=== PATIENT | male | born 1945 | race Caucasian/White ===

== ENCOUNTER 2016-09-07 17:37 | Inpatient (IN) | payer OTHER, MEDICARE ==
--- NOTE | 2016-09-07 19:12 | XR ---
EXAMINATION TYPE: XR chest 2V DATE OF EXAM: 09/07/2016 6:49 PM COMPARISON: NONE HISTORY: Difficulty breathing TECHNIQUE: Frontal and lateral views of the chest are obtained. FINDINGS: There is pulmonary vascular congestion. Heart appears slightly enlarged. There is very sli ght blunting of costophrenic angles. Exam is limited by the obesity. IMPRESSION: There is evidence for mild heart failure. No pulmonary consolidation.
[2016-09-07 19:18] LABS: Basophils % (A) 0 %; CH 29.8; CHCM 31.8; Eosinophils # (A) 0.1 k/uL (0-0.7); Eosinophils % (A) 3 %; HCT 49.3 % (39.0-53.0); HDW 2.46; HGB 15.3 gm/dL (13.0-17.5); Luc # (Auto) 0.06; Luc % (Auto) 1; Lymphocytes # (A) 0.9 k/uL (1.0-4.8); Lymphocytes % (A) 21 %; MCH 29.2 pg (25.0-35.0); MCHC 31.1 g/dL (31.0-37.0); MCV 93.9 fL (80.0-100.0); Mean Platelet Volume 9.8; Monocytes # (A) 0.4 k/uL (0-1.0); Monocytes % (A) 8 %; Neutrophils # (A) 3.1 k/uL (1.3-7.7); Neutrophils % (A) 67 %; RBC 5.25 m/uL (4.30-5.90); RDW 13.5 % (11.5-15.5); WBC 4.6 k/uL (3.8-10.6)
[2016-09-07 19:32] LABS: ALT 40 U/L (21-72); AST 44 U/L (17-59); Alkaline Phosphatase 77 U/L (38-126); Anion Gap 10 mmol/L; Blood Urea Nitrogen 14 mg/dL (9-20); Calcium 8.4 mg/dL (8.4-10.2); Carbon Dioxide 29 mmol/L (22-30); Chloride 104 mmol/L (98-107); Glucose 118 mg/dL (74-99); Magnesium 1.8 mg/dL (1.6-2.3); Non-African American GFR(MDRD) >60 (>60 ml/min/1.73 sqM); Partial Thromboplastin Time 32.1 sec (22.0-30.0); Sodium 143 mmol/L (137-145); Total Bilirubin 2.1 mg/dL (0.2-1.3); Total Protein 7.3 g/dL (6.3-8.2)
[2016-09-07 19:39] LABS: Potassium 6.2 mmol/L (3.5-5.1)
[2016-09-07 19:42] LABS: Prothrombin Time 54.8 sec (9.0-12.0)
[2016-09-07 19:50] LABS: INR 5.5 (<1.1)
[2016-09-07] MEDS ORDERED: SODIUM POLYSTYRENE SULFONATE 15 GM/60 ML BOTTLE PO STA (20:03)
[2016-09-07] MEDS ORDERED: ONDANSETRON 4 MG/2 ML VIAL IVP PRN (20:22)
[2016-09-07] MEDS ORDERED: NALOXONE 0.4 MG/ML 1 ML VIAL IV PRN (20:22)
[2016-09-07] MEDS ORDERED: MORPHINE SULFATE 4 MG/ML SYRINGE IV PRN (20:22)
--- NOTE | 2016-09-07 20:22 | ED ---
SOB HPI - General Chief Complaint: Shortness of Breath Stated Complaint: SOB Time Seen by Provider: 09/07/16 18:17 Source: patient Mode of arrival: wheelchair Limitations: no limitations - History of Present Illness Initial Comments: Patient complains of shortness of breath. His symptoms have been off and on for some time. He does have chronic swelling the legs. He also has a history of atrial fibrillation for which she takes Coumadin. Patient states that yesterday the shortness of breath became acutely worse. He has no fevers or chills. He has no chest pain. He has no belly pain. He has no back pain. He has taken no specific medication for the shortness of breath. He was not doing anything when he began to feel this way. He has no lightheadedness or dizziness. Patient states that the shortness of breath is fairly bad just while sitting, however if he gets up to walk around he is immediately dyspneic. He is only able to take a few steps before he becomes severely short of breath. - Related Data Home Medications Medication Instructions Recorded Confirmed Celecoxib [CeleBREX] 200 mg PO HS 07/07/16 09/07/16 Warfarin [Coumadin] 5 mg PO SUMOWEFR 07/07/16 09/07/16 Warfarin [Coumadin] 7.5 mg PO TUTHSA 07/07/16 09/07/16 Furosemide [Lasix] 40 mg PO DAILY 09/07/16 09/07/16 Potassium Chloride [Klor-Con 10] 20 meq PO DAILY 09/07/16 09/07/16 Previous Rx's Medication Instructions Recorded Cephalexin [Keflex] 500 mg PO Q6HR #40 cap 09/02/16 Allergies Allergy/AdvReac Type Severity Reaction Status Date / Time No Known Allergies Allergy Verified 09/07/16 18:22 Review of Systems ROS Statement: Those systems with pertinent positive or pertinent negative responses have been documented in the HPI. ROS Other: All systems not noted in ROS Statement are negative. Past Medical History Past Medical History: Atrial Fibrillation, Cancer, Deep Vein Thrombosis (DVT), Osteoarthritis (OA), Vascular Disorder Additional Past Medical History / Comment(s): HX of DVT ', basal cell carcinoma to arm 2014, venous stasis ulcers both legs History of Any Multi-Drug Resistant Organisms: None Reported Past Surgical History: Tonsillectomy Additional Past Surgical History / Comment(s): skin CA wrist Past Anesthesia/Blood Transfusion Reactions: No Reported Reaction Past Psychological History: No Psychological Hx Reported Smoking Status: Never smoker Past Alcohol Use History: Occasional Past Drug Use History: None Reported - Past Family History Father Family Medical History: Cancer Mother Family Medical History: No Reported History General Exam Limitations: no limitations General appearance: alert, in no apparent distress Head exam: Present: atraumatic, normocephalic, normal inspection Eye exam: Present: normal appearance, PERRL, EOMI. Absent: scleral icterus, conjunctival injection, periorbital swelling ENT exam: Present: normal exam, mucous membranes moist Neck exam: Present: normal inspection. Absent: tenderness, meningismus, lymphadenopathy Respiratory exam: Present: normal lung sounds bilaterally. Absent: respiratory distress, wheezes, rales, rhonchi, stridor Cardiovascular Exam: Present: regular rate, normal rhythm, normal heart sounds. Absent: systolic murmur, diastolic murmur, rubs, gallop, clicks GI/Abdominal exam: Present: soft, normal bowel sounds. Absent: distended, tenderness, guarding, rebound, rigid Extremities exam: Present: normal inspection, full ROM, normal capillary refill. Absent: tenderness, pedal edema, joint swelling, calf tenderness Back exam: Present: normal inspection Neurological exam: Present: alert, oriented X3, CN II-XII intact Psychiatric exam: Present: normal affect, normal mood Skin exam: Present: warm, dry, intact, normal color. Absent: rash Course Vital Signs 09/07/16 09/07/16 09/07/16 18:00 18:20 19:07 Temperature 97.4 F L Pulse Rate 50 L 58 L Respiratory 22 24 20 Rate Blood Pressure 183/145 141/85 O2 Sat by Pulse 91 L 92 L Oximetry 09/07/16 19:57 Temperature Pulse Rate 137 H Respiratory 20 Rate Blood Pressure 146/100 O2 Sat by Pulse 98 Oximetry Medical Decision Making - Medical Decision Making Patient presents with shortness of breath. I obtained a 2 view chest x-ray which is consistent with heart failure, demonstrating significant pulmonary vascular congestion. There is no infiltrate. Laboratory studies are interpreted by me showing elevated potassium slightly give the patient 30 g Kayexalate by mouth. Patient's INR is significantly elevated, however he has no active bleeding at this time. Overall the patient is not stable for discharge and will be admitted to the hospital. - Lab Data Result diagrams: 09/07/16 18:54 09/07/16 18:54 Lab Results 09/07/16 09/07/16 09/07/16 Range/Units 18:54 18:54 18:54 WBC 4.6 (3.8-10.6) k/uL RBC 5.25 (4.30-5.90) m/uL Hgb 15.3 (13.0-17.5) gm/dL Hct 49.3 (39.0-53.0) % MCV 93.9 (80.0-100.0) fL MCH 29.2 (25.0-35.0) pg MCHC 31.1 (31.0-37.0) g/dL RDW 13.5 (11.5-15.5) % Plt Count 126 L (150-450) k/uL Neutrophils % 67 % Lymphocytes % 21 % Monocytes % 8 % Eosinophils % 3 % Basophils % 0 % Neutrophils # 3.1 (1.3-7.7) k/uL Lymphocytes # 0.9 L (1.0-4.8) k/uL Monocytes # 0.4 (0-1.0) k/uL Eosinophils # 0.1 (0-0.7) k/uL Basophils # 0.0 (0-0.2) k/uL PT (9.0-12.0) sec INR (<1.1) APTT (22.0-30.0) sec Sodium 143 (137-145) mmol/L Potassium 6.2 H* (3.5-5.1) mmol/L Chloride 104 (98-107) mmol/L Carbon Dioxide 29 (22-30) mmol/L Anion Gap 10 mmol/L BUN 14 (9-20) mg/dL Creatinine 0.65 L (0.66-1.25) mg/dL Est GFR (MDRD) Af Amer >60 (>60 ml/min/1.73 sqM) Est GFR (MDRD) Non-Af >60 (>60 ml/min/1.73 sqM) Glucose 118 H (74-99) mg/dL Calcium 8.4 (8.4-10.2) mg/dL Magnesium 1.8 (1.6-2.3) mg/dL Total Bilirubin 2.1 H (0.2-1.3) mg/dL AST 44 (17-59) U/L ALT 40 (21-72) U/L Alkaline Phosphatase 77 (38-126) U/L Troponin I (0.000-0.034) ng/mL NT-Pro-B Natriuret Pep 834 pg/mL Total Protein 7.3 (6.3-8.2) g/dL Albumin 3.5 (3.5-5.0) g/dL 09/07/16 09/07/16 Range/Units 18:54 18:54 WBC (3.8-10.6) k/uL RBC (4.30-5.90) m/uL Hgb (13.0-17.5) gm/dL Hct (39.0-53.0) % MCV (80.0-100.0) fL MCH (25.0-35.0) pg MCHC (31.0-37.0) g/dL RDW (11.5-15.5) % Plt Count (150-450) k/uL Neutrophils % % Lymphocytes % % Monocytes % % Eosinophils % % Basophils % % Neutrophils # (1.3-7.7) k/uL Lymphocytes # (1.0-4.8) k/uL Monocytes # (0-1.0) k/uL Eosinophils # (0-0.7) k/uL Basophils # (0-0.2) k/uL PT 54.8 H (9.0-12.0) sec INR 5.5 H* (<1.1) APTT 32.1 H (22.0-30.0) sec Sodium (137-145) mmol/L Potassium (3.5-5.1) mmol/L Chloride (98-107) mmol/L Carbon Dioxide (22-30) mmol/L Anion Gap mmol/L BUN (9-20) mg/dL Creatinine (0.66-1.25) mg/dL Est GFR (MDRD) Af Amer (>60 ml/min/1.73 sqM) Est GFR (MDRD) Non-Af (>60 ml/min/1.73 sqM) Glucose (74-99) mg/dL Calcium (8.4-10.2) mg/dL Magnesium (1.6-2.3) mg/dL Total Bilirubin (0.2-1.3) mg/dL AST (17-59) U/L ALT (21-72) U/L Alkaline Phosphatase (38-126) U/L Troponin I <0.012 (0.000-0.034) ng/mL NT-Pro-B Natriuret Pep pg/mL Total Protein (6.3-8.2) g/dL Albumin (3.5-5.0) g/dL 09/07/16 20:19 Twelve-lead EKG is obtained, interpreted by me as showing ventricular rate 82 bpm, slightly prolonged CA interval, normal QRS complexes with no ST elevation or depression, interpreted by me as normal sinus rhythm with first-degree AV block. Subsequent twelve-lead EKG was obtained, interpreted by me as showing ventricular rate of 114 bpm, varying CA interval, with multiple PVCs. The QRS Compazine normal. There is no ST elevation or depression. Interpreted by me as sinus rhythm with first-degree AV block and multiple PVCs. Disposition Clinical Impression: Acute pulmonary edema Disposition: ADMITTED IP TO THIS HOSP Condition: Serious Time of Disposition: 20:21
[2016-09-07 21:47] VITALS: BMI 62.4
[2016-09-07] MEDS ORDERED: INSULIN REGULAR 100 UNIT/ML VIAL IV ONE (22:00)
[2016-09-07] MEDS ORDERED: SODIUM BICARB 8.4% 50 ML SYR (1 MEQ/ML) IV STA (22:01)
[2016-09-07] MEDS ORDERED: DEXTROSE 50%-WATER 50 ML SYRINGE IVP STA (22:01)
[2016-09-07] MEDS ORDERED: ALBUTEROL NEBULIZED 2.5 MG/3 ML INHALATION PRN (22:02)
[2016-09-07] MEDS ORDERED: SODIUM POLYSTYRENE SULFONATE 15 GM/60 ML BOTTLE PO ONE (22:04)
[2016-09-07] MEDS ORDERED: PHYTONADIONE ORAL 5 MG/5 ML ORAL.SYRG PO STA (22:05)
[2016-09-07] MEDS ORDERED: FUROSEMIDE 10 MG/ML 4 ML VIAL IV STA (22:08)
[2016-09-07] MEDS ORDERED: CALCIUM GLUCONATE 1,000 MG in SODIUM CHLORIDE 0.9% 100 ML IVPB ONE (22:15)
[2016-09-07] MEDS: FAMOTIDINE 20 MG TAB PO SCH (22:38)
[2016-09-08 07:32] LABS: INR 3.6 (<1.1); Prothrombin Time 35.4 sec (9.0-12.0)
[2016-09-08 07:44] LABS: ALT 42 U/L (21-72); AST 32 U/L (17-59); Alkaline Phosphatase 81 U/L (38-126); Anion Gap 9 mmol/L; Blood Urea Nitrogen 12 mg/dL (9-20); Calcium 8.3 mg/dL (8.4-10.2); Carbon Dioxide 38 mmol/L (22-30); Chloride 100 mmol/L (98-107); Glucose 113 mg/dL (74-99); Non-African American GFR(MDRD) >60 (>60 ml/min/1.73 sqM); Potassium 4.1 mmol/L (3.5-5.1); Sodium 147 mmol/L (137-145); Total Bilirubin 1.8 mg/dL (0.2-1.3); Total Protein 6.5 g/dL (6.3-8.2)
[2016-09-08] MEDS: ALBUTEROL NEBULIZED 2.5 MG/3 ML INHALATION SCH ×4 (07:56→20:14)
[2016-09-08] MEDS ORDERED: FUROSEMIDE 40 MG TAB PO SCH (09:00)
[2016-09-08] MEDS: FAMOTIDINE 20 MG TAB PO SCH ×2 (09:08→19:44)
--- NOTE | 2016-09-08 09:26 | P.CRDCN ---
History of Present Illness Consult date: 09/08/16 Requesting physician: Maria Victoria Hernandes Consult reason: shortness of breath Chief complaint: Shortness of breath History of present illness: This is a 71-year-old gentleman with no prior documented history of hypertension, no diabetes, no hyperlipidemia, prior PE and DVT approximately 20 years ago, recent diagnosis of atrial fibrillation earlier this year, he is morbidly obese and has been going to the wound center regularly because of open wounds on his left lower extremity. He is admitted to the hospital on this occasion with symptoms of shortness of breath, he states that he has noticed a worsening in his breathing over the past one week or so. He states he is always somewhat short of breath because of his size but this is been considerably getting worse. He is on Coumadin because of the history of PE and DVT, states that his INR is always within therapeutic range, however he was started on an antibiotic last , INR this admission 5.5, down to 3.6 this morning. Chest x-ray performed this morning revealed evidence for mild congestive heart failure. Blood pressure on arrival 183/145, initial EKG showed normal sinus rhythm, with runs of what appeared to be A. fib/flutter . Telemetry strips show normal sinus rhythm with PVCs, and intermittent atrial fibrillation . CBC normal. Potassium on admission 6.2, 4.1 this morning. Troponins have been negative 3, BNP . Magnesium level I.8. Past Medical History Past Medical History: Atrial Fibrillation, Cancer, Deep Vein Thrombosis (DVT), Osteoarthritis (OA), Vascular Disorder Additional Past Medical History / Comment(s): HX of DVT ', basal cell carcinoma to arm 2014, venous stasis ulcers both legs, History of Any Multi-Drug Resistant Organisms: None Reported Past Surgical History: Tonsillectomy Additional Past Surgical History / Comment(s): skin CA wrist Past Anesthesia/Blood Transfusion Reactions: No Reported Reaction Past Psychological History: No Psychological Hx Reported Smoking Status: Never smoker Past Alcohol Use History: Occasional Past Drug Use History: None Reported - Past Family History Father Family Medical History: Cancer Mother Family Medical History: No Reported History Medications and Allergies Home Medications Medication Instructions Recorded Confirmed Type Celecoxib [CeleBREX] 200 mg PO HS 07/07/16 09/07/16 History Warfarin [Coumadin] 5 mg PO SUMOWEFR 07/07/16 09/07/16 History Warfarin [Coumadin] 7.5 mg PO TUTHSA 07/07/16 09/07/16 History Furosemide [Lasix] 40 mg PO DAILY 09/07/16 09/07/16 History Potassium Chloride [Klor-Con 10] 20 meq PO DAILY 09/07/16 09/07/16 History Allergies Allergy/AdvReac Type Severity Reaction Status Date / Time No Known Allergies Allergy Verified 09/07/16 18:22 Physical Exam Vitals: Vital Signs Temp Pulse Pulse Resp BP BP Pulse Ox 09/08/16 08:00 97.1 F L 81 16 126/77 92 L 09/08/16 07:58 72 09/08/16 03:23 84 18 09/08/16 03:22 97.1 F L 84 18 133/84 94 L 09/08/16 00:00 50 L 18 137/83 94 L 09/07/16 22:16 159/95 09/07/16 21:29 97.3 F L 47 L 18 186/90 93 L 09/07/16 21:05 98.5 F 102 H 20 168/86 98 09/07/16 20:37 98.7 F 111 H 20 150/85 98 Intake and Output 09/07/16 09/08/16 09/08/16 22:59 06:59 14:59 Intake Total 200 Output Total 450 1650 Balance -450 -1450 Intake: Oral 200 Output: Urine 450 1650 Other: Voiding Method Urinal Incontinent Weight 214.5 kg 212.5 kg PHYSICAL EXAMINATION: HEENT: Head is atraumatic, normocephalic. Pupils equal, round. Neck is supple. There is no elevated jugular venous pressure. HEART EXAMINATION: Heart S1 and S2 irregularly irregular. CHEST EXAMINATION: Lungs are clear with diminished air entry posteriorly to the bases. ABDOMEN: Soft, obese nontender. Bowel sounds are heard. No organomegaly noted. EXTREMITIES: 1+ peripheral pulses with evidence of peripheral edema and no calf tenderness noted. Dressings in place to the left lower extremity NEUROLOGIC patient is awake, alert and oriented -3. . Results 09/09/16 06:28 09/09/16 06:28 Cardiac Enzymes 09/08/16 09/08/16 09/08/16 Range/Units 00:49 06:58 06:58 AST 32 (17-59) U/L Troponin I <0.012 0.012 (0.000-0.034) ng/mL Coagulation 09/08/16 Range/Units 06:58 PT 35.4 H (9.0-12.0) sec Comprehensive Metabolic Panel 09/08/16 Range/Units 06:58 Sodium 147 H (137-145) mmol/L Potassium 4.1 (3.5-5.1) mmol/L Chloride 100 (98-107) mmol/L Carbon Dioxide 38 H (22-30) mmol/L BUN 12 (9-20) mg/dL Creatinine 0.73 (0.66-1.25) mg/dL Glucose 113 H (74-99) mg/dL Calcium 8.3 L (8.4-10.2) mg/dL AST 32 (17-59) U/L ALT 42 (21-72) U/L Alkaline Phosphatase 81 (38-126) U/L Total Protein 6.5 (6.3-8.2) g/dL Albumin 3.2 L (3.5-5.0) g/dL Current Medications Generic Name Dose Route Start Last Admin Trade Name Freq PRN Reason Stop Dose Admin Albuterol Sulfate 2.5 mg 09/08/16 08:00 09/08/16 07:56 Ventolin Nebulized INHALATION 2.5 mg RT-QID CRISTINE Administration Albuterol Sulfate 2.5 mg 09/07/16 22:02 Ventolin Nebulized INHALATION RT-Q2H PRN Shortness Of Breath Or Wheezing Famotidine 20 mg 09/07/16 21:00 09/08/16 09:08 Pepcid PO 20 mg BID CRISTINE Administration Furosemide 40 mg 09/08/16 09:00 09/08/16 09:08 Lasix PO 40 mg DAILY CRISTINE Administration Influenza Virus Vaccine Quadrival 60 mcg 09/08/16 19:00 Fluarix Vaccine [id number] IM 09/08/16 19:01 .ONCE ONE Morphine Sulfate 4 mg 09/07/16 20:22 Morphine Sulfate (Inj) IV Q4HR PRN Severe Pain Naloxone HCl 0.2 mg 09/07/16 20:22 Narcan IV Q2M PRN Opioid Reversal Ondansetron HCl 4 mg 09/07/16 20:22 Zofran IVP Q8HR PRN Nausea And Vomiting Pneumococcal Polyvalent Vaccine 25 mcg 09/08/16 19:00 Pneumococcal Vacc-Pneumovax 23 IM 09/08/16 19:01 .ONCE ONE Tramadol HCl 50 mg 09/07/16 20:22 Ultram PO Q6H PRN Moderate Pain Intake and Output 09/07/16 09/08/16 09/08/16 22:59 06:59 14:59 Intake Total 200 Output Total 450 1650 Balance -450 -1450 Intake: Oral 200 Output: Urine 450 1650 Other: Voiding Method Urinal Incontinent Weight 214.5 kg 212.5 kg 09/08/16 06:58 EKG Interpretations (text) EKG shows normal sinus rhythm with first-degree AV block and runs of atrial tachycardia. Assessment and Plan Plan: Assessment and plan #1 symptoms of progressive worsening shortness of breath, chest x-ray suggests congestive heart failure, BNP level 834. One dose of IV Lasix given in the emergency room, patient currently on by mouth Lasix. LV function unknown. #2 history of prior PE and DVT, on Coumadin,INR 5.5 on admission,3.6 this morning. Patient was recently started on an antibiotic for possible cellulitis. #3 recent diagnosis of paroxysmal atrial fibrillation approximately one week ago according to the patient. #4 morbid obesity #5 atrial fibrillation, paroxysmal Plan We will obtain an echocardiogram with Doppler study to assess the patient's LV function. We will also discontinue the oral diuretics and start the patient on IV Lasix. Continue to monitor intake and output along with daily weights. This patient's LV function is normal, consider the addition of verapamil. Further recommendations to follow. DNP note has been reviewed, I agree with a documented findings and plan of care. Patient was seen and examined.
--- NOTE | 2016-09-08 11:08 | ECHOF ---
Referral Reason:LV fx MEASUREMENTS -------- HEIGHT: 182.9 cm WEIGHT: 215.5 kg BP: RVIDd: 4.0 cm (< 3.3) IVSd: 1.3 cm (0.6 - 1.1) LVIDd: 5.9 cm (3.9 - 5.3) LVPWd: 1.5 cm (0.6 - 1.1) IVSs: 1.8 cm LVIDs: 4.0 cm LVPWs: 1.1 cm Ao Diam: 3.6 cm (2.0 - 3.7) LA Diam: 4.7 cm (2.7 - 3.8) MV EXCURSION: 21.692 mm (> 18.000) MV EF SLOPE: 115 mm/s (70 - 150) EPSS: 2.1 cm RAP: 5.00 mmHg RVSP: 11.86 mmHg FINDINGS -------- Undetermined rhythm. Morbid Obesity This was a techncally difficult study with suboptimal views, , Definity utilized for enhancement of images. There is mild concentric left ventricular hypertrophy. Overall left ventricular systolic function is mild-moderately impaired with, an EF between 40 - 45 %. The right ventricle is normal in size. The left atrial size is normal. The right atrial size is normal. 1.5MG OF DEFINITY UTLIZED: 2 OR MORE WALL SEGMENTS NOT VISUALIZED. There is mild aortic valve sclerosis. There is no evidence of aortic regurgitation. Mild mitral annular calcification present. Mild mitral regurgitation is present. Mild tricuspid regurgitation present. There is no evidence of pulmonary hypertension. The right ventricular systolic pressure, as measured by Doppler, is 11.86mmHg. There is no pulmonic regurgitation present. The aortic root size is normal. There is no pericardial effusion. CONCLUSIONS -------- 1. Morbid Obesity 2. There is no evidence of pulmonary hypertension. 3. The right ventricular systolic pressure, as measured by Doppler, is 11.86mmHg. 4. There is no pulmonic regurgitation present. 5. The aortic root size is normal. 6. There is no pericardial effusion. 7. This was a techncally difficult study with suboptimal views, , Definity utilized for enhancement of images. 8. There is mild concentric left ventricular hypertrophy. 9. Overall left ventricular systolic function is mild-moderately impaired with, an EF between 40 - 45 %. 10. 1.5MG OF DEFINITY UTLIZED: 2 OR MORE WALL SEGMENTS NOT VISUALIZED. 11. There is mild aortic valve sclerosis. 12. Mild mitral annular calcification present. 13. Mild mitral regurgitation is present. 14. Mild tricuspid regurgitation present. MANAGER OF INTERNATIONAL: Veda Rodriguez RDCS
[2016-09-08] MEDS: FUROSEMIDE 10 MG/ML 4 ML VIAL IV SCH ×2 (12:33→19:44)
[2016-09-08] MEDS: traMADol 50 MG TAB PO PRN (14:15)
--- NOTE | 2016-09-08 14:42 | HP ---
DATE OF ADMISSION: Chief complaint is difficulty breathing. HISTORY OF ILLNESS: Mr. Urena is a 71-year-old male with known history of morbid obesity, recently diagnosed with atrial fibrillation and chronic bilateral lower extremity DVT and history of PE on anticoagulation with Coumadin for the past 20 years and bilateral lower extremity lymphedema and wound ulcers, on follow [facility], and hypertension, hyperlipidemia, was admitted to the hospital for worsening short of breath for the past one week. Patient had a chest x-ray, showed mild CHF on admission. Patient also had uncontrolled blood pressure at 183/145 on admission. Patient was admitted to hospital for further evaluation. Otherwise, patient denied any complaints of recent illnesses. Patient is noncompliant with his medications. His INR level was 5.5 on admission, came down to 3.6 this morning. BNP level was 834 and magnesium was 1.8 on admission and troponins x3 are negative. A 2-D echo was ordered, showed ejection fraction of 40% to 45% and Cardiology is following this patient. REVIEW OF SYSTEMS: CONSTITUTIONAL: No fever. No chills. No weakness or malaise. RESPIRATORY: No cough. Patient does have short of breath. CARDIOVASCULAR: No chest pain. Patient does have short of breath and worsening leg swelling. GENITOURINARY: Negative. ENDOCRINE: Negative. ABDOMEN: No nausea or vomiting, abdominal pain. No diarrhea. All other 14-point review of systems negative except as above. Past medical history includes atrial fibrillation, history of bilateral lower extremity DVT and history of PE, osteoarthritis, morbid obesity with a BMI of 61.8, ( ) carcinoma to arm in 2015, bilateral lower extremity lymphedema and venostasis ulcers of both legs, recently diagnosed atrial fibrillation, hypertension, hyperlipidemia. PAST SURGICAL HISTORY: Skin cancer of the wrist, resection, tonsillectomy. No psychosocial history. SOCIAL HISTORY: Patient never a smoker. Occasional alcohol use. Denied any drugs or IVDU. FAMILY HISTORY: Father had cancer, mother had no reported history. ALLERGIES: No known drug allergies. Home medications include: 1. Celebrex. 2. Warfarin. 3. Lasix. 4. Potassium chloride. PHYSICAL EXAMINATION: S1, a lying or sitting in the bed comfortably, awake, alert, oriented, x3. Patient is morbidly obese. VITALS: Blood pressure is 133/84, pulse is 84, respirations 18, temperature afebrile, pulse ox is 94% on 2 L nasal cannula. HEENT: Atraumatic, normocephalic. Neck is supple. No JVD. No thyromegaly. CVS EXAM: S1, S2 heard. No murmurs, no gallop. LUNGS: Bilateral decreased air entry. No crackles. No wheezing noted. ABDOMEN: Soft, morbidly obese. Bowel sounds are present. 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 No focal neurologic deficits. Cranial nerves grossly intact. EXTREMITIES: Bilateral lower extremity chronic leg swelling with venostasis ulcer on the left lower extremity greater than right. No signs of infection. No purulent discharge. PSYCHIATRIC: Cooperative, nonsuicidal. LABORATORY DATA: WBC 4.6, hemoglobin 15.3. Platelet is 126, INR 5.5. Sodium 143, potassium 6.2, chloride 104, bicarb is 29, BUN 14, creatinine 0.65, blood sugar is 118 and total bilirubin is 2.1. Troponin x3 is negative, albumin 3.2. IMPRESSION: 1. Shortness of breath secondary to acute congestive heart failure systolic dysfunction, ejection fraction 40% to 45%. 2. History of chronic lower extremity deep venous thrombosis on Coumadin for the past 20 years. 3. Morbid obesity with body mass index of 61.8. 4. Hyperkalemia, potassium level of 6.2 on admission and came down to 4.1 now. 5. Supratherapeutic INR/Coumadin coagulopathy with an INR level of 5.5 on admission, came down to 3.6 now. 6. Recent diagnosis of paroxysmal atrial fibrillation. 7. Hyperlipidemia. 8. Hypertension. 9. Chronic bilateral lower extremity swelling and venostasis ulcers on follow up with the [facility]. 10. Deep venous thrombosis prophylaxis. DISCUSSION AND PLAN: A 71-year-old male admitted to the hospital with worsening short of breath and was found to have acute CHF with systolic dysfunction with moderate reduction LV function with ejection fraction of 40% to 45%. Will continue with the IV diuresis and patient will be started on aspirin, beta blockers and check lipid panel. Cardiology is following this patient. Will follow up INR level. Further recommendations based on clinical course, prognosis is guarded. Patient also is recently started on antibiotics in the form of Keflex for cellulitis of the lower extremity.
[2016-09-08] MEDS ORDERED: INFLUENZA VACCINE (3YR+) 60 MCG/0.5 ML SYRINGE IM ONE (19:00)
[2016-09-08] MEDS ORDERED: PNEUMOCOCCAL VACC-PNEUMOVAX 23 25 MCG/0.5 ML VIAL IM ONE (19:00)
[2016-09-09] MEDS: traMADol 50 MG TAB PO PRN (04:22)
[2016-09-09 07:04] LABS: Basophils % (A) 0 %; CH 29.1; CHCM 30.4; Eosinophils # (A) 0.1 k/uL (0-0.7); Eosinophils % (A) 3 %; HDW 2.34; HGB 14.7 gm/dL (13.0-17.5); Hypochromasia Moderate; Luc # (Auto) 0.11; Luc % (Auto) 2; Lymphocytes # (A) 0.9 k/uL (1.0-4.8); Lymphocytes % (A) 18 %; MCH 29.9 pg (25.0-35.0); MCHC 31.2 g/dL (31.0-37.0); MCV 96.1 fL (80.0-100.0); Mean Platelet Volume 8.9; Monocytes # (A) 0.4 k/uL (0-1.0); Monocytes % (A) 7 %; Neutrophils # (A) 3.4 k/uL (1.3-7.7); Neutrophils % (A) 69 %; RBC 4.89 m/uL (4.30-5.90); RDW 13.2 % (11.5-15.5); WBC 4.9 k/uL (3.8-10.6); WBC (Perox) 5.08
[2016-09-09 07:22] LABS: Anion Gap 9 mmol/L; Blood Urea Nitrogen 14 mg/dL (9-20); Calcium 8.3 mg/dL (8.4-10.2); Carbon Dioxide 37 mmol/L (22-30); Chloride 97 mmol/L (98-107); Cholesterol 167 mg/dL (<200); Glucose 138 mg/dL (74-99); HDL Cholesterol 38 mg/dL (40-60); Non-African American GFR(MDRD) >60 (>60 ml/min/1.73 sqM); Potassium 4.1 mmol/L (3.5-5.1); Sodium 143 mmol/L (137-145); Triglycerides 82 mg/dL (<150)
[2016-09-09 07:49] LABS: INR 1.9 (<1.1); Prothrombin Time 18.1 sec (9.0-12.0)
[2016-09-09] MEDS: FUROSEMIDE 10 MG/ML 4 ML VIAL IV SCH ×2 (09:06→21:36)
[2016-09-09] MEDS: FAMOTIDINE 20 MG TAB PO SCH ×2 (09:06→21:36)
[2016-09-09] MEDS: ALBUTEROL NEBULIZED 2.5 MG/3 ML INHALATION SCH ×4 (09:18→19:27)
[2016-09-09] MEDS ORDERED: ceFAZolin 1,000 MG in SODIUM CHLORIDE 0.9% IRRIGATIO 250 ML IRRIGATION ONE (14:00)
[2016-09-09] MEDS ORDERED: ceFAZolin 2 GM in SODIUM CHLORIDE 0.9% 100 ML IVPB ONE (14:00)
--- NOTE | 2016-09-09 14:35 | P.PN ---
Subjective Principal diagnosis: Shortness of breath This is a 71-year-old gentleman with no prior documented history of hypertension, no diabetes, no hyperlipidemia, prior PE and DVT approximately 20 years ago, recent diagnosis of atrial fibrillation earlier this year, he is morbidly obese and has been going to the wound center regularly because of open wounds on his left lower extremity. He is admitted to the hospital on this occasion with symptoms of shortness of breath, he states that he has noticed a worsening in his breathing over the past one week or so. He states he is always somewhat short of breath because of his size but this is been considerably getting worse. He is on Coumadin because of the history of PE and DVT, states that his INR is always within therapeutic range, however he was started on an antibiotic last , INR this admission 5.5, down to 1.9 this morning. EKG on this admission also showed atrial fibrillation. Patient continues to be in sinus rhythm this morning still having intermittent runs of atrial fibrillation. He was initiated on verapamil yesterday. Patient was also started on IV Lasix, weight is down 2 kg today. Creatinine 0.8. Echocardiogram with Doppler study was performed which revealed an ejection fraction of 40-45%. Objective - Vital Signs Vital signs: Vital Signs Temp 97.5 F L 09/09/16 12:08 Pulse 128 H 09/09/16 12:08 Resp 18 09/09/16 12:08 BP 153/98 09/09/16 12:08 Pulse Ox 91 L 09/09/16 12:08 Intake & Output 09/08/16 09/09/16 09/09/16 18:59 06:59 18:59 Intake Total 402 420 Output Total 1500 1400 350 Balance -1098 -1400 70 Weight 210.7 kg Intake: Oral 402 420 Output: Urine 1500 1400 350 Other: Voiding Method Urinal Urinal Urinal Incontinent # Voids 0 - Exam PHYSICAL EXAMINATION: HEENT: Head is atraumatic, normocephalic. Pupils equal, round. Neck is supple. There is no elevated jugular venous pressure. HEART EXAMINATION: Heart S1 and S2 irregularly irregular. CHEST EXAMINATION: Lungs are clear with diminished air entry posteriorly to the bases. ABDOMEN: Soft, obese nontender. Bowel sounds are heard. No organomegaly noted. EXTREMITIES: 1+ peripheral pulses with evidence of peripheral edema and no calf tenderness noted. Dressings in place to the left lower extremity NEUROLOGIC patient is awake, alert and oriented -3. . - Labs CBC & Chem 7: 09/09/16 06:28 09/09/16 06:28 Labs: Abnormal Lab Results - Last 24 Hours (Table) 09/09/16 09/09/16 09/09/16 Range/Units 06:28 06:28 06:51 Plt Count 139 L (150-450) k/uL Lymphocytes # 0.9 L (1.0-4.8) k/uL PT 18.1 H (9.0-12.0) sec Chloride 97 L (98-107) mmol/L Carbon Dioxide 37 H (22-30) mmol/L Glucose 138 H (74-99) mg/dL Calcium 8.3 L (8.4-10.2) mg/dL LDL Cholesterol, Calc 113 H (0-99) mg/dL HDL Cholesterol 38 L (40-60) mg/dL Assessment and Plan Plan: Assessment and plan #1 symptoms of progressive worsening shortness of breath, chest x-ray suggests congestive heart failure, BNP level 834. One dose of IV Lasix given in the emergency room, patient currently on by mouth Lasix. LV function unknown. #2 history of prior PE and DVT, on Coumadin,INR 5.5 on admission,1.9 this morning. Patient was recently started on an antibiotic for possible cellulitis. #3 recent diagnosis of paroxysmal atrial fibrillation approximately one week ago according to the patient. #4 morbid obesity #5 atrial fibrillation, paroxysmal Plan We will give the patient 5 mg of Coumadin today. Continue diuresing with IV Lasix. Continue current dose of verapamil. DNP note has been reviewed, I agree with a documented findings and plan of care. Patient was seen and examined.
[2016-09-09] MEDS: SODIUM CHLORIDE 0.9% 1,000 ML IV SCH (15:12)
[2016-09-09] MEDS ORDERED: VERAPAMIL 40 MG TAB PO SCH (16:00)
[2016-09-09] MEDS: VERAPAMIL 80 MG TAB PO SCH ×2 (16:22→21:36)
[2016-09-09] MEDS ORDERED: WARFARIN 5 MG TAB PO ONE (18:00)
[2016-09-10] MEDS: ALBUTEROL NEBULIZED 2.5 MG/3 ML INHALATION SCH ×4 (07:13→20:01)
[2016-09-10] MEDS: VERAPAMIL 80 MG TAB PO SCH (09:16)
[2016-09-10] MEDS: FAMOTIDINE 20 MG TAB PO SCH ×2 (09:16→20:31)
[2016-09-10] MEDS: FUROSEMIDE 10 MG/ML 4 ML VIAL IV SCH ×2 (09:16→20:32)
--- NOTE | 2016-09-10 11:38 | PN ---
DATE OF SERVICE: 09/09/2016 INTERVAL HISTORY: Mr. Urena is a 71-year-old male with a known history of morbid obesity and history of deep venous thrombosis and PE on anticoagulation with Coumadin for the past 20 years and bilateral lower extremity swelling and chronic venostasis ulcers and recently diagnosed atrial fibrillation admitted to the hospital with worsening shortness of breath for the past one week and currently being treated for acute CHF exacerbation. 2-D echo showed ejection fraction 40 to 45% and patient is still tachycardic. Currently on verapamil as per cardiology recommendations. Otherwise, patient denied any complaints of chest pain or worsening short of breath. Shortness of breath much improved now. Wound care has been consulted for lower extremity ulcers especially on the left side. REVIEW OF SYSTEMS: CONSTITUTIONAL: No fever. No chills. RESPIRATORY: No cough or sputum production. CARDIOVASCULAR: No chest pain or short of breath. ABDOMEN: No nausea, vomiting or abdominal pain. GENITOURINARY: Negative. ENDOCRINE: Negative. PSYCHIATRIC: Negative. SKIN: Negative except for above. All other 14 point review of systems negative except as above. CURRENT MEDICATIONS: Reviewed. PHYSICAL EXAMINATION: A 71-year-old male lying in bed comfortably, awake, alert, oriented x3, appears in no apparent distress. VITALS: Blood pressure is 128/79, pulse is 122, respirations 20, temperature afebrile, pulse ox 94% on 2-L nasal cannula. HEENT: Atraumatic, normocephalic. Neck is supple. No JVD. CVS: S1, S2 heard. No murmurs, no gallop. LUNGS: Bilateral air entry is present. Decreased breath sounds bilateral basally. Nonlabored breathing. ABDOMEN: Soft, obese. Bowel sounds are present. 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 EXTREMITIES: Bilateral lower extremity swelling with venostasis ulcers. No signs of infection. PSYCHIATRIC: Cooperative. LABORATORY DATA: WBC 4.9, hemoglobin 14.7, platelets 139, sodium 143, potassium 4.1, chloride 97, bicarbonate 37, BUN 14, creatinine 0.87, calcium 8.3, ALT is 113. IMPRESSION: 1. Progressive shortness of breath secondary to congestive heart failure exacerbation acute with systolic dysfunction, ejection fraction 40 to 45%. 2. Recently diagnosed atrial fibrillation with rapid ventricular rate. Rate currently still tachycardic. 3. Chronic lower extremity deep venous thrombosis on Coumadin for the past 20 years. 4. Obesity with body mass index of 61.8. 5. Hyperkalemia on admission, resolved now. 6. Supratherapeutic INR, resolved, INR 1.9. Coumadin has been restarted. 7. Recent diagnosis of paroxysmal atrial fibrillation. 8. Hyperlipidemia. 9. Hypertension. 10. Chronic bilateral lower extremity swelling and venostasis ulcers. Following up [facility]. 11. Deep venous thrombosis prophylaxis, currently already on Coumadin. DISCUSSION AND PLAN: A 71-year-old male admitted to the hospital with CHF exacerbation and atrial fibrillation with rapid ventricular rate. Will continue the verapamil. Continue IV diuresis and current management. Cardiology following the patient. Wound care has been consulted. Patient is supposed to follow with the [facility]. Will continue current management. Further recommendations based on the clinical course. Prognosis guarded.
[2016-09-10] MEDS: SODIUM CHLORIDE 0.9% 1,000 ML IV SCH (11:52)
--- NOTE | 2016-09-10 12:34 | P.PN ---
Subjective This is a 71-year-old gentleman with no prior documented history of hypertension, diabetes, hyperlipidemia. Does have a history of prior PE and DVT approximately 20 years ago and recent diagnosis of atrial fibrillation earlier this year. Patient is morbidly obese and has been going to the wound center regularly because of open wounds on his left lower extremity. He was admitted to the hospital on this occasion with symptoms of shortness of breath that have been worsening over a week or so. He is on Coumadin because of a history of PE and DVT and says his INR is usually within therapeutic range however was started on antibiotic last and his INR on admission was 5.5. His INR yesterday was 1.9 and he received 5 mg of Coumadin last night. Upon examination this morning patient is resting comfortably in bed states he feels a little dizzy after just waking up. He remains on IV Lasix. He is currently on Brevital 80 mg by mouth 3 times a day for heart rate control. He has been noted to have short runs of nonsustained VT on the monitor. Objective - Vital Signs Vital signs: Vital Signs Temp 97.6 F 09/10/16 12:00 Pulse 98 09/10/16 12:00 Resp 18 09/10/16 12:00 BP 103/66 09/10/16 12:00 Pulse Ox 94 L 09/10/16 12:00 Intake & Output 09/09/16 09/10/16 09/10/16 18:59 06:59 18:59 Intake Total 1080 280 Output Total 350 1200 550 Balance 730 -1200 -270 Weight 210.9 kg Intake: Oral 1080 280 Output: Urine 350 1200 550 Other: Voiding Method Urinal Urinal Urinal # Voids 0 - Exam PHYSICAL EXAMINATION: HEENT: Head is atraumatic, normocephalic. Pupils equal, round. Neck is supple. There is no elevated jugular venous pressure. HEART EXAMINATION: Heart sounds regular, S1 and S2 normal. CHEST EXAMINATION: Lungs reveal diminished air entry bilaterally. No chest wall tenderness is noted on palpation or with deep breathing. ABDOMEN: Soft, nontender. Bowel sounds are heard. No organomegaly noted. EXTREMITIES: 1+ peripheral pulses with evidence of peripheral edema and no calf tenderness noted. Dressings in place for left lower extremity. NEUROLOGIC patient is awake, alert and oriented x3. . - Labs CBC & Chem 7: 09/09/16 06:28 12/29/16 06:28 Assessment and Plan Plan: #1 systolic congestive heart failure, ejection fraction 40-45% with symptoms of progressive worsening shortness of breath, chest x-ray suggests congestive heart failure, BNP level 834. On IV Lasix #2 history of PE and DVT, on Coumadin #3 paroxysmal atrial fibrillation currently in sinus rhythm with PVCs and runs of nonsustained VT #4 morbid obesity From cardiac standpoint, we'll stop verapamil and start the patient on metoprolol 25 mg by mouth 3 times a day. We will continue IV Lasix at this time. We will obtain an INR with Coumadin dosing accordingly to keep INR 2.0- 3.0. We will also follow patient's renal function, electrolytes, daily weights and intake and output. Further recommendations to follow. SEWER PIPE CLEANER note has been reviewed, I agree with a documented findings and plan of care. Patient was seen and examined.
--- NOTE | 2016-09-10 13:02 | P.PN ---
Subjective Principal diagnosis: History of Present Illness Consult date: 09/08/16 Requesting physician: Maria Victoria Hernandes Consult reason: Venous stasis ulcer left leg Chief complaint: Congestive heart failure with secondary venous stasis ulcer left leg History of present illness: This is a 71-year-old gentleman with no prior documented history of hypertension, no diabetes, no hyperlipidemia, prior PE and DVT approximately 20 years ago, recent diagnosis of atrial fibrillation earlier this year, he is morbidly obese and has been going to the wound center regularly because of open wounds on his left lower extremity. He is admitted to the hospital on this occasion with symptoms of shortness of breath, he states that he has noticed a worsening in his breathing over the past one week or so. Patient states he stopped taking his Lasix due to a holiday alliance party and continued using the compressive ice for the edema in his leg. After doing this his symptoms of congestive heart failure started. Today's date patient's resting on the bed comfortably with no distress. Past Medical History Past Medical History: Atrial Fibrillation, Cancer, Deep Vein Thrombosis (DVT), Osteoarthritis (OA), Vascular Disorder Additional Past Medical History / Comment(s): HX of DVT ', basal cell carcinoma to arm 2014, venous stasis ulcers both legs, History of Any Multi-Drug Resistant Organisms: None Reported Past Surgical History: Tonsillectomy Additional Past Surgical History / Comment(s): skin CA wrist Past Anesthesia/Blood Transfusion Reactions: No Reported Reaction Past Psychological History: No Psychological Hx Reported Smoking Status: Never smoker Past Alcohol Use History: Occasional Past Drug Use History: None Reported - Past Family History Father Family Medical History: Cancer Mother Family Medical History: No Reported History Medications and Allergies Home Medications Medication Instructions Recorded Confirmed Type Celecoxib [CeleBREX] 200 mg PO HS 07/07/16 09/07/16 History Warfarin [Coumadin] 5 mg PO SUMOWEFR 07/07/16 09/07/16 History Warfarin [Coumadin] 7.5 mg PO TUTHSA 07/07/16 09/07/16 History Furosemide [Lasix] 40 mg PO DAILY 09/07/16 09/07/16 History Potassium Chloride [Klor-Con 10] 20 meq PO DAILY 09/07/16 09/07/16 History Allergies Allergy/AdvReac Type Severity Reaction Status Date / Time No Known Allergies Allergy Verified 09/07/16 18:22 Physical Exam Vitals: Vital Signs Temp Pulse Pulse Resp BP BP Pulse Ox 09/08/16 08:00 97.1 F L 81 16 126/77 92 L 09/08/16 07:58 72 09/08/16 03:23 84 18 09/08/16 03:22 97.1 F L 84 18 133/84 94 L 09/08/16 00:00 50 L 18 137/83 94 L 09/07/16 22:16 159/95 09/07/16 21:29 97.3 F L 47 L 18 186/90 93 L 09/07/16 21:05 98.5 F 102 H 20 168/86 98 09/07/16 20:37 98.7 F 111 H 20 150/85 98 Intake and Output 09/07/16 09/08/16 09/08/16 22:59 06:59 14:59 Intake Total 200 Output Total 450 1650 Balance -450 -1450 Intake: Oral 200 Output: Urine 450 1650 Other: Voiding Method Urinal Incontinent Weight 214.5 kg 212.5 kg PHYSICAL EXAMINATION: HEENT: Head is atraumatic, normocephalic. Pupils equal, round. Neck is supple. There is no elevated jugular venous pressure. HEART EXAMINATION: Heart S1 and S2 irregularly irregular. CHEST EXAMINATION: Lungs are clear with diminished air entry posteriorly to the bases. ABDOMEN: Soft, obese nontender. Bowel sounds are heard. No organomegaly noted. EXTREMITIES: 1+ peripheral pulses with evidence of peripheral edema and no calf tenderness noted. Dressings in place to the left lower extremity NEUROLOGIC patient is awake, alert and oriented -3. . Results 09/09/16 06:28 09/09/16 06:28 Cardiac Enzymes 09/08/16 09/08/16 09/08/16 Range/Units 00:49 06:58 06:58 AST 32 (17-59) U/L Troponin I <0.012 0.012 (0.000-0.034) ng/mL Coagulation 09/08/16 Range/Units 06:58 PT 35.4 H (9.0-12.0) sec Comprehensive Metabolic Panel 09/08/16 Range/Units 06:58 Sodium 147 H (137-145) mmol/L Potassium 4.1 (3.5-5.1) mmol/L Chloride 100 (98-107) mmol/L Carbon Dioxide 38 H (22-30) mmol/L BUN 12 (9-20) mg/dL Creatinine 0.73 (0.66-1.25) mg/dL Glucose 113 H (74-99) mg/dL Calcium 8.3 L (8.4-10.2) mg/dL AST 32 (17-59) U/L ALT 42 (21-72) U/L Alkaline Phosphatase 81 (38-126) U/L Total Protein 6.5 (6.3-8.2) g/dL Albumin 3.2 L (3.5-5.0) g/dL Current Medications Generic Name Dose Route Start Last Admin Trade Name Freq PRN Reason Stop Dose Admin Albuterol Sulfate 2.5 mg 09/08/16 08:00 09/08/16 07:56 Ventolin Nebulized INHALATION 2.5 mg RT-QID CRISTINE Administration Albuterol Sulfate 2.5 mg 09/07/16 22:02 Ventolin Nebulized INHALATION RT-Q2H PRN Shortness Of Breath Or Wheezing Famotidine 20 mg 09/07/16 21:00 09/08/16 09:08 Pepcid PO 20 mg BID CRISTINE Administration Furosemide 40 mg 09/08/16 09:00 09/08/16 09:08 Lasix PO 40 mg DAILY CRISTINE Administration Influenza Virus Vaccine Quadrival 60 mcg 09/08/16 19:00 Fluarix Vaccine [id number] IM 09/08/16 19:01 .ONCE ONE Morphine Sulfate 4 mg 09/07/16 20:22 Morphine Sulfate (Inj) IV Q4HR PRN Severe Pain Naloxone HCl 0.2 mg 09/07/16 20:22 Narcan IV Q2M PRN Opioid Reversal Ondansetron HCl 4 mg 09/07/16 20:22 Zofran IVP Q8HR PRN Nausea And Vomiting Pneumococcal Polyvalent Vaccine 25 mcg 09/08/16 19:00 Pneumococcal Vacc-Pneumovax 23 IM 09/08/16 19:01 .ONCE ONE Tramadol HCl 50 mg 09/07/16 20:22 Ultram PO Q6H PRN Moderate Pain Intake and Output 09/07/16 09/08/16 09/08/16 22:59 06:59 14:59 Intake Total 200 Output Total 450 1650 Balance -450 -1450 Intake: Oral 200 Output: Urine 450 1650 Other: Voiding Method Urinal Incontinent Weight 214.5 kg 212.5 kg 09/08/16 06:58 Podiatric exam: Patient has a venous stasis ulcer that is stable on the lateral aspect of the left leg. There is necrotic tissue consistent with current treatment. There is descending erythema and edema clinically as opposed to clinical evaluation 2 weeks ago. Ears the cellulitis is resolving. Neurovascular status to the foot and leg is unchanged with venous insufficiency noted bilateral. All inverters everters plantar flexors dorsiflexors grossly intact and symmetrical bilateral with no changes noted. Assessment and Plan Plan: Assessment and plan #1 symptoms of progressive worsening shortness of breath, chest x-ray suggests congestive heart failure, BNP level 834. One dose of IV Lasix given in the emergency room, patient currently on by mouth Lasix. LV function unknown. #2 history of prior PE and DVT, on Coumadin,INR 5.5 on admission,3.6 this morning. Patient was recently started on an antibiotic for possible cellulitis. #3 recent diagnosis of paroxysmal atrial fibrillation approximately one week ago according to the patient. #4 morbid obesity #5 atrial fibrillation, paroxysmal #6 venous insufficiency with venous stasis ulcer of the left lower extremity Plan Exam. Review patient's past medical history. We will have patient continue with local wound care and compression with a 2 layer wrap. This will be applied as an outpatient in the wound care clinic today. We'll follow the patient and his outpatient in the wound care clinic. They every for this consult. Objective - Vital Signs Vital signs: Vital Signs Temp 97.6 F 09/10/16 12:00 Pulse 98 09/10/16 12:00 Resp 18 09/10/16 12:00 BP 103/66 09/10/16 12:00 Pulse Ox 94 L 09/10/16 12:00 Intake & Output 09/09/16 09/10/16 09/10/16 18:59 06:59 18:59 Intake Total 1080 280 Output Total 350 1200 550 Balance 730 -1200 -270 Weight 210.9 kg Intake: Oral 1080 280 Output: Urine 350 1200 550 Other: Voiding Method Urinal Urinal Urinal # Voids 0 - Labs CBC & Chem 7: 09/09/16 06:28 09/09/16 06:28
[2016-09-10 13:43] LABS: Blood Urea Nitrogen 18 mg/dL (9-20); Calcium 8.3 mg/dL (8.4-10.2); Chloride 93 mmol/L (98-107); Glucose 129 mg/dL (74-99); Non-African American GFR(MDRD) >60 (>60 ml/min/1.73 sqM); Potassium 3.5 mmol/L (3.5-5.1); Sodium 141 mmol/L (137-145)
[2016-09-10 13:46] LABS: INR 1.5 (<1.1); Prothrombin Time 14.6 sec (9.0-12.0)
[2016-09-10 13:49] LABS: Anion Gap 6 mmol/L
[2016-09-10 13:57] LABS: Carbon Dioxide 42 mmol/L (22-30)
[2016-09-10] MEDS: METOPROLOL TARTRATE 25 MG TAB PO SCH ×2 (16:59→20:31)
[2016-09-10] MEDS ORDERED: WARFARIN 7.5 MG TAB PO ONE (18:00)
[2016-09-11 07:00] LABS: Basophils % (A) 0 %; CH 29.2; CHCM 30.9; Eosinophils # (A) 0.2 k/uL (0-0.7); Eosinophils % (A) 4 %; HCT 48.9 % (39.0-53.0); HDW 2.25; HGB 15.2 gm/dL (13.0-17.5); Hypochromasia Slight; Luc # (Auto) 0.11; Luc % (Auto) 3; Lymphocytes # (A) 0.9 k/uL (1.0-4.8); Lymphocytes % (A) 22 %; MCH 29.6 pg (25.0-35.0); MCHC 31.1 g/dL (31.0-37.0); MCV 94.9 fL (80.0-100.0); Mean Platelet Volume 9.1; Monocytes # (A) 0.4 k/uL (0-1.0); Monocytes % (A) 8 %; Neutrophils # (A) 2.8 k/uL (1.3-7.7); Neutrophils % (A) 64 %; RBC 5.16 m/uL (4.30-5.90); RDW 13.1 % (11.5-15.5); WBC 4.3 k/uL (3.8-10.6); WBC (Perox) 4.29
[2016-09-11 07:10] LABS: INR 1.5 (<1.1); Prothrombin Time 14.4 sec (9.0-12.0)
[2016-09-11 07:23] LABS: Blood Urea Nitrogen 19 mg/dL (9-20); Calcium 8.5 mg/dL (8.4-10.2); Chloride 92 mmol/L (98-107); Glucose 122 mg/dL (74-99); Non-African American GFR(MDRD) >60 (>60 ml/min/1.73 sqM); Sodium 139 mmol/L (137-145)
[2016-09-11 07:30] LABS: Anion Gap 7 mmol/L
[2016-09-11 07:37] LABS: Carbon Dioxide 40 mmol/L (22-30)
[2016-09-11] MEDS: FAMOTIDINE 20 MG TAB PO SCH ×2 (08:16→20:35)
[2016-09-11] MEDS: METOPROLOL TARTRATE 25 MG TAB PO SCH ×2 (08:17→17:06)
[2016-09-11] MEDS: FUROSEMIDE 10 MG/ML 4 ML VIAL IV SCH ×2 (08:17→20:35)
[2016-09-11] MEDS: ALBUTEROL NEBULIZED 2.5 MG/3 ML INHALATION SCH ×4 (08:20→20:59)
--- NOTE | 2016-09-11 12:11 | PN ---
DATE OF SERVICE: 09/10/2016 INTERVAL HISTORY: Mr. Urena is a 71-year-old male with a known history of morbid obesity, deep venous thrombosis and PE, on anticoagulation with Coumadin for the past 20 years, and bilateral lower extremity swelling and chronic venous stasis ulcers. Recently diagnosed with atrial fibrillation. He was admitted to the hospital with worsening shortness of breath for the past one week and currently being treated for acute CHF exacerbation. Ejection fraction is 40% to 45%. The patient's heart rate is not well controlled. Also has had multiple episodes of PVCs last night. His verapamil has been changed to ( ) to 25 mg b.i.d. today. Otherwise, patient is being followed by the wound care team for dressing changes. The patient denied any worsening shortness of breath or chest pain now. REVIEW OF SYSTEMS: CONSTITUTIONAL: No fever. No chills. RESPIRATORY: No cough or sputum production. CARDIOVASCULAR: No chest pain. No worsening shortness of breath. The patient does have leg swelling bilaterally. ABDOMEN: No nausea, vomiting, or abdominal pain. GENITOURINARY: Negative. ENDOCRINE: Negative. PSYCHIATRIC: Negative. All fourteen-point review of systems negative except as above. CURRENT MEDICATIONS: Reviewed. PHYSICAL EXAMINATION: A 71-year-old male lying in the bed. Awake, alert, oriented, x3, in no apparent distress. VITALS: Blood pressure is 114/65, pulse is 77, respirations 19, temperature afebrile, pulse ox 94% on 2 liters nasal cannula. HEENT: Atraumatic, normocephalic. NECK: Supple. No JVD. CVS: S1, S2 heard. No murmurs regular, no rub. LUNGS: Bilateral air entry is present, decreased basally. Nonlabored breathing. ABDOMEN: Soft. Bowel sounds are present. No palpable organomegaly. 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 No focal deficits. EXTREMITIES: Bilateral lower extremity chronic edema with venostasis ulcers with wound dressings present. PSYCHIATRIC: Cooperative. LABORATORY DATA: INR 1.5. Sodium 141, potassium 3.5, chloride 93, bicarb is 42, BUN 18, creatinine 0.8. Calcium 8.3. IMPRESSION: 1. Progressive shortness of breath secondary to congestive heart failure exacerbation. 2. Acute congestive heart failure with systolic dysfunction, ejection fraction 40% to 45%. 3. Recently diagnosed atrial fibrillation with a rapid ventricular rate. 4. Verapamil has been changed to metoprolol due to multiple PVCs. 5. Chronic lower extremity DVT on Coumadin for the past 20 years. 6. Morbid obesity with body mass index of 61.8. 7. Hyperkalemia on admission, resolved. 8. Chronic lower extremity edema with venostasis ulcer. 9. Supratherapeutic INR on admission, currently. subtherapeutic. 10. Recent diagnosis of paroxysmal atrial fibrillation. 11. Hyperlipidemia. 12. Hypertension. 13. Deep venous thrombosis prophylaxis. The patient is already on Coumadin. DISCUSSION AND PLAN: A 71-year-old male admitted to the hospital with worsening shortness of breath and was found to have atrial fibrillation with rapid ventricular rate. Currently the patient is on metoprolol 25 mg t.i.d. We will continue the telemetry monitoring. Continue diuresis with IV Lasix. Continue wound care. Further recommendations based on the clinical course. Prognosis is guarded.
--- NOTE | 2016-09-11 13:02 | P.PN ---
Subjective This is a 71-year-old gentleman with no prior documented history of hypertension, diabetes, hyperlipidemia. Does have a history of prior PE and DVT approximately 20 years ago and recent diagnosis of atrial fibrillation earlier this year. Patient is morbidly obese and has been going to the wound center regularly because of open wounds on his left lower extremity. He was admitted to the hospital on this occasion with symptoms of shortness of breath that have been worsening over a week or so. He is on Coumadin because of a history of PE and DVT and says his INR is usually within therapeutic range however was started on antibiotic last and his INR on admission was 5.5. His INR yesterday was 1.5 and he received 7.5 mg of Coumadin last night. Upon examination this morning patient is resting comfortably in bed states he feels a little dizzy after just waking up. He also complains of feeling fuzzy feeling in his head at times. He remains on IV Lasix. He is currently on metoprolol 25 mg by mouth 3 times a day for heart rate control. He is maintaining sinus rhythm. He has been noted to have short runs of nonsustained VT on the monitor as well as bigeminal and trigeminal PVCs. Objective - Vital Signs Vital signs: Vital Signs Temp 98.1 F 09/11/16 08:00 Pulse 74 09/11/16 11:49 Resp 18 09/11/16 08:00 BP 133/70 09/11/16 08:00 Pulse Ox 94 L 09/11/16 08:00 Intake & Output 09/10/16 09/11/16 09/11/16 18:59 06:59 18:59 Intake Total 732 240 Output Total 2300 1875 800 Balance -1568 -1875 -560 Weight 209.5 kg Intake: Oral 732 240 Output: Urine 2300 1875 800 Other: Voiding Method Urinal Urinal Urinal # Voids 0 1 - Exam PHYSICAL EXAMINATION: HEENT: Head is atraumatic, normocephalic. Pupils equal, round. Neck is supple. There is no elevated jugular venous pressure. HEART EXAMINATION: Heart sounds regular, S1 and S2 normal. CHEST EXAMINATION: Lungs reveal diminished air entry bilaterally. No chest wall tenderness is noted on palpation or with deep breathing. ABDOMEN: Soft, obese, nontender. Bowel sounds are heard. No organomegaly noted. EXTREMITIES: 1+ peripheral pulses with evidence of peripheral edema and no calf tenderness noted. Dressings in place for left lower extremity. NEUROLOGIC patient is awake, alert and oriented x3. . - Labs CBC & Chem 7: 09/11/16 06:40 09/11/16 06:40 Labs: Abnormal Lab Results - Last 24 Hours (Table) 09/10/16 09/10/16 09/11/16 Range/Units 13:18 13:18 06:40 Plt Count (150-450) k/uL Lymphocytes # (1.0-4.8) k/uL PT 14.6 H 14.4 H (9.0-12.0) sec Chloride 93 L (98-107) mmol/L Carbon Dioxide 42 H* (22-30) mmol/L Glucose 129 H (74-99) mg/dL Calcium 8.3 L (8.4-10.2) mg/dL 09/11/16 09/11/16 Range/Units 06:40 06:40 Plt Count 133 L (150-450) k/uL Lymphocytes # 0.9 L (1.0-4.8) k/uL PT (9.0-12.0) sec Chloride 92 L (98-107) mmol/L Carbon Dioxide 40 H* (22-30) mmol/L Glucose 122 H (74-99) mg/dL Calcium (8.4-10.2) mg/dL Assessment and Plan Plan: #1 systolic congestive heart failure, ejection fraction 40-45% with symptoms of progressive worsening shortness of breath, chest x-ray suggests congestive heart failure, BNP level 834. On IV Lasix #2 history of PE and DVT, on Coumadin #3 paroxysmal atrial fibrillation currently in sinus rhythm with PVCs and runs of nonsustained VT #4 morbid obesity From cardiac standpoint, we will continue metoprolol 25 mg by mouth 3 times a day. We will continue IV Lasix at this time. INR today 1.5, patient will receive 7-1/2 mg of Coumadin tonight. We will continue to follow the INR with Coumadin dosing accordingly to keep INR 2.0-3.0. We will also follow patient's renal function, electrolytes, daily weights and intake and output. Further recommendations to follow. CONCRETE PAVING SUPERVISOR note has been reviewed, I agree with a documented findings and plan of care. Patient was seen and examined.
[2016-09-11] MEDS: SODIUM CHLORIDE 0.9% 1,000 ML IV SCH (17:05)
[2016-09-11] MEDS ORDERED: WARFARIN 7.5 MG TAB PO ONE (18:00)
[2016-09-12] MEDS: METOPROLOL TARTRATE 25 MG TAB PO SCH ×4 (02:28→21:44)
[2016-09-12 07:45] LABS: INR 1.6 (<1.1); Prothrombin Time 15.1 sec (9.0-12.0)
[2016-09-12 07:59] LABS: Anion Gap 10 mmol/L; Blood Urea Nitrogen 20 mg/dL (9-20); Calcium 8.8 mg/dL (8.4-10.2); Carbon Dioxide 37 mmol/L (22-30); Chloride 93 mmol/L (98-107); Glucose 133 mg/dL (74-99); Non-African American GFR(MDRD) >60 (>60 ml/min/1.73 sqM); Potassium 3.9 mmol/L (3.5-5.1); Sodium 140 mmol/L (137-145)
[2016-09-12] MEDS: ALBUTEROL NEBULIZED 2.5 MG/3 ML INHALATION SCH ×4 (08:13→21:30)
[2016-09-12] MEDS: FAMOTIDINE 20 MG TAB PO SCH ×2 (09:46→21:44)
[2016-09-12] MEDS: FUROSEMIDE 10 MG/ML 4 ML VIAL IV SCH (09:47)
--- NOTE | 2016-09-12 16:40 | PN ---
Mr. Urena is a 71-year-old male with a history of hypertension, diabetes, history of atrial fibrillation, morbid obesity, peripheral wound. He is feeling better today. His breathing is stable. He is denying any symptoms of chest pain. The fuzziness in the head has not changed. He denies any nausea or vomiting. He is quite limited in his physical activity. He continues to be at this time on Lasix 40 mg IV q.12h, metoprolol tartrate 25 mg twice a day in addition to Coumadin. PHYSICAL EXAMINATION: Blood pressure 133/70 with a heart in the 80s. LUNGS: Clear. HEART: Irregularly irregular. S1, S2, no S3, no rub. ABDOMEN: Soft, nontender. EXTREMITIES: With Jeevan wrapping in place. Decreased edema. Lab data revealed BUN and creatinine 20.9. INR 1.6. Potassium 3.9. IMPRESSION: 1. Atrial fibrillation, being anticoagulated. His INR remains subtherapeutic. 2. Mildly to moderately impaired left ventricular systolic function. 3. Morbid obesity. 4. History of pulmonary embolism and deep venous thrombosis. RECOMMENDATIONS: From the cardiac standpoint, will continue on the anticoagulation. I will switch him to oral diuretics, follow his renal function.
[2016-09-12] MEDS: FUROSEMIDE 40 MG TAB PO SCH (17:29)
[2016-09-12] MEDS ORDERED: WARFARIN 5 MG TAB PO ONE (18:00)
[2016-09-12] MEDS: SODIUM CHLORIDE 0.9% 1,000 ML IV SCH (21:23)
[2016-09-13 07:34] LABS: INR 1.7 (<1.1); Prothrombin Time 16.5 sec (9.0-12.0)
[2016-09-13] MEDS: ALBUTEROL NEBULIZED 2.5 MG/3 ML INHALATION SCH ×2 (07:44→11:42)
[2016-09-13 07:48] LABS: Anion Gap 10 mmol/L; Blood Urea Nitrogen 21 mg/dL (9-20); Calcium 8.7 mg/dL (8.4-10.2); Carbon Dioxide 37 mmol/L (22-30); Chloride 94 mmol/L (98-107); Glucose 117 mg/dL (74-99); Non-African American GFR(MDRD) >60 (>60 ml/min/1.73 sqM); Potassium 4.4 mmol/L (3.5-5.1); Sodium 141 mmol/L (137-145)
[2016-09-13 09:51] VITALS: RESP 16; TEMP 97.3
[2016-09-13] MEDS: METOPROLOL TARTRATE 25 MG TAB PO SCH (09:53)
[2016-09-13] MEDS: FUROSEMIDE 40 MG TAB PO SCH (09:53)
[2016-09-13] MEDS: FAMOTIDINE 20 MG TAB PO SCH (09:53)
[2016-09-13 12:16] VITALS: BP 113/72; PULSE 85
--- NOTE | 2016-09-13 17:47 | PN ---
DATE OF SERVICE: 09/11/2016 Mr. Urena is a 71-year-old male with history of multiple medical problems including morbid obesity. Admitted to the hospital with atrial fibrillation and worsening shortness of breath for the past one week and found to have acute congestive heart failure with ejection fraction 40-45%. Currently heart rate is fairly controlled. Patient apparently controlled and Verapamil has been changed to metoprolol 25 mg t.i.d. today. Otherwise, the patient is being continued on IV Lasix. Cardiology is following this patient. Patient did not feel any palpitations last night. Denied any complaints of worsening short of breath or chest pain. Wound Care has seen the patient and recommended to follow the wound care clinic on Tuesday. REVIEW OF SYSTEMS: CONSTITUTIONAL: No fever. No chills. RESPIRATORY: No cough. No sputum production. No worsening shortness of breath. ABDOMEN: No nausea, vomiting, abdominal pain. GENITOURINARY: Negative. ENDOCRINE: Negative. PSYCHIATRIC: Negative. SKIN: Negative. All other fourteen point review of systems negative except as above. CURRENT MEDICATIONS: Reviewed. PHYSICAL EXAMINATION: A 71 -year-old male morbid obese, lying in bed comfortably. Awake, alert, oriented, x3, appears in no apparent distress. VITALS: Blood pressure is 119/58, pulse is 51, respirations 16, temperature afebrile, pulse ox 93% on 1 liter nasal cannula. HEENT: Atraumatic, normocephalic. Neck is supple. No JVD. CVS: S1, S2 heard. No murmurs, no gallop. LUNGS: Bilateral air entry is present. Decreased breath sounds bilaterally. No wheezing. ABDOMEN: Soft, obese. Bowel sounds present. BILLING CHECKER: Awake, alert, oriented, x3. No focal neurologic deficit. Cranial nerves grossly intact. EXTREMITIES: Bilateral lower extremity edema and venous stasis ulcer. Wounds are bandaged at this time. PSYCHIATRIC: Cooperative. LABORATORY DATA: WBC 4.3, hemoglobin 15.2, platelets 133, INR 1.5. Sodium 139, potassium 4.0, chloride 92, bicarb is 40, BUN 19, creatinine 0.9. Calcium 8.5. IMPRESSION: 1. Shortness of breath secondary to congestive heart failure exacerbation. 2. Acute congestive heart failure with ejection fraction 40-45%. 3. Recently diagnosed atrial fibrillation with rapid ventricular rate currently, improved now with starting on metoprolol 25 mg t.i.d. 4. Chronic lower extremity deep venous thrombosis on Coumadin for the past 20 years. 5. Morbid obesity with body mass index 61.8. 6. Bilateral chronic venostasis ulcer. 7. Bilateral lower extremity chronic edema. 8. Hyperkalemia on admission resolved. 9. Supratherapeutic INR on admission. Currently subtherapeutic. 10. Recent diagnosis of paroxysmal atrial fibrillation. 11. Hypertension. 12. Hyperlipidemia. 13. Deep venous thrombosis prophylaxis, Patient is already on Coumadin. DISCUSSION AND PLAN: This is a 71 -year-old male admitted to the hospital with worsening short of breath and found to have atrial fibrillation and 2D echo showed ejection fraction 40% to 45%. Continue with IV Lasix. Continue with the metoprolol and further recommendations based on the clinical course.
[2016-09-13] MEDS ORDERED: WARFARIN 5 MG TAB PO ONE (18:00)
--- NOTE | 2016-09-13 18:11 | PN ---
DATE OF SERVICE: 09/12/2016 INTERVAL HISTORY: Mr. Urena is a 71-year-old male admitted to the hospital with worsening short of breath and found to have acute CHF exacerbation with systolic dysfunction and also in atrial fibrillation with rapid ventricular rate. Patient has recently diagnosed atrial fibrillation. Patient was on verapamil, changed to beta blockers t.i.d. due to multiple PVCs. Otherwise, patient's IV Lasix has been changed to p.o. today. I anticipate discharge in the next 24 hours and wound care followup on Tuesday morning. Otherwise, no fever. No chills. No acute overnight issues. REVIEW OF SYSTEMS: CONSTITUTIONAL: No fever. No chills. RESPIRATORY: No cough or sputum production. CARDIOVASCULAR: No chest pain or shortness of breath. ABDOMEN: No nausea, vomiting, abdominal pain. GENITOURINARY: Negative. ENDOCRINE: Negative. PSYCHIATRIC: Negative. SKIN: Negative. All other 14-point review of systems negative except as above. Current medications include: 1. Ventolin. 2. Pepcid. 3. Lasix 40 b.i.d. 4. Metoprolol. 5. Morphine sulfate. 6. Narcan. 7. Zofran. PHYSICAL EXAM: A 71-year-old male, lying in the bed, morbidly obese, no apparent distress. VITALS: Blood pressure is 118/82, pulse is 56, respirations 18, temperature afebrile, pulse ox 92% on room air. HEENT: Atraumatic, normocephalic. Neck is supple. No JVD. CVS: S1, S2 heard. No murmurs. LUNGS: Bilateral air entry is present. No wheezing. No crackles. Abdomen is obese. Bowel sounds are present. BOTTOMING ROOM INSPECTOR: Awake, alert and oriented x3. No focal neurologic deficits. Cranial nerves grossly intact. EXTREMITIES: Bilateral lower extremity chronic edema with the venous stasis ulcer, bandaged now. PSYCHIATRIC: Cooperative. LABORATORY DATA: Sodium 140, potassium 3.9, chloride 93, bicarb 37, BUN 20, creatinine 0.9, blood sugar is 133. IMPRESSION: 1. Acute congestive heart failure with systolic dysfunction, ejection fraction 40% to 45%. 2. Atrial fibrillation with rapid ventricular rate, controlled now. Verapamil has been changed to metoprolol. 3. Recently diagnosed atrial fibrillation. 4. Chronic lower extremity deep venous thrombosis on Coumadin for the past 20 years. 5. Morbid obesity with body mass index of 61.8. 6. Hyperkalemia on admission, resolved. 7. Chronic lower extremity edema with venous stasis ulcer on wound care clinic followup. 8. Subtherapeutic INR. 9. Recent diagnosis of paroxysmal atrial fibrillation. 10. Hypertension. 11. Hyperlipidemia. 12. Deep venous thrombosis, currently already on Coumadin. DISCUSSION AND PLAN: A 71-year-old male admitted to the hospital with worsening short of breath and atrial fibrillation with rapid ventricular rate. Currently rate is controlled. Continue with the diuretics. IV Lasix has been changed to p.o. Cardiology is following the patient. I anticipate he will be discharged in the next 24 hours with more clinical improvement follow with the wound care clinic on Tuesday.
--- NOTE | 2016-09-13 22:45 | PN ---
DATE OF SERVICE: 09/13/2016 The patient is a 71-year-old man with history of morbid obesity, chronic atrial fibrillation, diabetes, nonhealing ulcer and hypertension. He is feeling stable this morning. His breathing is unchanged. He denies any symptoms of dizziness. No palpitations. He is in bed. Rate is controlled. He continues to be on metoprolol tartrate 25 mg twice a day, Lasix 40 mg orally twice a day, Coumadin. PHYSICAL EXAMINATION: Blood pressure 113/70 with a heart in the 80s. LUNGS: Clear. HEART: Irregular, irregular. S1, S2, no S3, no rub. ABDOMEN: Soft, obese. EXTREMITIES: Dressing in place. Lab data revealed BUN and creatinine 21 and 0.9. INR 1.7. IMPRESSION: 1. Atrial fibrillation, rate controlled, being anticoagulated, still therapeutic. 2. Morbid obesity. 3. Peripheral ulceration. RECOMMENDATIONS: Will continue present therapy, continue on the anticoagulation. From the cardiac standpoint, he is stable.
--- NOTE | 2016-10-01 07:48 | DS ---
DATE OF ADMISSION: 09/07/2016 DATE OF DISCHARGE: 09/13/2016 DISCHARGE DIAGNOSES: 1. Acute congestive heart failure with systolic dysfunction and ejection fraction 40% to 45%. 2. Atrial fibrillation with rapid ventricular rate, rate is controlled now. Verapamil has been changed to p.o. and anticoagulation. 3. Recently diagnosed atrial fibrillation. 4. Chronic lower extremity deep venous thrombosis on Coumadin for past 20 years. 5. Morbid obesity with body mass index of 61.8. 6. Hyperkalemia, on admission, resolved. 7. Chronic lower extremity edema and venous stasis ulcer on wound care clinic followup. 8. Subtherapeutic INR level on admission. 9. Recently diagnosed with paroxysmal atrial fibrillation. 10. Hypertension. 11. Hyperlipidemia. 12. Deep venous thrombosis prophylaxis, currently already on Coumadin. HOSPITAL COURSE: Mr. Urena is a 71-year-old male who was admitted to the hospital with worsening short of breath and found to have acute CHF with systolic dysfunction and also in atrial fibrillation with rapid ventricular rate. The patient was recently diagnosed with atrial fibrillation. The patient was on verapamil changed to beta blockers due to multiple PVCs and patient tolerated well. Otherwise, patient was diuresed with IV Lasix, which has been changed to p.o. and patient was seen by wound care clinic and ( ) follow with the wound care for lower extremity venous stasis ulcers on Tuesday morning. Otherwise, patient's shortness of breath is much improved now. Leg swelling slightly improved as well and her heart rate is better controlled and no overt PVCs on telemetry throughout the night. The patient is cleared from cardiology standpoint and is being discharged home and follow with the wound clinic on Tuesday. Otherwise, the patient is stable to be discharged home. DISCHARGE PHYSICAL EXAMINATION: A 71-year-old male lying in bed, comfortable, awake, alert and oriented x3, appears to be in no apparent distress. VITALS: Blood pressure is 113/72, pulse is 85, respirations 16, temperature afebrile, pulse ox 90% on room air. LABORATORY DATA: Reviewed. INR 1.7. Discharge physical examination done. Discharge medications include: 1. Celebrex 200 mg p.o. at bedtime. 2. Warfarin 5 mg p.o. Tuesday, Tuesday, Tuesday, Tuesday. 3. Warfarin is 7.5 mg p.o. on Tuesday, , Tuesday. 4. Lasix 40 mg b.i.d. 5. Metoprolol 25 mg p.o. t.i.d. Patient will be discharged home in stable condition. Activity as tolerated. Heart healthy diet. Follow with Dr. Chang Addison in 1 to [address] Mccormick in one week. Home with self-care. Follow with the wound care clinic.
== END 2016-09-13 14:44 | disposition home or self-care (01) | DRG 292 ==
LOC: EC 17:37 → 6SEL 20:22
PROVIDERS: ADMIT Internal Medicine; ATTEND Internal Medicine
DX: I11.0 Hypertensive heart disease with heart failure (principal); L97.929 Non-pressure chronic ulcer of unspecified part of left lower leg with unspecified severity; E11.622 Type 2 diabetes mellitus with other skin ulcer; I82.503 Chronic embolism and thrombosis of unspecified deep veins of lower extremity, bilateral; L03.119 Cellulitis of unspecified part of limb; I50.23 Acute on chronic systolic (congestive) heart failure; E87.5 Hyperkalemia; E78.5 Hyperlipidemia, unspecified; I48.0 Paroxysmal atrial fibrillation; I48.2 Chronic atrial fibrillation; I49.3 Ventricular premature depolarization; I87.2 Venous insufficiency (chronic) (peripheral); M19.90 Unspecified osteoarthritis, unspecified site; R79.1 Abnormal coagulation profile; T45.515A Adverse effect of anticoagulants, initial encounter; Z79.01 Long term (current) use of anticoagulants; Z85.828 Personal history of other malignant neoplasm of skin; Z86.711 Personal history of pulmonary embolism; Z91.14 Patient's other noncompliance with medication regimen
CPT/HCPCS: 36415; 71020; 80048; 80053; 80061; 83735; 83880; 84484; 85025; 85610; 85730; 90686; 90732; 93005; 93306; 94640; 94760; 99285

== ENCOUNTER 2018-03-09 15:38 | Inpatient (IN) | payer MEDICARE, BC ==
[2018-03-09] MEDS ORDERED: FUROSEMIDE 10 MG/ML 4 ML VIAL IV STA (16:30)
[2018-03-09 16:51] LABS: Basophils % (A) 0 %; Eosinophils # (A) 0.1 k/uL (0-0.7); Eosinophils % (A) 2 %; HGB 15.2 gm/dL (13.0-17.5); Lymphocytes # (A) 1.1 k/uL (1.0-4.8); Lymphocytes % (A) 19 %; MCH 29.9 pg (25.0-35.0); MCHC 31.7 g/dL (31.0-37.0); MCV 94.2 fL (80.0-100.0); Mean Platelet Volume 9.9; Monocytes # (A) 0.5 k/uL (0-1.0); Monocytes % (A) 10 %; Neutrophils # (A) 3.8 k/uL (1.3-7.7); Neutrophils % (A) 67 %; Platelet Count 107 k/uL (150-450); RDW 14.2 % (11.5-15.5); VBG PH 7.4 (7.31-7.41); WBC 5.6 k/uL (3.8-10.6)
[2018-03-09 17:05] LABS: Albumin 3.5 g/dL (3.5-5.0); Calcium 8.8 mg/dL (8.4-10.2); Potassium 4.8 mmol/L (3.5-5.1); Total Bilirubin 1.6 mg/dL (0.2-1.3); Total Protein 6.7 g/dL (6.3-8.2)
[2018-03-09 17:17] LABS: Creatine Kinase MB 1.3 ng/mL (0.0-2.4); Troponin I 0.014 ng/mL (0.000-0.034)
--- NOTE | 2018-03-09 17:27 | XR ---
EXAMINATION TYPE: XR chest 2V DATE OF EXAM: 03/09/2018 COMPARISON: 09/07/2016 HISTORY: Short of breath TECHNIQUE: Frontal and lateral views of the chest are obtained. FINDINGS: There is pulmonary vascular congestion. There is blunting of costophrenic angles. There ar e chest leads. Heart is probably enlarged. IMPRESSION: Congestive heart failure with pleural effusions. Chest appears worse than last exam. Poo r inspiration.
[2018-03-09 17:29] LABS: Partial Thromboplastin Time 37.8 sec (22.0-30.0); Prothrombin Time 93.6 sec (9.0-12.0)
--- NOTE | 2018-03-09 18:15 | ED ---
SOB HPI - General Chief Complaint: Shortness of Breath Stated Complaint: SOB, High Blood Pressure Time Seen by Provider: 03/09/18 16:22 Source: patient Mode of arrival: wheelchair Limitations: no limitations - History of Present Illness Initial Comments: 32 years old male comes in with the shortness of breath he does have a baseline shortness of breath he feels it's worse now with a minimal activity he barely can move around. He denies any chest pain no pleuritic chest pain no abdominal pain no frequency urgency dysuria he does have a chronic wound of the left leg he wants us to take a lock he also has a history of DVT in the left leg and he feels that the left leg is swollen. Review of system is unremarkable otherwise - Related Data Home Medications Medication Instructions Recorded Confirmed Warfarin [Coumadin] 5 mg PO SUMOWEFR 07/07/16 03/09/18 Warfarin [Coumadin] 7.5 mg PO TUTHSA 07/07/16 03/09/18 Metoprolol Tartrate [Lopressor] 25 mg PO TID@0700,1500,2300 09/14/16 03/09/18 Furosemide [Lasix] 40 mg PO BID@0700,1900 03/09/18 03/09/18 Naproxen [Naprosyn] 500 mg PO Q12HR@0700,1900 03/09/18 03/09/18 traMADol HCL [Ultram] 100 mg PO Q4HR PRN 03/09/18 03/09/18 Allergies Allergy/AdvReac Type Severity Reaction Status Date / Time No Known Allergies Allergy Verified 03/09/18 16:21 Review of Systems ROS Statement: Those systems with pertinent positive or pertinent negative responses have been documented in the HPI. ROS Other: All systems not noted in ROS Statement are negative. Past Medical History Past Medical History: Atrial Fibrillation, Cancer, Deep Vein Thrombosis (DVT), Osteoarthritis (OA), Vascular Disorder Additional Past Medical History / Comment(s): HX of DVT ', basal cell carcinoma to arm 2014, venous stasis ulcers both legs, History of Any Multi-Drug Resistant Organisms: None Reported Past Surgical History: Tonsillectomy Additional Past Surgical History / Comment(s): skin CA wrist Past Anesthesia/Blood Transfusion Reactions: No Reported Reaction Past Psychological History: No Psychological Hx Reported Smoking Status: Never smoker Past Alcohol Use History: Occasional Past Drug Use History: None Reported - Past Family History Father Family Medical History: Cancer Mother Family Medical History: No Reported History General Exam - General Exam Comments Initial Comments: General: The patient is awake and alert, in [id number] distress, is BMI is 63.3 Skin: Skin is warm and dry and no rashes or lesions are noted. Left lower extremity has a chronic changes consistent with stasis chronic swelling, iron pigment deposits Eye: Pupils are equal, round and reactive to light, extra-ocular movements are intact; there is normal conjunctiva bilaterally. Ears, nose, mouth and throat: There are moist mucous membranes and no oral lesions. Neck: The neck is supple, there is no tenderness or JVD. Cardiovascular: Heart is irregularly irregular Respiratory: To auscultation bilateral, diminished air exchange bilateral Gastrointestinal: Soft, non-distended, non-tender abdomen without masses or organomegaly noted. There is no rebound or guarding present. Bowel sounds are unremarkable. Back: There is no tenderness to palpation in the midline. There is no obvious deformity. Musculoskeletal: Normal ROM, no tenderness, Neurological: CN II-XII intact, Cranial nerves III through XII are intact. There are no obvious motor or sensory deficits. Coordination appears grossly intact. Speech is normal. Psychiatric: Cooperative, appropriate mood & affect, normal judgment. Limitations: no limitations Course Vital Signs 03/09/18 03/09/18 15:42 17:38 Temperature 98.2 F 97.9 F Pulse Rate 44 L 55 L Respiratory 32 H 20 Rate Blood Pressure 168/78 150/75 O2 Sat by Pulse 90 L 93 L Oximetry I am EKG is a rather complex EKG is undetermined rhythm noticed some mom PVCs there is some T-wave abnormalities consistent with inferior ischemia cc EKG was compared with his old EKG from August 2016 would need review from cardiology Ultrasound of the left lower extremity I report is pending at this point BNP is 3658 Medical Decision Making - Lab Data Result diagrams: 03/09/18 16:32 03/09/18 16:32 Lab Results 03/09/18 03/09/18 03/09/18 Range/Units 16:32 16:32 16:32 WBC 5.6 (3.8-10.6) k/uL RBC 5.10 (4.30-5.90) m/uL Hgb 15.2 (13.0-17.5) gm/dL Hct 48.0 (39.0-53.0) % MCV 94.2 (80.0-100.0) fL MCH 29.9 (25.0-35.0) pg MCHC 31.7 (31.0-37.0) g/dL RDW 14.2 (11.5-15.5) % Plt Count 107 L (150-450) k/uL Neutrophils % 67 % Lymphocytes % 19 % Monocytes % 10 % Eosinophils % 2 % Basophils % 0 % Neutrophils # 3.8 (1.3-7.7) k/uL Lymphocytes # 1.1 (1.0-4.8) k/uL Monocytes # 0.5 (0-1.0) k/uL Eosinophils # 0.1 (0-0.7) k/uL Basophils # 0.0 (0-0.2) k/uL PT (9.0-12.0) sec INR (<1.2) APTT (22.0-30.0) sec VBG pH (7.31-7.41) VBG pCO2 (37-51) mmHg VBG HCO3 (24-28) mmol/L Sodium 139 (137-145) mmol/L Potassium 4.8 (3.5-5.1) mmol/L Chloride 98 (98-107) mmol/L Carbon Dioxide 32 H (22-30) mmol/L Anion Gap 9 mmol/L BUN 31 H (9-20) mg/dL Creatinine 1.10 (0.66-1.25) mg/dL Est GFR (CKD-EPI)AfAm 77 (>60 ml/min/1.73 sqM) Est GFR (CKD-EPI)NonAf 67 (>60 ml/min/1.73 sqM) Glucose 101 H (74-99) mg/dL Calcium 8.8 (8.4-10.2) mg/dL Total Bilirubin 1.6 H (0.2-1.3) mg/dL AST 37 (17-59) U/L ALT 33 (21-72) U/L Alkaline Phosphatase 91 (38-126) U/L Total Creatine Kinase 120 (55-170) U/L CK-MB (CK-2) 1.3 (0.0-2.4) ng/mL CK-MB (CK-2) Rel Index 1.1 Troponin I 0.014 (0.000-0.034) ng/mL NT-Pro-B Natriuret Pep pg/mL Total Protein 6.7 (6.3-8.2) g/dL Albumin 3.5 (3.5-5.0) g/dL 03/09/18 03/09/18 03/09/18 Range/Units 16:32 16:32 16:32 WBC (3.8-10.6) k/uL RBC (4.30-5.90) m/uL Hgb (13.0-17.5) gm/dL Hct (39.0-53.0) % MCV (80.0-100.0) fL MCH (25.0-35.0) pg MCHC (31.0-37.0) g/dL RDW (11.5-15.5) % Plt Count (150-450) k/uL Neutrophils % % Lymphocytes % % Monocytes % % Eosinophils % % Basophils % % Neutrophils # (1.3-7.7) k/uL Lymphocytes # (1.0-4.8) k/uL Monocytes # (0-1.0) k/uL Eosinophils # (0-0.7) k/uL Basophils # (0-0.2) k/uL PT 93.6 H (9.0-12.0) sec INR 10.0 H* (<1.2) APTT 37.8 H (22.0-30.0) sec VBG pH 7.40 (7.31-7.41) VBG pCO2 54 H (37-51) mmHg VBG HCO3 33 H (24-28) mmol/L Sodium (137-145) mmol/L Potassium (3.5-5.1) mmol/L Chloride (98-107) mmol/L Carbon Dioxide (22-30) mmol/L Anion Gap mmol/L BUN (9-20) mg/dL Creatinine (0.66-1.25) mg/dL Est GFR (CKD-EPI)AfAm (>60 ml/min/1.73 sqM) Est GFR (CKD-EPI)NonAf (>60 ml/min/1.73 sqM) Glucose (74-99) mg/dL Calcium (8.4-10.2) mg/dL Total Bilirubin (0.2-1.3) mg/dL AST (17-59) U/L ALT (21-72) U/L Alkaline Phosphatase (38-126) U/L Total Creatine Kinase (55-170) U/L CK-MB (CK-2) (0.0-2.4) ng/mL CK-MB (CK-2) Rel Index Troponin I (0.000-0.034) ng/mL NT-Pro-B Natriuret Pep 3650 pg/mL Total Protein (6.3-8.2) g/dL Albumin (3.5-5.0) g/dL Critical Care Time Total Critical Care Time: 30 Critical Care Time: MINI SHIFTER is a 3650 troponin is negative EKG as a quite complex but in no way similar to his old EKG ABGs are unremarkable INR is extremely hives 10 is given need some vitamin K will hold off the Coumadin and the PT/INR chest x-ray confirmed congestive heart failure he was giving some Lasix 40 mg he would need admission will consult cardiology Disposition Clinical Impression: Coumadin toxicity, Congestive heart failure Disposition: ADMITTED IP TO THIS HOSP Condition: Good Referrals: Dillan Parham MD [Primary Care Provider] - 1-2 days
--- NOTE | 2018-03-09 18:26 | US ---
EXAMINATION TYPE: US venous doppler duplex LE LT DATE OF EXAM: 03/09/2018 6:20 PM COMPARISON: NONE CLINICAL HISTORY: Pain. SOB, left leg pain and swelling, morbidly obese patient. SIDE PERFORMED: Left TECHNIQUE: The lower extremity deep venous system is examined utilizing real time linear array sonog sissy with graded compression, doppler sonography and color-flow sonography. VESSELS IMAGED: External Iliac Vein (EIV) Common Femoral Vein Deep Femoral Vein Greater Saphenous Vein * Femoral Vein Popliteal Vein Small Saphenous Vein * Proximal Calf Veins (* superficial vessels) Technically difficult and limited study due to patient body habitus and leg swelling, non visualiza tion of distal femoral vein for transverse compression image, due to swelling behind knee unable to p osition probe in sagittal plane, color flow images of popliteal vein done in transverse plane. Left Leg: Visualized portions appears negative for DVT IMPRESSION: No evidence of deep venous thrombosis in the left leg.
[2018-03-09] MEDS ORDERED: PHYTONADIONE ORAL 5 MG/5 ML ORAL.SYRG PO ONE (18:30)
[2018-03-09] MEDS ORDERED: NITROGLYCERIN SL TABS 0.4 MG TAB SUBLINGUAL PRN (18:56)
[2018-03-09] MEDS ORDERED: MORPHINE SULFATE 2 MG/ML SYRINGE IV PRN (18:56)
[2018-03-09] MEDS ORDERED: traMADol 50 MG TAB PO PRN (19:01)
--- NOTE | 2018-03-09 20:48 | P.HPIM ---
History of Present Illness H&P Date: 03/09/18 Chief Complaint: shortness of breath 72-year-old male with history of A. fib on Coumadin, remote history of DVT, and borderline systolic CHF with left ventricular ejection fraction of 40-45% done in 2016. Patient reports that he was at his baseline status of health up until 3 weeks ago when he found an open wound over his lower third of the left leg, he started seeing Dr. Car who was been doing wound dressings and following up closely he reports that the wound has been improving he showed me pictures. He was not started on antibiotics as there was no suspicion for infection. Patient reports that over the past 3 weeks he decided to stay home and rest to help the wound heal, he has not been eating well. However over the past 3 days he noticed worsening of his shortness of breath to the point that she started feeling short of breath even at rest however denies any chest pain associated with that. He reports some sore throat but denies any fevers or chills. He reports some coughing productive at times of whitish sputum. Patient is unable to lay flat for many years and he sleeps usually in a sitting up position. Otherwise he denies any leg swelling other than his chronic lymphedema. He denies any GI bleeding, denies any nausea or vomiting, denies any abdominal pain , denies any vision or hearing changes, denies any focal neurologic deficits, denies any history of liver disease. In the emergency department further workup revealed pulmonary congestion, elevated proBNP, and elevated INR. Patient is admitted for further care Review of Systems Pertinent positives as noted in HPI. All other systems were reviewed and are negative Past Medical History Past Medical History: Atrial Fibrillation, Cancer, Deep Vein Thrombosis (DVT), Osteoarthritis (OA), Vascular Disorder Additional Past Medical History / Comment(s): HX of DVT ', basal cell carcinoma to arm 2014, venous stasis ulcers both legs, History of Any Multi-Drug Resistant Organisms: None Reported Past Surgical History: Tonsillectomy Additional Past Surgical History / Comment(s): skin CA wrist Past Anesthesia/Blood Transfusion Reactions: No Reported Reaction Past Psychological History: No Psychological Hx Reported Smoking Status: Never smoker Past Alcohol Use History: Occasional Past Drug Use History: None Reported - Past Family History Father Family Medical History: Cancer Mother Family Medical History: No Reported History Medications and Allergies Home Medications Medication Instructions Recorded Confirmed Type Warfarin [Coumadin] 5 mg PO SUMOWEFR 07/07/16 03/09/18 History Warfarin [Coumadin] 7.5 mg PO TUTHSA 07/07/16 03/09/18 History Metoprolol Tartrate [Lopressor] 25 mg PO TID@0700,1500,2300 09/14/16 03/09/18 History Furosemide [Lasix] 40 mg PO BID@0700,1900 03/09/18 03/09/18 History Naproxen [Naprosyn] 500 mg PO Q12HR@0700,1900 03/09/18 03/09/18 History traMADol HCL [Ultram] 100 mg PO Q4HR PRN 03/09/18 03/09/18 History Allergies Allergy/AdvReac Type Severity Reaction Status Date / Time No Known Allergies Allergy Verified 03/09/18 16:21 Physical Exam Vitals: Vital Signs Temp Pulse Resp BP Pulse Ox 03/09/18 19:02 116 H 16 150/75 93 L 03/09/18 17:38 97.9 F 55 L 20 150/75 93 L 03/09/18 15:42 98.2 F 44 L 32 H 168/78 90 L Intake and Output 03/09/18 03/09/18 03/09/18 06:59 14:59 22:59 Other: Weight 217.724 kg Constitutional: No acute distress, conversant, pleasant Eyes: Anicteric sclerae, moist conjunctiva, no lid-lag Pupils equal round reactive to light ENMT: NC/AT Oropharynx clear, no erythema, or exudates Neck: Supple, FROM, no masses, or JVD No carotid bruits No thyromegaly Lungs: Diminished breath sounds at lung bases bilaterally, decreased breath sounds throughout due to body habitus Clear to percussion Normal respiratory effort, no accessory muscle use Cardiovascular: Heart irregular No murmurs, gallops, or rubs Nonpitting edema bilaterally in the legs Abdominal: Soft, obese limiting exam Nontender, no guarding, rebound or rigidity Abdomen moving with respiration Normoactive bowel sounds No hepatomegaly, No splenomegaly No palpable mass No abdominal wall hernia noted Skin: Chronic skin changes bilateral lower extremities, dressing has just been changed to the patient and he asked me not to unwrap the dressing. However he showed me progress pictures on his phone for the left leg wound over the past 3 weeks. Which showed to initial ulcers of 2 x 2 centimeter each. Normal temperature, tone, texture, turgor No induration No subcutaneous nodules Extremities: No digital cyanosis No clubbing Pedal pulses could not be detected due to lymphedema, however capillary refill is immediate over bilateral toes and bilateral feet are warm to the touch Radial pulses intact and symmetrical No calf tenderness Psychiatric: Alert and oriented to person, place and time Appropriate affect fair judgment Neuro Muscles Strength 5/5 in all 4 extremities Sensation to light touch grossly present throughout Cranial nerves II-XII grossly intact No focal sensory deficits Lymphatics: no palpable cervical or supraclavicular , or inguinal lymph nodes Results CBC & Chem 7: 03/09/18 16:32 03/09/18 16:32 Labs: Abnormal Lab Results - Last 24 Hours (Table) 03/09/18 03/09/18 03/09/18 Range/Units 16:32 16:32 16:32 Plt Count 107 L (150-450) k/uL PT 93.6 H (9.0-12.0) sec INR 10.0 H* (<1.2) APTT 37.8 H (22.0-30.0) sec VBG pCO2 (37-51) mmHg VBG HCO3 (24-28) mmol/L Carbon Dioxide 32 H (22-30) mmol/L BUN 31 H (9-20) mg/dL Glucose 101 H (74-99) mg/dL Total Bilirubin 1.6 H (0.2-1.3) mg/dL 03/09/18 Range/Units 16:32 Plt Count (150-450) k/uL PT (9.0-12.0) sec INR (<1.2) APTT (22.0-30.0) sec VBG pCO2 54 H (37-51) mmHg VBG HCO3 33 H (24-28) mmol/L Carbon Dioxide (22-30) mmol/L BUN (9-20) mg/dL Glucose (74-99) mg/dL Total Bilirubin (0.2-1.3) mg/dL Assessment and Plan Assessment: 72-year-old male with past medical history of A. fib on Coumadin, borderline CHF with left ventricular ejection fraction of 4045 percent in 2016, history of DVT. The patient is admitted with an anticipated greater than 2 midnight stay for evaluation of of worsening shortness of breath over the past 3 days which is thought due to acute exacerbation of his CHF, he was also found to have Coumadin toxicity with INR of 10 without any active bleeding at this time, patient also has stasis ulcer over his left lower extremity without evidence of infection at this time. Plan: #Acute on chronic systolic CHF exacerbation with most recent left ventricular ejection fraction of 40% back in 2016 IV diuresis with Lasix Continue metoprolol Cardiology consult Check 2-D echo of the heart Oxygen through nasal cannula to keep saturation above 92% Strict I's and O's #Paroxysmal A. fib on Coumadin #Coumadin toxicity with supratherapeutic INR without any evidence of bleeding at this time Hold Coumadin Monitor for evidence of GI bleeding Monitor H&H Resume Coumadin when INR at goal of 23 #EKG showing evidence of bigeminy 2-D echocardiogram ordered to evaluate for progression of CHF Cardiology consult Check electrolytes potassium, magnesium and correct accordingly keep potassium above 4 magnesium above 2 Continue with metoprolol Currently patient is asymptomatic #Chronic stasis ulcers left lower extremity Outpatient follow-up with Dr. Car Left lower extremity venous duplex ultrasound performed showed no evidence of acute DVT. DVT prophylaxis currently patient has supratherapeutic INR Resume Coumadin once INR goal of 23 #Morbid obesity Patient counseled for lifestyle changes and weight loss Consider outpatient evaluation for bariatric surgery #Elevated bilirubin Check liver ultrasound Follow-up liver function Surrogate decision-maker: Patient CODE STATUS: Full code Discussed with: Patient, ER Anticipated discharge: 48-[address]: Pending clinical course A total of 50 minutes was spent on the care of this complex patient more than 50 % of the time was spent in counseling and care coordination.
[2018-03-09 20:58] LABS: Prothrombin Time 113.5 sec (9.0-12.0)
[2018-03-09 21:10] LABS: INR >10.0 (<1.2)
[2018-03-09 22:36] LABS: Prothrombin Time 112.9 sec (9.0-12.0)
[2018-03-09 22:38] LABS: Magnesium 2.1 mg/dL (1.6-2.3)
[2018-03-09 22:51] LABS: INR >10.0 (<1.2)
[2018-03-09 22:53] LABS: Creatine Kinase 103 U/L (55-170)
[2018-03-09 23:05] LABS: Creatine Kinase MB 1.3 ng/mL (0.0-2.4); Troponin I <0.012 ng/mL (0.000-0.034)
[2018-03-09] MEDS: FUROSEMIDE 10 MG/ML 4 ML VIAL IV SCH (23:23)
[2018-03-09] MEDS: METOPROLOL TARTRATE 25 MG TAB PO SCH (23:23)
[2018-03-10 04:03] LABS: Basophils % (A) 0 %; Eosinophils # (A) 0.1 k/uL (0-0.7); Eosinophils % (A) 2 %; HCT 47.7 % (39.0-53.0); HGB 15.2 gm/dL (13.0-17.5); Lymphocytes # (A) 1.1 k/uL (1.0-4.8); Lymphocytes % (A) 19 %; MCH 30.5 pg (25.0-35.0); MCHC 31.9 g/dL (31.0-37.0); MCV 95.6 fL (80.0-100.0); Mean Platelet Volume 9.8; Monocytes # (A) 0.5 k/uL (0-1.0); Monocytes % (A) 8 %; Neutrophils # (A) 3.9 k/uL (1.3-7.7); Neutrophils % (A) 69 %; Platelet Count 106 k/uL (150-450); RBC 4.99 m/uL (4.30-5.90); RDW 13.9 % (11.5-15.5); WBC 5.7 k/uL (3.8-10.6)
[2018-03-10 04:18] LABS: Albumin 3.5 g/dL (3.5-5.0); Calcium 8.6 mg/dL (8.4-10.2); Magnesium 2.1 mg/dL (1.6-2.3); Potassium 4.3 mmol/L (3.5-5.1); Total Bilirubin 1.5 mg/dL (0.2-1.3); Total Protein 6.6 g/dL (6.3-8.2)
[2018-03-10 04:35] LABS: Creatine Kinase MB 1.3 ng/mL (0.0-2.4); Troponin I 0.017 ng/mL (0.000-0.034)
[2018-03-10] MEDS: METOPROLOL TARTRATE 25 MG TAB PO SCH ×3 (06:37→22:36)
[2018-03-10] MEDS ORDERED: FUROSEMIDE 40 MG TAB PO SCH (07:00)
--- NOTE | 2018-03-10 07:51 | US ---
EXAMINATION TYPE: US liver DATE OF EXAM: 03/10/2018 COMPARISON: NONE CLINICAL HISTORY: 73-year-old male elevated bilirubin. TECHNIQUE: Multiple sonographic images of the right upper quadrant are obtained. FINDINGS: Car Designer notes: Extremely difficult and limited exam due to patient body habitus. Patient is 490lb s, cannot roll onto his side, cannot take a deep breath in and hold. EXAM MEASUREMENTS: Liver Length: 18.6 cm Gallbladder Wall: 8.5 mm CBD: 0.5 cm Right Kidney: 11.8 x 6.7 x 5.8 cm Pancreas: Obscured by bowel gas Liver: Extremely limited evaluation due to patient body habitus. Enlarged. Gallbladder: Upper limits of normal in size. No visible stones. Wall appears to be thickened. Evidence for sonographic Mancia's sign: No CBD: wnl as visualized, distal portion obscure by bowel gas Right Kidney: No hydronephrosis visualized on very limited evaluation IMPRESSION: 1. Very limited exam due to body habitus and patient's inability to position. 2. Mild hepatomegaly (18.6 cm). Unable to evaluate the liver parenchyma. 3. The diagnostic medical sonographer measures a portion of the gallbladder wall which appears to be thickened at 8.5 mm . Another portions of the wall appear thinner and more uniform. Unable to determine how much of this is artifact due to exam limitations. However, no ancillary findings of acute cholecystitis are identi fied.
[2018-03-10] MEDS: FUROSEMIDE 10 MG/ML 4 ML VIAL IV SCH ×2 (09:20→22:37)
--- NOTE | 2018-03-10 10:18 | CONS ---
CONSULTATION CHIEF COMPLAINT: Shortness of breath. Mr. Urena is a morbidly overweight 72-year-old gentleman with history of chronic systolic heart failure, paroxysmal atrial fibrillation, history of DVT with right leg cellulitis and nonhealing leg ulcer, who presented to his primary care physician with symptoms of shortness of breath that have been getting progressively worse over the last few weeks. The patient also has an open wound over the left leg and is currently under the care of Dr. Car, Account Representative. On his presentation to the emergency room, he had coagulopathy with an INR of 10, had elevated BNP and is admitted to hospital with complex and multiple medical problems for further evaluation. Patient complains of paroxysmal nocturnal dyspnea. He denies any spontaneous bleeding. PAST MEDICAL HISTORY: Significant for paroxysmal atrial fibrillation, DVT, osteoarthritis. MEDICATIONS: At home included Coumadin, Lopressor 25 t.i.d., Lasix, naproxen, and tramadol. ALLERGIES: There are no known drug allergies. FAMILY HISTORY: Negative for premature coronary artery disease. SOCIAL HISTORY: Negative for current smoking, EtOH abuse, or drug abuse. REVIEW OF SYSTEMS: HEENT is unremarkable. CARDIAC: As described above. RESPIRATORY: As described above. GI: Negative. GENITOURINARY: Negative. ALLERGY/IMMUNOLOGY: Negative. SKIN: Significant for ulcer. MUSCULOSKELETAL: Significant for arthritis. PSYCHOSOCIAL: Negative. ENDOCRINE: Negative. DERMATOLOGICAL: Negative. CONSTITUTIONAL: Significant for fatigue and tiredness. ONCOLOGICAL: Negative. Rest of the system review is not relevant. PHYSICAL EXAM: Patient is comfortable at rest. Afebrile. Heart rate is 74 beats per minute, irregular. Blood pressure is 110/60, respiratory rate is 18. Chest exam reveals diminished air entry at the bases. Heart exam reveals first and second heart sounds. No gallop. Abdomen is soft. Exam of extremities reveal right leg edema and the distal pulses are palpable. LABS: Show that the hemoglobin is 15.2, platelet count is 106. INR is still elevated at more than 10. Potassium is 4.3, creatinine is 1.2, three sets of troponins are negative. BNP is elevated at 3650. An EKG shows sinus rhythm with frequent PVCs and PACs. ASSESSMENT: 1. Acute exacerbation of chronic systolic heart failure. 2. Paroxysmal atrial fibrillation. 3. Morbid obesity. 4. Complex atrial and ventricular ectopy. 5. Ulcer of the right leg. PLAN: Patient will continue the IV Lasix, continue the beta blockers. I will obtain a 2D echo and decide on further course of action based on how he evolves from here. MMFELIX / EMMAN: [id number] /
[2018-03-10 10:26] LABS: Prothrombin Time 45.7 sec (9.0-12.0)
[2018-03-10 10:29] LABS: INR 5.1 (<1.2)
[2018-03-10 11:41] VITALS: BMI 62.5
--- NOTE | 2018-03-10 12:12 | ECHOF ---
Referral Reason:chf (LVEF 40-45% 2015) MEASUREMENTS -------- HEIGHT: 182.9 cm WEIGHT: 214.6 kg BP: 138/77 RVIDd: 4.2 cm (< 3.3) IVSd: 1.6 cm (0.6 - 1.1) LVIDd: 4.5 cm (3.9 - 5.3) LVPWd: 2.0 cm (0.6 - 1.1) IVSs: 2.0 cm LVIDs: 2.9 cm LVPWs: 2.7 cm Ao Diam: 3.9 cm (2.0 - 3.7) AV Cusp: 1.7 cm (1.5 - 2.6) LA Diam: 4.1 cm (2.7 - 3.8) MV EXCURSION: 14.751 mm (> 18.000) MV EF SLOPE: 139 mm/s (70 - 150) EPSS: 1.8 cm FINDINGS -------- Atrial fibrillation. This was a technically difficult study with suboptimal views. Morbid Obesity The left ventricular size is normal. There is moderate concentric left ventricular hypertrophy. O verall left ventricular systolic function is mild-moderately impaired with, an EF between 40 - 45 %. The right ventricle is moderately enlarged. The left atrium is mildly dilated. The right atrium was not well visualized. Lumason used The aortic valve was not well visualized. The mitral valve was not well visualized. There is trace mitral regurgitation. The tricuspid valve was not well visualized. Trace tricuspid regurgitation present. The right elisa tricular systolic pressure is normal. Pulmonic valve appears structurally normal. The aortic root size is normal. CONCLUSIONS -------- 1. Atrial fibrillation. 2. This was a technically difficult study with suboptimal views. 3. Morbid Obesity 4. The left ventricular size is normal. 5. There is moderate concentric left ventricular hypertrophy. 6. The right ventricle is moderately enlarged. 7. The left atrium is mildly dilated. 8. The right atrium was not well visualized. 9. Lumason used 10. The aortic valve was not well visualized. 11. The mitral valve was not well visualized. 12. There is trace mitral regurgitation. 13. The tricuspid valve was not well visualized. 14. Trace tricuspid regurgitation present. 15. The right ventricular systolic pressure, as measured by Doppler, is {RVSP}. 16. Pulmonic valve appears structurally normal. 17. The aortic root size is normal. OPERATIONS AND MAINTENANCE MANAGER: Nancy Barth RDCS
--- NOTE | 2018-03-10 12:25 | P.PN ---
Subjective Progress Note Date: 03/10/18 Principal diagnosis: Venous stasis ulceration left leg Congestive heart failure Coumadin toxicity Patient is being seen at the request of patient for venous stasis ulceration of the left lower leg patient is known to me and has been seen in the office several times for this ulcer as well as previous venous stasis ulcers of the legs. As ulcer has been present for several weeks at this time. Objective - Vital Signs Vital signs: Vital Signs Temp 96.8 F L 03/10/18 08:00 Pulse 45 L 03/10/18 08:00 Resp 16 03/10/18 04:00 BP 107/65 03/10/18 08:00 Pulse Ox 94 L 03/10/18 08:00 Intake & Output 03/09/18 03/10/18 03/10/18 18:59 06:59 18:59 Output Total 350 Balance -350 Weight 217.724 kg 215 kg 215 kg Output: Urine 350 Other: Voiding Method Urinal # Voids 1 - Cardiovascular Details: Pedal pulses diminished nonpalpable pitting edema bilateral 12/17 - Integumentary Integumentary Comment(s): Thickness ulceration located pretibial area left lower leg through the dermis into the deep fascia planes. All necrotic tissue no clinical sign of infection - Neurologic Neurologic Comment(s): Decreased epicritic and pallesthetic sensations bilateral - Musculoskeletal Musculoskeletal Comment(s): Increased range of motion ankle joint subtalar joint and midtarsal joint and metatarsophalangeal joints bilateral all inverters everters plantar flexors dorsiflexors grossly intact and symmetrical bilateral - Labs CBC & Chem 7: 03/10/18 03:42 03/10/18 03:42 Labs: Abnormal Lab Results - Last 24 Hours (Table) 03/09/18 03/09/18 03/09/18 Range/Units 16:32 16:32 16:32 Plt Count 107 L (150-450) k/uL PT 93.6 H (9.0-12.0) sec INR 10.0 H* (<1.2) APTT 37.8 H (22.0-30.0) sec VBG pCO2 (37-51) mmHg VBG HCO3 (24-28) mmol/L Chloride (98-107) mmol/L Carbon Dioxide 32 H (22-30) mmol/L BUN 31 H (9-20) mg/dL Glucose 101 H (74-99) mg/dL Total Bilirubin 1.6 H (0.2-1.3) mg/dL LDL Cholesterol, Calc (0-99) mg/dL HDL Cholesterol (40-60) mg/dL 03/09/18 03/09/18 03/09/18 Range/Units 16:32 20:15 22:00 Plt Count (150-450) k/uL PT 113.5 H 112.9 H (9.0-12.0) sec INR >10.0 H* >10.0 H* (<1.2) APTT (22.0-30.0) sec VBG pCO2 54 H (37-51) mmHg VBG HCO3 33 H (24-28) mmol/L Chloride (98-107) mmol/L Carbon Dioxide (22-30) mmol/L BUN (9-20) mg/dL Glucose (74-99) mg/dL Total Bilirubin (0.2-1.3) mg/dL LDL Cholesterol, Calc (0-99) mg/dL HDL Cholesterol (40-60) mg/dL 03/10/18 03/10/18 03/10/18 Range/Units 03:42 03:42 09:28 Plt Count 106 L (150-450) k/uL PT 45.7 H (9.0-12.0) sec INR 5.1 H* (<1.2) APTT (22.0-30.0) sec VBG pCO2 (37-51) mmHg VBG HCO3 (24-28) mmol/L Chloride 97 L (98-107) mmol/L Carbon Dioxide 35 H (22-30) mmol/L BUN 34 H (9-20) mg/dL Glucose 105 H (74-99) mg/dL Total Bilirubin 1.5 H (0.2-1.3) mg/dL LDL Cholesterol, Calc 141 H (0-99) mg/dL HDL Cholesterol 29 L (40-60) mg/dL Microbiology - Last 24 Hours (Table) 03/09/18 18:38 Gram Stain - Preliminary Leg - Left Wound Culture - Preliminary Assessment and Plan Assessment: Venous stasis ulcer left leg with peripheral vascular disease Congestive heart failure Plan: Exam. Discussed patient findings and clinical plan. We'll have the wound be treated with metal Honey as well as a dry sterile dressing at this time. Discharge consider referral to wound care center. Also patient would like to have these legs compressed however this is not indicated due to the congestive heart failure we will discuss with crew manager as to his opinion with compression.
--- NOTE | 2018-03-10 12:26 | P.PN ---
Subjective Progress Note Date: 03/10/18 Principal diagnosis: CHF exacerbation Patient is feeling better today, he was concerned about left leg ulcer that he has been seeing the development disability specialist about over the last 3 weeks. Objective - Vital Signs Vital signs: Vital Signs Temp 96.8 F L 03/10/18 08:00 Pulse 45 L 03/10/18 08:00 Resp 16 03/10/18 04:00 BP 107/65 03/10/18 08:00 Pulse Ox 94 L 03/10/18 08:00 Intake & Output 03/09/18 03/10/18 03/10/18 18:59 06:59 18:59 Output Total 350 Balance -350 Weight 217.724 kg 215 kg 215 kg Output: Urine 350 Other: Voiding Method Urinal # Voids 1 - Exam Constitutional: No acute distress, conversant, pleasant Eyes:Anicteric sclerae, moist conjunctiva, no lid-lag, PERRLA, ENMT: Oropharynx clear, no erythema, exudates Neck: Supple, FROM, no masses, or JVD, No carotid bruits, No thyromegaly Lungs: Clear to auscultation, Clear to percussion, Normal respiratory effort, no accessory muscle use Cardiovascular: Irregularly irregular, No murmurs, gallops, or rubs, 1+ peripheral edema Abdominal: Obese, Soft, Nontender, no guarding, rebound or rigidity, Normoactive bowel sounds, No hepatomegaly, No splenomegaly, No palpable mass Skin: Normal temperature, tone, texture, turgor, no induration, No subcutaneous nodules, No rash, lesions, No ulcers Extremities: Left leg wound 1 x 1 cm with a yellow base and surrounding erythema. No digital cyanosis, No clubbing, Pedal pulses intact and symmetrical , Radial pulses intact and symmetrical, No calf tenderness Psychiatric: Alert and oriented to person, place and time, appropriate affect, intact judgement Neuro: Muscles Strength 5/5 in all 4 extremities, Sensation to light touch grossly present throughout, Cranial nerves II-XII grossly intact, no focal sensory deficits - Labs CBC & Chem 7: 03/10/18 03:42 03/10/18 03:42 Labs: Abnormal Lab Results - Last 24 Hours (Table) 03/09/18 03/09/18 03/09/18 Range/Units 16:32 16:32 16:32 Plt Count 107 L (150-450) k/uL PT 93.6 H (9.0-12.0) sec INR 10.0 H* (<1.2) APTT 37.8 H (22.0-30.0) sec VBG pCO2 (37-51) mmHg VBG HCO3 (24-28) mmol/L Chloride (98-107) mmol/L Carbon Dioxide 32 H (22-30) mmol/L BUN 31 H (9-20) mg/dL Glucose 101 H (74-99) mg/dL Total Bilirubin 1.6 H (0.2-1.3) mg/dL LDL Cholesterol, Calc (0-99) mg/dL HDL Cholesterol (40-60) mg/dL 03/09/18 03/09/18 03/09/18 Range/Units 16:32 20:15 22:00 Plt Count (150-450) k/uL PT 113.5 H 112.9 H (9.0-12.0) sec INR >10.0 H* >10.0 H* (<1.2) APTT (22.0-30.0) sec VBG pCO2 54 H (37-51) mmHg VBG HCO3 33 H (24-28) mmol/L Chloride (98-107) mmol/L Carbon Dioxide (22-30) mmol/L BUN (9-20) mg/dL Glucose (74-99) mg/dL Total Bilirubin (0.2-1.3) mg/dL LDL Cholesterol, Calc (0-99) mg/dL HDL Cholesterol (40-60) mg/dL 03/10/18 03/10/18 03/10/18 Range/Units 03:42 03:42 09:28 Plt Count 106 L (150-450) k/uL PT 45.7 H (9.0-12.0) sec INR 5.1 H* (<1.2) APTT (22.0-30.0) sec VBG pCO2 (37-51) mmHg VBG HCO3 (24-28) mmol/L Chloride 97 L (98-107) mmol/L Carbon Dioxide 35 H (22-30) mmol/L BUN 34 H (9-20) mg/dL Glucose 105 H (74-99) mg/dL Total Bilirubin 1.5 H (0.2-1.3) mg/dL LDL Cholesterol, Calc 141 H (0-99) mg/dL HDL Cholesterol 29 L (40-60) mg/dL Microbiology - Last 24 Hours (Table) 03/09/18 18:38 Gram Stain - Preliminary Leg - Left Wound Culture - Preliminary Assessment and Plan Plan: #Acute on chronic systolic CHF exacerbation Continue IV diuresis with Lasix Continue metoprolol Cardiology consulted, following 2-D echo shows same EF as last time, 40-45%. Oxygen through nasal cannula to keep saturation above 92% Strict I's and O's #Paroxysmal A. fib on Coumadin, coumadin toxicity with supratherapeutic INR without any evidence of bleeding at this time Hold Coumadin Monitor for evidence of GI bleeding Monitor H&H and INR Resume Coumadin when INR at goal of 23 #Chronic stasis ulcer left lower extremity Check with Dr. Car if he can come in and evaluate patient, communicated with nurse If not will consult ID Left lower extremity venous duplex ultrasound performed showed no evidence of acute DVT. #Morbid obesity Nutrition consult Consider outpatient evaluation for bariatric surgery
[2018-03-10 18:03] LABS: Glucose,Whole Blood 95 mg/dL (75-99)
--- NOTE | 2018-03-10 18:45 | CT ---
EXAMINATION TYPE: CT brain wo con for TPA DATE OF EXAM: 03/10/2018 COMPARISON: NONE HISTORY: Patient code stroke. Patient appears to be altered mental status. CT DLP: 975 mGycm Automated exposure control for dose reduction was used. FINDINGS: There is mild cerebral cortical atrophy. There is no mass effect nor midline shift. There is no sign of intracranial hemorrhage. The calvarium is intact. There is mild hypodensity in the white matter ar ound the frontal lobes. IMPRESSION: CEREBRAL ATROPHY. MILD CHRONIC SMALL VESSEL ISCHEMIA.
[2018-03-10 18:49] LABS: Basophils % (A) 0 %; Eosinophils # (A) 0.1 k/uL (0-0.7); Eosinophils % (A) 2 %; HCT 45.5 % (39.0-53.0); HGB 14.5 gm/dL (13.0-17.5); Hypochromasia Slight; Lymphocytes # (A) 1.2 k/uL (1.0-4.8); Lymphocytes % (A) 21 %; MCH 30.3 pg (25.0-35.0); MCHC 31.9 g/dL (31.0-37.0); MCV 95.1 fL (80.0-100.0); Mean Platelet Volume 10.2; Monocytes # (A) 0.6 k/uL (0-1.0); Monocytes % (A) 11 %; Neutrophils # (A) 3.5 k/uL (1.3-7.7); Neutrophils % (A) 64 %; Platelet Count 122 k/uL (150-450); RBC 4.78 m/uL (4.30-5.90); RDW 14.1 % (11.5-15.5); WBC 5.5 k/uL (3.8-10.6)
[2018-03-10 18:58] LABS: Albumin 3.3 g/dL (3.5-5.0); Calcium 8.4 mg/dL (8.4-10.2); Magnesium 2.2 mg/dL (1.6-2.3); Phosphorus 5.2 mg/dL (2.5-4.5); Potassium 4.6 mmol/L (3.5-5.1); Total Bilirubin 1.8 mg/dL (0.2-1.3); Total Protein 6.4 g/dL (6.3-8.2)
[2018-03-10 19:01] LABS: INR 3.3 (<1.2); Partial Thromboplastin Time 29.8 sec (22.0-30.0); Prothrombin Time 29.9 sec (9.0-12.0)
--- NOTE | 2018-03-10 19:21 | CT ---
EXAMINATION TYPE: CODE STROKE: CTA head neck DATE OF EXAM: 03/10/2018 HISTORY: Patient appears altered mental status. COMPARISON: NONE CT DLP: 923.1 mGycm. Automated Exposure Control for Dose Reduction was Utilized. TECHNIQUE: CTA scan of the neck is performed with IV Contrast, patient injected with 60 mL of Isovue 370, axial images are obtained, coronal and sagittal reformatted images are reviewed. Three-D recons tructed images are created on an independent workstation and reviewed. FINDINGS: There is normal branching pattern of the great vessels on the aortic arch. There is arterial flow in both vertebral arteries. There is arterial flow in the common internal and external carotid arteries bilaterally. There is minimal plaque at the carotid artery bifurcations and lumen narrowing less than 20%. There is moderate multilevel spondylosis in the lower cervical spine. There is arterial flow in the anterior middle and posterior cerebral arteries. There is no mass effec t. There is no sign of aneurysm or neovascularity. There is arterial flow in the vertebrobasilar bianca ry system. There is normal contrast opacification of the venous sinuses. There is no evidence of sten osis. IMPRESSION: Minimal atherosclerotic disease at the carotid artery bifurcations. No evidence of hemodynamically si gnificant stenosis. Negative CT angiogram of the brain.
[2018-03-10 19:28] LABS: ABG PH 7.24 (7.35-7.45)
[2018-03-10 19:33] LABS: ABG Base Excess 10.8 mmol/L; ABG HCO3 38 mmol/L (21-25); ABG PCO2 89 mmHg (35-45); ABG PO2 82 mmHg (83-108); ABG TCO2 41 mmol/L (19-24)
[2018-03-11 06:41] LABS: INR 2.4 (<1.2); Prothrombin Time 21.5 sec (9.0-12.0)
[2018-03-11] MEDS: METOPROLOL TARTRATE 25 MG TAB PO SCH ×3 (06:42→23:33)
[2018-03-11 07:16] LABS: Calcium 8.5 mg/dL (8.4-10.2); Magnesium 2.2 mg/dL (1.6-2.3); Potassium 4.3 mmol/L (3.5-5.1)
[2018-03-11 09:10] LABS: Basophils % (A) 1 %; Eosinophils # (A) 0.1 k/uL (0-0.7); Eosinophils % (A) 2 %; HCT 48.4 % (39.0-53.0); HGB 14.8 gm/dL (13.0-17.5); Hypochromasia Slight; Lymphocytes # (A) 1.2 k/uL (1.0-4.8); Lymphocytes % (A) 21 %; MCH 29.8 pg (25.0-35.0); MCHC 30.6 g/dL (31.0-37.0); MCV 97.6 fL (80.0-100.0); Mean Platelet Volume 10.4; Monocytes # (A) 0.6 k/uL (0-1.0); Monocytes % (A) 10 %; Neutrophils # (A) 3.6 k/uL (1.3-7.7); Neutrophils % (A) 63 %; Platelet Count 116 k/uL (150-450); RBC 4.95 m/uL (4.30-5.90); RDW 14.3 % (11.5-15.5); WBC 5.7 k/uL (3.8-10.6)
--- NOTE | 2018-03-11 09:22 | P.PN ---
Subjective Progress Note Date: 03/11/18 Principal diagnosis: Congestive heart failure This is a 73-year-old gentleman with a past medical history significant for morbid obesity, paroxysmal atrial fibrillation on oral anticoagulation with Coumadin, as well as hypertension, was admitted to the hospital with acute on chronic respiratory failure secondary to congestive heart failure exacerbation. The echocardiogram revealed impaired LV function with EF of around 40-45% with hypertensive heart disease and LVH. I'll follow-up with him today, the patient continues to be short of breath. He does have diminished breathing sounds bilaterally. He still have significant bilateral lower extremities edema. The patient continues to be on Lasix IV at 40 mg twice a day. The common tendon is on hold at this point because INR was elevated when he presented to the hospital. Objective - Vital Signs Vital signs: Vital Signs Temp 97.0 F L 03/10/18 20:00 Pulse 94 03/11/18 04:00 Resp 17 03/11/18 04:00 BP 145/98 03/11/18 04:00 Pulse Ox 93 L 03/11/18 04:00 Intake & Output 03/10/18 03/11/18 03/11/18 18:59 06:59 18:59 Intake Total 480 240 Output Total 275 1150 Balance 205 -1150 240 Weight 215 kg 215.5 kg Intake: Oral 480 240 Output: Urine 275 1150 Other: Voiding Method Urinal # Voids 1 2 - Constitutional General appearance: Present: no acute distress - Respiratory Respiratory: bilateral: diminished - Cardiovascular Rhythm: regular Heart sounds: normal: S1, S2 - Labs CBC & Chem 7: 03/11/18 06:08 03/11/18 06:08 Labs: Abnormal Lab Results - Last 24 Hours (Table) 03/10/18 03/10/18 03/10/18 Range/Units 09:28 18:36 18:36 MCHC (31.0-37.0) g/dL Plt Count (150-450) k/uL PT 45.7 H 29.9 H (9.0-12.0) sec INR 5.1 H* 3.3 H (<1.2) ABG pH (7.35-7.45) ABG pCO2 (35-45) mmHg ABG pO2 (83-108) mmHg ABG HCO3 (21-25) mmol/L ABG Total CO2 (19-24) mmol/L Chloride 96 L (98-107) mmol/L Carbon Dioxide 37 H (22-30) mmol/L BUN 38 H (9-20) mg/dL Creatinine 1.30 H (0.66-1.25) mg/dL Phosphorus 5.2 H (2.5-4.5) mg/dL Total Bilirubin 1.8 H (0.2-1.3) mg/dL Albumin 3.3 L (3.5-5.0) g/dL 03/10/18 03/10/18 03/11/18 Range/Units 18:36 19:15 06:08 MCHC 30.6 L (31.0-37.0) g/dL Plt Count 122 L 116 L (150-450) k/uL PT (9.0-12.0) sec INR (<1.2) ABG pH 7.24 L (7.35-7.45) ABG pCO2 89 H* (35-45) mmHg ABG pO2 82 L (83-108) mmHg ABG HCO3 38 H (21-25) mmol/L ABG Total CO2 41 H (19-24) mmol/L Chloride (98-107) mmol/L Carbon Dioxide (22-30) mmol/L BUN (9-20) mg/dL Creatinine (0.66-1.25) mg/dL Phosphorus (2.5-4.5) mg/dL Total Bilirubin (0.2-1.3) mg/dL Albumin (3.5-5.0) g/dL 03/11/18 03/11/18 Range/Units 06:08 06:08 MCHC (31.0-37.0) g/dL Plt Count (150-450) k/uL PT 21.5 H (9.0-12.0) sec INR 2.4 H (<1.2) ABG pH (7.35-7.45) ABG pCO2 (35-45) mmHg ABG pO2 (83-108) mmHg ABG HCO3 (21-25) mmol/L ABG Total CO2 (19-24) mmol/L Chloride 96 L (98-107) mmol/L Carbon Dioxide 37 H (22-30) mmol/L BUN 37 H (9-20) mg/dL Creatinine (0.66-1.25) mg/dL Phosphorus (2.5-4.5) mg/dL Total Bilirubin (0.2-1.3) mg/dL Albumin (3.5-5.0) g/dL Microbiology - Last 24 Hours (Table) 03/09/18 16:32 Blood Culture - Preliminary Blood No Growth after 24 hours 03/09/18 18:38 Gram Stain - Preliminary Leg - Left Wound Culture - Preliminary Assessment and Plan Assessment: Assessment #1 acute on chronic respiratory failure #2 congestive heart failure secondary to systolic dysfunction #3 morbid obesity #4 cardiomyopathy with EF of 40-45% #5 hypertensive heart disease Plan #1 I would continue the Lasix for additional 24 hours #2 continue monitor the kidney function and electrolytes #3 restart the patient back on Coumadin once INR is down #4 follow-up with the patient.
[2018-03-11] MEDS: FUROSEMIDE 10 MG/ML 4 ML VIAL IV SCH ×2 (09:38→20:17)
--- NOTE | 2018-03-11 11:54 | P.PN ---
Subjective Progress Note Date: 03/11/18 Principal diagnosis: CHF exacerbation Patient had an episode of slurred speech and confusion yesterday, he had a CT of the brain as well as CT angiogram of the head and neck and both were negative for acute stroke or vascular stenosis respectively. ABG revealed elevated CO2 in the 80s. He was treated with BiPAP for several hours last night. Currently is doing well, no more confusion today or slurred speech.. Shortness of breath is better. Objective - Vital Signs Vital signs: Vital Signs Temp 97.2 F L 03/11/18 08:00 Pulse 73 03/11/18 08:00 Resp 16 03/11/18 11:44 BP 143/80 03/11/18 08:00 Pulse Ox 91 L 03/11/18 08:00 Intake & Output 03/10/18 03/11/18 03/11/18 18:59 06:59 18:59 Intake Total 480 240 Output Total 275 1150 Balance 205 -1150 240 Weight 215 kg 215.5 kg Intake: Oral 480 240 Output: Urine 275 1150 Other: Voiding Method Urinal Urinal # Voids 1 2 - Exam Constitutional: No acute distress, conversant, pleasant Eyes:Anicteric sclerae, moist conjunctiva, no lid-lag, PERRLA, ENMT: Oropharynx clear, no erythema, exudates Neck: Supple, FROM, no masses, or JVD, No carotid bruits, No thyromegaly Lungs: Clear to auscultation, Clear to percussion, Normal respiratory effort, no accessory muscle use Cardiovascular: Irregularly irregular, No murmurs, gallops, or rubs, 1+ peripheral edema Abdominal: Obese, Soft, Nontender, no guarding, rebound or rigidity, Normoactive bowel sounds, No hepatomegaly, No splenomegaly, No palpable mass Skin: Normal temperature, tone, texture, turgor, no induration, No subcutaneous nodules, No rash, lesions, No ulcers Extremities: Left leg wound 1 x 1 cm with a yellow base and surrounding erythema. No digital cyanosis, No clubbing, Pedal pulses intact and symmetrical , Radial pulses intact and symmetrical, No calf tenderness Psychiatric: Alert and oriented to person, place and time, appropriate affect, intact judgement Neuro: Muscles Strength 5/5 in all 4 extremities, Sensation to light touch grossly present throughout, Cranial nerves II-XII grossly intact, no focal sensory deficits - Labs CBC & Chem 7: 03/11/18 06:08 03/11/18 06:08 Labs: Abnormal Lab Results - Last 24 Hours (Table) 03/10/18 03/10/18 03/10/18 Range/Units 18:36 18:36 18:36 MCHC (31.0-37.0) g/dL Plt Count 122 L (150-450) k/uL PT 29.9 H (9.0-12.0) sec INR 3.3 H (<1.2) ABG pH (7.35-7.45) ABG pCO2 (35-45) mmHg ABG pO2 (83-108) mmHg ABG HCO3 (21-25) mmol/L ABG Total CO2 (19-24) mmol/L Chloride 96 L (98-107) mmol/L Carbon Dioxide 37 H (22-30) mmol/L BUN 38 H (9-20) mg/dL Creatinine 1.30 H (0.66-1.25) mg/dL Phosphorus 5.2 H (2.5-4.5) mg/dL Total Bilirubin 1.8 H (0.2-1.3) mg/dL Albumin 3.3 L (3.5-5.0) g/dL 03/10/18 03/11/18 03/11/18 Range/Units 19:15 06:08 06:08 MCHC 30.6 L (31.0-37.0) g/dL Plt Count 116 L (150-450) k/uL PT 21.5 H (9.0-12.0) sec INR 2.4 H (<1.2) ABG pH 7.24 L (7.35-7.45) ABG pCO2 89 H* (35-45) mmHg ABG pO2 82 L (83-108) mmHg ABG HCO3 38 H (21-25) mmol/L ABG Total CO2 41 H (19-24) mmol/L Chloride (98-107) mmol/L Carbon Dioxide (22-30) mmol/L BUN (9-20) mg/dL Creatinine (0.66-1.25) mg/dL Phosphorus (2.5-4.5) mg/dL Total Bilirubin (0.2-1.3) mg/dL Albumin (3.5-5.0) g/dL 03/11/18 Range/Units 06:08 MCHC (31.0-37.0) g/dL Plt Count (150-450) k/uL PT (9.0-12.0) sec INR (<1.2) ABG pH (7.35-7.45) ABG pCO2 (35-45) mmHg ABG pO2 (83-108) mmHg ABG HCO3 (21-25) mmol/L ABG Total CO2 (19-24) mmol/L Chloride 96 L (98-107) mmol/L Carbon Dioxide 37 H (22-30) mmol/L BUN 37 H (9-20) mg/dL Creatinine (0.66-1.25) mg/dL Phosphorus (2.5-4.5) mg/dL Total Bilirubin (0.2-1.3) mg/dL Albumin (3.5-5.0) g/dL Microbiology - Last 24 Hours (Table) 03/09/18 16:32 Blood Culture - Preliminary Blood No Growth after 24 hours Assessment and Plan Plan: #Acute on chronic systolic CHF exacerbation Continue IV diuresis with Lasix Continue metoprolol Cardiology consulted, following 2-D echo shows same EF as last time, 40-45%. Oxygen through nasal cannula to keep saturation above 92% Strict I's and O's Repeat ABG to follow-up on the CO2 levels #Paroxysmal A. fib on Coumadin, coumadin toxicity with supratherapeutic INR without any evidence of bleeding at this time INR back to normal range Resume Coumadin #Chronic stasis ulcer left lower extremity Seen by Dr. Car Left lower extremity venous duplex ultrasound performed showed no evidence of acute DVT. #Morbid obesity Nutrition consult Consider outpatient evaluation for bariatric surgery
[2018-03-11 12:31] LABS: ABG Base Excess 13.2 mmol/L; ABG HCO3 38 mmol/L (21-25); ABG Oxygen Saturation 96.6 % (94-97); ABG PCO2 66 mmHg (35-45); ABG PH 7.38 (7.35-7.45); ABG PO2 75 mmHg (83-108); ABG TCO2 40 mmol/L (19-24)
[2018-03-11] MEDS ORDERED: WARFARIN 7.5 MG TAB PO SCH (18:00)
[2018-03-12] MEDS: METOPROLOL TARTRATE 25 MG TAB PO SCH ×3 (06:24→21:38)
[2018-03-12 06:31] LABS: Calcium 8.8 mg/dL (8.4-10.2); Magnesium 2.2 mg/dL (1.6-2.3); Phosphorus 3.1 mg/dL (2.5-4.5); Potassium 4.6 mmol/L (3.5-5.1)
[2018-03-12] MEDS: FUROSEMIDE 10 MG/ML 4 ML VIAL IV SCH ×4 (07:51→23:10)
--- NOTE | 2018-03-12 10:49 | P.PN ---
Subjective Progress Note Date: 03/12/18 Principal diagnosis: Congestive heart failure This is a 73-year-old gentleman with a past medical history significant for morbid obesity, paroxysmal atrial fibrillation on oral anticoagulation with Coumadin, as well as hypertension, was admitted to the hospital with acute on chronic respiratory failure secondary to congestive heart failure exacerbation. The echocardiogram revealed impaired LV function with EF of around 40-45% with hypertensive heart disease and LVH. I'll follow-up with him today, overall he is feeling better in terms of shortness of breath. As a matter of fact on physical examination the crackles in both lung francis seems to be better as well. No wheezing. He still have significant amount of bilateral lower extremities edema. I recommended continue the patient on IV Lasix for at least additional 24 hours and continue monitor the kidney function and electrolytes. Objective - Vital Signs Vital signs: Vital Signs Temp 98.2 F 03/12/18 07:38 Pulse 90 03/12/18 04:00 Resp 18 03/12/18 04:00 BP 111/47 03/12/18 07:38 Pulse Ox 96 03/12/18 07:38 Intake & Output 03/11/18 03/12/18 03/12/18 18:59 06:59 18:59 Intake Total 720 500 120 Output Total 325 1560 Balance 395 -1060 120 Weight 215 kg Intake: Oral 720 500 120 Output: Urine 325 1560 Other: Voiding Method Urinal Urinal # Voids 1 - Constitutional General appearance: Present: no acute distress - Respiratory Respiratory: bilateral: diminished - Cardiovascular Heart sounds: normal: S1, S2 - Labs CBC & Chem 7: 03/11/18 06:08 03/12/18 05:56 Labs: Abnormal Lab Results - Last 24 Hours (Table) 03/11/18 03/12/18 03/12/18 Range/Units 12:28 05:56 05:56 PT 18.0 H (9.0-12.0) sec INR 2.0 H (<1.2) ABG pCO2 66 H (35-45) mmHg ABG pO2 75 L (83-108) mmHg ABG HCO3 38 H (21-25) mmol/L ABG Total CO2 40 H (19-24) mmol/L Chloride 95 L (98-107) mmol/L Carbon Dioxide 39 H (22-30) mmol/L BUN 35 H (9-20) mg/dL Microbiology - Last 24 Hours (Table) 03/09/18 16:32 Blood Culture - Preliminary Blood No Growth after 48 hours 03/09/18 18:38 Gram Stain - Final Leg - Left Wound Culture - Final Assessment and Plan Assessment: Assessment #1 acute on chronic respiratory failure #2 congestive heart failure secondary to systolic dysfunction #3 morbid obesity #4 cardiomyopathy with EF of 40-45% #5 hypertensive heart disease Plan #1 I would continue the Lasix for additional 24 hours #2 continue monitor the kidney function and electrolytes #3 restart the patient back on Coumadin once INR is down #4 follow-up with the patient.
--- NOTE | 2018-03-12 12:34 | P.PN ---
Subjective Progress Note Date: 03/12/18 Principal diagnosis: CHF exacerbation Doing better, out of bed sitting in a chair. No significant shortness of breath. Objective - Vital Signs Vital signs: Vital Signs Temp 97.2 F L 03/12/18 11:50 Pulse 96 03/12/18 11:50 Resp 16 03/12/18 11:50 BP 118/72 03/12/18 11:50 Pulse Ox 95 03/12/18 11:50 Intake & Output 03/11/18 03/12/18 03/12/18 18:59 06:59 18:59 Intake Total 720 500 120 Output Total 325 1560 Balance 395 -1060 120 Weight 215 kg Intake: Oral 720 500 120 Output: Urine 325 1560 Other: Voiding Method Urinal Urinal Urinal # Voids 1 - Exam Constitutional: No acute distress, conversant, pleasant Eyes:Anicteric sclerae, moist conjunctiva, no lid-lag, PERRLA, ENMT: Oropharynx clear, no erythema, exudates Neck: Supple, FROM, no masses, or JVD, No carotid bruits, No thyromegaly Lungs: Clear to auscultation, Clear to percussion, Normal respiratory effort, no accessory muscle use Cardiovascular: Irregularly irregular, No murmurs, gallops, or rubs, 1+ peripheral edema Abdominal: Obese, Soft, Nontender, no guarding, rebound or rigidity, Normoactive bowel sounds, No hepatomegaly, No splenomegaly, No palpable mass Skin: Normal temperature, tone, texture, turgor, no induration, No subcutaneous nodules, No rash, lesions, No ulcers Extremities: Left leg wound 1 x 1 cm with a yellow base and surrounding erythema. No digital cyanosis, No clubbing, Pedal pulses intact and symmetrical , Radial pulses intact and symmetrical, No calf tenderness Psychiatric: Alert and oriented to person, place and time, appropriate affect, intact judgement Neuro: Muscles Strength 5/5 in all 4 extremities, Sensation to light touch grossly present throughout, Cranial nerves II-XII grossly intact, no focal sensory deficits - Labs CBC & Chem 7: 03/11/18 06:08 03/12/18 05:56 Labs: Abnormal Lab Results - Last 24 Hours (Table) 03/11/18 03/12/18 03/12/18 Range/Units 12:28 05:56 05:56 PT 18.0 H (9.0-12.0) sec INR 2.0 H (<1.2) ABG pCO2 66 H (35-45) mmHg ABG pO2 75 L (83-108) mmHg ABG HCO3 38 H (21-25) mmol/L ABG Total CO2 40 H (19-24) mmol/L Chloride 95 L (98-107) mmol/L Carbon Dioxide 39 H (22-30) mmol/L BUN 35 H (9-20) mg/dL Microbiology - Last 24 Hours (Table) 03/09/18 16:32 Blood Culture - Preliminary Blood No Growth after 48 hours 03/09/18 18:38 Gram Stain - Final Leg - Left Wound Culture - Final Assessment and Plan Plan: #Acute on chronic systolic CHF exacerbation Increase IV Lasix to 3 times a day. Continue metoprolol Cardiology following 2-D echo shows same EF as last time, 40-45%. Oxygen through nasal cannula to keep saturation above 92% Strict I's and O's #Paroxysmal A. fib on Coumadin, coumadin toxicity with supratherapeutic INR without any evidence of bleeding at this time INR back to normal range Resume Coumadin #Chronic stasis ulcer left lower extremity Seen by Dr. Car Left lower extremity venous duplex ultrasound performed showed no evidence of acute DVT. #Morbid obesity Nutrition consult Consider outpatient evaluation for bariatric surgery
[2018-03-12] MEDS: WARFARIN 5 MG TAB PO SCH (17:29)
[2018-03-13] MEDS: METOPROLOL TARTRATE 25 MG TAB PO SCH ×4 (06:08→22:08)
[2018-03-13 06:23] LABS: Basophils % (A) 1 %; Eosinophils # (A) 0.2 k/uL (0-0.7); Eosinophils % (A) 5 %; HCT 46.8 % (39.0-53.0); HGB 15.1 gm/dL (13.0-17.5); Lymphocytes # (A) 1.2 k/uL (1.0-4.8); Lymphocytes % (A) 26 %; MCH 31.1 pg (25.0-35.0); MCHC 32.3 g/dL (31.0-37.0); MCV 96.5 fL (80.0-100.0); Mean Platelet Volume 9.4; Monocytes # (A) 0.4 k/uL (0-1.0); Monocytes % (A) 10 %; Neutrophils # (A) 2.6 k/uL (1.3-7.7); Neutrophils % (A) 56 %; RBC 4.85 m/uL (4.30-5.90); RDW 14.9 % (11.5-15.5); WBC 4.7 k/uL (3.8-10.6)
[2018-03-13 06:40] LABS: Albumin 3.3 g/dL (3.5-5.0); Calcium 8.6 mg/dL (8.4-10.2); Potassium 4.1 mmol/L (3.5-5.1); Total Bilirubin 1.8 mg/dL (0.2-1.3); Total Protein 6.6 g/dL (6.3-8.2)
[2018-03-13 07:35] LABS: Platelet Count 99 k/uL (150-450); Poikilocytosis (M) Present
[2018-03-13] MEDS: FUROSEMIDE 10 MG/ML 4 ML VIAL IV SCH ×3 (08:26→23:07)
--- NOTE | 2018-03-13 11:52 | P.PN ---
Subjective Progress Note Date: 03/13/18 Principal diagnosis: CHF exacerbation Patient is feeling better, no shortness of breath Objective - Vital Signs Vital signs: Vital Signs Temp 97.5 F L 03/13/18 08:00 Pulse 106 H 03/13/18 08:00 Resp 18 03/13/18 08:00 BP 108/79 03/13/18 08:00 Pulse Ox 97 03/13/18 08:15 Intake & Output 03/12/18 03/13/18 03/13/18 18:59 06:59 18:59 Intake Total 720 490 180 Output Total 9566 932 7963 Balance -480 -761 -2115 Weight 214.4 kg Intake: IV 10 0.9 10 Oral 720 480 180 Output: Urine 6919 686 7231 Other: Voiding Method Urinal Urinal Urinal # Voids 1 - Exam Constitutional: No acute distress, conversant, pleasant Eyes:Anicteric sclerae, moist conjunctiva, no lid-lag, PERRLA, ENMT: Oropharynx clear, no erythema, exudates Neck: Supple, FROM, no masses, or JVD, No carotid bruits, No thyromegaly Lungs: Clear to auscultation, Clear to percussion, Normal respiratory effort, no accessory muscle use Cardiovascular: Irregularly irregular, No murmurs, gallops, or rubs, 1+ peripheral edema Abdominal: Obese, Soft, Nontender, no guarding, rebound or rigidity, Normoactive bowel sounds, No hepatomegaly, No splenomegaly, No palpable mass Skin: Normal temperature, tone, texture, turgor, no induration, No subcutaneous nodules, No rash, lesions, No ulcers Extremities: Left leg wound 1 x 1 cm with a yellow base and surrounding erythema. No digital cyanosis, No clubbing, Pedal pulses intact and symmetrical , Radial pulses intact and symmetrical, No calf tenderness Psychiatric: Alert and oriented to person, place and time, appropriate affect, intact judgement Neuro: Muscles Strength 5/5 in all 4 extremities, Sensation to light touch grossly present throughout, Cranial nerves II-XII grossly intact, no focal sensory deficits - Labs CBC & Chem 7: 03/13/18 05:52 03/13/18 05:52 Labs: Abnormal Lab Results - Last 24 Hours (Table) 03/13/18 03/13/18 Range/Units 05:52 05:52 Plt Count 99 L (150-450) k/uL Chloride 94 L (98-107) mmol/L Carbon Dioxide 41 H* (22-30) mmol/L BUN 31 H (9-20) mg/dL Total Bilirubin 1.8 H (0.2-1.3) mg/dL Albumin 3.3 L (3.5-5.0) g/dL Microbiology - Last 24 Hours (Table) 03/09/18 16:32 Blood Culture - Preliminary Blood No Growth after 72 hours Assessment and Plan Plan: #Acute on chronic systolic CHF exacerbation Increase IV Lasix to 3 times a day. Continue metoprolol Case discussed with Cardiology 2-D echo shows same EF as last time, 40-45%. Oxygen through nasal cannula to keep saturation above 92% Strict I's and O's #Paroxysmal A. fib on Coumadin, coumadin toxicity with supratherapeutic INR without any evidence of bleeding at this time INR back to normal range Continue Coumadin I discussed with cardiology patient's heart rate has been erratic, sometimes in the 50s and sometimes up to 110s. Cardiology would like patient to stay for 1 more day. #Chronic stasis ulcer left lower extremity Seen by Dr. Car Left lower extremity venous duplex ultrasound performed showed no evidence of acute DVT. #Morbid obesity Nutrition consult Consider outpatient evaluation for bariatric surgery Discussed with care management, home care for nursing arranged.
--- NOTE | 2018-03-13 12:40 | P.PN ---
Subjective Progress Note Date: 03/13/18 This is 73-year-old gentleman with known history significant for morbid obesity, paroxysmal atrial fibrillation on Coumadin for anticoagulation, hypertension, chronic respiratory failure, who presented to the hospital with symptoms of progressively worsening shortness of breath. Patient was initiated on IV Lasix for congestive heart failure exacerbation. Echocardiogram with Doppler study revealed an ejection fraction of 40-45%. Patient was seen and examined sitting up in a chair at bedside today. He does state that overall he feels significantly better. His weight is down 1 kg today, sodium 140, potassium 4.1, BUN 31, creatinine 1.0. INR today is 2.0. Objective - Vital Signs Vital signs: Vital Signs Temp 97.5 F L 03/13/18 08:00 Pulse 106 H 03/13/18 08:00 Resp 18 03/13/18 08:00 BP 108/79 03/13/18 08:00 Pulse Ox 97 03/13/18 08:15 Intake & Output 03/12/18 03/13/18 03/13/18 18:59 06:59 18:59 Intake Total 720 490 180 Output Total 2218 051 2395 Balance -480 -678 -3750 Weight 214.4 kg Intake: IV 10 0.9 10 Oral 720 480 180 Output: Urine 2677 318 0461 Other: Voiding Method Urinal Urinal Urinal # Voids 1 - Exam PHYSICAL EXAMINATION: GENERAL: 73-year-old morbidly obese gentleman in no apparent distress at the time of my examination. HEENT: Head is atraumatic, normocephalic. Pupils equal, round. Sclera anicteric. Conjunctiva are clear. Mucous membranes of the mouth are moist. Neck is supple. There is no elevated jugular venous pressure.] bruit is heard. HEART EXAMINATION: Heart S1, S2 irregular. No murmur or gallop heard. CHEST EXAMINATION: Lungs are clear with mild diminished air entry to bilateral bases. ABDOMEN: Soft, obese nontender. Bowel sounds are heard. No organomegaly noted. EXTREMITIES: 1+ peripheral pulses with evidence of peripheral edema and venous stasis chronic . NEUROLOGIC patient is awake, alert and oriented ?-3. . - Labs CBC & Chem 7: 03/13/18 05:52 03/13/18 05:52 Labs: Abnormal Lab Results - Last 24 Hours (Table) 03/13/18 03/13/18 Range/Units 05:52 05:52 Plt Count 99 L (150-450) k/uL Chloride 94 L (98-107) mmol/L Carbon Dioxide 41 H* (22-30) mmol/L BUN 31 H (9-20) mg/dL Total Bilirubin 1.8 H (0.2-1.3) mg/dL Albumin 3.3 L (3.5-5.0) g/dL Microbiology - Last 24 Hours (Table) 03/09/18 16:32 Blood Culture - Preliminary Blood No Growth after 72 hours Assessment and Plan Plan: Assessment and plan #1 systolic congestive heart failure acute on chronic #2 acute on chronic respiratory failure #3 morbid obesity #4 hypertension Plan From cardiology's perspective, we will recommend to continue IV diuretics for 24 hours. Check lytes BUN and creatinine in the morning. DNP note has been reviewed, I agree with a documented findings and plan of care. Patient was seen and examined.
[2018-03-13] MEDS: WARFARIN 5 MG TAB PO SCH (17:14)
[2018-03-14 00:56] VITALS: RESP 19
[2018-03-14] MEDS: METOPROLOL TARTRATE 25 MG TAB PO SCH (06:10)
[2018-03-14 08:23] VITALS: BP 139/65; PULSE 86; TEMP 97.1
[2018-03-14] MEDS: FUROSEMIDE 10 MG/ML 4 ML VIAL IV SCH (08:23)
--- NOTE | 2018-03-14 09:52 | P.PN ---
Subjective Progress Note Date: 03/14/18 This is a pleasant 73-year-old gentleman with a history of morbid obesity, paroxysmal atrial fibrillation, on Coumadin, hypertension, chronic respiratory failure. He presented to the hospital with symptoms of progressively worsening shortness of breath. He was initiated on IV Lasix for congestive heart failure exacerbation. Echocardiogram with Doppler showed an ejection fraction of 40-45%. He is diuresed with a negative fluid balance daily and a weight loss of 1 kg since admission. Upon examination, patient is sitting up in a chair. He feels he is breathing better, his weight is stable. Continues to have significant lower extremity edema which is chronic. Denies complaints of discomfort, chest pain, dizziness, lightheadedness, palpitations or syncope. He is anxious to be discharged home. Objective - Vital Signs Vital signs: Vital Signs Temp 97.1 F L 03/14/18 08:00 Pulse 86 03/14/18 08:00 Resp 19 03/14/18 08:00 BP 139/65 03/14/18 08:00 Pulse Ox 95 03/14/18 08:00 Intake & Output 03/13/18 03/14/18 03/14/18 18:59 06:59 18:59 Intake Total 380 240 180 Output Total 1800 1150 700 Balance -1970 -910 -520 Weight 214.5 kg Intake: Oral 380 240 180 Output: Urine 1800 1150 700 Other: Voiding Method Urinal Urinal Urinal - Exam PHYSICAL EXAMINATION: HEENT: Head is atraumatic, normocephalic. Pupils equal, round. Sclera anicteric. Conjunctiva clear. Oral mucous membranes moist. Neck is supple. There is no elevated jugular venous pressure. HEART EXAMINATION: Heart sounds irregular, S1 and S2 normal. No murmur or gallop heard. CHEST EXAMINATION: Lungs are clear with diminished air entry bilateral bases. No chest wall tenderness is noted on palpation or with deep breathing. ABDOMEN: Soft, obese, nontender. Bowel sounds are heard. EXTREMITIES: 1+ peripheral pulses with evidence of peripheral edema and chronic venous stasis. NEUROLOGIC patient is awake, alert and oriented x3. . - Labs CBC & Chem 7: 03/13/18 05:52 03/13/18 05:52 Labs: Microbiology - Last 24 Hours (Table) 03/09/18 16:32 Blood Culture - Preliminary Blood No Growth after 96 hours Assessment and Plan Assessment: #1 acute on chronic systolic congestive heart failure #2 acute on chronic respiratory failure #3 morbid obesity #4 hypertension #5 atrial fibrillation anticoagulated on Coumadin Plan: From cardiology's perspective, we will transition the patient to oral Lasix 60 mg twice a day. Continue Coumadin to maintain INR between 2.0 and 3.0. Patient may be discharged home and follow-up in the office as an outpatient. The above dictated assessment and findings were discussed with signing physician. The impression and plan of care have been directed as dictated. Natalie Burciaga, Nurse Practitioner, acting as scribe for signing physician.
--- NOTE | 2018-03-14 11:16 | P.DS ---
Providers Date of admission: 03/09/18 18:57 Expected date of discharge: 03/13/18 Attending physician: Seamus Shabazz MD Consults: 03/09/18 18:57 Consult Physician Urgent Consulting Provider: Jeffery Jane Consult Reason/Comments: Bradycardia, congestive heart failure, Coumadin toxicity Do you want consulting provider notified?: Yes 03/10/18 11:58 Consult Physician Urgent Consulting Provider: Sebastian Car Consult Reason/Comments: left leg wound, current patient Do you want consulting provider notified?: Already Contacted 03/10/18 18:56 Consult Physician Urgent Consulting Provider: Divina Young Consult Reason/Comments: r/o stroke Do you want consulting provider notified?: Yes Primary care physician: Dillan Parham MD Hospital Course: 72-year-old male with history of A. fib on Coumadin, remote history of DVT, and borderline systolic CHF with left ventricular ejection fraction of 40-45% done in 2016 presented to the ER because of worsening sob for 3 days. Patient denied any chest pain associated with that. He reported some sore throat but denied any fevers or chills. He reported some coughing productive of whitish sputum. 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 He denied any worsening leg swelling other than his chronic lymphedema. No nausea or vomiting, denies any abdominal pain, denies any vision or hearing changes, denies any focal neurologic deficits , denies any history of liver disease. In addition he 3 weeks ago he found an open wound over his lower left leg, because of that he started seeing Dr. Car who has been doing wound dressings. Serial follow-up pictures revealed improvement of the wound. He was not started on antibiotics as there was no suspicion for infection. Patient reports that over the past 3 weeks he decided to stay home and rest to help the wound heal, he has not been eating well. In the emergency department further workup revealed pulmonary congestion, elevated proBNP, and elevated INR. He was diagnosed with congestive heart failure exacerbation and was admitted to the hospital for further evaluation and management. EKG showed atrial fibrillation with many PVCs. He was started on treatment with IV Lasix. He had an echocardiogram that showed the same ejection fraction he had 2 years ago 40-45%. During the hospitalization patient had a deterioration in his mental status, he was having some confusion and slurred speech. A stroke was suspected, he had a computed tomography scan of his head without contrast as well as CT angiogram of the head and neck and both were negative for any acute process. He also had an ABG and that showed significant hypercarbia with respiratory acidosis which likely explained his symptoms. He was started on treatment with BiPAP, which improved his mental status over the next several hours. Patient continues to require BiPAP throughout the night during his stay in the hospital. His Lasix was also increased to 40 mg IV 3 times a day. Regarding the wound on his left lower extremity was seen by Dr. Car who did some dressing change for him. Upon discharge an appointment for wound care clinic was scheduled for patient. Today patient was cleared by cardiology for discharge. He'll be discharged on 60 mg of Lasix twice a day. He was strongly advised to get a sleep study as an outpatient. Discharge diagnoses Acute hypercarbic hypoxic respiratory failure Acute exacerbation of chronic systolic congestive heart failure Morbid obesity Suspected obstructive sleep apnea Venous stasis wound on the left lower extremity. Atrial fibrillation, persistent Patient Condition at Discharge: Good Plan - Discharge Summary Discharge Rx Participant: No New Discharge Prescriptions: New Furosemide [Lasix] 60 mg PO BID #60 tab Continue Warfarin [Coumadin] 7.5 mg PO TUTHSA Warfarin [Coumadin] 5 mg PO SUMOWEFR Metoprolol Tartrate [Lopressor] 25 mg PO TID@0700,1500,2300 traMADol HCL [Ultram] 100 mg PO Q4HR PRN PRN Reason: Pain Naproxen [Naprosyn] 500 mg PO Q12HR@0700,1900 Changed Furosemide [Lasix] 60 mg PO BID@0700,1900 #60 Discharge Medication List Warfarin [Coumadin] 5 mg PO SUMOWEFR 07/07/16 [History] Warfarin [Coumadin] 7.5 mg PO TUTHSA 07/07/16 [History] Metoprolol Tartrate [Lopressor] 25 mg PO TID@0700,1500,2300 09/14/16 [History] Naproxen [Naprosyn] 500 mg PO Q12HR@0700,1900 03/09/18 [History] traMADol HCL [Ultram] 100 mg PO Q4HR PRN 03/09/18 [History] Furosemide [Lasix] 60 mg PO BID #60 tab 03/14/18 [Rx] Furosemide [Lasix] 60 mg PO BID@0700,1900 #60 03/14/18 [Rx] Follow up Appointment(s)/Referral(s): Dillan Parham MD [Primary Care Provider] - 03/17/18 5:00 pm (Tuesday) [facility], [NON-STAFF] - Activity/Diet/Wound Care/Special Instructions: [place] with dry dressing to wound on left lower extremity daily. Wound care center will contact you for an appointment. [facility]HC will change dressing until wound center appointments are made. Fluid intake advised by cardiology to be 4 glasses of water a day (instead of the typical recommendation of 8) Sleep study to be done outpatient. Your appoinmtent has been made for April 11 at 2:30pm for a consultation. The Sleep Center will send you paperwork in the mail to be completed and taken with you to this appointment. The Sleep Center is located across from the [facility].
[2018-03-14] MEDS ORDERED: FUROSEMIDE 20 MG TAB PO SCH (16:00)
== END 2018-03-14 13:16 | disposition home health service (06) | DRG 291 ==
LOC: EC 15:38 → 6SEL 18:57 → OBSVTOIN 18:57 → 6SEL 20:41
PROVIDERS: ADMIT Internal Medicine; ATTEND Internal Medicine
PROC: 5A09457 Assistance with Respiratory Ventilation, 24-96 Consecutive Hours, Continuous Positive Airway Pressure (ICD-10-PCS; principal; 2018-03-10)
DX: I11.0 Hypertensive heart disease with heart failure (principal); J96.21 Acute and chronic respiratory failure with hypoxia; J96.22 Acute and chronic respiratory failure with hypercapnia; Z68.44 Body mass index [BMI] 60.0-69.9, adult; L97.821 Non-pressure chronic ulcer of other part of left lower leg limited to breakdown of skin; E87.2 Acidosis; R17 Unspecified jaundice; L03.116 Cellulitis of left lower limb; E66.01 Morbid (severe) obesity due to excess calories; I50.23 Acute on chronic systolic (congestive) heart failure; I48.0 Paroxysmal atrial fibrillation; I83.028 Varicose veins of left lower extremity with ulcer other part of lower leg; I42.9 Cardiomyopathy, unspecified; I73.9 Peripheral vascular disease, unspecified; I49.3 Ventricular premature depolarization; I89.0 Lymphedema, not elsewhere classified; J02.9 Acute pharyngitis, unspecified; R47.81 Slurred speech; T45.515A Adverse effect of anticoagulants, initial encounter; Z71.3 Dietary counseling and surveillance; Z86.718 Personal history of other venous thrombosis and embolism; Z79.01 Long term (current) use of anticoagulants; Z79.1 Long term (current) use of non-steroidal anti-inflammatories (NSAID); Z79.891 Long term (current) use of opiate analgesic; Z79.899 Other long term (current) drug therapy; M19.91 Primary osteoarthritis, unspecified site; Z85.828 Personal history of other malignant neoplasm of skin; Z80.9 Family history of malignant neoplasm, unspecified
CPT/HCPCS: 36415; 36600; 70450; 70496; 70498; 71046; 76705; 80048; 80053; 80061; 82550; 82553; 82803; 82805; 83605; 83735; 83880; 84100; 84132; 84484; 85025; 85610; 85730; 87040; 87070; 87205; 93005; 93306; 94660; 94760; 96374; 99291

== ENCOUNTER → 2018-04-05 | Outpatient (CLI) | payer MEDICARE, BC | END | disposition home or self-care (01) | LOC: RADUSWWP 13:12 | PROVIDERS: ATTEND Podiatrist | DX: M79.604 Pain in right leg (principal); M79.605 Pain in left leg | CPT/HCPCS: 93922 ==

== ENCOUNTER → 2018-04-19 | Outpatient (CLI) | payer MEDICARE, BC ==
--- NOTE | 2018-04-19 17:49 | CONS ---
CONSULTATION REASON FOR CONSULTATION: Sleep apnea. This is a 73-year-old male patient, morbidly obese with a BMI of 60.5. The patient was recently hospitalized for acute on top of chronic hypercapnic respiratory failure and acute hypoxic respiratory failure and CHF and fluid overload. During the same hospital stay, he was diuresed and he was given BiPAP treatment and upon discharge, he was asked to come in sleep center to be evaluated for sleep breathing disorder. As mentioned, the patient is morbidly obese. He has occasional snoring. For the past many years, the patient has been unable to sleep in bed and he has been sleeping in a recliner for the past 10 years. He has chronic sleepiness. He sleeps a lot. Approximately 10-12 hours a day. He does not have a regular sleep schedule. Whenever he feels sleepy, he falls asleep and he gets up. As such, there is no set schedule and he has been sleeping as mentioned at least 10-12 hours. He can fall asleep easily during the day and at night time. He is chronically hypoxic. His current pulse ox is 90% on room air. He has increased lower extremity edema and wound in his left lower extremity which is related to chronic venous stasis ulcer. He has CHF with an ejection fraction of 40-45%. He has also previous history of DVT and pulmonary embolism and he has chronic atrial fibrillation. He is maintained on long-term anticoagulation with warfarin. As far as his sleep, the patient denies waking up choking, or gasping for air. No grinding of the teeth. Wakes up with a dry mouth. He has chronic nasal congestion. Nasal plugging. Probably related to chronic symptoms or rhinitis. No nocturnal angina. No nocturnal palpitations. No restlessness in lower extremities. No nightmares. No other complaints otherwise. PAST MEDICAL HISTORY: 1. Obesity. 2. Congestive heart failure. 3. Concentric LVH, ejection fraction of 40-45%. 4. History of left lower extremity DVT in 1995. 5. History of pulmonary embolism. 6. Chronic atrial fibrillation. 7. Chronic venous stasis. 8. Lower extremity ulceration. 9. History of skin cancer. SURGICAL HISTORY: Includes tonsillectomy, resection of basal cell cancer. DRUG ALLERGIES: Not known. OUTPATIENT MEDICATION LIST: Includes warfarin, metoprolol, Lasix and Naprosyn. SOCIAL HISTORY: The patient is a nonsmoker. No history of alcohol. No IV drugs. 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 REVIEW OF SYSTEMS: 12-point review of system was done. Positive findings are mentioned in history of present illness. No reported problems with anxiety or panic attacks. No palpitations. No heartburn. No restlessness in lower extremities. No depression. PHYSICAL EXAMINATION: BP is 108/84, pulse is 70, respirations 20, temperature 97.7. Saturation is 90% on room air. Height is 5 feet, 10 inches, weight is 471. BMI 67.1, neck size is 19-3/4 of an inch. GENERAL APPEARANCE: Morbidly obese, calm, comfortable, no acute distress. Head is atraumatic, normocephalic. Neck is short supple. Crowding of the posterior pharynx is present. Mallampati class IV. LUNGS: Diminished breath sounds especially in the mid and lower lung francis bilaterally. HEART: Sounds are irregular. Positive S1, S2. Distant. ABDOMEN: Obese. Organs cannot be palpated. No direct tenderness, rebound, guarding. EXTREMITIES: Chronic edema lower extremities bilaterally with chronic venous stasis and ulceration, left lower extremity skin. NEUROLOGIC: Is a bit sleepy and drowsy. He is alert and oriented x3. No focal neurological deficits. IMPRESSION: 1. Obesity hypoventilation syndrome/Pickwickian syndrome. Rule out underlying obstructive sleep apnea. 2. Chronic hypersomnia [place] score of 16 secondary to above. 3. Chronic hypoxic respiratory failure secondary to above. 4. Chronic hypercapnic respiratory failure secondary to above. 5. Recent hospitalization for acute on top of chronic hypoxic and hypercapnic respiratory failure, likely secondary to congestive heart failure exacerbation. 6. Chronic lower extremity edema secondary to congestive heart failure. 7. History of deep vein thrombosis and pulmonary embolism, on long-term anticoagulation with warfarin. 8. History of chronic atrial fibrillation. 9. History of chronic venous stasis. 10.History of chronic lower extremity ulceration. PLAN: I had a lengthy discussion with the patient. Treatment on this patient will be difficult knowing that he has an irregular sleep-wake cycle starting with and he does not sleep in bed and he has been sleeping in a recliner for the past 10 years. He obviously has features of obesity hypoventilation syndrome and Pickwickian features. It is very much likely that he does have an underlying component of sleep apnea which is typically associated with obesity hypoventilation syndrome. He has chronic hypoxic and hypercapnic respiratory failure and he would benefit from a BiPAP or a AV APS machine which she is on AVAP machine. I had a lengthy discussion with him. I discussed with him the benefits of this type of treatment which will be a noninvasive positive pressure ventilation at night time and I am willing to undergo further testing and qualify this patient to this type of device as long as the patient is committed to the treatment. He was a bit hesitant. In discussion with his and ultimately we decided that this is something that he needs in the future especially with his chronic hypoxic and hypercapnic respiratory failure, and symptoms of recurrent CHF. For that reason, the patient will be coming back to Sleep Center to undergo PSG while on the recliner. Based on that, we will proceed with treatment. Optimize CHF. Weight loss. Improve sleep hygiene measures. Regular sleep-wake cycle. We will continue to follow. GERARDO / EMMAN: [id number] /
== END | disposition home or self-care (01) ==
LOC: SLEEP 15:45
PROVIDERS: ATTEND Internal Medicine Critical Care Medicine
DX: G47.10 Hypersomnia, unspecified (principal); E66.2 Morbid (severe) obesity with alveolar hypoventilation; J96.22 Acute and chronic respiratory failure with hypercapnia; J96.21 Acute and chronic respiratory failure with hypoxia; I50.9 Heart failure, unspecified; I87.2 Venous insufficiency (chronic) (peripheral); L97.929 Non-pressure chronic ulcer of unspecified part of left lower leg with unspecified severity; I48.2 Chronic atrial fibrillation; Z86.711 Personal history of pulmonary embolism; Z99.89 Dependence on other enabling machines and devices; Z68.44 Body mass index [BMI] 60.0-69.9, adult; Z86.718 Personal history of other venous thrombosis and embolism; Z79.01 Long term (current) use of anticoagulants; Z85.828 Personal history of other malignant neoplasm of skin; Z90.89 Acquired absence of other organs; Z79.899 Other long term (current) drug therapy
CPT/HCPCS: 99211

== ENCOUNTER 2018-05-05 11:28 | Emergency (ER) | payer MEDICARE, BC ==
[2018-05-05 11:40] VITALS: TEMP 97.4
--- NOTE | 2018-05-05 11:59 | ED ---
General Adult HPI - General Chief complaint: Arrhythmia/Palpitations Stated complaint: Low heart rate Time Seen by Provider: 05/05/18 11:44 Source: patient, family, RN notes reviewed Mode of arrival: wheelchair Limitations: no limitations - History of Present Illness Initial comments: Patient is a pleasant 73-year-old male presenting to the emergency department for reported bradycardia. Patient states he does have known history of bradycardia and has seen cardiology regarding this. Patient states his heart rate has been as low as 32 in the past. Heart rate today was reported as between 32 and 40. Patient states he feels fine and has no complaints. Patient does have a known history of atrial fibrillation. Patient was at the wound care center today. Patient has wound of his left lower leg. He states is starting to improve. Patient states he just had his leg wrapped up - Related Data Home Medications Medication Instructions Recorded Confirmed Warfarin [Coumadin] 5 mg PO SUMOWEFR 07/07/16 05/05/18 Warfarin [Coumadin] 7.5 mg PO TUTHSA 07/07/16 05/05/18 Metoprolol Tartrate [Lopressor] 25 mg PO TID 09/14/16 05/05/18 Naproxen [Naprosyn] 500 mg PO Q12HR 03/09/18 05/05/18 Furosemide [Lasix] 60 mg PO BID 03/21/18 05/05/18 Allergies Allergy/AdvReac Type Severity Reaction Status Date / Time No Known Allergies Allergy Verified 05/05/18 12:35 Review of Systems ROS Statement: Those systems with pertinent positive or pertinent negative responses have been documented in the HPI. ROS Other: All systems not noted in ROS Statement are negative. Constitutional: Denies: fever Eyes: Denies: eye pain ENT: Denies: ear pain Respiratory: Denies: cough Cardiovascular: Denies: chest pain Endocrine: Denies: fatigue Gastrointestinal: Denies: abdominal pain Genitourinary: Denies: dysuria Musculoskeletal: Denies: back pain Skin: Denies: pruritus Neurological: Denies: headache Past Medical History Past Medical History: Atrial Fibrillation, Cancer, Heart Failure, Deep Vein Thrombosis (DVT), Osteoarthritis (OA), Pulmonary Embolus (PE), Vascular Disorder Additional Past Medical History / Comment(s): HX of DVT left leg 1995-traveled to lung, basal cell carcinoma rt arm, left arm and nose, wound lower left leg, uses cane for balance History of Any Multi-Drug Resistant Organisms: None Reported Past Surgical History: Tonsillectomy Additional Past Surgical History / Comment(s): skin cancer removed from prakash arms and nose, prakash cataracts Past Anesthesia/Blood Transfusion Reactions: No Reported Reaction Additional Past Anesthesia/Blood Transfusion Reaction / Comment(s): . Past Psychological History: No Psychological Hx Reported Smoking Status: Never smoker Past Alcohol Use History: Rare Past Drug Use History: None Reported - Past Family History Father Family Medical History: Cancer Mother Family Medical History: Eye Disorder, Osteoarthritis (OA) General Exam Limitations: no limitations General appearance: alert, in no apparent distress, obese Head exam: Present: atraumatic Eye exam: Present: normal appearance ENT exam: Present: normal oropharynx Neck exam: Present: normal inspection Respiratory exam: Present: normal lung sounds bilaterally Cardiovascular Exam: Present: irregular rhythm Expanded Peripheral pulses: 2+: Radial (R), Radial (L) GI/Abdominal exam: Absent: tenderness Extremities exam: Present: normal inspection. Absent: calf tenderness Neurological exam: Present: alert Psychiatric exam: Present: normal affect, normal mood Skin exam: Present: other (Left lower leg with fresh bandages) Course Vital Signs 05/05/18 05/05/18 05/05/18 11:30 12:08 13:21 Temperature 97.4 F L Pulse Rate 47 L 90 Respiratory 18 20 Rate Blood Pressure 99/59 98/59 O2 Sat by Pulse 94 L 95 Oximetry EKG Findings - EKG Comments: EKG Findings:: A. fib with rate of 108. QRS 102. QT 388. QTC 419. Normal axis. QRS morphology does vary. Inferior T wave inversion. Medical Decision Making - Medical Decision Making Patient reevaluated and resting comfortably in bed. Heart rate 78. Patient remains asymptomatic. Patient states again that his heart rate and blood pressure are findings that can be normal for him. Patient has discussed this with cardiology previously. Case was also discussed in detail with Dr. Hebert, who states patient can be discharged and follow-up with Dr. Mccormick on Tuesday. - Lab Data Result diagrams: 05/05/18 11:48 05/05/18 11:48 Lab Results 05/05/18 05/05/18 05/05/18 Range/Units 11:48 11:48 11:48 WBC 5.0 (3.8-10.6) k/uL RBC 5.25 (4.30-5.90) m/uL Hgb 15.6 (13.0-17.5) gm/dL Hct 50.3 (39.0-53.0) % MCV 95.8 (80.0-100.0) fL MCH 29.7 (25.0-35.0) pg MCHC 31.0 (31.0-37.0) g/dL RDW 13.7 (11.5-15.5) % Plt Count 125 L (150-450) k/uL Neutrophils % 58 % Lymphocytes % 26 % Monocytes % 10 % Eosinophils % 4 % Basophils % 0 % Neutrophils # 2.9 (1.3-7.7) k/uL Lymphocytes # 1.3 (1.0-4.8) k/uL Monocytes # 0.5 (0-1.0) k/uL Eosinophils # 0.2 (0-0.7) k/uL Basophils # 0.0 (0-0.2) k/uL PT (9.0-12.0) sec INR (<1.2) APTT (22.0-30.0) sec Sodium 143 (137-145) mmol/L Potassium 4.3 (3.5-5.1) mmol/L Chloride 100 (98-107) mmol/L Carbon Dioxide 36 H (22-30) mmol/L Anion Gap 7 mmol/L BUN 38 H (9-20) mg/dL Creatinine 1.20 (0.66-1.25) mg/dL Est GFR (CKD-EPI)AfAm 69 (>60 ml/min/1.73 sqM) Est GFR (CKD-EPI)NonAf 60 (>60 ml/min/1.73 sqM) Glucose 93 (74-99) mg/dL Calcium 9.1 (8.4-10.2) mg/dL Magnesium 2.4 H (1.6-2.3) mg/dL Total Bilirubin 1.7 H (0.2-1.3) mg/dL AST 37 (17-59) U/L ALT 41 (21-72) U/L Alkaline Phosphatase 109 (38-126) U/L Total Creatine Kinase 45 L (55-170) U/L CK-MB (CK-2) 0.6 (0.0-2.4) ng/mL CK-MB (CK-2) Rel Index 1.3 Troponin I <0.012 (0.000-0.034) ng/mL Total Protein 7.0 (6.3-8.2) g/dL Albumin 3.4 L (3.5-5.0) g/dL TSH 1.870 (0.465-4.680) mIU/L Free T4 1.52 (0.78-2.19) ng/dL Free T3 pg/mL 4.0 (2.8-5.3) pg/ml 05/05/18 Range/Units 11:48 WBC (3.8-10.6) k/uL RBC (4.30-5.90) m/uL Hgb (13.0-17.5) gm/dL Hct (39.0-53.0) % MCV (80.0-100.0) fL MCH (25.0-35.0) pg MCHC (31.0-37.0) g/dL RDW (11.5-15.5) % Plt Count (150-450) k/uL Neutrophils % % Lymphocytes % % Monocytes % % Eosinophils % % Basophils % % Neutrophils # (1.3-7.7) k/uL Lymphocytes # (1.0-4.8) k/uL Monocytes # (0-1.0) k/uL Eosinophils # (0-0.7) k/uL Basophils # (0-0.2) k/uL PT 26.0 H (9.0-12.0) sec INR 2.9 H (<1.2) APTT 29.0 (22.0-30.0) sec Sodium (137-145) mmol/L Potassium (3.5-5.1) mmol/L Chloride (98-107) mmol/L Carbon Dioxide (22-30) mmol/L Anion Gap mmol/L BUN (9-20) mg/dL Creatinine (0.66-1.25) mg/dL Est GFR (CKD-EPI)AfAm (>60 ml/min/1.73 sqM) Est GFR (CKD-EPI)NonAf (>60 ml/min/1.73 sqM) Glucose (74-99) mg/dL Calcium (8.4-10.2) mg/dL Magnesium (1.6-2.3) mg/dL Total Bilirubin (0.2-1.3) mg/dL AST (17-59) U/L ALT (21-72) U/L Alkaline Phosphatase (38-126) U/L Total Creatine Kinase (55-170) U/L CK-MB (CK-2) (0.0-2.4) ng/mL CK-MB (CK-2) Rel Index Troponin I (0.000-0.034) ng/mL Total Protein (6.3-8.2) g/dL Albumin (3.5-5.0) g/dL TSH (0.465-4.680) mIU/L Free T4 (0.78-2.19) ng/dL Free T3 pg/mL (2.8-5.3) pg/ml - Radiology Data Radiology results: image reviewed (Chest x-ray shows cardiomegaly and some central vascular congestion, improved from prior) Disposition Clinical Impression: Atrial fibrillation, Bradycardia Disposition: HOME SELF-CARE Condition: Stable Instructions: Bradycardia (ED), A-fib (Atrial Fibrillation) (ED) Additional Instructions: Please follow-up with your instruction assistant principal on Tuesday. Please also follow-up with primary care physician. Return for lightheadedness, difficulty breathing, chest pain, feeling like your about to pass out, worsening symptoms or other concerns. Is patient prescribed a controlled substance at d/c from ED?: No Referrals: Dillan Parham MD [Primary Care Provider] - 1-2 days Kris Mccormick MD [STAFF PHYSICIAN] - 1-2 days Time of Disposition: 13:45
[2018-05-05 12:14] LABS: Basophils % (A) 0 %; Eosinophils # (A) 0.2 k/uL (0-0.7); Eosinophils % (A) 4 %; HCT 50.3 % (39.0-53.0); HGB 15.6 gm/dL (13.0-17.5); Lymphocytes # (A) 1.3 k/uL (1.0-4.8); Lymphocytes % (A) 26 %; MCH 29.7 pg (25.0-35.0); MCV 95.8 fL (80.0-100.0); Mean Platelet Volume 9.3; Monocytes # (A) 0.5 k/uL (0-1.0); Monocytes % (A) 10 %; Neutrophils # (A) 2.9 k/uL (1.3-7.7); Neutrophils % (A) 58 %; Platelet Count 125 k/uL (150-450); RBC 5.25 m/uL (4.30-5.90); RDW 13.7 % (11.5-15.5)
[2018-05-05 12:23] LABS: INR 2.9 (<1.2)
[2018-05-05 12:29] LABS: Albumin 3.4 g/dL (3.5-5.0); Calcium 9.1 mg/dL (8.4-10.2); Magnesium 2.4 mg/dL (1.6-2.3); Potassium 4.3 mmol/L (3.5-5.1); Total Bilirubin 1.7 mg/dL (0.2-1.3)
[2018-05-05 12:34] LABS: Creatine Kinase 45 U/L (55-170)
--- NOTE | 2018-05-05 12:44 | XR ---
EXAMINATION TYPE: XR chest 2V DATE OF EXAM: 05/05/2018 COMPARISON: Chest x-ray March 09, 2018 HISTORY: Dysrhythmia. TECHNIQUE: Frontal and lateral views of the chest are obtained. FINDINGS: There is no suspicious focal air space opacity, pleural effusion, or pneumothorax seen. Ca rdiomegaly is redemonstrated. There is suspected mild central vascular congestion though this is fel t improved from prior. The osseous structures are intact. IMPRESSION: Correlate for CHF exacerbation as there is cardiomegaly with mild central vascular conge stion, degree of congestion however is less prominent than prior.
[2018-05-05 12:45] LABS: T4, Free (Free Thyroxine) 1.52 ng/dL (0.78-2.19)
[2018-05-05 12:47] LABS: Creatine Kinase MB 0.6 ng/mL (0.0-2.4); Troponin I <0.012 ng/mL (0.000-0.034)
[2018-05-05 13:23] VITALS: BP 98/59; PULSE 90; RESP 20
== END 2018-05-05 13:58 | disposition home or self-care (01) ==
LOC: EC 11:28
DX: I48.91 Unspecified atrial fibrillation (principal); R00.1 Bradycardia, unspecified; S81.802A Unspecified open wound, left lower leg, initial encounter; I51.7 Cardiomegaly; I87.8 Other specified disorders of veins; I50.9 Heart failure, unspecified; M19.90 Unspecified osteoarthritis, unspecified site; E66.9 Obesity, unspecified; Z79.01 Long term (current) use of anticoagulants; Z79.1 Long term (current) use of non-steroidal anti-inflammatories (NSAID); Z79.899 Other long term (current) drug therapy; Z86.711 Personal history of pulmonary embolism; Z86.718 Personal history of other venous thrombosis and embolism; Z85.828 Personal history of other malignant neoplasm of skin; Z68.44 Body mass index [BMI] 60.0-69.9, adult; Z98.890 Other specified postprocedural states
CPT/HCPCS: 29581; 36415; 71046; 80053; 82550; 82553; 83735; 84439; 84443; 84481; 84484; 85025; 85610; 85730; 93005; 99285

== ENCOUNTER → 2018-08-22 | Outpatient (CLI) | payer MEDICARE, BC ==
--- NOTE | 2018-08-22 16:49 | PN ---
PROGRESS NOTE 73-year-old male patient coming in for a compliancy check regarding his obstructive sleep apnea treatment. The patient is morbidly obese. The patient has a combination of obstructive sleep apnea and obesity hypoventilation syndrome. He also has chronic atrial fibrillation. Chronic lower extremity edema and venous stasis. His polysomnograms showed an AHI of 28.5, worse during REM. He also demonstrated severe nocturnal oxygen desaturation. Based on that, the patient was given APAP therapy with a minimum pressure of 10 and maximum pressure of 18 and today he is coming to see me in followup. He is a bit indifferent about his treatment. As mentioned earlier, he sleeps on a recliner. At times, he forgets to put the machine on. He has a very irregular sleep-wake cycle. She goes to bed at different times. Wakes up at different times, goes to work at different times and his schedule cannot be regulated and he has no intention of regulating his sleep schedule. He is however interested in continuing the CPAP treatments. He checked his compliance data and he has used CPAP for approximately 80% of the time with CPAP compliancy indicating use of 25 out of 30 days. His CPAP use for more than 4 hours is 16 out of 30. He is averaging about 6.1 hours of CPAP use per night and his AHI while on treatment is down to 8.9. He is using his Dream Wear full face mask. His [place] score is down to 7. No nocturnal palpitations no nocturnal chest pain. A bit more refreshed during the morning hours. No other complaints otherwise for now. REVIEW OF SYSTEMS: 12-point review of system was done. Positive findings are mentioned above in the history of present illness. PHYSICAL EXAMINATION: BP is 120/70, pulse 53, respirations 18, temperature is 97.0, weight is 466. [place] score is 7, saturation 92% on room air. GENERAL APPEARANCE: Obese, calm, comfortable. Head is atraumatic, normocephalic. Neck is short, supple. Crowding of the posterior pharynx. There is no goiter or neck masses. Lungs diminished, otherwise clear. HEART: Sounds are irregular, positive . ABDOMEN: Obese, soft, nontender. Organs cannot be palpated. Extremities: Chronic edema lower extremities bilaterally. No cyanosis or clubbing. SKIN: Negative for any wounds or ulceration. NEUROLOGIC: Awake and alert. There is no focal neurological deficits. IMPRESSION: 1. Moderate to severe obstructive sleep apnea with an AHI of 28.5, worse during REM. 2. Severe nocturnal oxygen desaturation probably due to combination of obstructive sleep apnea and obesity hypoventilation syndrome which is also suspected. 3. Chronic hypoxic respiratory failure. 4. Chronic hypercapnic respiratory failure. 5. Chronic atrial fibrillation. 6. Previous history of deep venous thrombosis and pulmonary embolism. 7. Overall compliance is suboptimal. Sleep schedule is very irregular. Would recommend regulating sleep schedule. Would recommend going to bed at a certain time and I would recommend sleeping between 11:00 p.m. and 6 hours. The patient is not sure whether he is going to be able to achieve that. He is sleeping on a recliner at home. The recliner is obviously more comfortable to him due to his morbidly obese body habitus. Will encourage using the CPAP for longer hours. He needs to achieve at least 70% of his CPAP use for more than 4 hours. He was made aware of that and this is important and crucial to meet insurance guidelines. Continued Dream Wear mask. Treatment is successful as long as the patient puts the machine on. He was educated extensively. We will continue to follow. MMODL / IJN: [id number] /
== END ==
LOC: SLEEP 14:54
PROVIDERS: ATTEND Internal Medicine Critical Care Medicine
DX: G47.33 Obstructive sleep apnea (adult) (pediatric) (principal); J96.11 Chronic respiratory failure with hypoxia; J96.12 Chronic respiratory failure with hypercapnia; Z86.718 Personal history of other venous thrombosis and embolism; Z86.711 Personal history of pulmonary embolism; Z99.89 Dependence on other enabling machines and devices

== ENCOUNTER 2018-10-30 17:48 | Inpatient (IN) | payer MEDICARE, BC ==
--- NOTE | 2018-10-30 19:50 | ED ---
General Adult HPI - General Chief complaint: Shortness of Breath Stated complaint: damian, concered of dvt and pe Time Seen by Provider: 10/30/18 19:33 Source: patient, RN notes reviewed, old records reviewed Mode of arrival: wheelchair Limitations: no limitations - History of Present Illness Initial comments: 73-year-old male presenting for evaluation of dyspnea and right posterior back pain. Patient has history of DVT and PE, he is currently on Coumadin. He has history of atrial fibrillation. Denies central chest pain. He does report dyspnea which began suddenly at approximately noon today 7 hours prior to arrival. He has history of obstructive sleep apnea. No history of asthma or COPD no preceding cough. No abdominal pain nausea vomiting. No fever or chills. No trauma. - Related Data Home Medications Medication Instructions Recorded Confirmed Warfarin [Coumadin] 5 mg PO SUMOWEFR 07/07/16 10/30/18 Warfarin [Coumadin] 7.5 mg PO TUTHSA 07/07/16 10/30/18 Metoprolol Tartrate [Lopressor] 25 mg PO TID 09/14/16 10/30/18 Naproxen [Naprosyn] 500 mg PO BID 03/09/18 10/30/18 Furosemide [Lasix] 60 mg PO BID 03/21/18 10/30/18 Acetaminophen [Tylenol Extra 1,000 mg PO Q6H PRN 10/30/18 10/30/18 Strength] Docusate [Colace] 100 mg PO DAILY PRN 10/30/18 10/30/18 Allergies Allergy/AdvReac Type Severity Reaction Status Date / Time No Known Allergies Allergy Verified 10/30/18 20:30 Review of Systems ROS Statement: Those systems with pertinent positive or pertinent negative responses have been documented in the HPI. ROS Other: All systems not noted in ROS Statement are negative. Past Medical History Past Medical History: Atrial Fibrillation, Cancer, Heart Failure, Deep Vein Thrombosis (DVT), Osteoarthritis (OA), Pulmonary Embolus (PE), Vascular Disorder Additional Past Medical History / Comment(s): HX of DVT left leg 1995-traveled to [place], basal cell carcinoma rt arm, left arm and nose, wound lower left leg, uses cane for balance History of Any Multi-Drug Resistant Organisms: None Reported Past Surgical History: Tonsillectomy Additional Past Surgical History / Comment(s): skin cancer removed from prakash arms and nose, prakash cataracts Past Anesthesia/Blood Transfusion Reactions: No Reported Reaction Additional Past Anesthesia/Blood Transfusion Reaction / Comment(s): . Past Psychological History: No Psychological Hx Reported Smoking Status: Never smoker Past Alcohol Use History: Rare Past Drug Use History: None Reported - Past Family History Father Family Medical History: Cancer Mother Family Medical History: Eye Disorder, Osteoarthritis (OA) General Exam Limitations: no limitations General appearance: alert, in no apparent distress Head exam: Present: atraumatic, normocephalic Eye exam: Present: normal appearance, PERRL ENT exam: Present: normal exam Neck exam: Present: normal inspection. Absent: tenderness, meningismus Respiratory exam: Present: respiratory distress, decreased breath sounds. Absent: chest wall tenderness Cardiovascular Exam: Present: bradycardia, irregular rhythm GI/Abdominal exam: Present: soft, distended. Absent: tenderness, guarding Extremities exam: Present: pedal edema, calf tenderness Neurological exam: Present: alert, oriented X3, CN II-XII intact. Absent: motor sensory deficit Psychiatric exam: Present: normal affect, normal mood Skin exam: Present: warm, dry, intact. Absent: cyanosis, diaphoretic Course Vital Signs 10/30/18 10/30/18 10/30/18 18:55 19:30 19:40 Temperature 98.6 F Pulse Rate 40 L 76 Respiratory 20 17 15 Rate Blood Pressure 121/79 130/117 O2 Sat by Pulse 95 96 Oximetry 10/30/18 10/30/18 10/30/18 19:50 20:00 20:10 Temperature Pulse Rate 79 97 84 Respiratory 18 19 18 Rate Blood Pressure 130/117 131/67 131/67 O2 Sat by Pulse 97 97 Oximetry 10/30/18 10/30/18 10/30/18 20:20 20:30 20:40 Temperature Pulse Rate 92 67 Respiratory 18 28 H Rate Blood Pressure 132/68 132/68 136/89 O2 Sat by Pulse 97 98 96 Oximetry 10/30/18 10/30/18 10/30/18 20:50 21:00 21:10 Temperature Pulse Rate 98 83 87 Respiratory 24 Rate Blood Pressure 140/97 140/97 92/80 O2 Sat by Pulse 95 97 98 Oximetry 10/30/18 10/30/18 10/30/18 21:20 21:25 21:30 Temperature Pulse Rate 66 82 100 Respiratory 16 Rate Blood Pressure 132/73 132/73 O2 Sat by Pulse 97 99 Oximetry 10/30/18 10/30/18 10/30/18 21:32 21:40 21:50 Temperature Pulse Rate 89 82 83 Respiratory 17 28 H Rate Blood Pressure 125/102 119/97 O2 Sat by Pulse 96 97 Oximetry 10/30/18 10/30/18 10/30/18 22:00 22:10 22:20 Temperature Pulse Rate 91 Respiratory Rate Blood Pressure 119/97 119/97 O2 Sat by Pulse 95 Oximetry EKG Findings - EKG Comments: EKG Findings:: EKG: Sinus rhythm first-degree AV block, frequent PVCs. EKG interpreted as rate of 95, ventricular rate of 42, artifact and frequent PVCs makes ischemic evaluation difficult, there is no ST segment elevation. NJ interval 248, QRS duration 100, QTC 482 EKG appears similar to previous in April 2018 Medical Decision Making - Medical Decision Making 73-year-old male presenting with right posterior chest pain, and dyspnea, concern for PE. Patient does have history of PE, currently on Coumadin. Workup in the emergency department includes, chest x-ray, ultrasound, CT angiography, and blood work. Chest x-ray is negative for any acute cardiopulmonary disease, no pneumothorax, no effusion. CBC shows white blood cell count, stable hemoglobin, platelets of 103 which is normal for this patient. INR mildly elevated 3.4. Creatinine 1.35 which is close to the patient's baseline. Troponin negative, BNP mildly elevated 1890. Ultrasound of the left leg is obtained negative for DVT. CT angiography is obtained which is negative for PE, does show concern for osteomyelitis, discitis at T8 and 9. It does not correspond with the patient's pain complaint, he has no vertebral tenderness, he is afebrile with normal white blood cell count. This may require further evaluation but does not a coffee patient's symptoms today. - Lab Data Result diagrams: 10/30/18 19:48 10/30/18 19:48 Lab Results 10/30/18 10/30/18 10/30/18 Range/Units 19:48 19:48 19:48 WBC 7.1 (3.8-10.6) k/uL RBC 4.50 (4.30-5.90) m/uL Hgb 14.1 (13.0-17.5) gm/dL Hct 42.4 (39.0-53.0) % MCV 94.1 (80.0-100.0) fL MCH 31.2 (25.0-35.0) pg MCHC 33.2 (31.0-37.0) g/dL RDW 13.7 (11.5-15.5) % Plt Count 103 L (150-450) k/uL Neutrophils % 80 % Lymphocytes % 9 % Monocytes % 7 % Eosinophils % 2 % Basophils % 0 % Neutrophils # 5.7 (1.3-7.7) k/uL Lymphocytes # 0.6 L (1.0-4.8) k/uL Monocytes # 0.5 (0-1.0) k/uL Eosinophils # 0.1 (0-0.7) k/uL Basophils # 0.0 (0-0.2) k/uL PT (9.0-12.0) sec INR (<1.2) APTT (22.0-30.0) sec Sodium 139 (137-145) mmol/L Potassium 4.6 (3.5-5.1) mmol/L Chloride 100 (98-107) mmol/L Carbon Dioxide 30 (22-30) mmol/L Anion Gap 9 mmol/L BUN 34 H (9-20) mg/dL Creatinine 1.35 H (0.66-1.25) mg/dL Est GFR (CKD-EPI)AfAm 60 (>60 ml/min/1.73 sqM) Est GFR (CKD-EPI)NonAf 52 (>60 ml/min/1.73 sqM) Glucose 128 H (74-99) mg/dL Calcium 8.8 (8.4-10.2) mg/dL Total Bilirubin 2.3 H (0.2-1.3) mg/dL AST 40 (17-59) U/L ALT 44 (21-72) U/L Alkaline Phosphatase 104 (38-126) U/L Total Creatine Kinase 55 (55-170) U/L CK-MB (CK-2) 0.5 (0.0-2.4) ng/mL CK-MB (CK-2) Rel Index 0.9 Troponin I <0.012 (0.000-0.034) ng/mL NT-Pro-B Natriuret Pep pg/mL Total Protein 7.0 (6.3-8.2) g/dL Albumin 3.4 L (3.5-5.0) g/dL 10/30/18 10/30/18 Range/Units 19:48 19:48 WBC (3.8-10.6) k/uL RBC (4.30-5.90) m/uL Hgb (13.0-17.5) gm/dL Hct (39.0-53.0) % MCV (80.0-100.0) fL MCH (25.0-35.0) pg MCHC (31.0-37.0) g/dL RDW (11.5-15.5) % Plt Count (150-450) k/uL Neutrophils % % Lymphocytes % % Monocytes % % Eosinophils % % Basophils % % Neutrophils # (1.3-7.7) k/uL Lymphocytes # (1.0-4.8) k/uL Monocytes # (0-1.0) k/uL Eosinophils # (0-0.7) k/uL Basophils # (0-0.2) k/uL PT 33.0 H (9.0-12.0) sec INR 3.4 H (<1.2) APTT 34.3 H (22.0-30.0) sec Sodium (137-145) mmol/L Potassium (3.5-5.1) mmol/L Chloride (98-107) mmol/L Carbon Dioxide (22-30) mmol/L Anion Gap mmol/L BUN (9-20) mg/dL Creatinine (0.66-1.25) mg/dL Est GFR (CKD-EPI)AfAm (>60 ml/min/1.73 sqM) Est GFR (CKD-EPI)NonAf (>60 ml/min/1.73 sqM) Glucose (74-99) mg/dL Calcium (8.4-10.2) mg/dL Total Bilirubin (0.2-1.3) mg/dL AST (17-59) U/L ALT (21-72) U/L Alkaline Phosphatase (38-126) U/L Total Creatine Kinase (55-170) U/L CK-MB (CK-2) (0.0-2.4) ng/mL CK-MB (CK-2) Rel Index Troponin I (0.000-0.034) ng/mL NT-Pro-B Natriuret Pep 1890 pg/mL Total Protein (6.3-8.2) g/dL Albumin (3.5-5.0) g/dL Disposition Clinical Impression: Congestive heart failure, Dyspnea Disposition: ADMITTED IP TO THIS HOSP Condition: Stable Is patient prescribed a controlled substance at d/c from ED?: No Referrals: Dillan Parham MD [Primary Care Provider] - 1-2 days Decision to Admit Reason: Admit from EC Decision Date: 10/30/18 Decision Time: 23:26
[2018-10-30 20:05] LABS: Basophils % (A) 0 %; Eosinophils # (A) 0.1 k/uL (0-0.7); Eosinophils % (A) 2 %; HCT 42.4 % (39.0-53.0); HGB 14.1 gm/dL (13.0-17.5); Lymphocytes # (A) 0.6 k/uL (1.0-4.8); Lymphocytes % (A) 9 %; MCH 31.2 pg (25.0-35.0); MCHC 33.2 g/dL (31.0-37.0); MCV 94.1 fL (80.0-100.0); Mean Platelet Volume 9.4; Monocytes # (A) 0.5 k/uL (0-1.0); Monocytes % (A) 7 %; Neutrophils # (A) 5.7 k/uL (1.3-7.7); Neutrophils % (A) 80 %; Platelet Count 103 k/uL (150-450); RDW 13.7 % (11.5-15.5); WBC 7.1 k/uL (3.8-10.6)
--- NOTE | 2018-10-30 20:12 | XR ---
EXAMINATION TYPE: XR chest 2V DATE OF EXAM: 10/30/2018 COMPARISON: 05/05/2018 HISTORY: Chest pain TECHNIQUE: Frontal and lateral views of the chest are obtained. FINDINGS: Heart appears slightly enlarged. There is no heart failure. Lungs are clear of infiltrate. There is no pleural effusion. There are chest leads. IMPRESSION: No active cardiopulmonary disease. Borderline cardiomegaly. No change.
[2018-10-30 20:14] LABS: Albumin 3.4 g/dL (3.5-5.0); Calcium 8.8 mg/dL (8.4-10.2); INR 3.4 (<1.2); Partial Thromboplastin Time 34.3 sec (22.0-30.0); Potassium 4.6 mmol/L (3.5-5.1); Total Bilirubin 2.3 mg/dL (0.2-1.3)
[2018-10-30 20:27] LABS: Creatine Kinase 55 U/L (55-170)
[2018-10-30 20:48] LABS: Creatine Kinase MB 0.5 ng/mL (0.0-2.4); Troponin I <0.012 ng/mL (0.000-0.034)
[2018-10-30] MEDS ORDERED: FUROSEMIDE 10 MG/ML 4 ML VIAL IV STA (21:07)
--- NOTE | 2018-10-30 21:10 | US ---
EXAMINATION TYPE: US venous doppler duplex LE LT DATE OF EXAM: 10/30/2018 8:56 PM COMPARISON: NONE CLINICAL HISTORY: Pain. Left leg pain and redness. SIDE PERFORMED: Left TECHNIQUE: The lower extremity deep venous system is examined utilizing real time linear array sonog sissy with graded compression, doppler sonography and color-flow sonography. VESSELS IMAGED: External Iliac Vein (EIV) Common Femoral Vein Deep Femoral Vein Greater Saphenous Vein * Femoral Vein Popliteal Vein Small Saphenous Vein * Proximal Calf Veins (* superficial vessels) Left Leg: Negative for DVT No evidence of DVT left leg. IMPRESSION: Normal left leg duplex venous sonogram.
[2018-10-30] MEDS ORDERED: IPRATROPIUM-ALBUTEROL 3 ML NEB INHALATION STA (21:21)
[2018-10-30] MEDS ORDERED: DEXAMETHASONE SOD PHOSPHATE 10 MG/ML 1 ML VIAL IV STA (21:21)
[2018-10-30] MEDS ORDERED: MORPHINE SULFATE 4 MG/ML SYRINGE IVP STA (22:32)
--- NOTE | 2018-10-30 23:01 | CT ---
EXAM: CT Angiography Chest With Intravenous Contrast CLINICAL HISTORY: Reason: Pain TECHNIQUE: Axial computed tomographic angiography images of the chest with intravenous contrast using pulmonary embolism protocol. DLP is 1021.9 mGy-cm. This CT exam was performed using one or more of the following dose reduction techniques: automated exposure control, adjustment of the mA and/or kV according to patient size, and/or use of iterative reconstruction technique. MIP reconstructed images were created and reviewed. Coronal and sagittal reformatted images were created and reviewed. COMPARISON: No relevant prior studies available. FINDINGS: Pulmonary arteries: This study is not optimized for evaluation of pulmonary arteries however no central filling defects are demonstrated. Aorta: No acute findings. No thoracic aortic aneurysm. Lungs: Unremarkable. No mass. No consolidation. Pleural space: Unremarkable. No significant effusion. No pneumothorax. Heart: Unremarkable. No cardiomegaly. No significant pericardial effusion. No evidence of RV dysfunction. Bones/joints: Abnormal appearance to the disc space at T8-9 with the erosive changes of the endplates there is marked osteophyte formation. There is paraspinous soft tissue densities well. Clinical correlation is required to exclude osteomyelitis discitis at this level Soft tissues: Unremarkable. Lymph nodes: Unremarkable. No enlarged lymph nodes. IMPRESSION: No evidence for infiltrates or effusions. No evidence for PE no evidence for aortic dissection. Abnormal appearance the disc space at T8-9 with erosive changes the endplates paraspinous soft tissue density raising the possibility of a osteomyelitis discitis clinical correlations required.
[2018-10-30] MEDS ORDERED: NALOXONE 0.4 MG/ML 1 ML VIAL IV PRN (23:16)
[2018-10-31] MEDS: FUROSEMIDE 20 MG TAB PO SCH ×2 (10:16→21:15)
--- NOTE | 2018-10-31 11:45 | ECHOF ---
Referral Reason:damian MEASUREMENTS -------- HEIGHT: 177.8 cm WEIGHT: 204.1 kg BP: 138/105 RVIDd: 4.4 cm (< 3.3) IVSd: 1.0 cm (0.6 - 1.1) LVIDd: 5.4 cm (3.9 - 5.3) LVPWd: 1.3 cm (0.6 - 1.1) IVSs: 1.6 cm LVIDs: 2.9 cm LVPWs: 2.0 cm Ao Diam: 3.9 cm (2.0 - 3.7) AV Cusp: 2.4 cm (1.5 - 2.6) LA Diam: 4.3 cm (2.7 - 3.8) MV EXCURSION: 13.601 mm (> 18.000) MV EF SLOPE: 59 mm/s (70 - 150) EPSS: 2.1 cm MV E Marcel: 1.51 m/s MV DecT: 408 ms MV A Marcel: 0.65 m/s MV E/A Ratio: 2.32 RAP: 5.00 mmHg RVSP: 7.97 mmHg FINDINGS -------- Atrial fibrillation. This was a technically difficult study with suboptimal views. Morbid Obesity Grossly normal LV size and systolic function. Unable to comment on regional wall motion. The left v entricular size is normal. There is mild concentric left ventricular hypertrophy. Overall left ve ntricular systolic function is low-normal with, an EF between 50 - 55 %. The right ventricle is severely enlarged. The left atrium was not well visualized. The right atrium was not well visualized. The aortic valve was not well visualized. The mitral valve was not well visualized. There is trace mitral regurgitation. The tricuspid valve was not well visualized. Trace tricuspid regurgitation present. The right elisa tricular systolic pressure, as measured by Doppler, is 7.97mmHg. The pulmonic valve was not well visualized. The aortic root size is normal. IVC Not well visulized. CONCLUSIONS -------- 1. Atrial fibrillation. 2. This was a technically difficult study with suboptimal views. 3. Morbid Obesity 4. Grossly normal LV size and systolic function. Unable to comment on regional wall motion. 5. There is mild concentric left ventricular hypertrophy. 6. Overall left ventricular systolic function is low-normal with, an EF between 50 - 55 %. 7. The right ventricle is severely enlarged. 8. The left atrium was not well visualized. 9. The right atrium was not well visualized. 10. The aortic valve was not well visualized. 11. The mitral valve was not well visualized. 12. There is trace mitral regurgitation. 13. The tricuspid valve was not well visualized. 14. Trace tricuspid regurgitation present. 15. The right ventricular systolic pressure, as measured by Doppler, is 7.97mmHg. 16. The pulmonic valve was not well visualized. 17. The aortic root size is normal. 18. IVC Not well visulized. [employer]: Nancy Barth RDCS
--- NOTE | 2018-10-31 13:32 | P.HPIM ---
History of Present Illness This is a pleasant 73 years old male with past medical history of atrial fibrillation, congestive heart failure, DVT and PE on Coumadin, osteoarthritis, sleep apnea on CPAP/BiPAP, peripheral vascular disease with venous stasis, recommended lymphedema of the legs, cellulitis of the left leg, bilateral leg wounds. Who presents because of dyspnea and back pain. Patient states that he was concerned because his left leg started to become and hot, hard and draped for the last 2-3 days that he was afraid he had clots in his left leg and yesterday started having trouble pain in the middle of his back which he thought it could be due to pulmonary embolism so because he had similar episodes so he decided to come to emergency room. The pain was in the middle of the back nonradiating, sharp, about 9/10 in severity extubated by movement and breathing, patient had hard time breathing because of pain, however he denies chest pain or coughing. On admission his blood pressure is 137/78 and 94/70, afebrile, saturating 94% on 2 L. CBC unremarkable, INR 3.4, creatinine 1.3, baseline is 1.0. Liver enzymes showing normal levels, with elevated bilirubin at 2.3. Serial negative troponins. He had a CT in February of the thorax with intravenous contrast Which was done in the emergency room showing: No infiltrates or PE or aortic dissection and possible osteomyelitis discitis. Negative for DVT of the left leg. EKG showing sinus rhythm at 95 with first-degree A-AV block. With PVCs. In the emergency room he got 1 dose of Lasix, Decadron, and he was started on furosemide 60 mg by mouth twice a day. As per staff patient has few runs of V. tach. Patient denies weakness in his lower extremity, he denies urine or bowel incontinence. There is no numbness or sensory level. Review of Systems CONSTITUTIONAL: No fever, no malaise, no fatigue. HEENT: No recent visual problems or hearing problems. Denied any sore throat. CARDIOVASCULAR: No orthopnea, PND, no palpitations, no syncope. PULMONARY: No shortness of breath, no cough, no hemoptysis. GASTROINTESTINAL: No diarrhea, no nausea, no vomiting, no abdominal pain. Normoactive bowel sounds. NEUROLOGICAL: No headaches, no weakness, no numbness. HEMATOLOGICAL: Denies any bleeding or petechiae. GENITOURINARY: Denies any burning micturition, frequency, or urgency. MUSCULOSKELETAL/RHEUMATOLOGICAL: Denies any joint pain, swelling, or any muscle pain. ENDOCRINE: Denies any polyuria or polydipsia. Past Medical History Past Medical History: Atrial Fibrillation, Cancer, Heart Failure, Deep Vein Thrombosis (DVT), Osteoarthritis (OA), Pulmonary Embolus (PE), Sleep Apnea/CPAP/ BIPAP, Vascular Disorder Additional Past Medical History / Comment(s): L leg injuries, HX of DVT left leg 1995-traveled to [employer], PVD/venous stasis, chronic lymphedema legs, cellulitis L leg, past bilateral lower leg wounds-current wound lower left leg, MAIKOL with Cpap use, basal cell cancer removed from bilateral arms/nose. History of Any Multi-Drug Resistant Organisms: None Reported Past Surgical History: Tonsillectomy Additional Past Surgical History / Comment(s): skin cancer removed from prakash arms and nose, prakash cataracts Past Anesthesia/Blood Transfusion Reactions: No Reported Reaction Additional Past Anesthesia/Blood Transfusion Reaction / Comment(s): . Smoking Status: Never smoker - Past Family History Father Family Medical History: Cancer Additional Family Medical History / Comment(s): Father had kidney and colon cancers with surgeries. Mother Family Medical History: Eye Disorder, Osteoarthritis (OA) Additional Family Medical History / Comment(s): Mother had macular degeneration. Medications and Allergies Home Medications Medication Instructions Recorded Confirmed Type Warfarin [Coumadin] 5 mg PO SUMOWEFR 07/07/16 10/30/18 History Warfarin [Coumadin] 7.5 mg PO TUTHSA 07/07/16 10/30/18 History Metoprolol Tartrate [Lopressor] 25 mg PO TID 09/14/16 10/30/18 History Naproxen [Naprosyn] 500 mg PO BID 03/09/18 10/30/18 History Furosemide [Lasix] 60 mg PO BID 03/21/18 10/30/18 History Acetaminophen [Tylenol Extra 1,000 mg PO Q6H PRN 10/30/18 10/30/18 History Strength] Docusate [Colace] 100 mg PO DAILY PRN 10/30/18 10/30/18 History Allergies Allergy/AdvReac Type Severity Reaction Status Date / Time No Known Allergies Allergy Verified 10/30/18 20:30 Physical Exam Vitals: Vital Signs Temp Pulse Pulse Resp BP BP Pulse Ox 10/31/18 11:13 97.9 F 94 18 94/70 94 L 10/31/18 08:15 97.9 F 72 18 137/78 96 10/31/18 08:00 72 10/31/18 07:41 94 L 10/31/18 05:00 104 H 138/105 95 10/31/18 04:10 109 H 93 L 10/31/18 04:00 105 H 90/69 93 L 10/31/18 03:10 96 20 90/69 94 L 10/31/18 02:50 120 H 113/100 10/31/18 02:40 112 H 96 10/31/18 02:30 105 H 113/100 96 10/31/18 02:20 112 H 113/100 95 10/31/18 02:10 98 20 113/100 94 L 10/31/18 01:30 94 20 131/105 96 10/31/18 01:00 105 H 22 98/84 96 10/31/18 00:40 110 H 114/87 94 L 10/31/18 00:20 86 122/111 93 L 10/30/18 23:50 86 93/65 96 10/30/18 23:40 88 138/109 96 10/30/18 23:30 98 130/102 96 10/30/18 23:20 84 130/102 96 10/30/18 23:10 85 190/142 96 10/30/18 23:00 93 170/128 93 L 10/30/18 22:50 91 170/128 97 10/30/18 22:40 88 165/84 98 10/30/18 22:30 86 97 10/30/18 22:20 91 95 10/30/18 22:10 119/97 10/30/18 22:00 119/97 10/30/18 21:50 83 28 H 119/97 97 10/30/18 21:40 82 17 125/102 96 10/30/18 21:32 89 10/30/18 21:30 100 16 132/73 99 10/30/18 21:25 82 10/30/18 21:20 66 132/73 97 10/30/18 21:10 87 92/80 98 10/30/18 21:00 83 140/97 97 10/30/18 20:50 98 24 140/97 95 10/30/18 20:40 28 H 136/89 96 10/30/18 20:30 67 132/68 98 10/30/18 20:20 92 18 132/68 97 10/30/18 20:10 84 18 131/67 97 10/30/18 20:00 97 19 131/67 10/30/18 19:50 79 18 130/117 97 10/30/18 19:40 76 15 130/117 96 10/30/18 19:30 17 10/30/18 18:55 98.6 F 40 L 20 121/79 95 Intake and Output 10/30/18 10/31/18 10/31/18 22:59 06:59 14:59 Intake Total 240 Output Total 775 Balance -775 240 Intake: Oral 240 Output: Urine 775 Other: Weight 204.117 kg 204 kg GENERAL: The patient is alert and oriented x3, not in any acute distress. Well developed, well nourished. HEENT: Pupils are round and equally reacting to light. EOMI. No scleral icterus. No conjunctival pallor. Normocephalic, atraumatic. No pharyngeal erythema. No thyromegaly. CARDIOVASCULAR: S1 and S2 present. No murmurs, rubs, or gallops. PULMONARY: Chest is clear to auscultation, no wheezing or crackles. ABDOMEN: Soft, nontender, nondistended, normoactive bowel sounds. No palpable organomegaly. -MUSCULOSKELETAL: No joint swelling or deformity. Tender point to the middle of the back, slightly to the right side, with overlying normal skin -EXTREMITIES: No cyanosis, clubbing, or pedal edema. Left thigh is still bits right, pinkish, warm and mildly tender. Its heart to tell if it is swollen because patient has obese legs -NEUROLOGICAL: Gross neurological examination did not reveal any focal deficits. Cranial nerves are grossly intact, examined our in both legs and they look symmetrical and is able to flex and extend both legs simultaneously and similarly. SKIN: No rashes. Results CBC & Chem 7: 10/30/18 19:48 10/30/18 19:48 Labs: Abnormal Lab Results - Last 24 Hours (Table) 10/30/18 10/30/18 10/30/18 Range/Units 19:48 19:48 19:48 Plt Count 103 L (150-450) k/uL Lymphocytes # 0.6 L (1.0-4.8) k/uL PT 33.0 H (9.0-12.0) sec INR 3.4 H (<1.2) APTT 34.3 H (22.0-30.0) sec BUN 34 H (9-20) mg/dL Creatinine 1.35 H (0.66-1.25) mg/dL Glucose 128 H (74-99) mg/dL Total Bilirubin 2.3 H (0.2-1.3) mg/dL Albumin 3.4 L (3.5-5.0) g/dL Thrombosis Risk Factor Assmnt - Choose All That Apply Any of the Below Risk Factors Present?: Yes Each Factor Represents 1 point: Heart failure (<1month), Obesity (BMI >25) Other Risk Factors: Yes Each Risk Factor Represents 2 Points: Age 61-74 years, Malignancy Each Risk Factor Represents 3 Points: History of DVT/PE Other congenital or acquired thrombophilia - If yes, enter type in comment: No Thrombosis Risk Factor Assessment Total Risk Factor Score: 9 Thrombosis Risk Factor Assessment Level: High Risk Assessment and Plan Assessment: possible osteomyelitis discitis left leg cellulitis Acute kidney injury History of congestive heart failure History of atrial fibrillation on Coumadin. rate controlled on admission Supratherapeutic INR History of sleep apnea on CPAP/BiPAP History of DVT with venous stasis History of bilateral lymphedema History of slight his left leg History of leg wounds Plan: This is a pleasant 73 years old male who presents because of back pain and dyspnea. Suspicious for osteomyelitis of the back. Will call infectious disease consult might have seen Dr. Kwon before. We'll continue with the controlled. Start the patient with Zosyn and then antibiotics as per infectious disease team. Also call cardiology consult for frequent PVCs and history of atrial fibrillation. Also patient presents with acute kidney injury and although it's mild tenderness in the contrast and he was on naproxen, so we' ll call nephrology consult, especially his review of heart failure been on diuretic.pain management Labs and medication were reviewed.. Continue same treatment. Continue with symptomatic treatment. Resume home medication. Monitor lytes and vitals. DVT and GI prophylaxis. Further recommendations of the clinical course of the patient DVT prophylaxis: Warfarin GI Prophylaxis: Pepcid PT/OT: Hold for now Prognosis is guarded
--- NOTE | 2018-10-31 15:00 | XR ---
EXAMINATION TYPE: XR thoracic spine 2V DATE OF EXAM: 10/31/2018 CLINICAL HISTORY: Back pain with possible osteomyelitis/discitis. TECHNIQUE: Frontal, lateral, and swimmer's view of thoracic spine are obtained. COMPARISON: None. FINDINGS: Pulmonary vascular congestion is seen, partially obscuring the thoracic spine as does patie nt body habitus. Mild multilevel degenerative changes of the thoracic spine are seen with interverteb ral disc space narrowing and small anterior osteophytes. No gross evidence of erosive changes of the endplates, however again the exam is suboptimal. No vertebral body height loss or malalignment of the thoracic spine is seen. IMPRESSION: Exam is suboptimal secondary to patient body habitus and pulmonary vascular congestion. N o gross evidence of vertebral body height loss or malalignment of the thoracic spine. No gross eviden ce of endplate erosive change to suggest osteomyelitis/discitis although if there is concern MRI woul d be indicated for increased specificity and sensitivity.
--- NOTE | 2018-10-31 15:01 | XR ---
EXAMINATION TYPE: XR lumbar spine 2 or 3V DATE OF EXAM: 10/31/2018 CLINICAL HISTORY: Back pain. Possible osteomyelitis/discitis. TECHNIQUE: Frontal and lateral images of the lumbar spine are obtained. COMPARISON: None FINDINGS: There is severe limitation of the lateral view secondary to patient body habitus. In the mi d and upper lumbar spine there appears to be no vertebral body height loss or malalignment. On the fr ontal view extensive facet arthropathy is seen at L4-L5 and L5-S1. Overlying bowel is nondilated. IMPRESSION: Markedly limited exam secondary to patient body habitus. The lateral image is nearly nond iagnostic of the lower lumbar spine. Evaluation for discitis/osteomyelitis is fairly limited. MRI wou ld be indicated if there is further clinical concern.
[2018-10-31] MEDS ORDERED: SODIUM CHLORIDE 0.9% 1,000 ML IV ONE (15:38)
[2018-10-31 16:04] LABS: INR 3.5 (<1.2); Prothrombin Time 33.5 sec (9.0-12.0)
--- NOTE | 2018-10-31 16:08 | P.CONS ---
History of Present Illness - Reason for Consult Consult date: 10/31/18 - Chief Complaint back pain - History of Present Illness 73-year-old male who has a history of super obesity, underlying coronary artery disease with congestive heart failure and atrial fibrillation presents to Hospital feeling poorly with back pain and some shortness of breath. The patient does have a history of sleep apnea and uses a CPAP device at home has a known history of peripheral vascular disease with venous stasis ulcerations in the past with chronic lymphedema and bouts of cellulitis. The patient became very concerned he does have a history of deep venous thrombosis with pulmonary embolism, at that time he was having severe pain in his back and shortness of breath and consequently sought care. The patient is returned from x-rays of his spine and he is now feeling very poorly. He is having low-grade fever he has chills he is not having gregorio rigors but is having mild shaking and feels very poorly. He's had a bout of nausea without significant emesis. His pain is considerably worse since laying flat. He is also more short of breath since laying flat. Stat lactic acid and blood cultures have been requested. Cali for nausea.. Review of Systems Patient feels very poorly feels feverish, chills nausea shortness of breath pain is back HEENT:Denies headache or acute visual change. Denies sinus or mouth discomforts. Denies neck stiffness or pain. Denies significant oral cavity pain. Denies difficulty on swallowing. Lungs: He has a history was of breath but no cough or sputum production or hemoptysis Cardiovascular: He has shortness of breath and has pain within his back but no anterior chest pain. Not combining of palpitations. He has dyspnea when he lays flat and dyspnea with exertion. No syncope Gastrointestinal: Has had the sudden onset of some nausea and minimal emesis. denies diarrhea, constipation, hematemesis, melena, hematochezia. No no significant change of bowel habit noticed. Musculoskeletal: Severe back pain, chronic bilateral lower extremity edema some redness to his left leg. Again Skin: No current open ulcers but does have some redness to his left leg Neuro: Denies headache or visual change. Denies any new onset weakness or difficulty with ambulation. Denies falls or seizures. Psychiatric: With this shortness of breath he has anxiety Endocrine: Fatigue and weight gain over time Past Medical History Past Medical History: Atrial Fibrillation, Cancer, Heart Failure, Deep Vein Thrombosis (DVT), Osteoarthritis (OA), Pulmonary Embolus (PE), Sleep Apnea/CPAP/ BIPAP, Vascular Disorder Additional Past Medical History / Comment(s): L leg injuries, HX of DVT left leg 1995-traveled to lung, PVD/venous stasis, chronic lymphedema legs, cellulitis L leg, past bilateral lower leg wounds-current wound lower left leg, MAIKOL with Cpap use, basal cell cancer removed from bilateral arms/nose. History of Any Multi-Drug Resistant Organisms: None Reported Past Surgical History: Tonsillectomy Additional Past Surgical History / Comment(s): skin cancer removed from prakash arms and nose, prakash cataracts Past Anesthesia/Blood Transfusion Reactions: No Reported Reaction Additional Past Anesthesia/Blood Transfusion Reaction / Comm: . 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 No recent travel. Pet dogs lives with family. No ill contacts. Denies any significant history of tobacco use or other drug use. Smoking Status: Never smoker - Past Family History Father Family Medical History: Cancer Additional Family Medical History / Comment(s): Father had kidney and colon cancers with surgeries. Mother Family Medical History: Eye Disorder, Osteoarthritis (OA) Additional Family Medical History / Comment(s): Mother had macular degeneration. Medications and Allergies Home Medications and Allergies Comment(s): Current Medications Acetaminophen (Tylenol Tab) 650 mg PO Q6HR PRN PRN Reason: Mild Pain or Fever > 100.5 Docusate Sodium (Colace) 100 mg PO DAILY PRN PRN Reason: Constipation Furosemide (Lasix) 60 mg PO BID CRISTINE Last Admin: 10/31/18 10:16 Dose: 60 mg Sodium Chloride (Saline 0.9%) 1,000 mls @ 999 mls/hr IV .Q1H1M ONE Stop: 10/31/18 16:38 Ceftriaxone Sodium 2 gm/ (Sodium Chloride) 50 mls @ 50 mls/hr IVPB Q24H CRISTINE Daptomycin 500 mg/ Sodium (Chloride) 50 mls @ 100 mls/hr IVPB Q24H CRISTINE; Protocol Metoprolol Tartrate (Lopressor) 25 mg PO TID CRISTINE Miscellaneous Information (Coumadin Per Pharmacy) 1 each MISCELLANE DIRECTED PRN PRN Reason: Per Protocol Morphine Sulfate (Morphine Sulfate (Inj)) 4 mg IV Q4HR PRN PRN Reason: Severe Pain Naloxone HCl (Narcan) 0.2 mg IV Q2M PRN PRN Reason: Opioid Reversal Home Medications Medication Instructions Recorded Confirmed Type Warfarin [Coumadin] 5 mg PO SUMOWEFR 07/07/16 10/30/18 History Warfarin [Coumadin] 7.5 mg PO TUTHSA 07/07/16 10/30/18 History Metoprolol Tartrate [Lopressor] 25 mg PO TID 09/14/16 10/30/18 History Naproxen [Naprosyn] 500 mg PO BID 03/09/18 10/30/18 History Furosemide [Lasix] 60 mg PO BID 03/21/18 10/30/18 History Acetaminophen [Tylenol Extra 1,000 mg PO Q6H PRN 10/30/18 10/30/18 History Strength] Docusate [Colace] 100 mg PO DAILY PRN 10/30/18 10/30/18 History Allergies Allergy/AdvReac Type Severity Reaction Status Date / Time No Known Allergies Allergy Verified 10/30/18 20:30 Physical Exam Vitals: Vital Signs Temp Pulse Pulse Resp BP BP Pulse Ox 10/31/18 11:13 97.9 F 94 18 94/70 94 L 10/31/18 08:15 97.9 F 72 18 137/78 96 10/31/18 08:00 72 10/31/18 07:41 94 L 10/31/18 05:00 104 H 138/105 95 10/31/18 04:10 109 H 93 L 10/31/18 04:00 105 H 90/69 93 L 10/31/18 03:10 96 20 90/69 94 L 10/31/18 02:50 120 H 113/100 10/31/18 02:40 112 H 96 10/31/18 02:30 105 H 113/100 96 10/31/18 02:20 112 H 113/100 95 10/31/18 02:10 98 20 113/100 94 L 10/31/18 01:30 94 20 131/105 96 10/31/18 01:00 105 H 22 98/84 96 10/31/18 00:40 110 H 114/87 94 L 10/31/18 00:20 86 122/111 93 L 10/30/18 23:50 86 93/65 96 10/30/18 23:40 88 138/109 96 10/30/18 23:30 98 130/102 96 10/30/18 23:20 84 130/102 96 10/30/18 23:10 85 190/142 96 10/30/18 23:00 93 170/128 93 L 10/30/18 22:50 91 170/128 97 10/30/18 22:40 88 165/84 98 10/30/18 22:30 86 97 10/30/18 22:20 91 95 10/30/18 22:10 119/97 10/30/18 22:00 119/97 10/30/18 21:50 83 28 H 119/97 97 10/30/18 21:40 82 17 125/102 96 10/30/18 21:32 89 10/30/18 21:30 100 16 132/73 99 10/30/18 21:25 82 10/30/18 21:20 66 132/73 97 10/30/18 21:10 87 92/80 98 10/30/18 21:00 83 140/97 97 10/30/18 20:50 98 24 140/97 95 10/30/18 20:40 28 H 136/89 96 10/30/18 20:30 67 132/68 98 10/30/18 20:20 92 18 132/68 97 10/30/18 20:10 84 18 131/67 97 10/30/18 20:00 97 19 131/67 10/30/18 19:50 79 18 130/117 97 10/30/18 19:40 76 15 130/117 96 10/30/18 19:30 17 10/30/18 18:55 98.6 F 40 L 20 121/79 95 Intake and Output 10/31/18 10/31/18 10/31/18 06:59 14:59 22:59 Intake Total 240 Output Total 775 500 Balance -775 260 Intake: Oral 240 Output: Urine 775 500 Other: # Voids 2 Weight 204 kg Obese 73-year-old male who is uncomfortable at the time of presentation complaint was back pain and feels short of breath. HEENT: Anicteric conjunctiva are pink and moist nasal mucosa grossly intact without significant lesions, there is no thrush. Poor dentition Neck: The neck is supple without significant lymphadenopathy or thyromegaly. Lungs: Symmetrical bilateral air entry, basilar crackles are heard. Expiratory wheezes without gregorio bronchial sounds no dullness or egophony Heart: Irregularly irregular with an audible S1 and S2 no S4 2/6 systolic murmur left sternal border PMI is nonpalpable Abdomen: Obese, Positive bowel sounds soft and nontender without palpable masses or organomegaly. There was no guarding or rebound. Extremities: The upper extremities have excellent pulses they are symmetric, no significant petechiae or telangiectasia. No splinter hemorrhages were noted. The lower extremities reveal evidence of chronic venous stasis changes but no chronic current open ulcerations has some minimal chronic skin changes the left leg with some erythema but is not very tender Neuro: Awake alert oriented to person place and time. There are no acute new gross focal sensory motor deficits. Results CBC & Chem 7: 10/30/18 19:48 10/30/18 19:48 Labs: Abnormal Lab Results - Last 24 Hours (Table) 10/30/18 10/30/18 10/30/18 Range/Units 19:48 19:48 19:48 Plt Count 103 L (150-450) k/uL Lymphocytes # 0.6 L (1.0-4.8) k/uL PT 33.0 H (9.0-12.0) sec INR 3.4 H (<1.2) APTT 34.3 H (22.0-30.0) sec BUN 34 H (9-20) mg/dL Creatinine 1.35 H (0.66-1.25) mg/dL Glucose 128 H (74-99) mg/dL Total Bilirubin 2.3 H (0.2-1.3) mg/dL Albumin 3.4 L (3.5-5.0) g/dL Laboratory Results WBC 7.1 k/uL (3.8-10.6) 10/30/18 19:48 RBC 4.50 m/uL (4.30-5.90) 10/30/18 19:48 Hgb 14.1 gm/dL (13.0-17.5) 10/30/18 19:48 Hct 42.4 % (39.0-53.0) 10/30/18 19:48 MCV 94.1 fL (80.0-100.0) 10/30/18 19:48 MCH 31.2 pg (25.0-35.0) 10/30/18 19:48 MCHC 33.2 g/dL (31.0-37.0) 10/30/18 19:48 RDW 13.7 % (11.5-15.5) 10/30/18 19:48 Plt Count 103 k/uL (150-450) L 10/30/18 19:48 Neutrophils % 80 % 10/30/18 19:48 Lymphocytes % 9 % 10/30/18 19:48 Monocytes % 7 % 10/30/18 19:48 Eosinophils % 2 % 10/30/18 19:48 Basophils % 0 % 10/30/18 19:48 Neutrophils # 5.7 k/uL (1.3-7.7) 10/30/18 19:48 Lymphocytes # 0.6 k/uL (1.0-4.8) L 10/30/18 19:48 Monocytes # 0.5 k/uL (0-1.0) 10/30/18 19:48 Eosinophils # 0.1 k/uL (0-0.7) 10/30/18 19:48 Basophils # 0.0 k/uL (0-0.2) 10/30/18 19:48 PT 33.0 sec (9.0-12.0) H 10/30/18 19:48 INR 3.4 (<1.2) H 10/30/18 19:48 APTT 34.3 sec (22.0-30.0) H 10/30/18 19:48 Sodium 139 mmol/L (137-145) 10/30/18 19:48 Potassium 4.6 mmol/L (3.5-5.1) 10/30/18 19:48 Chloride 100 mmol/L (98-107) 10/30/18 19:48 Carbon Dioxide 30 mmol/L (22-30) 10/30/18 19:48 Anion Gap 9 mmol/L 10/30/18 19:48 BUN 34 mg/dL (9-20) H 10/30/18 19:48 Creatinine 1.35 mg/dL (0.66-1.25) H 10/30/18 19:48 Est GFR (CKD-EPI)AfAm 60 (>60 ml/min/1.73 sqM) 10/30/18 19:48 Est GFR (CKD-EPI)NonAf 52 (>60 ml/min/1.73 sqM) 10/30/18 19:48 Glucose 128 mg/dL (74-99) H 10/30/18 19:48 Calcium 8.8 mg/dL (8.4-10.2) 10/30/18 19:48 Total Bilirubin 2.3 mg/dL (0.2-1.3) H 10/30/18 19:48 AST 40 U/L (17-59) 10/30/18 19:48 ALT 44 U/L (21-72) 10/30/18 19:48 Alkaline Phosphatase 104 U/L (38-126) 10/30/18 19:48 Total Creatine Kinase 55 U/L (55-170) 10/30/18 19:48 CK-MB (CK-2) 0.5 ng/mL (0.0-2.4) 10/30/18 19:48 CK-MB (CK-2) Rel Index 0.9 10/30/18 19:48 Troponin I 0.013 ng/mL (0.000-0.034) 10/31/18 07:39 NT-Pro-B Natriuret Pep 1890 pg/mL 10/30/18 19:48 Total Protein 7.0 g/dL (6.3-8.2) 10/30/18 19:48 Albumin 3.4 g/dL (3.5-5.0) L 10/30/18 19:48 Assessment and Plan (1) Dyspnea Current Visit: Yes Status: Acute Code(s): R06.00 - DYSPNEA, UNSPECIFIED SNOMED Code(s): 192907028 (2) Discitis of thoracic region Narrative/Plan: 73-year-old male who has multiple medical troubles including significant underlying atrial fibrillation, coronary artery disease, COPD presents to Hospital with significant pain into his back and some shortness of breath. With a known history of prior probably embolism he was very concerned and constantly present. A computed tomography scan was performed to evaluate for the potential for a pulmonary embolus and no PE was discovered. However evidence of discitis and possible osteomyelitis of the T8-T9 region by CT findings. The patient is now developed what appears to be some early sepsis associated with what appears to be the absence of fever, chills some worsening dyspnea and consequently center workup has been initiated. This is also important with the concerns to the discitis and osteomyelitis of the spine. He cultures, lactic acid, sed rate and CRP have all been requested. Once blood cultures been done initiating antibiotic therapy with daptomycin given what appears to be some acute renal failure as well as Rocephin while cultures are in process. The patient has a superobese body habitus and is not a candidate for MRI at this facility. Interventional radiology aspiration of the site is not possible due to location. Fluid bolus was requested and he will be monitored. Current Visit: Yes Status: Acute Code(s): M46.44 - DISCITIS, UNSPECIFIED, THORACIC REGION SNOMED Code(s): 785894671
[2018-10-31] MEDS ORDERED: ONDANSETRON 4 MG/2 ML VIAL IVP PRN (16:09)
[2018-10-31 17:12] LABS: Glucose,Whole Blood 149 mg/dL (75-99)
[2018-10-31] MEDS: ACETAMINOPHEN TAB 325 MG TAB PO PRN (17:43)
[2018-10-31] MEDS: DOCUSATE 100 MG CAP PO PRN (17:43)
[2018-10-31 17:54] LABS: ABG Base Excess 5.6 mmol/L; ABG HCO3 29 mmol/L (21-25); ABG PCO2 40 mmHg (35-45); ABG PH 7.47 (7.35-7.45); ABG PO2 90 mmHg (83-108); ABG TCO2 31 mmol/L (19-24)
[2018-10-31 17:56] LABS: ABG Oxygen Saturation 98.3 % (94-97)
[2018-10-31] MEDS ORDERED: WARFARIN 0.5 MG TAB PO ONE (18:00)
[2018-10-31] MEDS ORDERED: DAPTOmycin 500 MG in SODIUM CHLORIDE 0.9% 50 ML IVPB SCH (18:00)
[2018-10-31 19:04] LABS: Calcium 8.5 mg/dL (8.4-10.2); Phosphorus 1.7 mg/dL (2.5-4.5); Potassium 4.7 mmol/L (3.5-5.1)
[2018-10-31 19:14] LABS: Basophils % (A) 0 %; Eosinophils % (A) 0 %; HCT 47.1 % (39.0-53.0); HGB 14.4 gm/dL (13.0-17.5); Hypochromasia Marked; Lymphocytes # (A) 0.2 k/uL (1.0-4.8); Lymphocytes % (A) 2 %; MCHC 30.5 g/dL (31.0-37.0); Macrocytosis Slight; Mean Platelet Volume 9.5; Monocytes # (A) 0.5 k/uL (0-1.0); Monocytes % (A) 6 %; Neutrophils # (A) 8.6 k/uL (1.3-7.7); Neutrophils % (A) 91 %; RBC 4.64 m/uL (4.30-5.90); RDW 13.8 % (11.5-15.5); WBC 9.5 k/uL (3.8-10.6)
[2018-10-31] MEDS: METOPROLOL TARTRATE 25 MG TAB PO SCH ×2 (19:14→21:14)
[2018-10-31 19:15] LABS: MCV 101.5 fL (80.0-100.0); Platelet Count 89 k/uL (150-450)
[2018-11-01] MEDS: MORPHINE SULFATE 4 MG/ML SYRINGE IV PRN ×2 (00:44→22:05)
--- NOTE | 2018-11-01 03:42 | CONS ---
CONSULTATION Mr. Urena is a 73-year-old gentleman who is seen for the evaluation of cardiac arrhythmia. Patient's medical records were reviewed and old charts reviewed. This patient has a history of DVT, pulmonary embolism and atrial fibrillation and has been on medications for that. The patient came to the emergency room with a complaint of shortness of breath and severe right posterior back pain. The patient had been evaluated in the emergency room. A CT scan of the chest was performed which did not show any evidence of pulmonary embolism. Lungs were fairly clear without any evidence of congestive heart failure or pneumonia. However, there was a suggestion of osteomyelitis. The patient's lactic acid subsequently is 4.8, and patient is being transferred to the intensive care unit. The patient denies any chest pain. There is no prior history of myocardial infarction. The patient is morbidly obese. HOME MEDICATIONS: Include Coumadin, Lopressor 25 mg t.i.d., Lasix 60 mg b.i.d., Colace. PAST MEDICAL HISTORY: Includes a history of a DVT and pulmonary embolism, history of atrial fibrillation, basal cell carcinoma and history of cellulitis in the leg. PHYSICAL EXAMINATION: At present reveals a 73-year-old gentleman who is morbidly obese. The patient's temperature in the emergency room was normal. The patient's blood pressure is now 100/70 mmHg, heart rate is 90 per minute, oxygen saturation is 94%. HEENT examination is negative. Neck is supple. Jugular venous pressure is difficult to assess. Heart, first and second heart sounds are heard. Lungs are fairly clear to auscultation and percussion. Abdomen is soft. Extremities, peripheral pulses are not felt. EKG shows normal sinus rhythm without any acute ischemic changes. Echocardiogram was performed which was technically difficult to difficult. Overall, left ventricular systolic function appears normal. Valvular abnormality was not possible to detect. The patient's lactic acid is 4.8 and C-reactive protein is 202. The patient's proBNP level is 1890. IMPRESSION: This patient is admitted with symptoms of shortness of breath and severe back pain. There is a possibility of osteomyelitis and underlying septic disorder. At present, there is no evidence of any overt congestive cardiac failure. The patient currently is in normal sinus rhythm with multiple PVCs. The patient is being transferred to the intensive care unit for further evaluation for sepsis and treatment. MMODL / IJN: [id number] /
[2018-11-01 05:23] LABS: Basophils % (A) 0 %; Eosinophils % (A) 0 %; HCT 42.5 % (39.0-53.0); HGB 13.5 gm/dL (13.0-17.5); Lymphocytes # (A) 0.6 k/uL (1.0-4.8); Lymphocytes % (A) 5 %; MCH 30.4 pg (25.0-35.0); MCHC 31.7 g/dL (31.0-37.0); Monocytes # (A) 0.8 k/uL (0-1.0); Monocytes % (A) 6 %; Neutrophils # (A) 11.7 k/uL (1.3-7.7); Neutrophils % (A) 88 %; Platelet Count 107 k/uL (150-450); RBC 4.42 m/uL (4.30-5.90); RDW 13.7 % (11.5-15.5); WBC 13.2 k/uL (3.8-10.6)
[2018-11-01 05:35] LABS: MCV 96.1 fL (80.0-100.0)
[2018-11-01 05:39] LABS: INR 2.8 (<1.2); Prothrombin Time 26.6 sec (9.0-12.0)
[2018-11-01 05:53] LABS: Calcium 8.2 mg/dL (8.4-10.2); Magnesium 2.3 mg/dL (1.6-2.3); Phosphorus 3.4 mg/dL (2.5-4.5); Potassium 4.5 mmol/L (3.5-5.1)
[2018-11-01] MEDS: METOPROLOL TARTRATE 25 MG TAB PO SCH ×3 (09:33→21:58)
[2018-11-01] MEDS: FUROSEMIDE 20 MG TAB PO SCH ×2 (09:33→21:58)
--- NOTE | 2018-11-01 11:28 | XR ---
EXAMINATION TYPE: XR chest 1V DATE OF EXAM: 11/01/2018 COMPARISON: 11/09/2018 INDICATION: Respiratory failure COPD TECHNIQUE: Single frontal view of the chest is obtained. FINDINGS: The heart size is normal. The pulmonary vasculature is normal. The lungs are clear. IMPRESSION: 1. No acute pulmonary process.
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
--- NOTE | 2018-11-01 15:41 | P.CNOR ---
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 Patient states at the end of last week he began to experience some increased redness and warmth over his left thigh. He does have a history of DVT. He states he then began to experience sharp severe pain in his chest and mid back. He has a history of previous pulmonary embolism and felt his symptoms felt exactly the same way as of the time of his previous pulmonary embolism. He presented to the emergency department for further evaluation. CT of the chest was performed at that time which did not show evidence of pulmonary embolism was positive for abnormal appearance at the T8-9 disc space with erosive changes of the endplates and paraspinal soft tissue density reason possibility of osteomyelitis discitis. Patient was admitted for further evaluation. Patient was beginning to clinically appear to be septic and was transferred to the ICU. He was found to have an elevated WBC 13.2 today. Blood culture resulted on 10/31/2018 is positive for strep agalactiae. Patient states he does have pain in his thoracic spine is exacerbated with movement. He is not currently experiencing any significant pain in the bilateral lower extremities. He does not feel he has any increased erythema over the left thigh. Patient is morbidly obese with a BMI of 53. He does have skin changes changes of the bilateral medial thighs, calves, feet chronic lymphedema. He states he is able to ambulate but does not ambulate much. He does have an open wound on the left anterior redman that is currently being treated. Patient is being seen and examined by Dr. Kwon in infectious disease. He has been started on IV antibiotic treatment. Patient is unable to have an MRI here at [facility] due to his body habitus. Dr. Kwon does not feel he needs MRI in order to treat the patient. There are no current plans to obtain an MRI of the lumbar spine. He denies any recent injuries. He does have a significant medical history including atrial fibrillation, congestive heart failure, coronary artery disease, shortness of breath, history of pulmonary embolism and DVT, morbid obesity, peripheral vascular disease with venous stasis and chronic lymphedema and history of cellulitis. Patient is currently being seen and examined by pulmonology, cardiology, medicine, and infectious disease. Past Medical History Past Medical History: Atrial Fibrillation, Cancer, Heart Failure, Deep Vein Thrombosis (DVT), Osteoarthritis (OA), Pulmonary Embolus (PE), Sleep Apnea/CPAP/ BIPAP, Vascular Disorder Additional Past Medical History / Comment(s): L leg injuries, HX of DVT left leg 1995-traveled to [place], PVD/venous stasis, chronic lymphedema legs, cellulitis L leg, past bilateral lower leg wounds-current wound lower left leg, MAIKOL with Cpap use, basal cell cancer removed from bilateral arms/nose. History of Any Multi-Drug Resistant Organisms: None Reported Past Surgical History: Tonsillectomy Additional Past Surgical History / Comment(s): skin cancer removed from prakash arms and nose, prakash cataracts Past Anesthesia/Blood Transfusion Reactions: No Reported Reaction Additional Past Anesthesia/Blood Transfusion Reaction / Comm: . 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 No recent travel. Pet dogs lives with family. No ill contacts. Denies any significant history of tobacco use or other drug use. Smoking Status: Never smoker - Past Family History Father Family Medical History: Cancer Additional Family Medical History / Comment(s): Father had kidney and colon cancers with surgeries. Mother Family Medical History: Eye Disorder, Osteoarthritis (OA) Additional Family Medical History / Comment(s): Mother had macular degeneration. Medications and Allergies Home Medications Medication Instructions Recorded Confirmed Type Warfarin [Coumadin] 5 mg PO SUMOWEFR 07/07/16 10/30/18 History Warfarin [Coumadin] 7.5 mg PO TUTHSA 07/07/16 10/30/18 History Metoprolol Tartrate [Lopressor] 25 mg PO TID 09/14/16 10/30/18 History Naproxen [Naprosyn] 500 mg PO BID 03/09/18 10/30/18 History Furosemide [Lasix] 60 mg PO BID 03/21/18 10/30/18 History Acetaminophen [Tylenol Extra 1,000 mg PO Q6H PRN 10/30/18 10/30/18 History Strength] Docusate [Colace] 100 mg PO DAILY PRN 10/30/18 10/30/18 History Allergies Allergy/AdvReac Type Severity Reaction Status Date / Time No Known Allergies Allergy Verified 10/30/18 20:30 Physical Examination Physical Exam: Patient is awake, alert, and oriented 3 Vital signs stable Good chest excursion with adequate inspiration and expiration No signs or symptoms of DVT; no calf pain Left lower extremity venous ulcer over the left redman Chronic lymphedema bilateral lower extremities Examination of lumbar spine reveals skin is intact with no abrasions, lacerations, or bruises; no erythema, purulence or signs of infection Some pain with palpation along the midline of the lower thoracic spine Dorsiflexion, plantarflexion, and extensor hallucis longus positive sustained bilaterally Morbid obesity Neurovascularly intact Results Pertinent studies: CT of the chest taken on 10/30/2018: Abnormal periods at the T8-9 disc space with erosive changes at the endplates and paraspinous soft tissue density raising the possibility of osteomyelitis discitis. X-rays of the lumbar spine taken on 10/31/2018: Markedly limited examination secondary to patient's body habitus which lateral imaging is nearly nondiagnostic of the lower lumbar spine; L4-5 and L5-S1 facet arthropathy visible on AP imaging; recommend MRI if clinical concern X-rays of the thoracic spine taken on 10/31/2018: Exam is suboptimal secondary to patient's body habitus and pulmonary vascular congestion; no gross evidence of vertebral body height lites are malalignment; no gross evidence of endplate erosive changes he just osteomyelitis/discitis; recommend MRI for increased spasticity and sensitivity Blood culture resulted on 10/31/2018: Positive for strep agalactiae - Labs Labs: Abnormal Lab Results - Last 24 Hours (Table) 10/31/18 10/31/18 10/31/18 Range/Units 15:27 15:27 15:27 WBC (3.8-10.6) k/uL MCV (80.0-100.0) fL MCHC (31.0-37.0) g/dL Plt Count (150-450) k/uL Neutrophils # (1.3-7.7) k/uL Lymphocytes # (1.0-4.8) k/uL ESR 52 H (0-15) mm/hr PT 33.5 H (9.0-12.0) sec INR 3.5 H (<1.2) ABG pH (7.35-7.45) ABG HCO3 (21-25) mmol/L ABG Total CO2 (19-24) mmol/L ABG O2 Saturation (94-97) % BUN (9-20) mg/dL Creatinine (0.66-1.25) mg/dL Glucose (74-99) mg/dL POC Glucose (mg/dL) (75-99) mg/dL Plasma Lactic Acid Guicho (0.7-2.0) mmol/L Calcium (8.4-10.2) mg/dL Phosphorus (2.5-4.5) mg/dL C-Reactive Protein 202.4 H (<10.0) mg/L 10/31/18 10/31/18 10/31/18 Range/Units 15:27 17:00 17:52 WBC (3.8-10.6) k/uL MCV (80.0-100.0) fL MCHC (31.0-37.0) g/dL Plt Count (150-450) k/uL Neutrophils # (1.3-7.7) k/uL Lymphocytes # (1.0-4.8) k/uL ESR (0-15) mm/hr PT (9.0-12.0) sec INR (<1.2) ABG pH 7.47 H (7.35-7.45) ABG HCO3 29 H (21-25) mmol/L ABG Total CO2 31 H (19-24) mmol/L ABG O2 Saturation 98.3 H (94-97) % BUN (9-20) mg/dL Creatinine (0.66-1.25) mg/dL Glucose (74-99) mg/dL POC Glucose (mg/dL) 149 H (75-99) mg/dL Plasma Lactic Acid Guicho 4.8 H* (0.7-2.0) mmol/L Calcium (8.4-10.2) mg/dL Phosphorus (2.5-4.5) mg/dL C-Reactive Protein (<10.0) mg/L 10/31/18 10/31/18 11/01/18 Range/Units 18:10 18:10 05:00 WBC (3.8-10.6) k/uL MCV 101.5 H D (80.0-100.0) fL MCHC 30.5 L (31.0-37.0) g/dL Plt Count 89 L (150-450) k/uL Neutrophils # 8.6 H (1.3-7.7) k/uL Lymphocytes # 0.2 L (1.0-4.8) k/uL ESR (0-15) mm/hr PT 26.6 H (9.0-12.0) sec INR 2.8 H (<1.2) ABG pH (7.35-7.45) ABG HCO3 (21-25) mmol/L ABG Total CO2 (19-24) mmol/L ABG O2 Saturation (94-97) % BUN 36 H (9-20) mg/dL Creatinine (0.66-1.25) mg/dL Glucose 144 H (74-99) mg/dL POC Glucose (mg/dL) (75-99) mg/dL Plasma Lactic Acid Guicho (0.7-2.0) mmol/L Calcium (8.4-10.2) mg/dL Phosphorus 1.7 L (2.5-4.5) mg/dL C-Reactive Protein (<10.0) mg/L 11/01/18 11/01/18 Range/Units 05:00 05:00 WBC 13.2 H (3.8-10.6) k/uL MCV (80.0-100.0) fL MCHC (31.0-37.0) g/dL Plt Count 107 L (150-450) k/uL Neutrophils # 11.7 H (1.3-7.7) k/uL Lymphocytes # 0.6 L (1.0-4.8) k/uL ESR (0-15) mm/hr PT (9.0-12.0) sec INR (<1.2) ABG pH (7.35-7.45) ABG HCO3 (21-25) mmol/L ABG Total CO2 (19-24) mmol/L ABG O2 Saturation (94-97) % BUN 37 H (9-20) mg/dL Creatinine 1.28 H (0.66-1.25) mg/dL Glucose 140 H (74-99) mg/dL POC Glucose (mg/dL) (75-99) mg/dL Plasma Lactic Acid Guicho (0.7-2.0) mmol/L Calcium 8.2 L (8.4-10.2) mg/dL Phosphorus (2.5-4.5) mg/dL C-Reactive Protein (<10.0) mg/L Microbiology - Last 24 Hours (Table) 10/31/18 13:27 Blood Culture Gram Stain - Preliminary Blood Blood Culture - Preliminary Strep agalactiae - (group b) 10/31/18 15:23 Blood Culture Gram Stain - Preliminary Blood Blood Culture - Preliminary Strep agalactiae - (group b) 10/31/18 13:27 Blood Culture - Final Blood 10/31/18 15:23 Blood Culture - Final Blood H & H 10/30/18 10/31/18 11/01/18 Range/Units 19:48 18:10 05:00 Hgb 14.1 14.4 13.5 (13.0-17.5) gm/dL Hct 42.4 47.1 42.5 (39.0-53.0) % Coagulation 10/30/18 10/31/18 11/01/18 Range/Units 19:48 15:27 05:00 INR 3.4 H 3.5 H 2.8 H (<1.2) Result Diagrams: 11/01/18 05:00 11/01/18 05:00 Assessment and Plan Assessment: Assessment: 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 Thoracic back pain History of atrial fibrillation History of congestive heart failure History of coronary artery disease History of shortness of breath History of pulmonary embolism and DVT Morbid obesity History of peripheral vascular disease with venous stasis and chronic lymphedema History of cellulitis (1) Osteomyelitis of thoracic region Current Visit: Yes Status: Acute Code(s): M46.24 - OSTEOMYELITIS OF VERTEBRA , THORACIC REGION SNOMED Code(s): 158335719 (2) History of congestive heart failure Current Visit: Yes Status: Acute Code(s): Z86.79 - PERSONAL HISTORY OF OTHER DISEASES OF THE CIRCULATORY SYSTEM SNOMED Code(s): 464193346 (3) Atrial fibrillation Current Visit: Yes Status: Acute Code(s): I48.91 - UNSPECIFIED ATRIAL FIBRILLATION SNOMED Code(s): 00074592 (4) History of cellulitis Current Visit: Yes Status: Acute Code(s): Z87.2 - PERSONAL HISTORY OF DISEASES OF THE SKIN, SUBCU SNOMED Code(s): 583363087 (5) History of DVT (deep vein thrombosis) Current Visit: Yes Status: Acute Code(s): Z86.718 - PERSONAL HISTORY OF OTHER VENOUS THROMBOSIS AND EMBOLISM SNOMED Code(s): 339104296 (6) History of pulmonary embolism Current Visit: Yes Status: Acute Code(s): Z86.711 - PERSONAL HISTORY OF PULMONARY EMBOLISM SNOMED Code(s): 683916575 (7) Morbid obesity with BMI of 50.0-59.9, adult Current Visit: Yes Status: Acute Code(s): E66.01 - MORBID (SEVERE) OBESITY DUE TO EXCESS CALORIES; Z68.43 - BODY MASS INDEX (BMI) 50-59.9, ADULT SNOMED Code(s): 912120228 (8) Discitis of thoracic region Current Visit: Yes Status: Acute Code(s): M46.44 - DISCITIS, UNSPECIFIED, THORACIC REGION SNOMED Code(s): 915055986 (9) Venous ulcer of left lower extremity without varicose veins Current Visit: No Status: Acute Code(s): I87.2 - VENOUS INSUFFICIENCY ( CHRONIC) (PERIPHERAL); L97.929 - NON-PRS CHRONIC ULC UNSP PRT OF L LOW LEG W UNSP SEVERITY SNOMED Code(s): 120838661 Plan: Plan: 1. Patient has been discussed in detail with Dr. Lucian Nevarez , nursing, and case management. Dictation by Dr. Kwon in infectious disease has been appreciated. We will currently planned to continue with conservative treatment for the patient with imaging findings of T8-9 erosive bony changes suspicious for osteomyelitis discitis. Patient is unable to have an MRI here [facility] due to his body habitus. He has been seen and examined by Dr. Kwon in infectious disease who does not feel he needs MRI in order to treat the patient. Patient has been started on antibiotic medication. We are not currently planning for surgical intervention for the patient here [facility]. If he did require surgical intervention, surgery would need to be performed a tertiary facility given the surgical procedure and approach necessary to perform the surgery. Patient like to avoid surgical intervention is he is able to do so. He can also has other significant medical comorbidities including atrial fibrillation, congestive heart failure, coronary artery disease, morbid obesity, peripheral vascular disease with venous stasis and chronic lymphedema, history of pulmonary embolism, history of DVT, and history of cellulitis. Patient is currently in the ICU after a clinical picture of sepsis and but culture results today were positive for strep agalactiae. Patient also has an elevated white count at 13.2. We discussed continued conservative treatment options. We will not currently plan to obtain further imaging or other lab orders. We will have the patient continue with treatment with Dr. Kwon in infectious disease in regards to his findings at T8 -9. If further treatment or evaluation is necessary or indicated, we may be contacted for further input. 2. Patient will continue to be seeing exam by multiple medical providers including medicine, pulmonology, cardiology, infectious disease for his multiple comorbidities. 3. Patient has been discussed in detail with Dr. Lucian Nevarez and he agrees with this plan Time with Patient: Greater than 30 (Including physical examination, history, reviewing of imaging, and dictation)
[2018-11-01] MEDS: DOCUSATE 100 MG CAP PO PRN (17:44)
[2018-11-01] MEDS ORDERED: WARFARIN 5 MG TAB PO ONE (18:00)
--- NOTE | 2018-11-01 20:19 | P.PN ---
Subjective This is a pleasant 73 years old male with past medical history of atrial fibrillation, congestive heart failure, DVT and PE on Coumadin, osteoarthritis, sleep apnea on CPAP/BiPAP, peripheral vascular disease with venous stasis, recommended lymphedema of the legs, cellulitis of the left leg, bilateral leg wounds. Who presents because of dyspnea and back pain. Patient states that he was concerned because his left leg started to become and hot, hard and draped for the last 2-3 days that he was afraid he had clots in his left leg and yesterday started having trouble pain in the middle of his back which he thought it could be due to pulmonary embolism so because he had similar episodes so he decided to come to emergency room. The pain was in the middle of the back nonradiating, sharp, about 9/10 in severity extubated by movement and breathing, patient had hard time breathing because of pain, however he denies chest pain or coughing. On admission his blood pressure is 137/78 and 94/70, afebrile, saturating 94% on 2 L. CBC unremarkable, INR 3.4, creatinine 1.3, baseline is 1.0. Liver enzymes showing normal levels, with elevated bilirubin at 2.3. Serial negative troponins. He had a CT in February of the thorax with intravenous contrast Which was done in the emergency room showing: No infiltrates or PE or aortic dissection and possible osteomyelitis discitis. Negative for DVT of the left leg. EKG showing sinus rhythm at 95 with first-degree A-AV block. With PVCs. In the emergency room he got 1 dose of Lasix, Decadron, and he was started on furosemide 60 mg by mouth twice a day. As per staff patient has few runs of V. tach. Patient denies weakness in his lower extremity, he denies urine or bowel incontinence. There is no numbness or sensory level. 11/01/18 pt remain in the ICU, he is up in bed and alert , oriented, he still complains from back pain at the level of the thoracic region , however pt denies to me any weakness in his legs, he is telling me his strength today in both leg is at his baseline, also he denies senosry loss, no urine or bowel incontinence, no saddle ansathesia, orthopedic team evaluated pt for osteomylitis discitis, MRI of his back is being considered , however because of his bady habitus it can not be done in [facility]. breathing is better today , no chest pain , no abdominal pain or change in bowel habits, no fever. pt is tachycardic and saturating 90 % on RA. creatinine is 1.28 which is slightly elevated . wbc 13.2 K .antibiotics as per ID team . ESR and CRP are elevated , he is on warfarin pharmcy to dose for his h/o DVT/PE Objective - Vital Signs Vital signs: Vital Signs Temp 98.5 F 11/01/18 16:00 Pulse 103 H 11/01/18 19:00 Resp 16 11/01/18 19:00 BP 42/22 11/01/18 19:00 Pulse Ox 90 L 11/01/18 19:00 Intake & Output 11/01/18 11/01/18 11/02/18 06:59 18:59 06:59 Intake Total 240 240 20 Output Total 1170 1415 35 Balance -930 -1175 -15 Weight 177.7 kg 177.7 kg Intake: IV 240 240 20 .9 20 240 240 20 Output: Urine 1170 1415 35 Other: Voiding Method Indwelling Catheter Indwelling Catheter - Exam GENERAL: The patient is alert and oriented x3, not in any acute distress. Well developed, well nourished. HEENT: Pupils are round and equally reacting to light. EOMI. No scleral icterus. No conjunctival pallor. Normocephalic, atraumatic. No pharyngeal erythema. No thyromegaly. CARDIOVASCULAR: S1 and S2 present. No murmurs, rubs, or gallops. PULMONARY: Chest is clear to auscultation, no wheezing or crackles. ABDOMEN: Soft, nontender, nondistended, normoactive bowel sounds. No palpable organomegaly. -MUSCULOSKELETAL: No joint swelling or deformity. Tender point to the middle of the back, slightly to the right side, with overlying normal skin -EXTREMITIES: No cyanosis, clubbing, or pedal edema. Left thigh is still bits right, pinkish, warm and mildly tender. Its heart to tell if it is swollen because patient has obese legs -NEUROLOGICAL: Gross neurological examination did not reveal any focal deficits. Cranial nerves are grossly intact, examined our in both legs and they look symmetrical and is able to flex and extend both legs simultaneously and similarly. SKIN: No rashes. - Labs CBC & Chem 7: 11/01/18 05:00 11/01/18 05:00 Labs: Abnormal Lab Results - Last 24 Hours (Table) 11/01/18 11/01/18 11/01/18 Range/Units 05:00 05:00 05:00 WBC 13.2 H (3.8-10.6) k/uL Plt Count 107 L (150-450) k/uL Neutrophils # 11.7 H (1.3-7.7) k/uL Lymphocytes # 0.6 L (1.0-4.8) k/uL PT 26.6 H (9.0-12.0) sec INR 2.8 H (<1.2) BUN 37 H (9-20) mg/dL Creatinine 1.28 H (0.66-1.25) mg/dL Glucose 140 H (74-99) mg/dL Calcium 8.2 L (8.4-10.2) mg/dL Microbiology - Last 24 Hours (Table) 10/31/18 13:27 Blood Culture Gram Stain - Preliminary Blood Blood Culture - Preliminary Strep agalactiae - (group b) 10/31/18 15:23 Blood Culture Gram Stain - Preliminary Blood Blood Culture - Preliminary Strep agalactiae - (group b) 10/31/18 13:27 Blood Culture - Final Blood 10/31/18 15:23 Blood Culture - Final Blood Assessment and Plan Assessment: possible osteomyelitis discitis left leg cellulitis Acute kidney injury History of congestive heart failure History of atrial fibrillation on Coumadin. rate controlled on admission Supratherapeutic INR History of sleep apnea on CPAP/BiPAP History of DVT with venous stasis History of bilateral lymphedema History of slight his left leg History of leg wounds Plan: This is a pleasant 73 years old male who presents because of back pain and dyspnea. Suspicious for osteomyelitis of the back. Will call infectious disease consult might have seen Dr. Kwon before. We'll continue with the controlled. Start the patient with Zosyn and then antibiotics as per infectious disease team. Also call cardiology consult for frequent PVCs and history of atrial fibrillation. Also patient presents with acute kidney injury and although it's mild tenderness in the contrast and he was on naproxen, so we' ll call nephrology consult, especially his review of heart failure been on diuretic.pain management Labs and medication were reviewed.. Continue same treatment. Continue with symptomatic treatment. Resume home medication. Monitor lytes and vitals. DVT and GI prophylaxis. Further recommendations of the clinical course of the patient DVT prophylaxis: Warfarin GI Prophylaxis: Pepcid PT/OT: Hold for now Prognosis is guarded
--- NOTE | 2018-11-01 20:42 | P.PN ---
Subjective Progress Note Date: 11/01/18 73-year-old male who has a history of super obesity, underlying coronary artery disease with congestive heart failure and atrial fibrillation presents to Hospital feeling poorly with back pain and some shortness of breath. The patient does have a history of sleep apnea and uses a CPAP device at home has a known history of peripheral vascular disease with venous stasis ulcerations in the past with chronic lymphedema and bouts of cellulitis. The patient became very concerned he does have a history of deep venous thrombosis with pulmonary embolism, at that time he was having severe pain in his back and shortness of breath and consequently sought care. The patient is returned from x-rays of his spine and he is now feeling very poorly. He is having low-grade fever he has chills he is not having gregorio rigors but is having mild shaking and feels very poorly. He's had a bout of nausea without significant emesis. His pain is considerably worse since laying flat. He is also more short of breath since laying flat. Stat lactic acid and blood cultures have been requested. [place] for nausea.. 11/01/2018 the patient was transferred to the intensive care unit yesterday when he became acutely ill. There is no evidence of the positive blood cultures with gram-positive cocci. 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 The patient's pain is well controlled at this point in time. He has had no further bouts of nausea or emesis. He has without other new acute complaints today. He is without significant shortness of breath or sputum production at this time. Objective - Vital Signs Vital signs: Vital Signs Temp 98.5 F 11/01/18 16:00 Pulse 103 H 11/01/18 19:00 Resp 16 11/01/18 19:00 BP 42/22 11/01/18 19:00 Pulse Ox 90 L 11/01/18 19:00 Intake & Output 11/01/18 11/01/18 11/02/18 06:59 18:59 06:59 Intake Total 240 240 20 Output Total 1170 1415 35 Balance -930 -1175 -15 Weight 177.7 kg 177.7 kg Intake: IV 240 240 20 .9 20 240 240 20 Output: Urine 1170 1415 35 Other: Voiding Method Indwelling Catheter Indwelling Catheter - Exam Obese 73-year-old male who is uncomfortable at the time of presentation complaint was back pain and feels short of breath. HEENT: Anicteric conjunctiva are pink and moist nasal mucosa grossly intact without significant lesions, there is no thrush. Poor dentition Neck: The neck is supple without significant lymphadenopathy or thyromegaly. Lungs: Symmetrical bilateral air entry, basilar crackles are heard. Expiratory wheezes without gregorio bronchial sounds no dullness or egophony Heart: Irregularly irregular with an audible S1 and S2 no S4 2/6 systolic murmur left sternal border PMI is nonpalpable Abdomen: Obese, Positive bowel sounds soft and nontender without palpable masses or organomegaly. There was no guarding or rebound. Extremities: The upper extremities have excellent pulses they are symmetric, no significant petechiae or telangiectasia. No splinter hemorrhages were noted. The lower extremities reveal evidence of chronic venous stasis changes but no chronic current open ulcerations has some minimal chronic skin changes the left leg with some erythema but is not very tender Neuro: Awake alert oriented to person place and time. There are no acute new gross focal sensory motor deficits. - Labs CBC & Chem 7: 11/01/18 05:00 11/01/18 05:00 Labs: Abnormal Lab Results - Last 24 Hours (Table) 11/01/18 11/01/18 11/01/18 Range/Units 05:00 05:00 05:00 WBC 13.2 H (3.8-10.6) k/uL Plt Count 107 L (150-450) k/uL Neutrophils # 11.7 H (1.3-7.7) k/uL Lymphocytes # 0.6 L (1.0-4.8) k/uL PT 26.6 H (9.0-12.0) sec INR 2.8 H (<1.2) BUN 37 H (9-20) mg/dL Creatinine 1.28 H (0.66-1.25) mg/dL Glucose 140 H (74-99) mg/dL Calcium 8.2 L (8.4-10.2) mg/dL Microbiology - Last 24 Hours (Table) 10/31/18 13:27 Blood Culture Gram Stain - Preliminary Blood Blood Culture - Preliminary Strep agalactiae - (group b) 10/31/18 15:23 Blood Culture Gram Stain - Preliminary Blood Blood Culture - Preliminary Strep agalactiae - (group b) 10/31/18 13:27 Blood Culture - Final Blood 10/31/18 15:23 Blood Culture - Final Blood Laboratory Results WBC 13.2 k/uL (3.8-10.6) H 11/01/18 05:00 RBC 4.42 m/uL (4.30-5.90) 11/01/18 05:00 Hgb 13.5 gm/dL (13.0-17.5) 11/01/18 05:00 Hct 42.5 % (39.0-53.0) 11/01/18 05:00 MCV 96.1 fL (80.0-100.0) D 11/01/18 05:00 MCH 30.4 pg (25.0-35.0) 11/01/18 05:00 MCHC 31.7 g/dL (31.0-37.0) 11/01/18 05:00 RDW 13.7 % (11.5-15.5) 11/01/18 05:00 Plt Count 107 k/uL (150-450) L 11/01/18 05:00 Neutrophils % 88 % 11/01/18 05:00 Lymphocytes % 5 % 11/01/18 05:00 Monocytes % 6 % 11/01/18 05:00 Eosinophils % 0 % 11/01/18 05:00 Basophils % 0 % 11/01/18 05:00 Neutrophils # 11.7 k/uL (1.3-7.7) H 11/01/18 05:00 Lymphocytes # 0.6 k/uL (1.0-4.8) L 11/01/18 05:00 Monocytes # 0.8 k/uL (0-1.0) 11/01/18 05:00 Eosinophils # 0.0 k/uL (0-0.7) 11/01/18 05:00 Basophils # 0.0 k/uL (0-0.2) 11/01/18 05:00 Hypochromasia Marked 10/31/18 18:10 Macrocytosis Slight 10/31/18 18:10 ESR 52 mm/hr (0-15) H 10/31/18 15:27 PT 26.6 sec (9.0-12.0) H 11/01/18 05:00 INR 2.8 (<1.2) H 11/01/18 05:00 APTT 34.3 sec (22.0-30.0) H 10/30/18 19:48 Sample Site RRA 10/31/18 17:52 ABG pH 7.47 (7.35-7.45) H 10/31/18 17:52 ABG pCO2 40 mmHg (35-45) 10/31/18 17:52 ABG pO2 90 mmHg (83-108) 10/31/18 17:52 ABG HCO3 29 mmol/L (21-25) H 10/31/18 17:52 ABG Total CO2 31 mmol/L (19-24) H 10/31/18 17:52 ABG O2 Saturation 98.3 % (94-97) H 10/31/18 17:52 ABG Base Excess 5.6 mmol/L 10/31/18 17:52 Bishnu Test Yes 10/31/18 17:52 FiO2 40 % 10/31/18 17:52 Sodium 138 mmol/L (137-145) 11/01/18 05:00 Potassium 4.5 mmol/L (3.5-5.1) 11/01/18 05:00 Chloride 100 mmol/L (98-107) 11/01/18 05:00 Carbon Dioxide 30 mmol/L (22-30) 11/01/18 05:00 Anion Gap 8 mmol/L 11/01/18 05:00 BUN 37 mg/dL (9-20) H 11/01/18 05:00 Creatinine 1.28 mg/dL (0.66-1.25) H 11/01/18 05:00 Est GFR (CKD-EPI)AfAm 64 (>60 ml/min/1.73 sqM) 11/01/18 05:00 Est GFR (CKD-EPI)NonAf 55 (>60 ml/min/1.73 sqM) 11/01/18 05:00 Glucose 140 mg/dL (74-99) H 11/01/18 05:00 POC Glucose (mg/dL) 149 mg/dL (75-99) H 10/31/18 17:00 POC Glu 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 [employer]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 Ondina Lewis 10/31/18 17:00 Lactic Ac Sepsis Rflx Y 10/31/18 16:04 Plasma Lactic Acid Guicho 2.0 mmol/L (0.7-2.0) 10/31/18 19:44 Calcium 8.2 mg/dL (8.4-10.2) L 11/01/18 05:00 Phosphorus 3.4 mg/dL (2.5-4.5) 11/01/18 05:00 Magnesium 2.3 mg/dL (1.6-2.3) 11/01/18 05:00 Total Bilirubin 2.3 mg/dL (0.2-1.3) H 10/30/18 19:48 AST 40 U/L (17-59) 10/30/18 19:48 ALT 44 U/L (21-72) 10/30/18 19:48 Alkaline Phosphatase 104 U/L (38-126) 10/30/18 19:48 Total Creatine Kinase 55 U/L (55-170) 10/30/18 19:48 CK-MB (CK-2) 0.5 ng/mL (0.0-2.4) 10/30/18 19:48 CK-MB (CK-2) Rel Index 0.9 10/30/18 19:48 Troponin I 0.013 ng/mL (0.000-0.034) 10/31/18 07:39 C-Reactive Protein 202.4 mg/L (<10.0) H 10/31/18 15:27 NT-Pro-B Natriuret Pep 1890 pg/mL 10/30/18 19:48 Total Protein 7.0 g/dL (6.3-8.2) 10/30/18 19:48 Albumin 3.4 g/dL (3.5-5.0) L 10/30/18 19:48 Microbiology 10/31/18 13:27 Blood Blood Culture Gram Stain - Preliminary 10/31/18 13:27 Blood Blood Culture - Preliminary Strep agalactiae - (group b) 10/31/18 15:23 Blood Blood Culture Gram Stain - Preliminary 10/31/18 15:23 Blood Blood Culture - Preliminary Strep agalactiae - (group b) 10/31/18 13:27 Blood Blood Culture - Final 10/31/18 15:23 Blood Blood Culture - Final Assessment and Plan (1) Dyspnea Current Visit: Yes Status: Acute Code(s): R06.00 - DYSPNEA, UNSPECIFIED SNOMED Code(s): 491350777 (2) Discitis of thoracic region Narrative/Plan: 73-year-old male who has multiple medical troubles including significant underlying atrial fibrillation, coronary artery disease, COPD presents to Hospital with significant pain into his back and some shortness of breath. With a known history of prior probably embolism he was very concerned and constantly present. A computed tomography scan was performed to evaluate for the potential for a pulmonary embolus and no PE was discovered. However evidence of discitis and possible osteomyelitis of the T8-T9 region by CT findings. The patient is now developed what appears to be some early sepsis associated with what appears to be the absence of fever, chills some worsening dyspnea and consequently center workup has been initiated. This is also important with the concerns to the discitis and osteomyelitis of the spine. He cultures, lactic acid, sed rate and CRP have all been requested. Once blood cultures been done initiating antibiotic therapy with daptomycin given what appears to be some acute renal failure as well as Rocephin while cultures are in process. The patient has a superobese body habitus and is not a candidate for MRI at this facility. Interventional radiology aspiration of the site is not possible due to location. Fluid bolus was requested and he will be monitored. 11/01/2018 patient is feeling slightly better today. Pain is better controlled. Hypotension is resolved. The patient's computed tomography scan reveals evidence of the discitis and osteomyelitis. The patient by weight and girth is be on the capability of our MRI scanner. The patient over has an adequate diagnosis with a computed tomography scan and MRI is not required at this point in time. He is been seen by orthopedic spine and appears to be stable at this time without the need for surgical intervention. We have asked of any type of bracing is required. Positive blood cultures with Group B strep have now been isolated. Will be able to de-escalate antibiotic therapy. Rocephin will be utilized. Once is evidence of negative blood cultures then IV access the PICC line will be planned and will work to the possibility of outpatient intravenous and back therapy versus extended care facility placement which may be required given his current level of debility. As far as a ulcer in the right lower extremity Opticel is requested that we change daily for now with utilization of a long Jeevan wrap from the foot to the knee. It is likely that the chronic lower extremity ulcerations venous stasis and chronic infectious state as the portal of entry for the infection to the spine. Current Visit: Yes Status: Acute Code(s): M46.44 - DISCITIS, UNSPECIFIED, THORACIC REGION SNOMED Code(s): 417532048
--- NOTE | 2018-11-01 22:02 | PN ---
PROGRESS NOTE This patient was seen yesterday. Patient has been admitted with symptoms of shortness of breath and severe back pain. Patient is being evaluated for possible osteomyelitis of the spine. Patient had an elevated lactic acid level. Clinically patient's condition essentially remains unchanged. Blood pressure is 104/75 mmHg. First and second heart sounds are heard. Lungs are clear to auscultation and percussion. Patient continues to have intermittent PVCs, from which patient is asymptomatic. Patient's lactic acid is now 2.0. We will continue the current medications and now we will follow the patient p.r.n. MMODL / IJN: [id number] /
[2018-11-02 01:24] LABS: Appearance,Urine Cloudy (Clear); Bacteria,Urine Occasional /hpf; Bilirubin,Urine Negative (Negative); Blood,Urine Moderate (Negative); Color,Urine Yellow; Glucose,Urine (UA) Negative (Negative); Ketones,Urine Negative (Negative); Leukocyte Esterase,Urine Large (Negative); Mucus,Urine Rare /hpf; Nitrite,Urine Negative (Negative); Protein,Urine Negative (Negative); RBC,Urine 43 /hpf (0-5); Specific Gravity,Urine 1.013 (1.001-1.035); Squamous Epithelial Cell,Urine <1 /hpf (0-4); Urobilinogen,Urine <2.0 mg/dL (<2.0); WBC,Urine 14 /hpf (0-5)
[2018-11-02 05:34] LABS: Basophils % (A) 0 %; Eosinophils # (A) 0.1 k/uL (0-0.7); Eosinophils % (A) 2 %; HCT 41.8 % (39.0-53.0); HGB 12.9 gm/dL (13.0-17.5); Lymphocytes # (A) 0.7 k/uL (1.0-4.8); Lymphocytes % (A) 11 %; MCH 29.8 pg (25.0-35.0); MCHC 30.9 g/dL (31.0-37.0); MCV 96.3 fL (80.0-100.0); Mean Platelet Volume 10.2; Monocytes # (A) 0.6 k/uL (0-1.0); Monocytes % (A) 10 %; Neutrophils # (A) 4.5 k/uL (1.3-7.7); Neutrophils % (A) 74 %; Platelet Count 103 k/uL (150-450); RBC 4.34 m/uL (4.30-5.90); RDW 13.7 % (11.5-15.5); WBC 6.2 k/uL (3.8-10.6)
[2018-11-02 05:38] LABS: INR 2.2 (<1.2); Prothrombin Time 21.4 sec (9.0-12.0)
[2018-11-02 05:48] LABS: Magnesium 2.1 mg/dL (1.6-2.3); Phosphorus 2.8 mg/dL (2.5-4.5); Potassium 4.1 mmol/L (3.5-5.1)
--- NOTE | 2018-11-02 07:26 | XR ---
EXAMINATION TYPE: XR chest 1V DATE OF EXAM: 11/02/2018 COMPARISON: 11/01/2018 HISTORY: 73 year-old male respiratory failure, COPD, CHF TECHNIQUE: Single frontal view of the chest is obtained. FINDINGS: Heart mildly enlarged. Diffuse interstitial and vascular prominence is similar. No gregorio consolidatio n or pleural effusion. IMPRESSION: Cardiomegaly and interstitial/vascular prominence. Overall similar; possible mild pulmonary vascular congestion. No gregorio pulmonary edema.
--- NOTE | 2018-11-02 08:39 | P.PN ---
Progress Note - Text Progress Note Date: 11/02/18 Patient is seen and examined today at bedside. Have reviewed the notes as well as the prior consultation. The patient's feels that his pain symptoms in his back or may be slowly getting better but he still have significant pain at the mid back. He was able to sleep with cold blanket at his last night. He is not clearing of any numbness tingling his lower extremities. He is not quite planning of any new neurologic changes. He is not planning of any changes in bowel bladder function. His exam is unchanged. He has been afebrile. His vital has been stable this morning. Assessment and plan Hospital medical issues including severe molded obesity, atrophic fibrillation, congestive heart failure Acute thoracic back pain with likely discitis at the midthoracic spine with osteomyelitis, without neurologic deficit The patient is not having neurologic changes to necessitate surgical intervention for his spine. His a working diagnosis with thoracic discitis with osteomyelitis and this should be able to be managed adequately with medical management and long-term IV antibiotics. He is currently on Rocephin as is the strain the groove in his blood culture. He is continue management with infectious ease and medicine. It is okay for him to mobilize as he is able from a spine standpoint. It is unlikely with his body habitus that any bracing would give him any real support and would likely be of further nuisance for him rather than significant benefit. We do not have any plans for surgical intervention at this point. If his condition were worsen he would need further imaging likely with open MRI but for the present time it is okay to continue management without further imaging for his spine.
--- NOTE | 2018-11-02 08:51 | CONS ---
CONSULTATION REASON FOR CONSULT: Renal failure. HISTORY OF PRESENT ILLNESS: Patient is a 73-year-old male who has a past history of obesity, chronic atrial fibrillation, history of DVT and PE and maintained on anticoagulation. The patient was admitted to the hospital with complaints of shortness of breath and back pain and chest pain and. He thought he was having another PE as his symptoms were similar to his previous episode. The patient denied any fevers or chills. The patient was tachypneic and hypotensive. Therefore, he is currently in the ICU. He did not require pressor agents. The patient received IV fluid bolus and is currently not on IV fluids and. His serum creatinine was 1.35, it did come down to 1.20 and 1.28 now. Review of previous labs show serum creatinine 1-1.2 in March in April of 2018. PAST MEDICAL HISTORY: Significant for obesity, history of PE and DVT, osteoarthritis, and CHF, ejection fraction not known, chronic lymphedema, obstructive sleep apnea, basal cell cancer from arms and on the nose. PAST SURGICAL HISTORY: History skin cancer removal, tonsillectomy. SOCIAL HISTORY: Negative for smoking, drug abuse or alcohol abuse. MEDICATIONS: Medications at home included Naprosyn, Coumadin, Lopressor, Lasix, Colace. ALLERGIES: None. REVIEW OF SYSTEMS: As per HPI. Other systems negative. PHYSICAL EXAMINATION: Patient is comfortable awake he is alert and oriented x3. He is not in any acute distress. Blood pressure was this morning 103/72, and then it had been as low as 94/76. Heart rate about 100 per minute. Patient is afebrile. Examination of the heart S1, S2. Examination lungs bilateral breath sounds are heard. Abdomen is soft, nontender morbidly obese examination lower extremities shows chronic skin changes from chronic lymphedema bilaterally. PER DIEM exam is grossly intact. Patient moving all 4 extremities. LABS: Show hemoglobin 13.5, white cell count 13.2. Sodium 138, potassium 4.5, BUN 37, serum creatinine 1.28, calcium 8.2. Chest CTA shows no evidence of PE, infiltrates, or effusions. ASSESSMENT: 1. Acute kidney injury secondary to hypotension. Currently nonoliguric with some improvement in renal function. 2. Chronic kidney disease, end cap stage III, with baseline creatinine 1.2-1.0 mg/dL. Check urinalysis. Etiology is likely nephrosclerosis. If there is no significant proteinuria. 3. History of deep vein thrombosis and pulmonary embolism. 4. Dyspnea on admission with no evidence of pulmonary embolism on CTA of the lungs. 5. Severe back pain with the abnormality noted at the T8 and T9 with erosive changes suggestive of osteomyelitis or diskitis. 6. Sepsis, possibly related to underlying diskitis/osteomyelitis. 7. Lactic acidosis secondary to sepsis. 8. His history of deep vein thrombosis and pulmonary embolism. Maintained on anticoagulation. 9. Chronic atrial fibrillation. PLAN: Check urinalysis. We continue with the Lasix for now. The patient has received IV contrast monitor. We will monitor the renal function closely and avoid any further nephrotoxic agents. Thank you for this consultation. Will continue to follow the patient with you during his hospitalization. MMQUINTONL / IJN: [id number] /
[2018-11-02] MEDS: METOPROLOL TARTRATE 25 MG TAB PO SCH ×3 (08:56→21:32)
[2018-11-02] MEDS: FUROSEMIDE 20 MG TAB PO SCH ×2 (09:51→21:32)
[2018-11-02] MEDS: MORPHINE SULFATE 4 MG/ML SYRINGE IV PRN ×2 (10:59→20:28)
[2018-11-02] MEDS ORDERED: BISACODYL 10 MG SUPP RECTAL PRN (12:48)
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
--- NOTE | 2018-11-02 17:09 | PN ---
PROGRESS NOTE Patient is seen for followup for acute kidney injury. Renal function has improved, with creatinine down to 1.2, which appears to be his baseline. Patient did have IV contrast for a CT angiogram. There is concern for osteomyelitis of the spine. Patient is maintained on antibiotics. He is currently maintained on oral Lasix. Patient has an indwelling Mahajan catheter and has had good urine output. On examination, blood pressure was 126/90, heart rate 77 per minute. Patient is afebrile. EXAMINATION OF THE HEART: S1 and S2. EXAMINATION OF LUNGS: Decreased breath sounds at bases. ABDOMEN: Soft, morbidly obese. Examination of lower extremities shows chronic skin changes, chronic edema bilaterally. [employer] exam is grossly intact. Patient is in a lot of pain, with back pain. Labs show sodium 139, potassium 4.1, chloride 102, BUN 37, serum creatinine 1.24, hemoglobin 12.9 g/dL. ASSESSMENT: 1. Acute kidney injury, currently slightly improved. Serum creatinine is staying at about 1.2. Patient did have IV contrast. Renal function is fairly stable. 2. Chronic kidney disease, NKF stage III. Baseline creatinine 1 to 1.2, mainly secondary to nephrosclerosis. UA is negative for protein. 3. Morbid obesity. 4. Possible osteomyelitis of the spine, maintained on antibiotics. Patient has been evaluated by Orthopedics. Plan is to continue with the antibiotics and obtain MRI if there is worsening of the pain. PLAN: Continue with current dose of Lasix. Repeat labs in a.m. Avoid any nephrotoxic agents. MMODL / IJN: [id number] /
[2018-11-02] MEDS ORDERED: WARFARIN 7.5 MG TAB PO ONE (18:00)
--- NOTE | 2018-11-02 18:23 | P.PN ---
Subjective This is a pleasant 73 years old male with past medical history of atrial fibrillation, congestive heart failure, DVT and PE on Coumadin, osteoarthritis, sleep apnea on CPAP/BiPAP, peripheral vascular disease with venous stasis, recommended lymphedema of the legs, cellulitis of the left leg, bilateral leg wounds. Who presents because of dyspnea and back pain. Patient states that he was concerned because his left leg started to become and hot, hard and draped for the last 2-3 days that he was afraid he had clots in his left leg and yesterday started having trouble pain in the middle of his back which he thought it could be due to pulmonary embolism so because he had similar episodes so he decided to come to emergency room. The pain was in the middle of the back nonradiating, sharp, about 9/10 in severity extubated by movement and breathing, patient had hard time breathing because of pain, however he denies chest pain or coughing. On admission his blood pressure is 137/78 and 94/70, afebrile, saturating 94% on 2 L. CBC unremarkable, INR 3.4, creatinine 1.3, baseline is 1.0. Liver enzymes showing normal levels, with elevated bilirubin at 2.3. Serial negative troponins. He had a CT in February of the thorax with intravenous contrast Which was done in the emergency room showing: No infiltrates or PE or aortic dissection and possible osteomyelitis discitis. Negative for DVT of the left leg. EKG showing sinus rhythm at 95 with first-degree A-AV block. With PVCs. In the emergency room he got 1 dose of Lasix, Decadron, and he was started on furosemide 60 mg by mouth twice a day. As per staff patient has few runs of V. tach. Patient denies weakness in his lower extremity, he denies urine or bowel incontinence. There is no numbness or sensory level. 11/01/18 pt remain in the ICU, he is up in bed and alert , oriented, he still complains from back pain at the level of the thoracic region , however pt denies to me any weakness in his legs, he is telling me his strength today in both leg is at his baseline, also he denies senosry loss, no urine or bowel incontinence, no saddle ansathesia, orthopedic team evaluated pt for osteomylitis discitis, MRI of his back is being considered , however because of his bady habitus it can not be done in [facility]. breathing is better today , no chest pain , no abdominal pain or change in bowel habits, no fever. pt is tachycardic and saturating 90 % on RA. creatinine is 1.28 which is slightly elevated . wbc 13.2 K .antibiotics as per ID team . ESR and CRP are elevated , he is on warfarin pharmcy to dose for his h/o DVT/PE 11/02/2018 Patient in the ICU, because of the chest shortness of breath more than usual this morning, patient was placed on oxygen therapy and he felt a little better no chest pain. No leg weakness or saddle anesthesia or abnormal sensation. I discussed the finding of with the patient, he preferred to be treated medically for now with antibiotics. Patient is aware of the risk of paralysis and weakness. The size it's felt that there is no strong cord compression as there is no weakness in his lower extremity and his main limitation for movement is in the pain in the back which caused him more short of breath as well as pain on moving his legs. His abdomen BC back to normal today. INR is 2.2. Creatinine is 1.24. A BMP was unremarkable. Blood cultures positive for strept agalaceiae. Remains on antibiotics as per infectious disease with daptomycin and Rocephin. Objective - Vital Signs Vital signs: Vital Signs Temp 99.1 F 11/02/18 12:00 Pulse 79 11/02/18 17:00 Resp 25 H 11/02/18 17:00 BP 92/54 11/02/18 16:00 Pulse Ox 91 L 11/02/18 17:00 Intake & Output 11/01/18 11/02/18 11/02/18 18:59 06:59 18:59 Intake Total 240 720 640 Output Total 1675 147 6191 Balance -1175 -240 -556 Weight 177.7 kg 179 kg 180.6 kg Intake: IV 240 240 220 .9 20 240 240 220 Oral 480 420 Output: Urine 7982 912 8941 Stool 1 Other: Voiding Method Indwelling Catheter Indwelling Catheter Indwelling Catheter - Exam GENERAL: The patient is alert and oriented x3, not in any acute distress.obese HEENT: Pupils are round and equally reacting to light. EOMI. No scleral icterus. No conjunctival pallor. Normocephalic, atraumatic. No pharyngeal erythema. No thyromegaly. CARDIOVASCULAR: S1 and S2 present. No murmurs, rubs, or gallops. PULMONARY: Chest is clear to auscultation, no wheezing or crackles. ABDOMEN: Soft, nontender, nondistended, normoactive bowel sounds. No palpable organomegaly. -MUSCULOSKELETAL: No joint swelling or deformity. Tender point to the middle of the back, slightly to the right side, with overlying normal skin -EXTREMITIES: No cyanosis, clubbing, or pedal edema. Left thigh is still bits right, pinkish, warm and mildly tender. Its heart to tell if it is swollen because patient has obese legs -NEUROLOGICAL: Gross neurological examination did not reveal any focal deficits. Cranial nerves are grossly intact, examined our in both legs and they look symmetrical and is able to flex and extend both legs simultaneously and similarly. SKIN: No rashes. - Labs CBC & Chem 7: 11/02/18 04:51 11/02/18 04:51 Labs: Abnormal Lab Results - Last 24 Hours (Table) 11/01/18 11/02/18 11/02/18 Range/Units Unknown 04:51 04:51 Hgb 12.9 L (13.0-17.5) gm/dL MCHC 30.9 L (31.0-37.0) g/dL Plt Count 103 L (150-450) k/uL Lymphocytes # 0.7 L (1.0-4.8) k/uL PT 21.4 H (9.0-12.0) sec INR 2.2 H (<1.2) Carbon Dioxide (22-30) mmol/L BUN (9-20) mg/dL Glucose (74-99) mg/dL Calcium (8.4-10.2) mg/dL Urine Blood Moderate H (Negative) Ur Leukocyte Esterase Large H (Negative) Urine RBC 43 H (0-5) /hpf Urine WBC 14 H (0-5) /hpf Urine Bacteria Occasional H (None) /hpf Urine Mucus Rare H (None) /hpf 11/02/18 Range/Units 04:51 Hgb (13.0-17.5) gm/dL MCHC (31.0-37.0) g/dL Plt Count (150-450) k/uL Lymphocytes # (1.0-4.8) k/uL PT (9.0-12.0) sec INR (<1.2) Carbon Dioxide 32 H (22-30) mmol/L BUN 37 H (9-20) mg/dL Glucose 125 H (74-99) mg/dL Calcium 8.0 L (8.4-10.2) mg/dL Urine Blood (Negative) Ur Leukocyte Esterase (Negative) Urine RBC (0-5) /hpf Urine WBC (0-5) /hpf Urine Bacteria (None) /hpf Urine Mucus (None) /hpf Microbiology - Last 24 Hours (Table) 11/01/18 14:25 Blood Culture - Preliminary Blood No Growth after 24 hours 11/01/18 08:23 Blood Culture - Preliminary Blood No Growth after 24 hours 10/31/18 13:27 Blood Culture Gram Stain - Final Blood Blood Culture - Final Strep agalactiae - (group b) 10/31/18 15:23 Blood Culture Gram Stain - Final Blood Blood Culture - Final Strep agalactiae - (group b) Assessment and Plan Assessment: possible osteomyelitis discitis left leg cellulitis Acute kidney injury History of congestive heart failure History of atrial fibrillation on Coumadin. rate controlled on admission Supratherapeutic INR History of sleep apnea on CPAP/BiPAP History of DVT with venous stasis History of bilateral lymphedema History of slight his left leg History of leg wounds Plan: This is a pleasant 73 years old male who presents because of back pain and dyspnea. Suspicious for osteomyelitis of the back. The plan is to treat him medically with IV antibiotics as per discussion with infectious disease and tapper operator. If pain gets worse or he develops any neurological symptoms then we will consider surgical intervention. Patient cannot fit into an MRI machine currently and he has to be transferred to [place] which is attributed takes 4-5 hours and has more risks and benefits currently. Discussed with the patient and he prefers also to be treated medically. Several consultants are following the patient. Monitor lytes and vitals. DVT and GI prophylaxis. Further recommendations of the clinical course of the patient DVT prophylaxis: Warfarin GI Prophylaxis: Pepcid Prognosis is guarded
--- NOTE | 2018-11-02 18:41 | P.PN ---
Subjective Progress Note Date: 11/02/18 73-year-old male who has a history of super obesity, underlying coronary artery disease with congestive heart failure and atrial fibrillation presents to Hospital feeling poorly with back pain and some shortness of breath. The patient does have a history of sleep apnea and uses a CPAP device at home has a known history of peripheral vascular disease with venous stasis ulcerations in the past with chronic lymphedema and bouts of cellulitis. The patient became very concerned he does have a history of deep venous thrombosis with pulmonary embolism, at that time he was having severe pain in his back and shortness of breath and consequently sought care. The patient is returned from x-rays of his spine and he is now feeling very poorly. He is having low-grade fever he has chills he is not having gregorio rigors but is having mild shaking and feels very poorly. He's had a bout of nausea without significant emesis. His pain is considerably worse since laying flat. He is also more short of breath since laying flat. Stat lactic acid and blood cultures have been requested. [place] for nausea.. 11/01/2018 the patient was transferred to the intensive care unit yesterday when he became acutely ill. There is no evidence of the positive blood cultures with gram-positive cocci. 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 The patient's pain is well controlled at this point in time. He has had no further bouts of nausea or emesis. He has without other new acute complaints today. He is without significant shortness of breath or sputum production at this time. 11/02/2018 patient was very short of breath and is now on his CPAP from home with some improvement. the back pain has been helped by a cooling pad. Pain is still so severe that he does not know how to have a bowel movement since moving is so painful. Objective - Vital Signs Vital signs: Vital Signs Temp 99.1 F 11/02/18 12:00 Pulse 87 11/02/18 18:00 Resp 16 11/02/18 18:00 BP 130/90 11/02/18 18:00 Pulse Ox 88 L 11/02/18 18:00 Intake & Output 11/01/18 11/02/18 11/02/18 18:59 06:59 18:59 Intake Total 240 720 820 Output Total 9475 484 0283 Balance -1175 -240 -526 Weight 177.7 kg 179 kg 180.6 kg Intake: IV 240 240 240 .9 20 240 240 240 Oral 480 580 Output: Urine 1642 702 1344 Stool 1 Other: Voiding Method Indwelling Catheter Indwelling Catheter Indwelling Catheter - Exam Obese 73-year-old male who is uncomfortable at the time of presentation complaint was back pain and feels short of breath. HEENT: Anicteric conjunctiva are pink and moist nasal mucosa grossly intact without significant lesions, there is no thrush. Poor dentition Neck: The neck is supple without significant lymphadenopathy or thyromegaly. Lungs: Symmetrical bilateral air entry, basilar crackles are heard. Expiratory wheezes without gregorio bronchial sounds no dullness or egophony Heart: Irregularly irregular with an audible S1 and S2 no S4 2/6 systolic murmur left sternal border PMI is nonpalpable Abdomen: Obese, Positive bowel sounds soft and nontender without palpable masses or organomegaly. There was no guarding or rebound. Extremities: The upper extremities have excellent pulses they are symmetric, no significant petechiae or telangiectasia. No splinter hemorrhages were noted. The lower extremities reveal evidence of chronic venous stasis changes but no chronic current open ulcerations has some minimal chronic skin changes the left leg with some erythema but is not very tender Neuro: Awake alert oriented to person place and time. There are no acute new gross focal sensory motor deficits. but has severe pain at attempts to move legs and change position in bed. - Labs CBC & Chem 7: 11/02/18 04:51 11/02/18 04:51 Labs: Abnormal Lab Results - Last 24 Hours (Table) 11/01/18 11/02/18 11/02/18 Range/Units Unknown 04:51 04:51 Hgb 12.9 L (13.0-17.5) gm/dL MCHC 30.9 L (31.0-37.0) g/dL Plt Count 103 L (150-450) k/uL Lymphocytes # 0.7 L (1.0-4.8) k/uL PT 21.4 H (9.0-12.0) sec INR 2.2 H (<1.2) Carbon Dioxide (22-30) mmol/L BUN (9-20) mg/dL Glucose (74-99) mg/dL Calcium (8.4-10.2) mg/dL Urine Blood Moderate H (Negative) Ur Leukocyte Esterase Large H (Negative) Urine RBC 43 H (0-5) /hpf Urine WBC 14 H (0-5) /hpf Urine Bacteria Occasional H (None) /hpf Urine Mucus Rare H (None) /hpf 11/02/18 Range/Units 04:51 Hgb (13.0-17.5) gm/dL MCHC (31.0-37.0) g/dL Plt Count (150-450) k/uL Lymphocytes # (1.0-4.8) k/uL PT (9.0-12.0) sec INR (<1.2) Carbon Dioxide 32 H (22-30) mmol/L BUN 37 H (9-20) mg/dL Glucose 125 H (74-99) mg/dL Calcium 8.0 L (8.4-10.2) mg/dL Urine Blood (Negative) Ur Leukocyte Esterase (Negative) Urine RBC (0-5) /hpf Urine WBC (0-5) /hpf Urine Bacteria (None) /hpf Urine Mucus (None) /hpf Microbiology - Last 24 Hours (Table) 11/01/18 14:25 Blood Culture - Preliminary Blood No Growth after 24 hours 11/01/18 08:23 Blood Culture - Preliminary Blood No Growth after 24 hours 10/31/18 13:27 Blood Culture Gram Stain - Final Blood Blood Culture - Final Strep agalactiae - (group b) 10/31/18 15:23 Blood Culture Gram Stain - Final Blood Blood Culture - Final Strep agalactiae - (group b) Laboratory Results WBC 6.2 k/uL (3.8-10.6) 11/02/18 04:51 RBC 4.34 m/uL (4.30-5.90) 11/02/18 04:51 Hgb 12.9 gm/dL (13.0-17.5) L 11/02/18 04:51 Hct 41.8 % (39.0-53.0) 11/02/18 04:51 MCV 96.3 fL (80.0-100.0) 11/02/18 04:51 MCH 29.8 pg (25.0-35.0) 11/02/18 04:51 MCHC 30.9 g/dL (31.0-37.0) L 11/02/18 04:51 RDW 13.7 % (11.5-15.5) 11/02/18 04:51 Plt Count 103 k/uL (150-450) L 11/02/18 04:51 Neutrophils % 74 % 11/02/18 04:51 Lymphocytes % 11 % 11/02/18 04:51 Monocytes % 10 % 11/02/18 04:51 Eosinophils % 2 % 11/02/18 04:51 Basophils % 0 % 11/02/18 04:51 Neutrophils # 4.5 k/uL (1.3-7.7) 11/02/18 04:51 Lymphocytes # 0.7 k/uL (1.0-4.8) L 11/02/18 04:51 Monocytes # 0.6 k/uL (0-1.0) 11/02/18 04:51 Eosinophils # 0.1 k/uL (0-0.7) 11/02/18 04:51 Basophils # 0.0 k/uL (0-0.2) 11/02/18 04:51 Hypochromasia Marked 10/31/18 18:10 Macrocytosis Slight 10/31/18 18:10 ESR 52 mm/hr (0-15) H 10/31/18 15:27 PT 21.4 sec (9.0-12.0) H 11/02/18 04:51 INR 2.2 (<1.2) H 11/02/18 04:51 APTT 34.3 sec (22.0-30.0) H 10/30/18 19:48 Sample Site RRA 10/31/18 17:52 ABG pH 7.47 (7.35-7.45) H 10/31/18 17:52 ABG pCO2 40 mmHg (35-45) 10/31/18 17:52 ABG pO2 90 mmHg (83-108) 10/31/18 17:52 ABG HCO3 29 mmol/L (21-25) H 10/31/18 17:52 ABG Total CO2 31 mmol/L (19-24) H 10/31/18 17:52 ABG O2 Saturation 98.3 % (94-97) H 10/31/18 17:52 ABG Base Excess 5.6 mmol/L 10/31/18 17:52 Bishnu Test Yes 02/19/19 17:52 FiO2 40 % 10/31/18 17:52 Sodium 139 mmol/L (137-145) 11/02/18 04:51 Potassium 4.1 mmol/L (3.5-5.1) 11/02/18 04:51 Chloride 102 mmol/L (98-107) 11/02/18 04:51 Carbon Dioxide 32 mmol/L (22-30) H 11/02/18 04:51 Anion Gap 5 mmol/L 11/02/18 04:51 BUN 37 mg/dL (9-20) H 11/02/18 04:51 Creatinine 1.24 mg/dL (0.66-1.25) 11/02/18 04:51 Est GFR (CKD-EPI)AfAm 67 (>60 ml/min/1.73 sqM) 11/02/18 04:51 Est GFR (CKD-EPI)NonAf 58 (>60 ml/min/1.73 sqM) 11/02/18 04:51 Glucose 125 mg/dL (74-99) H 11/02/18 04:51 POC Glucose (mg/dL) 149 mg/dL (75-99) H 10/31/18 17:00 POC Glu Emergency Room Registered Nurse ID Ondina Lewis 10/31/18 17:00 Lactic Ac Sepsis Rflx Y 10/31/18 16:04 Plasma Lactic Acid Guicho 2.0 mmol/L (0.7-2.0) 10/31/18 19:44 Calcium 8.0 mg/dL (8.4-10.2) L 11/02/18 04:51 Phosphorus 2.8 mg/dL (2.5-4.5) 11/02/18 04:51 Magnesium 2.1 mg/dL (1.6-2.3) 11/02/18 04:51 Total Bilirubin 2.3 mg/dL (0.2-1.3) H 10/30/18 19:48 AST 40 U/L (17-59) 10/30/18 19:48 ALT 44 U/L (21-72) 10/30/18 19:48 Alkaline Phosphatase 104 U/L (38-126) 10/30/18 19:48 Total Creatine Kinase 55 U/L (55-170) 10/30/18 19:48 CK-MB (CK-2) 0.5 ng/mL (0.0-2.4) 10/30/18 19:48 CK-MB (CK-2) Rel Index 0.9 10/30/18 19:48 Troponin I 0.013 ng/mL (0.000-0.034) 10/31/18 07:39 C-Reactive Protein 202.4 mg/L (<10.0) H 10/31/18 15:27 NT-Pro-B Natriuret Pep 1890 pg/mL 10/30/18 19:48 Total Protein 7.0 g/dL (6.3-8.2) 10/30/18 19:48 Albumin 3.4 g/dL (3.5-5.0) L 10/30/18 19:48 Urine Color Yellow 11/01/18 Unknown Urine Appearance Cloudy (Clear) 11/01/18 Unknown Urine pH 5.0 (5.0-8.0) 11/01/18 Unknown Ur Specific [place] 1.013 (1.001-1.035) 11/01/18 Unknown Urine Protein Negative (Negative) 11/01/18 Unknown Urine Glucose (UA) Negative (Negative) 11/01/18 Unknown Urine Ketones Negative (Negative) 11/01/18 Unknown Urine Blood Moderate (Negative) H 11/01/18 Unknown Urine Nitrite Negative (Negative) 11/01/18 Unknown Urine Bilirubin Negative (Negative) 11/01/18 Unknown Urine Urobilinogen <2.0 mg/dL (<2.0) 11/01/18 Unknown Ur Leukocyte Esterase Large (Negative) H 11/01/18 Unknown Urine RBC 43 /hpf (0-5) H 11/01/18 Unknown Urine WBC 14 /hpf (0-5) H 11/01/18 Unknown Ur Squamous Epith Cells <1 /hpf (0-4) 11/01/18 Unknown Urine Bacteria Occasional /hpf (None) H 11/01/18 Unknown Urine Mucus Rare /hpf (None) H 11/01/18 Unknown Microbiology 11/01/18 14:25 Blood Blood Culture - Preliminary No Growth after 24 hours 11/01/18 08:23 Blood Blood Culture - Preliminary No Growth after 24 hours 10/31/18 13:27 Blood Blood Culture Gram Stain - Final 10/31/18 13:27 Blood Blood Culture - Final Strep agalactiae - (group b) 10/31/18 15:23 Blood Blood Culture Gram Stain - Final 10/31/18 15:23 Blood Blood Culture - Final Strep agalactiae - (group b) 10/31/18 13:27 Blood Blood Culture - Final 10/31/18 15:23 Blood Blood Culture - Final Assessment and Plan (1) Dyspnea Current Visit: Yes Status: Acute Code(s): R06.00 - DYSPNEA, UNSPECIFIED SNOMED Code(s): 589690626 (2) Discitis of thoracic region Narrative/Plan: 73-year-old male who has multiple medical troubles including significant underlying atrial fibrillation, coronary artery disease, COPD presents to Hospital with significant pain into his back and some shortness of breath. With a known history of prior probably embolism he was very concerned and constantly present. A computed tomography scan was performed to evaluate for the potential for a pulmonary embolus and no PE was discovered. However evidence of discitis and possible osteomyelitis of the T8-T9 region by CT findings. The patient is now developed what appears to be some early sepsis associated with what appears to be the absence of fever, chills some worsening dyspnea and consequently center workup has been initiated. This is also important with the concerns to the discitis and osteomyelitis of the spine. He cultures, lactic acid, sed rate and CRP have all been requested. Once blood cultures been done initiating antibiotic therapy with daptomycin given what appears to be some acute renal failure as well as Rocephin while cultures are in process. The patient has a superobese body habitus and is not a candidate for MRI at this facility. Interventional radiology aspiration of the site is not possible due to location. Fluid bolus was requested and he will be monitored. 11/01/2018 patient is feeling slightly better today. Pain is better controlled. Hypotension is resolved. The patient's computed tomography scan reveals evidence of the discitis and osteomyelitis. The patient by weight and girth is be on the capability of our MRI scanner. The patient over has an adequate diagnosis with a computed tomography scan and MRI is not required at this point in time. He is been seen by orthopedic spine and appears to be stable at this time without the need for surgical intervention. We have asked of any type of bracing is required. Positive blood cultures with Group B strep have now been isolated. Will be able to de-escalate antibiotic therapy. Rocephin will be utilized. Once is evidence of negative blood cultures then IV access the PICC line will be planned and will work to the possibility of outpatient intravenous and back therapy versus extended care facility placement which may be required given his current level of debility. As far as a ulcer in the right lower extremity Opticel is requested that we change daily for now with utilization of a long Jeevan wrap from the foot to the knee. It is likely that the chronic lower extremity ulcerations venous stasis and chronic infectious state as the portal of entry for the infection to the spine. 11/02/2018 with pain medications the patient is improved from admission but is still with severe pain with any attempts for movement. Moving his legs are trying to change position in bed causes pain to be uncontrolled. A cooling pad has been added with some improvement of his symptomatic pain. Fortunately the blood cultures are starting to become negative. Seems to responding well to current antimicrobial therapy. The plan will be to continue current antibiotics and once possible have PICC line placed for his upcoming long-term course of intravenous antibiotic therapy. If the patient has any worsening of his status would need an MRI scan. The goal would be to evaluate for the possibility of an epidural abscess or other abscess that might require surgical intervention. If this is encountered the patient required transfer to a tertiary care center where open MRI can be performed and he may be evaluated by the surgical team to be able to perform surgical intervention to the spine from an anterior approach which cannot be done at our facility. Current Visit: Yes Status: Acute Code(s): M46.44 - DISCITIS, UNSPECIFIED, THORACIC REGION SNOMED Code(s): 477721458
[2018-11-03] MEDS: MORPHINE SULFATE 4 MG/ML SYRINGE IV PRN ×5 (02:59→20:54)
[2018-11-03 05:37] LABS: Basophils % (A) 0 %; Eosinophils # (A) 0.2 k/uL (0-0.7); Eosinophils % (A) 2 %; HCT 41.2 % (39.0-53.0); Lymphocytes # (A) 0.8 k/uL (1.0-4.8); Lymphocytes % (A) 13 %; MCH 30.3 pg (25.0-35.0); MCHC 31.5 g/dL (31.0-37.0); MCV 96.2 fL (80.0-100.0); Mean Platelet Volume 9.7; Monocytes # (A) 0.6 k/uL (0-1.0); Monocytes % (A) 10 %; Neutrophils # (A) 4.6 k/uL (1.3-7.7); Neutrophils % (A) 72 %; Platelet Count 118 k/uL (150-450); RBC 4.29 m/uL (4.30-5.90); RDW 13.7 % (11.5-15.5); WBC 6.4 k/uL (3.8-10.6)
[2018-11-03 05:40] LABS: INR 2.2 (<1.2); Prothrombin Time 21.8 sec (9.0-12.0)
[2018-11-03 05:47] LABS: Calcium 8.1 mg/dL (8.4-10.2); Magnesium 2.2 mg/dL (1.6-2.3); Phosphorus 3.1 mg/dL (2.5-4.5); Potassium 4.4 mmol/L (3.5-5.1)
[2018-11-03] MEDS: FUROSEMIDE 20 MG TAB PO SCH ×2 (08:00→20:44)
[2018-11-03] MEDS: METOPROLOL TARTRATE 25 MG TAB PO SCH ×3 (08:00→20:44)
--- NOTE | 2018-11-03 11:02 | XR ---
EXAMINATION TYPE: XR chest 1V DATE OF EXAM: 11/03/2018 COMPARISON: 11/02/2018, 05/05/2018 INDICATION: Respiratory failure COPD CHF TECHNIQUE: Single frontal view of the chest is obtained. FINDINGS: The heart size is mildly prominent. The pulmonary vasculature is some central prominence may be present. This is stable from prior exams. Some minimal infiltrate may be at the posterior right lung base. IMPRESSION: 1. Mild infiltrate at the right lung base. Correlate for atelectasis. Early pneumonia could be consid ered. 2. Mild cardiomegaly
[2018-11-03] MEDS: PANTOPRAZOLE 40 MG TABLET PO SCH (11:47)
--- NOTE | 2018-11-03 12:31 | PN ---
PROGRESS NOTE This patient is being treated for possible osteomyelitis and infection in the spine. Patient has been noticed to have multiple PVCs with a few episodes of couplets, bigeminy and occasional episodes of short runs of non-sustained ventricular tachycardia. Patient's echocardiogram revealed a normal left ventricular systolic function. Blood pressure is 130/73 mmHg, heart rate is 70 per minute. First and second heart sounds are normal. Lungs are clear to auscultation and percussion. We will recommend to continue the patient on beta abby for PVCs. His left ventricular systolic function is normal. Patient does not have any symptomatic bradyarrhythmias. MMODL / IJN: [id number] /
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
--- NOTE | 2018-11-03 17:33 | P.PN ---
Subjective Progress Note Date: 11/03/18 73-year-old male who has a history of super obesity, underlying coronary artery disease with congestive heart failure and atrial fibrillation presents to Hospital feeling poorly with back pain and some shortness of breath. The patient does have a history of sleep apnea and uses a CPAP device at home has a known history of peripheral vascular disease with venous stasis ulcerations in the past with chronic lymphedema and bouts of cellulitis. The patient became very concerned he does have a history of deep venous thrombosis with pulmonary embolism, at that time he was having severe pain in his back and shortness of breath and consequently sought care. The patient is returned from x-rays of his spine and he is now feeling very poorly. He is having low-grade fever he has chills he is not having gregorio rigors but is having mild shaking and feels very poorly. He's had a bout of nausea without significant emesis. His pain is considerably worse since laying flat. He is also more short of breath since laying flat. Stat lactic acid and blood cultures have been requested. [place] for nausea.. 11/01/2018 the patient was transferred to the intensive care unit yesterday when he became acutely ill. There is no evidence of the positive blood cultures with gram-positive cocci. 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 The patient's pain is well controlled at this point in time. He has had no further bouts of nausea or emesis. He has without other new acute complaints today. He is without significant shortness of breath or sputum production at this time. 11/02/2018 patient was very short of breath and is now on his CPAP from home with some improvement. the back pain has been helped by a cooling pad. Pain is still so severe that he does not know how to have a bowel movement since moving is so painful. 11/03/2018 patient is more comfortable today. With the cooling pad and the morphine therapy he has been able to achieve improved comfort. He is less short of breath and is wearing just oxygen at this point in time without the CPAP. He is evaluated by multiple consultants and fortunately seems to more stable today. Has been seen by cardiology Objective - Vital Signs Vital signs: Vital Signs Temp 98 F 11/03/18 16:00 Pulse 98 11/03/18 16:00 Resp 18 11/03/18 16:00 BP 114/97 11/03/18 16:00 Pulse Ox 96 11/03/18 16:00 Intake & Output 11/02/18 11/03/18 11/03/18 18:59 06:59 18:59 Intake Total 657 175 7849 Output Total 1346 1566 1125 Balance -526 -1066 115 Weight 180.6 kg 180 kg 180 kg Intake: IV 240 260 160 .9 20 240 260 160 Oral 010 331 5499 Output: Urine 1345 1565 1125 Stool 1 1 Other: Voiding Method Indwelling Catheter Indwelling Catheter Indwelling Catheter - Exam Obese 73-year-old male who is uncomfortable at the time of presentation complaint was back pain and feels short of breath. HEENT: Anicteric conjunctiva are pink and moist nasal mucosa grossly intact without significant lesions, there is no thrush. Poor dentition Neck: The neck is supple without significant lymphadenopathy or thyromegaly. Lungs: Symmetrical bilateral air entry, basilar crackles are heard. Expiratory wheezes without gregorio bronchial sounds no dullness or egophony Heart: Irregularly irregular with an audible S1 and S2 no S4 2/6 systolic murmur left sternal border PMI is nonpalpable Abdomen: Obese, Positive bowel sounds soft and nontender without palpable masses or organomegaly. There was no guarding or rebound. Extremities: The upper extremities have excellent pulses they are symmetric, no significant petechiae or telangiectasia. No splinter hemorrhages were noted. The lower extremities reveal evidence of chronic venous stasis changes in the large open ulceration to the left lateral leg. Area is cleansed in the opticell dressing is put into place without difficulty. Wrapped with an Jeevan wrap. Neuro: Awake alert oriented to person place and time. There are no acute new gross focal sensory motor deficits. but has severe pain at attempts to move legs and change position in bed. - Labs CBC & Chem 7: 11/03/18 05:19 11/03/18 05:19 Labs: Abnormal Lab Results - Last 24 Hours (Table) 11/03/18 11/03/18 11/03/18 Range/Units 05:19 05:19 05:19 RBC 4.29 L (4.30-5.90) m/uL Plt Count 118 L (150-450) k/uL Lymphocytes # 0.8 L (1.0-4.8) k/uL PT 21.8 H (9.0-12.0) sec INR 2.2 H (<1.2) Carbon Dioxide 35 H (22-30) mmol/L BUN 39 H (9-20) mg/dL Glucose 119 H (74-99) mg/dL Calcium 8.1 L (8.4-10.2) mg/dL Microbiology - Last 24 Hours (Table) 11/01/18 14:25 Blood Culture - Preliminary Blood No Growth after 48 hours 11/01/18 08:23 Blood Culture - Preliminary Blood No Growth after 48 hours Laboratory Results WBC 6.4 k/uL (3.8-10.6) 11/03/18 05:19 RBC 4.29 m/uL (4.30-5.90) L 11/03/18 05:19 Hgb 13.0 gm/dL (13.0-17.5) 11/03/18 05:19 Hct 41.2 % (39.0-53.0) 11/03/18 05:19 MCV 96.2 fL (80.0-100.0) 11/03/18 05:19 MCH 30.3 pg (25.0-35.0) 11/03/18 05:19 MCHC 31.5 g/dL (31.0-37.0) 11/03/18 05:19 RDW 13.7 % (11.5-15.5) 11/03/18 05:19 Plt Count 118 k/uL (150-450) L 11/03/18 05:19 Neutrophils % 72 % 11/03/18 05:19 Lymphocytes % 13 % 11/03/18 05:19 Monocytes % 10 % 11/03/18 05:19 Eosinophils % 2 % 11/03/18 05:19 Basophils % 0 % 11/03/18 05:19 Neutrophils # 4.6 k/uL (1.3-7.7) 11/03/18 05:19 Lymphocytes # 0.8 k/uL (1.0-4.8) L 11/03/18 05:19 Monocytes # 0.6 k/uL (0-1.0) 11/03/18 05:19 Eosinophils # 0.2 k/uL (0-0.7) 11/03/18 05:19 Basophils # 0.0 k/uL (0-0.2) 11/03/18 05:19 Hypochromasia Marked 10/31/18 18:10 Macrocytosis Slight 10/31/18 18:10 ESR 52 mm/hr (0-15) H 10/31/18 15:27 PT 21.8 sec (9.0-12.0) H 11/03/18 05:19 INR 2.2 (<1.2) H 11/03/18 05:19 APTT 34.3 sec (22.0-30.0) H 10/30/18 19:48 Sample Site RRA 10/31/18 17:52 ABG pH 7.47 (7.35-7.45) H 10/31/18 17:52 ABG pCO2 40 mmHg (35-45) 10/31/18 17:52 ABG pO2 90 mmHg (83-108) 10/31/18 17:52 ABG HCO3 29 mmol/L (21-25) H 10/31/18 17:52 ABG Total CO2 31 mmol/L (19-24) H 10/31/18 17:52 ABG O2 Saturation 98.3 % (94-97) H 10/31/18 17:52 ABG Base Excess 5.6 mmol/L 10/31/18 17:52 Bishnu Test Yes 10/31/18 17:52 FiO2 40 % 10/31/18 17:52 Sodium 137 mmol/L (137-145) 11/03/18 05:19 Potassium 4.4 mmol/L (3.5-5.1) 11/03/18 05:19 Chloride 99 mmol/L (98-107) 11/03/18 05:19 Carbon Dioxide 35 mmol/L (22-30) H 11/03/18 05:19 Anion Gap 3 mmol/L 11/03/18 05:19 BUN 39 mg/dL (9-20) H 11/03/18 05:19 Creatinine 1.20 mg/dL (0.66-1.25) 11/03/18 05:19 Est GFR (CKD-EPI)AfAm 69 (>60 ml/min/1.73 sqM) 11/03/18 05:19 Est GFR (CKD-EPI)NonAf 60 (>60 ml/min/1.73 sqM) 11/03/18 05:19 Glucose 119 mg/dL (74-99) H 11/03/18 05:19 POC Glucose (mg/dL) 149 mg/dL (75-99) H 10/31/18 17:00 POC Glu Infrastructure Developer ID Ondina Lewis 10/31/18 17:00 Lactic Ac Sepsis Rflx Y 10/31/18 16:04 Plasma Lactic Acid Guicho 2.0 mmol/L (0.7-2.0) 10/31/18 19:44 Calcium 8.1 mg/dL (8.4-10.2) L 11/03/18 05:19 Phosphorus 3.1 mg/dL (2.5-4.5) 11/03/18 05:19 Magnesium 2.2 mg/dL (1.6-2.3) 11/03/18 05:19 Total Bilirubin 2.3 mg/dL (0.2-1.3) H 10/30/18 19:48 AST 40 U/L (17-59) 10/30/18 19:48 ALT 44 U/L (21-72) 10/30/18 19:48 Alkaline Phosphatase 104 U/L (38-126) 10/30/18 19:48 Total Creatine Kinase 55 U/L (55-170) 10/30/18 19:48 CK-MB (CK-2) 0.5 ng/mL (0.0-2.4) 10/30/18 19:48 CK-MB (CK-2) Rel Index 0.9 10/30/18 19:48 Troponin I 0.013 ng/mL (0.000-0.034) 10/31/18 07:39 C-Reactive Protein 202.4 mg/L (<10.0) H 10/31/18 15:27 NT-Pro-B Natriuret Pep 1890 pg/mL 10/30/18 19:48 Total Protein 7.0 g/dL (6.3-8.2) 10/30/18 19:48 Albumin 3.4 g/dL (3.5-5.0) L 10/30/18 19:48 TSH 2.640 mIU/L (0.465-4.680) 11/03/18 05:19 Urine Color Yellow 11/01/18 Unknown Urine Appearance Cloudy (Clear) 11/01/18 Unknown Urine pH 5.0 (5.0-8.0) 11/01/18 Unknown Ur Specific [place] 1.013 (1.001-1.035) 11/01/18 Unknown Urine Protein Negative (Negative) 11/01/18 Unknown Urine Glucose (UA) Negative (Negative) 11/01/18 Unknown Urine Ketones Negative (Negative) 11/01/18 Unknown Urine Blood Moderate (Negative) H 11/01/18 Unknown Urine Nitrite Negative (Negative) 11/01/18 Unknown Urine Bilirubin Negative (Negative) 11/01/18 Unknown Urine Urobilinogen <2.0 mg/dL (<2.0) 11/01/18 Unknown Ur Leukocyte Esterase Large (Negative) H 11/01/18 Unknown Urine RBC 43 /hpf (0-5) H 11/01/18 Unknown Urine WBC 14 /hpf (0-5) H 11/01/18 Unknown Ur Squamous Epith Cells <1 /hpf (0-4) 11/01/18 Unknown Urine Bacteria Occasional /hpf (None) H 11/01/18 Unknown Urine Mucus Rare /hpf (None) H 11/01/18 Unknown Microbiology 11/01/18 14:25 Blood Blood Culture - Preliminary No Growth after 48 hours 11/01/18 08:23 Blood Blood Culture - Preliminary No Growth after 48 hours 10/31/18 13:27 Blood Blood Culture Gram Stain - Final 10/31/18 13:27 Blood Blood Culture - Final Strep agalactiae - (group b) 10/31/18 15:23 Blood Blood Culture Gram Stain - Final 10/31/18 15:23 Blood Blood Culture - Final Strep agalactiae - (group b) 10/31/18 13:27 Blood Blood Culture - Final 10/31/18 15:23 Blood Blood Culture - Final Assessment and Plan (1) Dyspnea Current Visit: Yes Status: Acute Code(s): R06.00 - DYSPNEA, UNSPECIFIED SNOMED Code(s): 537908634 (2) Discitis of thoracic region Narrative/Plan: 73-year-old male who has multiple medical troubles including significant underlying atrial fibrillation, coronary artery disease, COPD presents to Hospital with significant pain into his back and some shortness of breath. With a known history of prior probably embolism he was very concerned and constantly present. A computed tomography scan was performed to evaluate for the potential for a pulmonary embolus and no PE was discovered. However evidence of discitis and possible osteomyelitis of the T8-T9 region by CT findings. The patient is now developed what appears to be some early sepsis associated with what appears to be the absence of fever, chills some worsening dyspnea and consequently center workup has been initiated. This is also important with the concerns to the discitis and osteomyelitis of the spine. He cultures, lactic acid, sed rate and CRP have all been requested. Once blood cultures been done initiating antibiotic therapy with daptomycin given what appears to be some acute renal failure as well as Rocephin while cultures are in process. The patient has a superobese body habitus and is not a candidate for MRI at this facility. Interventional radiology aspiration of the site is not possible due to location. Fluid bolus was requested and he will be monitored. 11/01/2018 patient is feeling slightly better today. Pain is better controlled. Hypotension is resolved. The patient's computed tomography scan reveals evidence of the discitis and osteomyelitis. The patient by weight and girth is be on the capability of our MRI scanner. The patient over has an adequate diagnosis with a computed tomography scan and MRI is not required at this point in time. He is been seen by orthopedic spine and appears to be stable at this time without the need for surgical intervention. We have asked of any type of bracing is required. Positive blood cultures with Group B strep have now been isolated. Will be able to de-escalate antibiotic therapy. Rocephin will be utilized. Once is evidence of negative blood cultures then IV access the PICC line will be planned and will work to the possibility of outpatient intravenous and back therapy versus extended care facility placement which may be required given his current level of debility. As far as a ulcer in the right lower extremity Opticel is requested that we change daily for now with utilization of a long Jeevan wrap from the foot to the knee. It is likely that the chronic lower extremity ulcerations venous stasis and chronic infectious state as the portal of entry for the infection to the spine. 11/02/2018 with pain medications the patient is improved from admission but is still with severe pain with any attempts for movement. Moving his legs are trying to change position in bed causes pain to be uncontrolled. A cooling pad has been added with some improvement of his symptomatic pain. Fortunately the blood cultures are starting to become negative. Seems to responding well to current antimicrobial therapy. The plan will be to continue current antibiotics and once possible have PICC line placed for his upcoming long-term course of intravenous antibiotic therapy. If the patient has any worsening of his status would need an MRI scan. The goal would be to evaluate for the possibility of an epidural abscess or other abscess that might require surgical intervention. If this is encountered the patient required transfer to a tertiary care center where open MRI can be performed and he may be evaluated by the surgical team to be able to perform surgical intervention to the spine from an anterior approach which cannot be done at our facility. 11/03/2018 patient is more stable today. Pain is better controlled. Has been followed by cardiology without acute new cardiac event. Pulmonary critical care is also following. With the cooling pad and pain medication is much more comfortable and much less short of breath. Orthopedic spine is also evaluated and agrees with the discitis and osteomyelitis as the etiology of the current infection and bacteremia. Fortunately with current antimicrobial therapy he has cleared his bacteremia is having some improvement. He was monitored in the ICU overnight and possibly transferred out tomorrow. We'll ask for a PICC line to be placed for his IV access and attentive his discharge. Likely going to home with home care. Current Visit: Yes Status: Acute Code(s): M46.44 - DISCITIS, UNSPECIFIED, THORACIC REGION SNOMED Code(s): 662736883
[2018-11-03] MEDS ORDERED: WARFARIN 5 MG TAB PO ONE (18:00)
--- NOTE | 2018-11-03 18:28 | PN ---
PROGRESS NOTE Patient is seen for followup for acute kidney injury on top of chronic kidney disease. Patient was admitted with shortness of breath. He did have a chest CTA to rule out PE. Renal function has remained fairly stable, with serum creatinine staying about 1.2 mg/dL. Patient has had good urine output. Currently he is being diuresed. Lasix is 60 mg p.o. b.i.d. On examination this morning, blood pressure was 140/82, heart rate of 80 per minute. Patient is afebrile. EXAMINATION OF THE HEART: S1 and S2. EXAMINATION OF LUNGS: Decreased breath sounds at the bases. ABDOMEN: Soft, morbidly obese. Examination of lower extremities shows chronic skin changes. Trace edema is noted bilaterally. 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 Labs show sodium 137, potassium 4.4, BUN 39, serum creatinine 1.2. UA shows WBCs about 14. No proteinuria is noted. Hemoglobin was 13.0 g/dL, white cell count 6.4. ASSESSMENT: 1. Acute kidney injury, nonoliguric, currently improved. Renal function has remained stable after IV contrast. No nephrotoxic agents on board currently. 2. Chronic kidney disease, stage III, secondary to nephrosclerosis with creatinine 1 to 1.2 at baseline. 3. Morbid obesity. 4. Possible osteomyelitis of the spine, maintained on antibiotics, being followed by Orthopedics and Infectious Disease. 5. History of pulmonary embolism and deep venous thrombosis, maintained on anticoagulation. 6. Group B Strep agalactiae bacteremia. Source is possibly the skin versus the osteomyelitis/diskitis. Patient could not have an MRI done secondary to his weight. PLAN: Continue with current dose of Lasix and repeat labs in a.m. MMODL / IJN: [id number] /
[2018-11-04] MEDS: MORPHINE SULFATE 4 MG/ML SYRINGE IV PRN ×3 (01:07→23:15)
[2018-11-04 05:31] LABS: Basophils % (A) 0 %; Eosinophils # (A) 0.3 k/uL (0-0.7); Eosinophils % (A) 5 %; HCT 43.1 % (39.0-53.0); HGB 13.6 gm/dL (13.0-17.5); Lymphocytes # (A) 0.8 k/uL (1.0-4.8); Lymphocytes % (A) 15 %; MCH 30.1 pg (25.0-35.0); MCHC 31.6 g/dL (31.0-37.0); MCV 95.1 fL (80.0-100.0); Mean Platelet Volume 8.9; Monocytes # (A) 0.6 k/uL (0-1.0); Monocytes % (A) 10 %; Neutrophils # (A) 3.8 k/uL (1.3-7.7); Neutrophils % (A) 67 %; Platelet Count 149 k/uL (150-450); RBC 4.53 m/uL (4.30-5.90); RDW 13.4 % (11.5-15.5); WBC 5.6 k/uL (3.8-10.6)
[2018-11-04 05:36] LABS: INR 2.6 (<1.2); Prothrombin Time 25.4 sec (9.0-12.0)
[2018-11-04 05:43] LABS: Calcium 8.3 mg/dL (8.4-10.2); Magnesium 2.1 mg/dL (1.6-2.3); Phosphorus 3.5 mg/dL (2.5-4.5); Potassium 4.3 mmol/L (3.5-5.1)
[2018-11-04] MEDS: PANTOPRAZOLE 40 MG TABLET PO SCH (07:01)
--- NOTE | 2018-11-04 07:53 | XR ---
EXAMINATION TYPE: XR chest 1V DATE OF EXAM: 11/04/2018 COMPARISON: 11/03/2017 HISTORY: Cough TECHNIQUE: Single frontal view of the chest is obtained. FINDINGS: There is an interstitial pattern with basilar consolidation on the right. Heart remains en larged. No pneumothorax. No sizable pleural effusion. IMPRESSION: 1. Cardiomegaly with stable right basilar atelectasis or infiltrate. Interstitial pattern could be on the basis of interstitial pneumonitis or mild venous congestion.
[2018-11-04] MEDS: METOPROLOL TARTRATE 25 MG TAB PO SCH ×3 (09:06→21:00)
[2018-11-04] MEDS: FUROSEMIDE 20 MG TAB PO SCH ×2 (09:06→21:00)
--- NOTE | 2018-11-04 10:56 | P.PN ---
Subjective Progress Note Date: 11/04/18 Principal diagnosis: This is a 73-year-old obese male seen in consultation because acute kidney injury and chronic kidney disease. He is known with history of atrial fibrillation DVT and PE previously. He was admitted with back pain and shortness of breath and has bacteremia with strep agalactiae, 2 bottles positive dated 10/31/2018 He underwent CTA with creatinine being stable post dye exposure. He is on a BiPAP. Currently denies any fever chills as back pain. His vital signs are stable urine output is 42 25 mL. His creatinine is stable at 1.18. Objective - Vital Signs Vital signs: Vital Signs Temp 97.7 F 11/04/18 08:00 Pulse 94 11/04/18 09:00 Resp 15 11/04/18 09:00 BP 127/89 11/04/18 09:00 Pulse Ox 94 L 11/04/18 09:12 Intake & Output 11/03/18 11/04/18 11/04/18 18:59 06:59 18:59 Intake Total 1540 740 40 Output Total 1725 2500 375 Balance -185 -1760 -335 Weight 180 kg 179.4 kg Intake: IV 220 260 40 .9 20 220 260 40 Oral 1320 480 Output: Urine 1725 2500 375 Other: Voiding Method Indwelling Catheter Indwelling Catheter Examination is obese, on IPAP HEENT exam is difficult to see neck is supple no facial asymmetry Lungs are significant for diminished air entry bilaterally but no crepitations or wheezing Heart sounds are unremarkable. Abdomen soft nontender obese Extremity exam was mild edema Both legs are Jeevan wrapped Neurologically awake alert oriented - Labs CBC & Chem 7: 11/04/18 05:16 11/04/18 05:16 Labs: Abnormal Lab Results - Last 24 Hours (Table) 11/04/18 11/04/18 11/04/18 Range/Units 05:16 05:16 05:16 Plt Count 149 L (150-450) k/uL Lymphocytes # 0.8 L (1.0-4.8) k/uL PT 25.4 H (9.0-12.0) sec INR 2.6 H (<1.2) Chloride 96 L (98-107) mmol/L Carbon Dioxide 36 H (22-30) mmol/L BUN 39 H (9-20) mg/dL Glucose 108 H (74-99) mg/dL Calcium 8.3 L (8.4-10.2) mg/dL Microbiology - Last 24 Hours (Table) 11/01/18 08:23 Blood Culture - Preliminary Blood No Growth after 72 hours 11/01/18 14:25 Blood Culture - Preliminary Blood No Growth after 48 hours Assessment and Plan Plan: Impression 1. Chronic kidney disease stage I creatinine baseline of 0.9-1.2 2. Exposed to dye with CTA stable 3. Strep exactly bacteremia with possible osteomyelitis. 4. Mild degree of metabolic alkalosis, likely from diuretics. Recommendation. No changes will continue to follow
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
[2018-11-05 05:28] LABS: Basophils % (A) 0 %; Eosinophils # (A) 0.4 k/uL (0-0.7); Eosinophils % (A) 6 %; HCT 41.3 % (39.0-53.0); Lymphocytes # (A) 1.1 k/uL (1.0-4.8); Lymphocytes % (A) 19 %; MCH 30.4 pg (25.0-35.0); MCHC 31.4 g/dL (31.0-37.0); MCV 96.8 fL (80.0-100.0); Mean Platelet Volume 9.5; Monocytes # (A) 0.6 k/uL (0-1.0); Monocytes % (A) 11 %; Neutrophils # (A) 3.4 k/uL (1.3-7.7); Neutrophils % (A) 61 %; Platelet Count 144 k/uL (150-450); RBC 4.27 m/uL (4.30-5.90); RDW 13.6 % (11.5-15.5); WBC 5.6 k/uL (3.8-10.6)
[2018-11-05 05:30] LABS: INR 2.2 (<1.2); Prothrombin Time 21.5 sec (9.0-12.0)
[2018-11-05 05:45] LABS: Calcium 8.3 mg/dL (8.4-10.2); Magnesium 2.2 mg/dL (1.6-2.3); Phosphorus 3.4 mg/dL (2.5-4.5); Potassium 4.3 mmol/L (3.5-5.1)
--- NOTE | 2018-11-05 07:31 | XR ---
EXAMINATION TYPE: XR chest 1V DATE OF EXAM: 11/05/2018 COMPARISON: 11/04/2018 INDICATION: Respiratory failure CHF COPD TECHNIQUE: Single frontal view of the chest is obtained. FINDINGS: The heart size is mildly prominent. The pulmonary vasculature is normal. The lungs are clear. IMPRESSION: 1. Mild cardiomegaly.
[2018-11-05] MEDS: PANTOPRAZOLE 40 MG TABLET PO SCH (08:06)
[2018-11-05] MEDS: METOPROLOL TARTRATE 25 MG TAB PO SCH ×3 (08:06→21:00)
[2018-11-05] MEDS: FUROSEMIDE 20 MG TAB PO SCH (08:06)
[2018-11-05] MEDS: MORPHINE SULFATE 4 MG/ML SYRINGE IV PRN ×2 (08:07→20:49)
--- NOTE | 2018-11-05 09:46 | P.PN ---
Subjective Progress Note Date: 11/05/18 Principal diagnosis: This is a 73-year-old obese male seen in consultation because acute kidney injury and chronic kidney disease. He is known with history of atrial fibrillation DVT and PE previously. He was admitted with back pain and shortness of breath and has bacteremia with strep agalactiae, 2 bottles positive dated 10/31/2018 He underwent CTA with creatinine being stable post dye exposure. He is on a BiPAP. Currently denies any fever chills, continues to have back pain. His vital signs are stable urine output is 2680 His creatinine is stable at 1.18 , up somewhat to 1.31 today. He is known with obstructive sleep apnea and obesity paroxysmal atrial fibrillation Objective - Vital Signs Vital signs: Vital Signs Temp 98.1 F 11/05/18 08:00 Pulse 82 11/05/18 09:00 Resp 18 11/05/18 09:00 BP 107/78 11/05/18 09:00 Pulse Ox 95 11/05/18 09:00 Intake & Output 11/04/18 11/05/18 11/05/18 18:59 06:59 18:59 Intake Total 1020 240 360 Output Total 1380 1300 576 Balance -360 -1060 -216 Weight 177.9 kg Intake: IV 220 240 60 .9 20 220 240 60 Oral 400 300 Tube Feeding 400 Output: Urine 1380 1300 575 Stool 1 Other: Voiding Method Indwelling Catheter Indwelling Catheter Indwelling Catheter On examination is awake alert oriented comfortable on 3 L nasal cannula HEENT exam no JVP neck is supple no facial asymmetry Lungs are clear to auscultation good air entry bilaterally Heart sounds are remarkable for atrial fibrillation. No murmur rub gallop or heart Abdomen is obese nontender Extremity exam reveals Jeevan wrap on her left leg, right leg has trace edema Neurologically awake alert oriented - Labs CBC & Chem 7: 11/05/18 04:43 11/05/18 04:43 Labs: Abnormal Lab Results - Last 24 Hours (Table) 11/05/18 11/05/18 11/05/18 Range/Units 04:43 04:43 04:43 RBC 4.27 L (4.30-5.90) m/uL Plt Count 144 L (150-450) k/uL PT 21.5 H (9.0-12.0) sec INR 2.2 H (<1.2) Chloride 96 L (98-107) mmol/L Carbon Dioxide 36 H (22-30) mmol/L BUN 40 H (9-20) mg/dL Creatinine 1.31 H (0.66-1.25) mg/dL Glucose 104 H (74-99) mg/dL Calcium 8.3 L (8.4-10.2) mg/dL Microbiology - Last 24 Hours (Table) 11/01/18 14:25 Blood Culture - Preliminary Blood No Growth after 72 hours 11/01/18 08:23 Blood Culture - Preliminary Blood No Growth after 72 hours Assessment and Plan Plan: Impression 1. Acute kidney injury with creatinine fluctuating between 1.18-1.35. This likely prerenal state with low blood pressure at times Currently creatinine gone up from 1.18-1.31 this morning. 2. Chronic kidney disease stage I creatinine baseline of 0.9-1.2 2. Exposed to dye with CTA, creatinine remains stable 3. Streptococcus agalactiae bacteremia with possible osteomyelitis. 4. Mild degree of metabolic alkalosis, likely from diuretics. Bicarbonate remains 36 stable Recommendation. 1. Will reduce the Lasix to 40 twice a day kilos the worsening of creatinine. 2. Otherwise No changes will continue to follow
--- NOTE | 2018-11-05 10:48 | PN ---
PROGRESS NOTE This patient is being treated for sepsis and possible osteomyelitis. The patient continues to have intermittent PVCs and short runs of wide QRS complex tachycardia, which at times are irregular. It is unclear whether these are the runs of nonsustained VT or atrial fibrillation with a wide aberration. The patient remains asymptomatic. The patient is otherwise doing well cardiac-luque. Blood pressure is 103/84 mmHg. Heart S1 and S2 normal. Lungs are clinically clear to auscultation and percussion. We will start the patient on amiodarone 200 mg t.i.d. His echocardiogram reveals a normal left ventricular systolic function. MMODL / IJN: [id number] /
[2018-11-05] MEDS: AMIODARONE 200 MG TAB PO SCH ×3 (12:06→21:00)
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
[2018-11-05] MEDS: ACETAMINOPHEN TAB 325 MG TAB PO PRN (13:35)
[2018-11-05] MEDS: ALPRAZolam 0.25 MG TAB PO PRN (13:39)
[2018-11-05] MEDS: FUROSEMIDE 40 MG TAB PO SCH (16:56)
[2018-11-06 05:07] LABS: Basophils % (A) 1 %; Eosinophils # (A) 0.3 k/uL (0-0.7); Eosinophils % (A) 6 %; HCT 41.7 % (39.0-53.0); HGB 13.4 gm/dL (13.0-17.5); Lymphocytes # (A) 0.9 k/uL (1.0-4.8); Lymphocytes % (A) 19 %; MCH 30.2 pg (25.0-35.0); MCV 94.4 fL (80.0-100.0); Mean Platelet Volume 9.2; Monocytes # (A) 0.4 k/uL (0-1.0); Monocytes % (A) 9 %; Neutrophils # (A) 2.8 k/uL (1.3-7.7); Neutrophils % (A) 63 %; Platelet Count 174 k/uL (150-450); RBC 4.42 m/uL (4.30-5.90); RDW 13.3 % (11.5-15.5); WBC 4.5 k/uL (3.8-10.6)
[2018-11-06 05:13] LABS: INR 1.7 (<1.2); Prothrombin Time 17.2 sec (9.0-12.0)
[2018-11-06 05:17] LABS: Calcium 8.5 mg/dL (8.4-10.2); Magnesium 2.2 mg/dL (1.6-2.3); Potassium 4.4 mmol/L (3.5-5.1)
[2018-11-06] MEDS: PANTOPRAZOLE 40 MG TABLET PO SCH (06:37)
[2018-11-06] MEDS: MORPHINE SULFATE 4 MG/ML SYRINGE IV PRN ×3 (06:37→20:37)
--- NOTE | 2018-11-06 08:16 | XR ---
EXAMINATION TYPE: XR chest 1V DATE OF EXAM: 11/06/2018 COMPARISON: 11/05/2018 INDICATION: ICU management. No other history is provided TECHNIQUE: Single frontal view of the chest is obtained. FINDINGS: The heart size is mildly prominent. The pulmonary vasculature is normal. The lungs are clear. IMPRESSION: 1. Mild cardiomegaly, stable
[2018-11-06] MEDS: ALPRAZolam 0.25 MG TAB PO PRN (08:41)
[2018-11-06] MEDS: ACETAMINOPHEN TAB 325 MG TAB PO PRN (08:41)
[2018-11-06] MEDS: METOPROLOL TARTRATE 25 MG TAB PO SCH ×3 (08:41→21:07)
[2018-11-06] MEDS: AMIODARONE 200 MG TAB PO SCH ×3 (08:41→21:08)
[2018-11-06] MEDS: FUROSEMIDE 40 MG TAB PO SCH ×2 (08:41→17:55)
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
--- NOTE | 2018-11-06 11:14 | P.PN ---
Subjective Patient is seen in follow for acute kidney injury. Renal function is improving with creatinine down to 1.11 today. Admits to good urine output. Currently maintained on Lasix 40 mg orally twice daily. Denies chest pain or shortness of breath. Vital signs are stable. General: The patient appeared well nourished and normally developed. HEENT: Head exam is unremarkable. Neck is without jugular venous distension. LUNGS: Breath sounds decreased. HEART: Rate and Rhythm are regular. First and second heart sounds normal. No murmurs, rubs or gallops. ABDOMEN: Abdominal exam reveals normal bowel sounds. Non-tender and non- distended. No evidence of peritonitis. EXTREMITITES: Trace edema. Objective - Vital Signs Vital signs: Vital Signs Temp 97.6 F 11/06/18 08:00 Pulse 85 11/06/18 07:00 Resp 16 11/06/18 10:00 BP 114/66 11/06/18 10:00 Pulse Ox 95 11/06/18 10:00 Intake & Output 11/05/18 11/06/18 11/06/18 18:59 06:59 18:59 Intake Total 570 640 80 Output Total 2095 1934 285 Balance -2757 -9315 -[facility] Weight 179.8 kg Intake: IV 270 240 80 .9 20 220 240 80 cefTRIAXone 2 gm In 50 Sodium Chloride 0.9% 50 ml @ 50 mls/hr IVPB Q24H [facility] Rx#:[id number] Oral 300 Blood Product 400 Output: Urine 2094 1934 285 Stool 1 Other: Voiding Method Indwelling Catheter Indwelling Catheter Indwelling Catheter - Labs CBC & Chem 7: 11/06/18 04:43 11/06/18 04:43 Labs: Abnormal Lab Results - Last 24 Hours (Table) 11/06/18 11/06/18 11/06/18 Range/Units 04:43 04:43 04:43 Lymphocytes # 0.9 L (1.0-4.8) k/uL PT 17.2 H (9.0-12.0) sec INR 1.7 H (<1.2) Carbon Dioxide 38 H (22-30) mmol/L BUN 37 H (9-20) mg/dL Glucose 119 H (74-99) mg/dL Microbiology - Last 24 Hours (Table) 11/01/18 08:23 Blood Culture - Preliminary Blood No Growth after 120 hours 11/01/18 14:25 Blood Culture - Preliminary Blood No Growth after 96 hours Assessment and Plan Plan: Assessment: 1. Acute kidney injury mostly prerenal secondary to diuresis and hemodynamic instability. Creatinine down to 1.11 today. 2. Group B strep bacteremia maintained on antibiotics. 3. Volume overload. Maintained on diuretics. Better. 4. Diastolic CHF. 5. Metabolic alkalosis secondary to diuresis. Stable. Plan: Maintain Lasix 40 mg orally twice daily. Continue to monitor renal function and urine output.
[2018-11-06] MEDS ORDERED: LIDOCAINE 1% INJ 10MG/ML (20 ML MDV) SQ ONE (12:59)
--- NOTE | 2018-11-06 14:12 | XR ---
EXAMINATION TYPE: XR chest 1V confirm line [place] DATE OF EXAM: 11/06/2018 COMPARISON: 11/06/2018 earlier exam INDICATION: PICC line placement TECHNIQUE: Single frontal view of the chest is obtained. FINDINGS: The heart size is enlarged. The pulmonary vasculature is normal. The lungs are clear. PICC line is placed on the left. Distal tip is difficult to identify but appears to be within the sup erior vena cava region. Follow-up is recommended IMPRESSION: 1. Placement of a PICC line, penetration was difficult, PICC line tip is difficult to identify. Tip a ppears to be within superior vena cava region, follow-up is recommended. 2. Cardiomegaly
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
--- NOTE | 2018-11-06 15:02 | XR ---
EXAMINATION TYPE: XR chest 1V DATE OF EXAM: 11/06/2018 COMPARISON: 11/06/2018 INDICATION: PICC line placement TECHNIQUE: Single frontal view of the chest is obtained. FINDINGS: The heart size is mildly prominent. The pulmonary vasculature is normal. No suspicious infiltrates are evident. PICC line is on the left and is curled within the left axillary region. IMPRESSION: 1. PICC line curled within the left axillary region and not within the brachiocephalic vein or superi or vena cava.
--- NOTE | 2018-11-06 15:19 | IR ---
PICC LINE PLACEMENT: HISTORY: Infection requiring long-term antibiotic therapy PROCEDURE: Ultrasound guidance of PICC line placement. COMPLICATIONS: None ANESTHESIA: 1. 1% Lidocaine locally. FINDINGS/TECHNIQUE: The procedure was explained to the patient. The risks, complications, benefits and alternatives were discussed and any questions were answered. Informed consent was obtained. The patient was placed supine on the fluoroscopic table and prepped and draped in the usual sterile fash ion. Utilizing a 21 gauge needle and sonographic guidance, access in the left basilic vein was achi eved and there is placement of a 0.018 guidewire. The vein is patent. A 5-F. sheath was placed over the guidewire. The guidewire and dilator were removed and a 5-F. Double lumen PICC line was placed through the sheath with the chest x-ray confirming the tip at the level of the SVC. The sheath was r emoved, the catheter was flushed and sutured into position. The patient was stable throughout the pr ocedure and remained stable upon discharge from the Department of Radiology. The vein puncture was patent under ultrasound. A white scale image was obtained to document patency of the vein punctured. All elements of the maximal barrier technique were utilized. IMPRESSION: 1. Successful PICC line placement under ultrasound performed bedside within the ICU.
--- NOTE | 2018-11-06 15:38 | XR ---
EXAMINATION TYPE: XR chest 1V confirm line [facility] DATE OF EXAM: 11/06/2018 COMPARISON: 11/06/2018 INDICATION: PICC line placement TECHNIQUE: Single frontal view of the chest is obtained. FINDINGS: The heart size is enlarged. The pulmonary vasculature is normal. The lungs are clear. PICC line enters on the left directed towards the neck. IMPRESSION: 1. PICC line directed towards the left neck and not within the chest. 2. Cardiomegaly
--- NOTE | 2018-11-06 15:40 | XR ---
EXAMINATION TYPE: XR chest 1V confirm line [facility] DATE OF EXAM: 11/06/2018 COMPARISON: 11/06/2018 INDICATION: PICC line placement TECHNIQUE: Single frontal view of the chest is obtained. FINDINGS: The heart size is enlarged. The pulmonary vasculature is normal. The lungs are clear. PICC line enters on the left in the left axillary region directed towards the neck. This is not withi n the intrathoracic cavity at this time. IMPRESSION: 1. Cardiomegaly. 2. PICC line on the left in the left axillary region
--- NOTE | 2018-11-06 15:43 | XR ---
EXAMINATION TYPE: XR chest 1V confirm line [facility] DATE OF EXAM: 11/06/2018 COMPARISON: Multiple exams earlier in the day INDICATION: PICC line placement TECHNIQUE: Single frontal view of the chest is obtained. FINDINGS: The heart size is enlarged. The pulmonary vasculature is normal. The lungs are clear. PICC line enters on the left extends into the brachiocephalic vein. This appears to extend into the s uperior vena cava region. The exact tip location is somewhat difficult to ascertain with degree of penetration. IMPRESSION: 1. PICC line entering on the left which appears to be within the region of the superior vena cava. Pe netration limits evaluation and follow-up can be performed.
[2018-11-06] MEDS: WARFARIN 5 MG TAB PO SCH (17:55)
--- NOTE | 2018-11-06 20:46 | PN ---
PROGRESS NOTE This patient has been treated for sepsis and osteomyelitis with a long-term antibiotic treatment. The patient's rhythm strips again reviewed revealed intermittent short runs of wide QRS complex tachycardia noted. The patient remains asymptomatic. Blood pressure is 117/56 mmHg. First and second heart sounds are normal. Lungs are clinically clear to auscultation and percussion. Patient's creatinine is 1.1. Electrolytes are normal. We will continue patient on amiodarone as well as a beta abby. The patient is not a candidate for any kind of stress test at present. MMODL / IJN: [id number] /
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
[2018-11-07 05:18] LABS: Basophils % (A) 1 %; Eosinophils # (A) 0.3 k/uL (0-0.7); Eosinophils % (A) 6 %; HCT 39.7 % (39.0-53.0); HGB 12.6 gm/dL (13.0-17.5); Lymphocytes # (A) 0.8 k/uL (1.0-4.8); Lymphocytes % (A) 18 %; MCHC 31.7 g/dL (31.0-37.0); MCV 94.5 fL (80.0-100.0); Mean Platelet Volume 8.2; Monocytes # (A) 0.4 k/uL (0-1.0); Monocytes % (A) 8 %; Neutrophils # (A) 2.9 k/uL (1.3-7.7); Neutrophils % (A) 65 %; Platelet Count 150 k/uL (150-450); RDW 13.3 % (11.5-15.5); WBC 4.5 k/uL (3.8-10.6)
[2018-11-07 05:30] LABS: INR 1.5 (<1.2); Prothrombin Time 14.8 sec (9.0-12.0)
[2018-11-07 05:38] LABS: Calcium 8.1 mg/dL (8.4-10.2); Potassium 4.1 mmol/L (3.5-5.1)
[2018-11-07] MEDS: AMIODARONE 200 MG TAB PO SCH ×3 (09:10→21:10)
[2018-11-07] MEDS: FUROSEMIDE 40 MG TAB PO SCH ×2 (09:10→16:30)
[2018-11-07] MEDS: PANTOPRAZOLE 40 MG TABLET PO SCH (09:10)
[2018-11-07] MEDS: METOPROLOL TARTRATE 25 MG TAB PO SCH ×4 (09:10→21:28)
[2018-11-07] MEDS: DOCUSATE 100 MG CAP PO PRN (09:13)
--- NOTE | 2018-11-07 10:24 | P.PN ---
Subjective Patient is seen in follow for acute kidney injury. Renal function is improving with creatinine down to 1.04 today. Admits to good urine output. Currently maintained on Lasix 40 mg orally twice daily. Denies chest pain or shortness of breath. Vital signs are stable. General: The patient appeared well nourished and normally developed. HEENT: Head exam is unremarkable. Neck is without jugular venous distension. LUNGS: Breath sounds decreased. HEART: Rate and Rhythm are regular. First and second heart sounds normal. No murmurs, rubs or gallops. ABDOMEN: Abdominal exam reveals normal bowel sounds. Non-tender and non- distended. No evidence of peritonitis. EXTREMITITES: Trace edema. Objective - Vital Signs Vital signs: Vital Signs Temp 98.0 F 11/07/18 08:00 Pulse 73 11/07/18 09:00 Resp 18 11/07/18 08:00 BP 96/80 11/07/18 08:00 Pulse Ox 95 11/07/18 08:53 Intake & Output 11/06/18 11/07/18 11/07/18 18:59 06:59 18:59 Intake Total 250 180 Output Total 925 1225 1 Balance -675 -1045 -1 Weight 178.8 kg Intake: IV 250 180 .9 20 200 180 cefTRIAXone 2 gm In 50 Sodium Chloride 0.9% 50 ml @ 50 mls/hr IVPB Q24H COUNT INCLUDES THE [facility] Rx#:[id number] Output: Urine 925 1225 Stool 1 Other: Voiding Method Indwelling Catheter Indwelling Catheter Indwelling Catheter # Bowel Movements 1 - Labs CBC & Chem 7: 11/07/18 05:06 11/07/18 05:06 Labs: Abnormal Lab Results - Last 24 Hours (Table) 11/07/18 11/07/18 11/07/18 Range/Units 05:06 05:06 05:06 RBC 4.20 L (4.30-5.90) m/uL Hgb 12.6 L (13.0-17.5) gm/dL Lymphocytes # 0.8 L (1.0-4.8) k/uL PT 14.8 H (9.0-12.0) sec INR 1.5 H (<1.2) Carbon Dioxide 36 H (22-30) mmol/L BUN 36 H (9-20) mg/dL Glucose 122 H (74-99) mg/dL Calcium 8.1 L (8.4-10.2) mg/dL Microbiology - Last 24 Hours (Table) 11/01/18 14:25 Blood Culture - Preliminary Blood No Growth after 120 hours 11/01/18 08:23 Blood Culture - Preliminary Blood No Growth after 120 hours Assessment and Plan Plan: Assessment: 1. Acute kidney injury mostly prerenal secondary to diuresis and hemodynamic instability. Renal function stable. 2. Group B strep bacteremia maintained on antibiotics. 3. Volume overload. Maintained on diuretics. Better. 4. Diastolic CHF. 5. Metabolic alkalosis secondary to diuresis. Stable. Plan: Maintain Lasix 40 mg orally twice daily. Continue to monitor renal function and urine output.
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
[2018-11-07] MEDS: MORPHINE SULFATE 4 MG/ML SYRINGE IV PRN ×2 (14:01→21:09)
--- NOTE | 2018-11-07 16:21 | PN ---
PROGRESS NOTE This patient is being treated for osteomyelitis. Patient is doing fairly well. He is resting comfortably in a recliner chair. Patient's rhythm strips are reviewed. Patient continues to have intermittent episodes of non-sustained wide QRS complex tachycardia suggestive of ventricular tachycardia. Patient remains asymptomatic. We will continue the patient on amiodarone 200 mg t.i.d. and metoprolol 25 mg b.i.d. Patient's blood pressure is borderline running low. In view of that, I cannot increase the metoprolol. MMODL / IJN: [id number] /
[2018-11-07] MEDS ORDERED: WARFARIN 7.5 MG TAB PO SCH (18:00)
--- NOTE | 2018-11-07 18:18 | P.PN ---
Subjective History of present illness, from records:: This is a pleasant 73 years old male with past medical history of atrial fibrillation, congestive heart failure, DVT and PE on Coumadin, osteoarthritis, sleep apnea on CPAP/BiPAP, peripheral vascular disease with venous stasis, recommended lymphedema of the legs, cellulitis of the left leg, bilateral leg wounds. Who presents because of dyspnea and back pain. Patient states that he was concerned because his left leg started to become and hot, hard and draped for the last 2-3 days that he was afraid he had clots in his left leg and yesterday started having trouble pain in the middle of his back which he thought it could be due to pulmonary embolism so because he had similar episodes so he decided to come to emergency room. The pain was in the middle of the back nonradiating, sharp, about 9/10 in severity extubated by movement and breathing, patient had hard time breathing because of pain, however he denies chest pain or coughing. On admission his blood pressure is 137/78 and 94/70, afebrile, saturating 94% on 2 L. CBC unremarkable, INR 3.4, creatinine 1.3, baseline is 1.0. Liver enzymes showing normal levels, with elevated bilirubin at 2.3. Serial negative troponins. He had a CT in February of the thorax with intravenous contrast Which was done in the emergency room showing: No infiltrates or PE or aortic dissection and possible osteomyelitis discitis. Negative for DVT of the left leg. EKG showing sinus rhythm at 95 with first-degree A-AV block. With PVCs. In the emergency room he got 1 dose of Lasix, Decadron, and he was started on furosemide 60 mg by mouth twice a day. As per staff patient has few runs of V. tach. Patient denies weakness in his lower extremity, he denies urine or bowel incontinence. There is no numbness or sensory level. 11/01/18 pt remain in the ICU, he is up in bed and alert , oriented, he still complains from back pain at the level of the thoracic region , however pt denies to me any weakness in his legs, he is telling me his strength today in both leg is at his baseline, also he denies senosry loss, no urine or bowel incontinence, no saddle ansathesia, orthopedic team evaluated pt for osteomylitis discitis, MRI of his back is being considered , however because of his bady habitus it can not be done in [facility]. breathing is better today , no chest pain , no abdominal pain or change in bowel habits, no fever. pt is tachycardic and saturating 90 % on RA. creatinine is 1.28 which is slightly elevated . wbc 13.2 K .antibiotics as per ID team . ESR and CRP are elevated , he is on warfarin pharmcy to dose for his h/o DVT/PE 11/02/2018 Patient in the ICU, because of the chest shortness of breath more than usual this morning, patient was placed on oxygen therapy and he felt a little better no chest pain. No leg weakness or saddle anesthesia or abnormal sensation. I discussed the finding of with the patient, he preferred to be treated medically for now with antibiotics. Patient is aware of the risk of paralysis and weakness. The size it's felt that there is no strong cord compression as there is no weakness in his lower extremity and his main limitation for movement is in the pain in the back which caused him more short of breath as well as pain on moving his legs. His abdomen BC back to normal today. INR is 2.2. Creatinine is 1.24. A BMP was unremarkable. Blood cultures positive for strept agalaceiae. Remains on antibiotics as per infectious disease with daptomycin and Rocephin. Subjective: 11/07/2018 Patient remains in the ICU. Patient is breathing more quietly currently. No chest pain. This will have once in his left leg with a dressing in place. No surrounding cellulitis. Patient didn't complain specifically from weakness or loss of sensation in his lower extremity. And during my examination his leg strength felt to be 5/5 in both sides right and left legs. PICC line was placed. Patient is back to warfarin. Also patient continue on Lasix 40 mg orally twice a day. He is on amiodarone on Protonix as well. No leukocytosis and hemoglobin is stable. INR is 1.5. Creatinine is 1.0. Cardiology are following the patient for paroxysmal nonsustained V. tach. They recommended to continue with amiodarone and metoprolol. Objective - Vital Signs Vital signs: Vital Signs Temp 98.0 F 11/07/18 16:00 Pulse 77 11/07/18 16:00 Resp 20 11/07/18 16:00 BP 129/72 11/07/18 16:00 Pulse Ox 94 L 11/07/18 16:00 Intake & Output 11/06/18 11/07/18 11/07/18 18:59 06:59 18:59 Intake Total 158 306 5085 Output Total 925 1225 901 Balance -105 -5234 349 Weight 178.8 kg Intake: IV 250 180 50 .9 20 200 180 cefTRIAXone 2 gm In 50 50 Sodium Chloride 0.9% 50 ml @ 50 mls/hr IVPB Q24H [facility] Rx#:[id number] Oral 1200 Output: Urine 925 1225 900 Stool 1 Other: Voiding Method Indwelling Catheter Indwelling Catheter Indwelling Catheter # Bowel Movements 1 - Exam GENERAL: The patient is alert and oriented x3, not in any acute distress.obese HEENT: Pupils are round and equally reacting to light. EOMI. No scleral icterus. No conjunctival pallor. Normocephalic, atraumatic. No pharyngeal erythema. No thyromegaly. CARDIOVASCULAR: S1 and S2 present. No murmurs, rubs, or gallops. PULMONARY: Chest is clear to auscultation, no wheezing or crackles. ABDOMEN: Soft, nontender, nondistended, normoactive bowel sounds. No palpable organomegaly. -MUSCULOSKELETAL: No joint swelling or deformity. Tender point to the middle of the back, slightly to the right side, with overlying normal skin -EXTREMITIES: No cyanosis, clubbing, or pedal edema. Left thigh is still bits right, pinkish, warm and mildly tender. Its heart to tell if it is swollen because patient has obese legs -NEUROLOGICAL: Gross neurological examination did not reveal any focal deficits. Cranial nerves are grossly intact, examined our in both legs and they look symmetrical and is able to flex and extend both legs simultaneously and similarly. SKIN: No rashes. - Labs CBC & Chem 7: 11/07/18 05:06 11/07/18 05:06 Labs: Abnormal Lab Results - Last 24 Hours (Table) 11/07/18 11/07/18 11/07/18 Range/Units 05:06 05:06 05:06 RBC 4.20 L (4.30-5.90) m/uL Hgb 12.6 L (13.0-17.5) gm/dL Lymphocytes # 0.8 L (1.0-4.8) k/uL PT 14.8 H (9.0-12.0) sec INR 1.5 H (<1.2) Carbon Dioxide 36 H (22-30) mmol/L BUN 36 H (9-20) mg/dL Glucose 122 H (74-99) mg/dL Calcium 8.1 L (8.4-10.2) mg/dL Microbiology - Last 24 Hours (Table) 11/01/18 14:25 Blood Culture - Final Blood No Growth after 144 hours 11/01/18 08:23 Blood Culture - Final Blood No Growth after 144 hours Assessment and Plan Assessment: osteomyelitis discitis of the thoracic spine left leg cellulitis and wound, healing Acute kidney injury History of congestive heart failure History of atrial fibrillation on Coumadin. rate controlled on admission Supratherapeutic INR on admission, currently subtherapeutic History of sleep apnea on CPAP/BiPAP History of DVT with venous stasis History of bilateral lymphedema History of slight his left leg History of leg wounds Plan: This is a pleasant 73 years old male who presents because of back pain and dyspnea. Suspicious for osteomyelitis of the back. 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 If pain gets worse or he develops any neurological symptoms then we will consider surgical intervention. Patient cannot fit into an MRI machine currently and he has to be transferred to [place] which is attributed takes 4-5 hours and has more risks and benefits currently. Patient is being followed by infectious disease and he might need prolonged course of antibiotics. PICC line was placed Discussed with the patient and he prefers also to be treated medically. Several consultants are following the patient. Monitor lytes and vitals. DVT and GI prophylaxis. Further recommendations of the clinical course of the patient DVT prophylaxis: Warfarin GI Prophylaxis: Pepcid Prognosis is guarded
--- NOTE | 2018-11-07 19:43 | P.PN ---
Subjective Progress Note Date: 11/07/18 73-year-old male who has a history of super obesity, underlying coronary artery disease with congestive heart failure and atrial fibrillation presents to Hospital feeling poorly with back pain and some shortness of breath. The patient does have a history of sleep apnea and uses a CPAP device at home has a known history of peripheral vascular disease with venous stasis ulcerations in the past with chronic lymphedema and bouts of cellulitis. The patient became very concerned he does have a history of deep venous thrombosis with pulmonary embolism, at that time he was having severe pain in his back and shortness of breath and consequently sought care. The patient is returned from x-rays of his spine and he is now feeling very poorly. He is having low-grade fever he has chills he is not having gregorio rigors but is having mild shaking and feels very poorly. He's had a bout of nausea without significant emesis. His pain is considerably worse since laying flat. He is also more short of breath since laying flat. Stat lactic acid and blood cultures have been requested. [place] for nausea.. 11/01/2018 the patient was transferred to the intensive care unit yesterday when he became acutely ill. There is no evidence of the positive blood cultures with gram-positive cocci. 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 The patient's pain is well controlled at this point in time. He has had no further bouts of nausea or emesis. He has without other new acute complaints today. He is without significant shortness of breath or sputum production at this time. 11/02/2018 patient was very short of breath and is now on his CPAP from home with some improvement. the back pain has been helped by a cooling pad. Pain is still so severe that he does not know how to have a bowel movement since moving is so painful. 11/03/2018 patient is more comfortable today. With the cooling pad and the morphine therapy he has been able to achieve improved comfort. He is less short of breath and is wearing just oxygen at this point in time without the CPAP. He is evaluated by multiple consultants and fortunately seems to more stable today. Has been seen by cardiology 11/07/2018 patient is improved today was able to get up to the chair with assistance and was able to get into the bathroom also with assistance. Definitely suppress the patient is felt since his admission. Plans for discharge are in process. PICC line has been placed. Objective - Vital Signs Vital signs: Vital Signs Temp 98.0 F 11/07/18 16:00 Pulse 77 11/07/18 16:00 Resp 20 11/07/18 16:00 BP 129/72 11/07/18 16:00 Pulse Ox 94 L 11/07/18 16:00 Intake & Output 11/07/18 11/07/18 11/08/18 06:59 18:59 06:59 Intake Total 180 1250 Output Total 1225 901 Balance -1045 349 Weight 178.8 kg Intake: IV 180 50 .9 20 180 cefTRIAXone 2 gm In 50 Sodium Chloride 0.9% 50 ml @ 50 mls/hr IVPB Q24H [facility] Rx#:[id number] Oral 1200 Output: Urine 1225 900 Stool 1 Other: Voiding Method Indwelling Catheter Indwelling Catheter # Bowel Movements 1 - Exam Obese 73-year-old male who is feeling better and less pain. Less short of breath not requiring any type of respiratory support at this time other than standard O2 therapy. HEENT: Anicteric conjunctiva are pink and moist nasal mucosa grossly intact without significant lesions, there is no thrush. Poor dentition Neck: The neck is supple without significant lymphadenopathy or thyromegaly. Lungs: Symmetrical bilateral air entry, there is improved air exchange with improved breath sounds at the bases. Heart: Irregularly irregular with an audible S1 and S2 no S4 2/6 systolic murmur left sternal border PMI is nonpalpable Abdomen: Obese, Positive bowel sounds soft and nontender without palpable masses or organomegaly. There was no guarding or rebound. Extremities: The upper extremities have excellent pulses they are symmetric, no significant petechiae or telangiectasia. No splinter hemorrhages were noted. The lower extremities reveal evidence of chronic venous stasis changes in the large open ulceration to the left lateral leg. Area is cleansed in the opticell dressing is put into place without difficulty. Wrapped with an Jeevan wrap. Neuro: Awake alert oriented to person place and time. There are no acute new gross focal sensory motor deficits. Severe pain has improved with motion. - Labs CBC & Chem 7: 11/07/18 05:06 11/07/18 05:06 Labs: Abnormal Lab Results - Last 24 Hours (Table) 0211/07/18 11/07/18 Range/Units 05:06 05:06 05:06 RBC 4.20 L (4.30-5.90) m/uL Hgb 12.6 L (13.0-17.5) gm/dL Lymphocytes # 0.8 L (1.0-4.8) k/uL PT 14.8 H (9.0-12.0) sec INR 1.5 H (<1.2) Carbon Dioxide 36 H (22-30) mmol/L BUN 36 H (9-20) mg/dL Glucose 122 H (74-99) mg/dL Calcium 8.1 L (8.4-10.2) mg/dL Microbiology - Last 24 Hours (Table) 11/01/18 14:25 Blood Culture - Final Blood No Growth after 144 hours 11/01/18 08:23 Blood Culture - Final Blood No Growth after 144 hours Laboratory Results WBC 4.5 k/uL (3.8-10.6) 11/07/18 05:06 RBC 4.20 m/uL (4.30-5.90) L 11/07/18 05:06 Hgb 12.6 gm/dL (13.0-17.5) L 11/07/18 05:06 Hct 39.7 % (39.0-53.0) 11/07/18 05:06 MCV 94.5 fL (80.0-100.0) 11/07/18 05:06 MCH 30.0 pg (25.0-35.0) 11/07/18 05:06 MCHC 31.7 g/dL (31.0-37.0) 11/07/18 05:06 RDW 13.3 % (11.5-15.5) 11/07/18 05:06 Plt Count 150 k/uL (150-450) 11/07/18 05:06 Neutrophils % 65 % 11/07/18 05:06 Lymphocytes % 18 % 11/07/18 05:06 Monocytes % 8 % 11/07/18 05:06 Eosinophils % 6 % 11/07/18 05:06 Basophils % 1 % 11/07/18 05:06 Neutrophils # 2.9 k/uL (1.3-7.7) 11/07/18 05:06 Lymphocytes # 0.8 k/uL (1.0-4.8) L 11/07/18 05:06 Monocytes # 0.4 k/uL (0-1.0) 11/07/18 05:06 Eosinophils # 0.3 k/uL (0-0.7) 11/07/18 05:06 Basophils # 0.0 k/uL (0-0.2) 11/07/18 05:06 Hypochromasia Marked 10/31/18 18:10 Macrocytosis Slight 10/31/18 18:10 ESR 52 mm/hr (0-15) H 10/31/18 15:27 PT 14.8 sec (9.0-12.0) H 11/07/18 05:06 INR 1.5 (<1.2) H 11/07/18 05:06 APTT 34.3 sec (22.0-30.0) H 10/30/18 19:48 Sample Site RRA 10/31/18 17:52 ABG pH 7.47 (7.35-7.45) H 10/31/18 17:52 ABG pCO2 40 mmHg (35-45) 10/31/18 17:52 ABG pO2 90 mmHg (83-108) 10/31/18 17:52 ABG HCO3 29 mmol/L (21-25) H 10/31/18 17:52 ABG Total CO2 31 mmol/L (19-24) H 10/31/18 17:52 ABG O2 Saturation 98.3 % (94-97) H 10/31/18 17:52 ABG Base Excess 5.6 mmol/L 10/31/18 17:52 Bishnu Test Yes 10/31/18 17:52 FiO2 40 % 10/31/18 17:52 Sodium 139 mmol/L (137-145) 11/07/18 05:06 Potassium 4.1 mmol/L (3.5-5.1) 11/07/18 05:06 Chloride 99 mmol/L (98-107) 11/07/18 05:06 Carbon Dioxide 36 mmol/L (22-30) H 11/07/18 05:06 Anion Gap 4 mmol/L 11/07/18 05:06 BUN 36 mg/dL (9-20) H 11/07/18 05:06 Creatinine 1.04 mg/dL (0.66-1.25) 11/07/18 05:06 Est GFR (CKD-EPI)AfAm 82 (>60 ml/min/1.73 sqM) 11/07/18 05:06 Est GFR (CKD-EPI)NonAf 71 (>60 ml/min/1.73 sqM) 11/07/18 05:06 Glucose 122 mg/dL (74-99) H 11/07/18 05:06 POC Glucose (mg/dL) 149 mg/dL (75-99) H 10/31/18 17:00 POC Glu Picker Packer ID Ondina Lewis 10/31/18 17:00 Lactic Ac Sepsis Rflx Y 10/31/18 16:04 Plasma Lactic Acid Guicho 2.0 mmol/L (0.7-2.0) 10/31/18 19:44 Calcium 8.1 mg/dL (8.4-10.2) L 11/07/18 05:06 Phosphorus 3.0 mg/dL (2.5-4.5) 11/06/18 04:43 Magnesium 2.0 mg/dL (1.6-2.3) 11/07/18 05:06 Total Bilirubin 2.3 mg/dL (0.2-1.3) H 10/30/18 19:48 AST 40 U/L (17-59) 10/30/18 19:48 ALT 44 U/L (21-72) 10/30/18 19:48 Alkaline Phosphatase 104 U/L (38-126) 10/30/18 19:48 Total Creatine Kinase 55 U/L (55-170) 10/30/18 19:48 CK-MB (CK-2) 0.5 ng/mL (0.0-2.4) 10/30/18 19:48 CK-MB (CK-2) Rel Index 0.9 10/30/18 19:48 Troponin I 0.013 ng/mL (0.000-0.034) 10/31/18 07:39 C-Reactive Protein 202.4 mg/L (<10.0) H 10/31/18 15:27 NT-Pro-B Natriuret Pep 1890 pg/mL 10/30/18 19:48 Total Protein 7.0 g/dL (6.3-8.2) 10/30/18 19:48 Albumin 3.4 g/dL (3.5-5.0) L 10/30/18 19:48 TSH 2.640 mIU/L (0.465-4.680) 11/03/18 05:19 Urine Color Yellow 11/01/18 Unknown Urine Appearance Cloudy (Clear) 11/01/18 Unknown Urine pH 5.0 (5.0-8.0) 11/01/18 Unknown Ur Specific [place] 1.013 (1.001-1.035) 11/01/18 Unknown Urine Protein Negative (Negative) 11/01/18 Unknown Urine Glucose (UA) Negative (Negative) 11/01/18 Unknown Urine Ketones Negative (Negative) 11/01/18 Unknown Urine Blood Moderate (Negative) H 11/01/18 Unknown Urine Nitrite Negative (Negative) 11/01/18 Unknown Urine Bilirubin Negative (Negative) 11/01/18 Unknown Urine Urobilinogen <2.0 mg/dL (<2.0) 11/01/18 Unknown Ur Leukocyte Esterase Large (Negative) H 11/01/18 Unknown Urine RBC 43 /hpf (0-5) H 11/01/18 Unknown Urine WBC 14 /hpf (0-5) H 11/01/18 Unknown Ur Squamous Epith Cells <1 /hpf (0-4) 11/01/18 Unknown Urine Bacteria Occasional /hpf (None) H 11/01/18 Unknown Urine Mucus Rare /hpf (None) H 11/01/18 Unknown Microbiology 11/01/18 14:25 Blood Blood Culture - Final No Growth after 144 hours 11/01/18 08:23 Blood Blood Culture - Final No Growth after 144 hours 10/31/18 13:27 Blood Blood Culture Gram Stain - Final 10/31/18 13:27 Blood Blood Culture - Final Strep agalactiae - (group b) 10/31/18 15:23 Blood Blood Culture Gram Stain - Final 10/31/18 15:23 Blood Blood Culture - Final Strep agalactiae - (group b) 10/31/18 13:27 Blood Blood Culture - Final 10/31/18 15:23 Blood Blood Culture - Final Assessment and Plan (1) Dyspnea Current Visit: Yes Status: Acute Code(s): R06.00 - DYSPNEA, UNSPECIFIED SNOMED Code(s): 249387287 (2) Discitis of thoracic region Narrative/Plan: 73-year-old male who has multiple medical troubles including significant underlying atrial fibrillation, coronary artery disease, COPD presents to Hospital with significant pain into his back and some shortness of breath. With a known history of prior probably embolism he was very concerned and constantly present. A computed tomography scan was performed to evaluate for the potential for a pulmonary embolus and no PE was discovered. However evidence of discitis and possible osteomyelitis of the T8-T9 region by CT findings. The patient is now developed what appears to be some early sepsis associated with what appears to be the absence of fever, chills some worsening dyspnea and consequently center workup has been initiated. This is also important with the concerns to the discitis and osteomyelitis of the spine. He cultures, lactic acid, sed rate and CRP have all been requested. Once blood cultures been done initiating antibiotic therapy with daptomycin given what appears to be some acute renal failure as well as Rocephin while cultures are in process. The patient has a superobese body habitus and is not a candidate for MRI at this facility. Interventional radiology aspiration of the site is not possible due to location. Fluid bolus was requested and he will be monitored. 11/01/2018 patient is feeling slightly better today. Pain is better controlled. Hypotension is resolved. The patient's computed tomography scan reveals evidence of the discitis and osteomyelitis. The patient by weight and girth is be on the capability of our MRI scanner. The patient over has an adequate diagnosis with a computed tomography scan and MRI is not required at this point in time. He is been seen by orthopedic spine and appears to be stable at this time without the need for surgical intervention. We have asked of any type of bracing is required. Positive blood cultures with Group B strep have now been isolated. Will be able to de-escalate antibiotic therapy. Rocephin will be utilized. Once is evidence of negative blood cultures then IV access the PICC line will be planned and will work to the possibility of outpatient intravenous and back therapy versus extended care facility placement which may be required given his current level of debility. As far as a ulcer in the right lower extremity Opticel is requested that we change daily for now with utilization of a long Jeevan wrap from the foot to the knee. It is likely that the chronic lower extremity ulcerations venous stasis and chronic infectious state as the portal of entry for the infection to the spine. 11/02/2018 with pain medications the patient is improved from admission but is still with severe pain with any attempts for movement. Moving his legs are trying to change position in bed causes pain to be uncontrolled. A cooling pad has been added with some improvement of his symptomatic pain. Fortunately the blood cultures are starting to become negative. Seems to responding well to current antimicrobial therapy. The plan will be to continue current antibiotics and once possible have PICC line placed for his upcoming long-term course of intravenous antibiotic therapy. If the patient has any worsening of his status would need an MRI scan. The goal would be to evaluate for the possibility of an epidural abscess or other abscess that might require surgical intervention. If this is encountered the patient required transfer to a tertiary care center where open MRI can be performed and he may be evaluated by the surgical team to be able to perform surgical intervention to the spine from an anterior approach which cannot be done at our facility. 11/03/2018 patient is more stable today. Pain is better controlled. Has been followed by cardiology without acute new cardiac event. Pulmonary critical care is also following. With the cooling pad and pain medication is much more comfortable and much less short of breath. Orthopedic spine is also evaluated and agrees with the discitis and osteomyelitis as the etiology of the current infection and bacteremia. Fortunately with current antimicrobial therapy he has cleared his bacteremia is having some improvement. He was monitored in the ICU overnight and possibly transferred out tomorrow. We'll ask for a PICC line to be placed for his IV access and attentive his discharge. Likely going to home with home care. November 07 2018 reveals the patient to be feeling better. This is most improved pain control he has had to date. With assistance he was able to get up to the bedside chair and the restroom. His respiratory status improved as his pain has improved. We're working with the discharge planners to ensure that he is able to receive his outpatient intravenous antibiotic therapy with Rocephin being planned at this time. He probably going to extended care to receive his antibiotic therapy and is undergoing physical therapy. Is a BMI of 53 and with a great amount of assistance he needs his family will not be able to provide this in the home setting with just the . Current Visit: Yes Status: Acute Code(s): M46.44 - DISCITIS, UNSPECIFIED, THORACIC REGION SNOMED Code(s): 041669082
[2018-11-08 05:04] LABS: Basophils % (A) 0 %; Eosinophils # (A) 0.3 k/uL (0-0.7); Eosinophils % (A) 5 %; HCT 38.9 % (39.0-53.0); HGB 12.2 gm/dL (13.0-17.5); Lymphocytes # (A) 0.9 k/uL (1.0-4.8); Lymphocytes % (A) 19 %; MCH 29.5 pg (25.0-35.0); MCHC 31.4 g/dL (31.0-37.0); MCV 94.1 fL (80.0-100.0); Monocytes # (A) 0.4 k/uL (0-1.0); Monocytes % (A) 9 %; Neutrophils # (A) 3.1 k/uL (1.3-7.7); Neutrophils % (A) 65 %; Platelet Count 173 k/uL (150-450); RBC 4.14 m/uL (4.30-5.90); RDW 13.3 % (11.5-15.5); WBC 4.8 k/uL (3.8-10.6)
[2018-11-08 05:09] LABS: Calcium 8.2 mg/dL (8.4-10.2); Potassium 3.9 mmol/L (3.5-5.1)
[2018-11-08 05:10] LABS: INR 1.5 (<1.2); Prothrombin Time 15.1 sec (9.0-12.0)
[2018-11-08] MEDS ORDERED: POTASSIUM CHLORIDE ER 20 MEQ TAB.ER PO SCH (06:00)
[2018-11-08] MEDS: PANTOPRAZOLE 40 MG TABLET PO SCH (06:36)
[2018-11-08] MEDS: MORPHINE SULFATE 4 MG/ML SYRINGE IV PRN ×2 (08:31→13:22)
[2018-11-08] MEDS: FUROSEMIDE 40 MG TAB PO SCH ×2 (08:33→16:37)
[2018-11-08] MEDS: METOPROLOL TARTRATE 25 MG TAB PO SCH ×3 (08:33→22:36)
[2018-11-08] MEDS: AMIODARONE 200 MG TAB PO SCH ×3 (08:33→20:36)
[2018-11-08] MEDS: DOCUSATE 100 MG CAP PO PRN (08:33)
--- NOTE | 2018-11-08 10:40 | P.PN ---
Subjective Patient is seen in follow for acute kidney injury. Renal function a little worse today with creatinine at 1.2 to. Admits to good urine output. Currently maintained on Lasix 40 mg orally twice daily. Denies chest pain or shortness of breath. Vital signs are stable. General: The patient appeared well nourished and normally developed. HEENT: Head exam is unremarkable. Neck is without jugular venous distension. LUNGS: Breath sounds decreased. HEART: Rate and Rhythm are regular. First and second heart sounds normal. No murmurs, rubs or gallops. ABDOMEN: Abdominal exam reveals normal bowel sounds. Non-tender and non- distended. No evidence of peritonitis. EXTREMITITES: Trace edema. Objective - Vital Signs Vital signs: Vital Signs Temp 98.7 F 11/08/18 08:00 Pulse 106 H 11/08/18 10:00 Resp 22 11/08/18 08:00 BP 109/69 11/08/18 08:00 Pulse Ox 93 L 11/08/18 08:00 Intake & Output 11/07/18 11/08/18 11/08/18 18:59 06:59 18:59 Intake Total 1250 800 916 Output Total 901 1275 350 Balance 349 -475 566 Weight 178.1 kg Intake: IV 50 80 .9 20 80 cefTRIAXone 2 gm In 50 Sodium Chloride 0.9% 50 ml @ 50 mls/hr IVPB Q24H [facility] Rx#:[id number] Oral 1200 800 836 Output: Urine 900 1275 350 Stool 1 Other: Voiding Method Indwelling Catheter Indwelling Catheter Indwelling Catheter # Bowel Movements 1 - Labs CBC & Chem 7: 11/08/18 04:55 11/08/18 04:55 Labs: Abnormal Lab Results - Last 24 Hours (Table) 11/08/18 11/08/18 11/08/18 Range/Units 04:55 04:55 04:55 RBC 4.14 L (4.30-5.90) m/uL Hgb 12.2 L (13.0-17.5) gm/dL Hct 38.9 L (39.0-53.0) % Lymphocytes # 0.9 L (1.0-4.8) k/uL PT 15.1 H (9.0-12.0) sec INR 1.5 H (<1.2) Carbon Dioxide 37 H (22-30) mmol/L BUN 40 H (9-20) mg/dL Glucose 126 H (74-99) mg/dL Calcium 8.2 L (8.4-10.2) mg/dL Microbiology - Last 24 Hours (Table) 11/01/18 14:25 Blood Culture - Final Blood No Growth after 144 hours 11/01/18 08:23 Blood Culture - Final Blood No Growth after 144 hours Assessment and Plan Plan: Assessment: 1. Acute kidney injury mostly prerenal secondary to diuresis and hemodynamic instability. Renal function slightly worse due to diuresis. 2. Group B strep bacteremia maintained on antibiotics. 3. Volume overload. Maintained on diuretics. Better. 4. Diastolic CHF. 5. Metabolic alkalosis secondary to diuresis. Plan: Maintain Lasix 40 mg orally twice daily. Continue to monitor renal function and urine output.
[2018-11-08 11:57] VITALS: BMI 53.2
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
[2018-11-08] MEDS: BACLOFEN 10 MG TAB PO SCH ×2 (18:08→22:37)
[2018-11-08] MEDS: WARFARIN 5 MG TAB PO SCH (18:09)
[2018-11-08] MEDS: ACETAMINOPHEN TAB 325 MG TAB PO SCH (18:09)
[2018-11-08] MEDS: NAPROXEN 250 MG TAB PO SCH ×2 (18:09→22:37)
--- NOTE | 2018-11-08 19:44 | P.PN ---
Subjective Progress Note Date: 11/08/18 73-year-old male who has a history of super obesity, underlying coronary artery disease with congestive heart failure and atrial fibrillation presents to Hospital feeling poorly with back pain and some shortness of breath. The patient does have a history of sleep apnea and uses a CPAP device at home has a known history of peripheral vascular disease with venous stasis ulcerations in the past with chronic lymphedema and bouts of cellulitis. The patient became very concerned he does have a history of deep venous thrombosis with pulmonary embolism, at that time he was having severe pain in his back and shortness of breath and consequently sought care. The patient is returned from x-rays of his spine and he is now feeling very poorly. He is having low-grade fever he has chills he is not having gregorio rigors but is having mild shaking and feels very poorly. He's had a bout of nausea without significant emesis. His pain is considerably worse since laying flat. He is also more short of breath since laying flat. Stat lactic acid and blood cultures have been requested. [place] for nausea.. 11/01/2018 the patient was transferred to the intensive care unit yesterday when he became acutely ill. There is no evidence of the positive blood cultures with gram-positive cocci. 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 The patient's pain is well controlled at this point in time. He has had no further bouts of nausea or emesis. He has without other new acute complaints today. He is without significant shortness of breath or sputum production at this time. 11/02/2018 patient was very short of breath and is now on his CPAP from home with some improvement. the back pain has been helped by a cooling pad. Pain is still so severe that he does not know how to have a bowel movement since moving is so painful. 11/03/2018 patient is more comfortable today. With the cooling pad and the morphine therapy he has been able to achieve improved comfort. He is less short of breath and is wearing just oxygen at this point in time without the CPAP. He is evaluated by multiple consultants and fortunately seems to more stable today. Has been seen by cardiology 11/07/2018 patient is improved today was able to get up to the chair with assistance and was able to get into the bathroom also with assistance. Definitely suppress the patient is felt since his admission. Plans for discharge are in process. PICC line has been placed. 11/08/2018 the patient is having his best day so far as pain is best controlled since his admission. He's been able to get to the chair much more comfortably. He is having no fevers chills or sweats. No difficulty with his PICC line. Looks forward to his transfer to rehab soon. Objective - Vital Signs Vital signs: Vital Signs Temp 98.6 F 11/08/18 16:00 Pulse 99 11/08/18 16:00 Resp 20 11/08/18 16:00 BP 168/102 11/08/18 16:00 Pulse Ox 94 L 11/08/18 16:00 Intake & Output 11/08/18 11/08/18 11/09/18 06:59 18:59 06:59 Intake Total 800 2276 Output Total 1275 1600 Balance -475 676 Weight 178.1 kg 178.1 kg Intake: IV 240 .9 20 240 Oral 800 2036 Output: Urine 1275 1600 Other: Voiding Method Indwelling Catheter Indwelling Catheter # Bowel Movements 1 - Exam Obese 73-year-old male who is feeling better and less pain. Less short of breath not requiring any type of respiratory support at this time other than standard O2 therapy. HEENT: Anicteric conjunctiva are pink and moist nasal mucosa grossly intact without significant lesions, there is no thrush. Poor dentition Neck: The neck is supple without significant lymphadenopathy or thyromegaly. Lungs: Symmetrical bilateral air entry, there is improved air exchange with improved breath sounds at the bases. Heart: Irregularly irregular with an audible S1 and S2 no S4 2/6 systolic murmur left sternal border PMI is nonpalpable Abdomen: Obese, Positive bowel sounds soft and nontender without palpable masses or organomegaly. There was no guarding or rebound. Extremities: The upper extremities have excellent pulses they are symmetric, no significant petechiae or telangiectasia. No splinter hemorrhages were noted. The lower extremities reveal evidence of chronic venous stasis changes in the large open ulceration to the left lateral leg. Area is cleansed in the opticell dressing is put into place without difficulty. Wrapped with an Jeevan wrap. Neuro: Awake alert oriented to person place and time. There are no acute new gross focal sensory motor deficits. Severe pain has improved with motion. - Labs CBC & Chem 7: 11/08/18 04:55 11/08/18 04:55 Labs: Abnormal Lab Results - Last 24 Hours (Table) 11/08/18 11/08/18 11/08/18 Range/Units 04:55 04:55 04:55 RBC 4.14 L (4.30-5.90) m/uL Hgb 12.2 L (13.0-17.5) gm/dL Hct 38.9 L (39.0-53.0) % Lymphocytes # 0.9 L (1.0-4.8) k/uL PT 15.1 H (9.0-12.0) sec INR 1.5 H (<1.2) Carbon Dioxide 37 H (22-30) mmol/L BUN 40 H (9-20) mg/dL Glucose 126 H (74-99) mg/dL Calcium 8.2 L (8.4-10.2) mg/dL Microbiology - Last 24 Hours (Table) 11/01/18 14:25 Blood Culture - Final Blood No Growth after 144 hours Laboratory Results WBC 4.8 k/uL (3.8-10.6) 11/08/18 04:55 RBC 4.14 m/uL (4.30-5.90) L 11/08/18 04:55 Hgb 12.2 gm/dL (13.0-17.5) L 11/08/18 04:55 Hct 38.9 % (39.0-53.0) L 11/08/18 04:55 MCV 94.1 fL (80.0-100.0) 11/08/18 04:55 MCH 29.5 pg (25.0-35.0) 11/08/18 04:55 MCHC 31.4 g/dL (31.0-37.0) 11/08/18 04:55 RDW 13.3 % (11.5-15.5) 11/08/18 04:55 Plt Count 173 k/uL (150-450) 11/08/18 04:55 Neutrophils % 65 % 11/08/18 04:55 Lymphocytes % 19 % 11/08/18 04:55 Monocytes % 9 % 11/08/18 04:55 Eosinophils % 5 % 11/08/18 04:55 Basophils % 0 % 11/08/18 04:55 Neutrophils # 3.1 k/uL (1.3-7.7) 11/08/18 04:55 Lymphocytes # 0.9 k/uL (1.0-4.8) L 11/08/18 04:55 Monocytes # 0.4 k/uL (0-1.0) 11/08/18 04:55 Eosinophils # 0.3 k/uL (0-0.7) 11/08/18 04:55 Basophils # 0.0 k/uL (0-0.2) 11/08/18 04:55 Hypochromasia Marked 10/31/18 18:10 Macrocytosis Slight 10/31/18 18:10 ESR 52 mm/hr (0-15) H 10/31/18 15:27 PT 15.1 sec (9.0-12.0) H 11/08/18 04:55 INR 1.5 (<1.2) H 11/08/18 04:55 APTT 34.3 sec (22.0-30.0) H 10/30/18 19:48 Sample Site RRA 10/31/18 17:52 ABG pH 7.47 (7.35-7.45) H 10/31/18 17:52 ABG pCO2 40 mmHg (35-45) 10/31/18 17:52 ABG pO2 90 mmHg (83-108) 10/31/18 17:52 ABG HCO3 29 mmol/L (21-25) H 10/31/18 17:52 ABG Total CO2 31 mmol/L (19-24) H 10/31/18 17:52 ABG O2 Saturation 98.3 % (94-97) H 10/31/18 17:52 ABG Base Excess 5.6 mmol/L 10/31/18 17:52 Bishnu Test Yes 10/31/18 17:52 FiO2 40 % 10/31/18 17:52 Sodium 137 mmol/L (137-145) 11/08/18 04:55 Potassium 3.9 mmol/L (3.5-5.1) 11/08/18 04:55 Chloride 98 mmol/L (98-107) 11/08/18 04:55 Carbon Dioxide 37 mmol/L (22-30) H 11/08/18 04:55 Anion Gap 2 mmol/L 11/08/18 04:55 BUN 40 mg/dL (9-20) H 11/08/18 04:55 Creatinine 1.22 mg/dL (0.66-1.25) 11/08/18 04:55 Est GFR (CKD-EPI)AfAm 68 (>60 ml/min/1.73 sqM) 11/08/18 04:55 Est GFR (CKD-EPI)NonAf 59 (>60 ml/min/1.73 sqM) 11/08/18 04:55 Glucose 126 mg/dL (74-99) H 11/08/18 04:55 POC Glucose (mg/dL) 149 mg/dL (75-99) H 10/31/18 17:00 POC Glu Breaker Oiler Ondina Thao 10/31/18 17:00 Lactic Ac Sepsis Rflx Y 10/31/18 16:04 Plasma Lactic Acid Guicho 2.0 mmol/L (0.7-2.0) 10/31/18 19:44 Calcium 8.2 mg/dL (8.4-10.2) L 11/08/18 04:55 Phosphorus 3.0 mg/dL (2.5-4.5) 11/06/18 04:43 Magnesium 2.1 mg/dL (1.6-2.3) 11/08/18 04:55 Total Bilirubin 2.3 mg/dL (0.2-1.3) H 10/30/18 19:48 AST 40 U/L (17-59) 10/30/18 19:48 ALT 44 U/L (21-72) 10/30/18 19:48 Alkaline Phosphatase 104 U/L (38-126) 10/30/18 19:48 Total Creatine Kinase 55 U/L (55-170) 10/30/18 19:48 CK-MB (CK-2) 0.5 ng/mL (0.0-2.4) 10/30/18 19:48 CK-MB (CK-2) Rel Index 0.9 10/30/18 19:48 Troponin I 0.013 ng/mL (0.000-0.034) 10/31/18 07:39 C-Reactive Protein 202.4 mg/L (<10.0) H 10/31/18 15:27 NT-Pro-B Natriuret Pep 1890 pg/mL 10/30/18 19:48 Total Protein 7.0 g/dL (6.3-8.2) 10/30/18 19:48 Albumin 3.4 g/dL (3.5-5.0) L 10/30/18 19:48 TSH 2.640 mIU/L (0.465-4.680) 11/03/18 05:19 Urine Color Yellow 11/01/18 Unknown Urine Appearance Cloudy (Clear) 11/01/18 Unknown Urine pH 5.0 (5.0-8.0) 11/01/18 Unknown Ur Specific [place] 1.013 (1.001-1.035) 11/01/18 Unknown Urine Protein Negative (Negative) 11/01/18 Unknown Urine Glucose (UA) Negative (Negative) 11/01/18 Unknown Urine Ketones Negative (Negative) 11/01/18 Unknown Urine Blood Moderate (Negative) H 11/01/18 Unknown Urine Nitrite Negative (Negative) 11/01/18 Unknown Urine Bilirubin Negative (Negative) 11/01/18 Unknown Urine Urobilinogen <2.0 mg/dL (<2.0) 11/01/18 Unknown Ur Leukocyte Esterase Large (Negative) H 11/01/18 Unknown Urine RBC 43 /hpf (0-5) H 11/01/18 Unknown Urine WBC 14 /hpf (0-5) H 11/01/18 Unknown Ur Squamous Epith Cells <1 /hpf (0-4) 11/01/18 Unknown Urine Bacteria Occasional /hpf (None) H 11/01/18 Unknown Urine Mucus Rare /hpf (None) H 11/01/18 Unknown Microbiology 11/01/18 14:25 Blood Blood Culture - Final No Growth after 144 hours 11/01/18 08:23 Blood Blood Culture - Final No Growth after 144 hours 10/31/18 13:27 Blood Blood Culture Gram Stain - Final 10/31/18 13:27 Blood Blood Culture - Final Strep agalactiae - (group b) 10/31/18 15:23 Blood Blood Culture Gram Stain - Final 10/31/18 15:23 Blood Blood Culture - Final Strep agalactiae - (group b) 10/31/18 13:27 Blood Blood Culture - Final 10/31/18 15:23 Blood Blood Culture - Final Assessment and Plan (1) Dyspnea Current Visit: Yes Status: Acute Code(s): R06.00 - DYSPNEA, UNSPECIFIED SNOMED Code(s): 450654146 (2) Discitis of thoracic region Narrative/Plan: 73-year-old male who has multiple medical troubles including significant underlying atrial fibrillation, coronary artery disease, COPD presents to Hospital with significant pain into his back and some shortness of breath. With a known history of prior probably embolism he was very concerned and constantly present. A computed tomography scan was performed to evaluate for the potential for a pulmonary embolus and no PE was discovered. However evidence of discitis and possible osteomyelitis of the T8-T9 region by CT findings. The patient is now developed what appears to be some early sepsis associated with what appears to be the absence of fever, chills some worsening dyspnea and consequently center workup has been initiated. This is also important with the concerns to the discitis and osteomyelitis of the spine. He cultures, lactic acid, sed rate and CRP have all been requested. Once blood cultures been done initiating antibiotic therapy with daptomycin given what appears to be some acute renal failure as well as Rocephin while cultures are in process. The patient has a superobese body habitus and is not a candidate for MRI at this facility. Interventional radiology aspiration of the site is not possible due to location. Fluid bolus was requested and he will be monitored. 11/01/2018 patient is feeling slightly better today. Pain is better controlled. Hypotension is resolved. The patient's computed tomography scan reveals evidence of the discitis and osteomyelitis. The patient by weight and girth is be on the capability of our MRI scanner. The patient over has an adequate diagnosis with a computed tomography scan and MRI is not required at this point in time. He is been seen by orthopedic spine and appears to be stable at this time without the need for surgical intervention. We have asked of any type of bracing is required. Positive blood cultures with Group B strep have now been isolated. Will be able to de-escalate antibiotic therapy. Rocephin will be utilized. Once is evidence of negative blood cultures then IV access the PICC line will be planned and will work to the possibility of outpatient intravenous and back therapy versus extended care facility placement which may be required given his current level of debility. As far as a ulcer in the right lower extremity Opticel is requested that we change daily for now with utilization of a long Jeevan wrap from the foot to the knee. It is likely that the chronic lower extremity ulcerations venous stasis and chronic infectious state as the portal of entry for the infection to the spine. 11/02/2018 with pain medications the patient is improved from admission but is still with severe pain with any attempts for movement. Moving his legs are trying to change position in bed causes pain to be uncontrolled. A cooling pad has been added with some improvement of his symptomatic pain. Fortunately the blood cultures are starting to become negative. Seems to responding well to current antimicrobial therapy. The plan will be to continue current antibiotics and once possible have PICC line placed for his upcoming long-term course of intravenous antibiotic therapy. If the patient has any worsening of his status would need an MRI scan. The goal would be to evaluate for the possibility of an epidural abscess or other abscess that might require surgical intervention. If this is encountered the patient required transfer to a tertiary care center where open MRI can be performed and he may be evaluated by the surgical team to be able to perform surgical intervention to the spine from an anterior approach which cannot be done at our facility. 11/03/2018 patient is more stable today. Pain is better controlled. Has been followed by cardiology without acute new cardiac event. Pulmonary critical care is also following. With the cooling pad and pain medication is much more comfortable and much less short of breath. Orthopedic spine is also evaluated and agrees with the discitis and osteomyelitis as the etiology of the current infection and bacteremia. Fortunately with current antimicrobial therapy he has cleared his bacteremia is having some improvement. He was monitored in the ICU overnight and possibly transferred out tomorrow. We'll ask for a PICC line to be placed for his IV access and attentive his discharge. Likely going to home with home care. November 07 2018 reveals the patient to be feeling better. This is most improved pain control he has had to date. With assistance he was able to get up to the bedside chair and the restroom. His respiratory status improved as his pain has improved. We're working with the discharge planners to ensure that he is able to receive his outpatient intravenous antibiotic therapy with Rocephin being planned at this time. He probably going to extended care to receive his antibiotic therapy and is undergoing physical therapy. Is a BMI of 53 and with a great amount of assistance he needs his family will not be able to provide this in the home setting with just the . 11/08/2018 patient continues to have improvement of his severe pain. Relates this is best day so far since his admission. Having no other new acute changes. IV access is established and he is doing well with the PICC line without pain or discomfort. He initially quite pleased is not receiving the multiple IVs. He is looking forward to his transfer to rehab to receive his into his antibiotic therapy and his physical therapy so he has able to become independent again. With the superobesity he is currently a multiperson assist and cannot be managed in the home setting. He will follow the office in approximately 3 weeks to ensure that he is doing well . Current plan is Rocephin 2 g IV piggyback daily for 6-8 weeks depending on how he responds. Weekly blood work with a CBC with differential, BMP, sed rate and CRP have been requested. Current Visit: Yes Status: Acute Code(s): M46.44 - DISCITIS, UNSPECIFIED, THORACIC REGION SNOMED Code(s): 815970555
[2018-11-09] MEDS: ACETAMINOPHEN TAB 325 MG TAB PO SCH ×3 (00:38→14:37)
[2018-11-09 02:42] VITALS: RESP 18
[2018-11-09 05:09] LABS: Basophils % (A) 0 %; Eosinophils # (A) 0.2 k/uL (0-0.7); Eosinophils % (A) 5 %; HCT 40.6 % (39.0-53.0); HGB 12.7 gm/dL (13.0-17.5); Lymphocytes % (A) 18 %; MCH 29.6 pg (25.0-35.0); MCHC 31.4 g/dL (31.0-37.0); MCV 94.3 fL (80.0-100.0); Mean Platelet Volume 8.1; Monocytes # (A) 0.4 k/uL (0-1.0); Monocytes % (A) 7 %; Neutrophils # (A) 3.7 k/uL (1.3-7.7); Neutrophils % (A) 69 %; Platelet Count 170 k/uL (150-450); RDW 13.4 % (11.5-15.5); WBC 5.4 k/uL (3.8-10.6)
[2018-11-09 05:19] LABS: Calcium 8.4 mg/dL (8.4-10.2); Magnesium 2.2 mg/dL (1.6-2.3); Potassium 4.5 mmol/L (3.5-5.1)
[2018-11-09 05:23] LABS: INR 1.6 (<1.2); Prothrombin Time 15.8 sec (9.0-12.0)
[2018-11-09] MEDS: PANTOPRAZOLE 40 MG TABLET PO SCH (06:33)
--- NOTE | 2018-11-09 09:39 | P.PN ---
Subjective Patient is seen in follow for acute kidney injury. Renal function slightly worse which is due to diuresis. Admits to good urine output. Currently maintained on Lasix 40 mg orally twice daily. Denies chest pain or shortness of breath. Vital signs are stable. General: The patient appeared well nourished and normally developed. HEENT: Head exam is unremarkable. Neck is without jugular venous distension. LUNGS: Breath sounds decreased. HEART: Rate and Rhythm are regular. First and second heart sounds normal. No murmurs, rubs or gallops. ABDOMEN: Abdominal exam reveals normal bowel sounds. Non-tender and non- distended. No evidence of peritonitis. EXTREMITITES: Trace edema. Objective - Vital Signs Vital signs: Vital Signs Temp 98.3 F 11/09/18 04:00 Pulse 57 L 11/09/18 04:00 Resp 18 11/09/18 04:00 BP 122/74 11/09/18 04:00 Pulse Ox 94 L 11/09/18 04:00 Intake & Output 11/08/18 11/09/18 11/09/18 18:59 06:59 18:59 Intake Total 2276 950 Output Total 1600 1126 Balance 676 -176 Weight 178.1 kg 178.6 kg Intake: IV 240 .9 20 240 Oral 2036 950 Output: Urine 1600 1125 Stool 1 Other: Voiding Method Indwelling Catheter Indwelling Catheter # Bowel Movements 1 - Labs CBC & Chem 7: 11/09/18 04:48 11/09/18 04:48 Labs: Abnormal Lab Results - Last 24 Hours (Table) 11/09/18 11/09/18 11/09/18 Range/Units 04:48 04:48 04:48 Hgb 12.7 L (13.0-17.5) gm/dL PT 15.8 H (9.0-12.0) sec INR 1.6 H (<1.2) Carbon Dioxide 36 H (22-30) mmol/L BUN 40 H (9-20) mg/dL Creatinine 1.34 H (0.66-1.25) mg/dL Glucose 109 H (74-99) mg/dL Assessment and Plan Plan: Assessment: 1. Acute kidney injury mostly prerenal secondary to diuresis and hemodynamic instability. Renal function slightly worse due to diuresis. 2. Group B strep bacteremia maintained on antibiotics. 3. Volume overload. Maintained on diuretics. Better. 4. Diastolic CHF. 5. Metabolic alkalosis secondary to diuresis. Plan: Maintain Lasix 40 mg orally twice daily. Continue to monitor renal function and urine output. Potential discharge to rehab today. Follow up outpatient in the next 1-2 weeks.
[2018-11-09] MEDS: AMIODARONE 200 MG TAB PO SCH ×2 (10:02→16:25)
[2018-11-09] MEDS: FUROSEMIDE 40 MG TAB PO SCH ×2 (10:02→16:25)
[2018-11-09] MEDS: BACLOFEN 10 MG TAB PO SCH ×2 (10:06→14:40)
[2018-11-09] MEDS: NAPROXEN 250 MG TAB PO SCH ×2 (10:07→16:25)
[2018-11-09] MEDS: METOPROLOL TARTRATE 25 MG TAB PO SCH ×2 (10:08→16:24)
--- NOTE | 2018-11-09 15:22 | DS ---
DISCHARGE SUMMARY DATE OF ADMISSION: 11/02/2018 DATE OF DISCHARGE: 11/09/2018 FINAL DIAGNOSES: 1. Acute thoracic spine diskitis with recurrent blood cultures positive for Streptococcus agalactiae. 2. Morbid obesity, body mass index of 53.4. 3. Acute on chronic hypoxic respiratory failure. 4. Severe obstructive sleep apnea, uses BiPAP. 5. Left lower extremity wound from chronic venous insufficiency. 6. 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 7. Paroxysmal atrial fibrillation for which patient is on Coumadin. 8. Chronic kidney disease stage 2, from nephrosclerosis. 9. Acute renal failure likely prerenal from diuresis. 10.Primary osteoarthritis. HOSPITAL COURSE: This is a pleasant 73-year-old patient of Dr. Dillan Parham, presented with pain in the middle of the back. Patient did have a chest CTA that did show some changes at the T8-T9 level that was felt to be clinically site of acute osteomyelitis/diskitis. The patient is not able to have an MRI. Repeated blood cultures were positive for Streptococcus agalactiae group B with finally cultures being negative from 11/02/2018. Antibiotics were coordinated by Dr. Kwon. Symptoms are greatly improved. Patient is afebrile. Patient also was in and out of atrial fibrillation. Did have a 2-D echocardiogram that showed EF of 50%-55%. Lower extremity wound care was also done by Dr. Kwon. Today care was discussed with the patient and . Questions were answered. PHYSICAL EXAMINATION: Temperature 97.9, pulse 69, respiratory 18, blood pressure 113/77. Patient on oxygen. LUNGS: Distant breath sounds. CARDIOVASCULAR: Heart sounds muffled, irregular. Lower extremity wounds. INVESTIGATIONS: White count 5.4, hemoglobin 12.7, INR 1.6, potassium 4.5, BUN 40, creatinine 1.34. CONSULTATIONS: 1. Dr. Kwon from Infectious Disease. 2. Dr. Ramón Gamboa from Cardiology. 3. Dr. Manriquez from Pulmonary. 4. Dr. Frost from Nephrology. 5. Dr Nevarez from Orthopedic Spine. DISCHARGE MEDICATIONS: 1. Coumadin 5 mg Tuesday, Tuesday, Tuesday, Tuesday, 7.5 mg on Tuesday, , Tuesday. 2. Lopressor 25 mg p.o. t.i.d. 3. Ceftriaxone 2 g IV piggyback daily 42 doses. 4. Amiodarone 200 mg p.o. b.i.d. 5. Baclofen 5 mg p.o. q.i.d. 6. Pepcid 20 mg b.i.d. 7. Lasix 40 mg p.o. daily. 8. Naproxen 250 mg p.o. q.12 p.r.n. for pain. 9. Tylenol 650 mg q.6 p.r.n. for pain. DISPOSITION: [facility]. Lower extremity wound care to continue as per Dr. Kwon. FOLLOWUP: Follow up with Dr. Grimaldo after [facility] from [facility]. Follow up with Dr. Kwon in 3 weeks. Follow up with Dr. Ramón Gamboa in 2 weeks. Follow up with Dr. Dwyer at the [facility]. Follow up with Dr. Lucian Nevarez in 3-4 weeks. Follow up with Dr. Frost in 2 weeks. LABS: CBC, BMP, ESR weekly. INR to be done in 3 days. Discussion and discharge planning more than 35 minutes. MMODL / IJN: [id number] /
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
[2018-11-09 16:37] VITALS: BP 108/97; PULSE 89; TEMP 98
--- NOTE | 2018-11-10 00:10 | PN ---
PROGRESS NOTE DATE OF SERVICE: November 08, 2018. PRESENTING COMPLAINT: Low back pain. INTERVAL HISTORY: This patient was seen by me yesterday in the ICU. Admitted with diskitis with positive blood cultures and on IV antibiotics. The patient had been receiving IV pain medication. Propped up in bed. Did tolerate his diet. REVIEW OF SYSTEMS: Done for constitutional, cardiovascular, GI, pulmonary, musculoskeletal and findings as above. CURRENT MEDICATIONS: Reviewed that include IV ceftriaxone. PHYSICAL EXAMINATION: VITAL SIGNS: Temperature 98.8, pulse 73, respiration 15, blood pressure 109/58, pulse ox 94 percent on room air. GENERAL APPEARANCE: Propped up in bed, awake. EYES: Pupils equal. Conjunctivae normal. NECK: JVD unable to assess. Mass not palpable. RESPIRATORY: Effort increased. LUNGS: Distant breath sounds. CARDIOVASCULAR: Heart sounds muffled. Mild edema. ABDOMEN: Distended, soft. Liver and spleen not palpable. PSYCHIATRY: Alert and oriented x3. Mood and affect normal. INVESTIGATIONS: White count 4.8, INR 1.5, potassium 3.9, BUN 40, creatinine 1.22. ASSESSMENT: 1. Acute thoracic spine diskitis at T7-T8 level with multiple blood cultures positive for Streptococcus agalactiae. 2. Morbid obesity, BMI 53.4. 3. Acute on chronic hypoxic respiratory failure. 4. Severe obstructive sleep apnea uses BiPAP. 5. Left lower extremity wound from chronic venous insufficiency. 6. 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 7. Paroxysmal atrial fibrillation for which patient is on Coumadin and amiodarone. 8. Chronic kidney disease stage 2 from nephrosclerosis. 9. Acute renal failure likely prerenal with dialysis. 10.Primary osteoarthritis. PLAN: Continue with antibiotics. Social Work informed me that bed will not be available today. Antibiotics per Dr. Kwon. The patient's IV morphine will be discontinued. Will use baclofen, Tylenol, and may use naproxen p.r.n. Care was discussed with the patient. Questions were answered. MMODL / IJN: [id number] /
--- NOTE | 2018-11-10 11:41 | CDI ---
Documentation Clarification Form Date: 11/10/2018 10:20:00 AM From: Sanaz Victoria Tamiko Fajardo, Director Of Labor Relations Hours-8:30 am & 5 pm MRodolfo Admit Date: 11/01/2018 8:23:00 AM Patient Name: Sebastian Urena Visit Number: [id number] Discharge Date: 11/09/2018 5:54:00 PM ATTENTION: The Clinical Documentation Specialists (CDI) and [facility] Coding Staff appreciate your assistance in clarifying documentation. Please respond to the clarification below the line at the bottom and electronically sign. The CDI & [facility] Coding staff will review the response and follow-up if needed. Please note: Queries are made part of the Legal Health Record. If you have any questions, please contact the author of this message via ITS. Dr. Mike Carmona Sepsis, septicemia and bacteremia are documented in the H&P, PNs, Consult History/Risk Factors: Osteomyelitis, cellulitis, ulcer, A/C Resp Failure, A Renal Failure Clinical Indicators: WBC 13.2, 6.2, 6.4- LA 4.8, 2.0 Blood cultures: Srep agalactiae Vitals signs on admission: T 100.1, BP 121/79, RR 20, IN 40 Treatment: IV Abx - PICC Line In your professional opinion, please clarify if these findings signify one of the following conditions, if known: Condition Sepsis ruled out Sepsis ruled in Severe Sepsis Septic Shock Other, please specify Unable to determine sepsis ruled in MTDD
== END 2018-11-09 17:54 | DRG 871 ==
LOC: EC 17:48 → 3SCARD 23:17 → INTOOBSV 23:17 → 3SCARD 10-31 11:31 → 2SICU 10-31 16:48 → OBSVTOIN 11-01 08:23
PROVIDERS: ADMIT Hospitalist; ATTEND Hospitalist
PROC: 5A09557 Assistance with Respiratory Ventilation, Greater than 96 Consecutive Hours, Continuous Positive Airway Pressure (ICD-10-PCS; principal; 2018-11-02)
PROC: 02HV33Z Insertion of Infusion Device into Superior Vena Cava, Percutaneous Approach (ICD-10-PCS; 2018-11-06)
DX: A40.1 Sepsis due to streptococcus, group B (principal); J96.21 Acute and chronic respiratory failure with hypoxia; I26.99 Other pulmonary embolism without acute cor pulmonale; E87.4 Mixed disorder of acid-base balance; I47.2 Ventricular tachycardia; N17.9 Acute kidney failure, unspecified; I50.30 Unspecified diastolic (congestive) heart failure; L97.929 Non-pressure chronic ulcer of unspecified part of left lower leg with unspecified severity; I13.0 Hypertensive heart and chronic kidney disease with heart failure and stage 1 through stage 4 chronic kidney disease, or unspecified chronic kidney disease; L97.919 Non-pressure chronic ulcer of unspecified part of right lower leg with unspecified severity; Z68.43 Body mass index [BMI] 50.0-59.9, adult; L03.116 Cellulitis of left lower limb; M46.24 Osteomyelitis of vertebra, thoracic region; I95.9 Hypotension, unspecified; I48.0 Paroxysmal atrial fibrillation; J44.9 Chronic obstructive pulmonary disease, unspecified; E66.01 Morbid (severe) obesity due to excess calories; N18.3 Chronic kidney disease, stage 3 (moderate); R00.1 Bradycardia, unspecified; G47.33 Obstructive sleep apnea (adult) (pediatric); M47.9 Spondylosis, unspecified; I73.9 Peripheral vascular disease, unspecified; I87.8 Other specified disorders of veins; M46.44 Discitis, unspecified, thoracic region; M79.89 Other specified soft tissue disorders; T50.2X5A Adverse effect of carbonic-anhydrase inhibitors, benzothiadiazides and other diuretics, initial encounter; M19.91 Primary osteoarthritis, unspecified site; I87.2 Venous insufficiency (chronic) (peripheral); Z71.3 Dietary counseling and surveillance; I25.10 Atherosclerotic heart disease of native coronary artery without angina pectoris; I44.30 Unspecified atrioventricular block; Z79.01 Long term (current) use of anticoagulants; Z79.899 Other long term (current) drug therapy; Z86.711 Personal history of pulmonary embolism; Z86.718 Personal history of other venous thrombosis and embolism; Z85.828 Personal history of other malignant neoplasm of skin; Z98.42 Cataract extraction status, left eye; Z98.41 Cataract extraction status, right eye; Z80.9 Family history of malignant neoplasm, unspecified; Z82.61 Family history of arthritis
CPT/HCPCS: 36415; 36573; 36600; 71045; 71046; 71275; 72070; 72100; 80048; 80053; 81001; 82550; 82553; 82805; 83605; 83735; 83880; 84100; 84443; 84484; 85025; 85610; 85652; 85730; 86140; 87040; 87077; 87186; 93005; 93306; 94640; 96374; 96375; 99285

== ENCOUNTER 2019-11-21 16:28 | Emergency (ER) | payer MEDICARE, BC ==
[2019-11-21 16:40] VITALS: RESP 19
[2019-11-21] MEDS ORDERED: LIDOCAINE 1% INJ 10MG/ML (20 ML MDV) SQ ONE (17:51)
--- NOTE | 2019-11-21 18:09 | CT ---
EXAMINATION TYPE: CT brain cspine wo con DATE OF EXAM: 11/21/2019 COMPARISON: CT brain 03/10/2018 HISTORY: Fall, pt on blood thinners. CT DLP: 2059.3 mGycm Automated exposure control for dose reduction was used. TECHNIQUE: CT scan of the head and cervical spine are performed without contrast. FINDINGS: There is no acute intracranial hemorrhage, mass effect, or midline shift identified. The ventricles and sulci are within normal limits in size. The globes are intact and the visualized sin uses are clear. Cervical spine is visualized in its entirety from C1 through upper thoracic levels with some motion a rtifact present degrading sensitivity present at the lower cervical spine and demonstrates satisfacto ry alignment without evidence of acute fracture or dislocation. Prevertebral soft tissue appears wit hin normal limits. There is multilevel spondylosis, loss of disc height at intervertebral levels, mu ltilevel foraminal encroachment The C1-C2 articulation is unremarkable. IMPRESSION: 1. There is no acute fracture or dislocation evident in the cervical spine. 2. No acute intracranial hemorrhage, mass effect, or midline shift is seen.
[2019-11-21 18:33] LABS: Basophils % (A) 0 %; Eosinophils # (A) 0.1 k/uL (0-0.7); Eosinophils % (A) 1 %; HCT 43.3 % (39.0-53.0); HGB 14.2 gm/dL (13.0-17.5); Lymphocytes # (A) 0.6 k/uL (1.0-4.8); Lymphocytes % (A) 9 %; MCH 30.7 pg (25.0-35.0); MCHC 32.8 g/dL (31.0-37.0); MCV 93.7 fL (80.0-100.0); Mean Platelet Volume 10.2; Monocytes # (A) 0.5 k/uL (0-1.0); Monocytes % (A) 8 %; Neutrophils # (A) 5.6 k/uL (1.3-7.7); Neutrophils % (A) 81 %; Platelet Count 120 k/uL (150-450); RBC 4.62 m/uL (4.30-5.90); RDW 12.9 % (11.5-15.5); WBC 6.9 k/uL (3.8-10.6)
[2019-11-21 18:48] LABS: INR 1.9 (<1.2); Prothrombin Time 18.4 sec (9.0-12.0)
--- NOTE | 2019-11-21 18:53 | ED ---
Fall HPI - General Chief Complaint: Fall Stated Complaint: fall, neck pain Time Seen by Provider: 11/21/19 17:01 Source: patient Mode of arrival: wheelchair - History of Present Illness Initial Comments: Patient is 74-year-old male with history of lymphedema presenting to emergency Department with a chief complaint of fall. Patient states he was going to the bathroom using his cane when he slipped and fell forward causing a partial break of the window. States the window did not shatter. States he fall on the ground on the left side of the body delayed until EMS was contacted who helped him stand up. Patient states he is currently on blood thinners and noticed excessiv e bleeding from his right hand and forearm. Does report some pain from region but has full range of motion in bilateral upper extremities. States after he came to the ED with his 's truck, he developed some neck stiffness on the way here. Patient states he initially refused a c-collar because he did not feel was necessary. Patient denies any loss of consciousness, blurry vision, one-sided weakness or paresthesias. - Related Data Home Medications Medication Instructions Recorded Confirmed Warfarin [Coumadin] 5 mg PO SUMOWEFR 07/07/16 10/30/18 Warfarin [Coumadin] 7.5 mg PO TUTHSA 07/07/16 10/30/18 Metoprolol Tartrate [Lopressor] 25 mg PO TID 09/14/16 10/30/18 Acetaminophen [Tylenol Extra 1,000 mg PO Q6H PRN 10/30/18 10/30/18 Strength] Previous Rx's Medication Instructions Recorded cefTRIAXone SODIUM [Ceftriaxone] 2 gm IVPB DAILY #42 dose 11/03/18 Amiodarone [Cordarone] 200 mg PO BID tab 11/09/18 Baclofen [Lioresal] 5 mg PO QID tab 11/09/18 Famotidine [Pepcid] 20 mg PO BID #1 tablet 11/09/18 Furosemide [Lasix] 40 mg PO DAILY #0 11/09/18 Naproxen 250 mg PO Q12H PRN #1 tablet 11/09/18 Allergies Allergy/AdvReac Type Severity Reaction Status Date / Time tramadol AdvReac Unknown Verified 11/21/19 16:41 Review of Systems ROS Statement: Those systems with pertinent positive or pertinent negative responses have been documented in the HPI. ROS Other: All systems not noted in ROS Statement are negative. Past Medical History Past Medical History: Atrial Fibrillation, Cancer, Heart Failure, Deep Vein Thrombosis (DVT), Osteoarthritis (OA), Pulmonary Embolus (PE), Sleep Apnea/CPAP/BIPAP, Vascular Disorder Additional Past Medical History / Comment(s): L leg injuries, HX of DVT left leg 1995-traveled to [facility] [place], PVD/venous stasis, chronic lymphedema legs, cellulitis L leg, past bilateral lower leg wounds-current wound lower left leg, MAIKOL with Cpap use, basal cell cancer removed from bilateral arms/nose. History of Any Multi-Drug Resistant Organisms: None Reported Past Surgical History: Tonsillectomy Additional Past Surgical History / Comment(s): skin cancer removed from prakash arms and nose, prakash cataracts Past Anesthesia/Blood Transfusion Reactions: No Reported Reaction Additional Past Anesthesia/Blood Transfusion Reaction / Comment(s): . Past Psychological History: No Psychological Hx Reported Smoking Status: Never smoker Past Alcohol Use History: None Reported Past Drug Use History: None Reported - Past Family History Father Family Medical History: Cancer Additional Family Medical History / Comment(s): Father had kidney and colon cancers with surgeries. Mother Family Medical History: Eye Disorder, Osteoarthritis (OA) Additional Family Medical History / Comment(s): Mother had macular degeneration. General Exam Limitations: no limitations General appearance: alert, in no apparent distress, obese (Morbid) Head exam: Present: normocephalic, normal inspection. Absent: atraumatic (Multiple abrasions of the face. Small hematoma in the right supraorbital region.), other (Negative Toussaint sign, negative hemotympanum, negative raccoon eyes.) Eye exam: Present: normal appearance, PERRL, EOMI. Absent: periorbital swelling, periorbital tenderness, other (No pain with extraocular movements.) Pupils: Present: normal accommodation ENT exam: Present: normal exam, normal oropharynx (No oral trauma), mucous membranes moist, TM's normal bilaterally, normal external ear exam Neck exam: Present: normal inspection, tenderness (Left paraspinal tenderness a long the trapezius. No midcervical tenderness), full ROM Respiratory exam: Present: normal lung sounds bilaterally. Absent: respiratory distress, wheezes, rales Cardiovascular Exam: Present: regular rate, normal rhythm, normal heart sounds Extremities exam: Present: normal inspection (Laceration on the medial aspect of the right hand. Laceration also present in the palmar aspect of the hand.), full ROM, pedal edema (Bilateral lower extremity edema baseline) Back exam: Present: normal inspection, full ROM Neurological exam: Present: alert, oriented X3 Psychiatric exam: Present: normal affect, normal mood Skin exam: Present: warm, dry, intact, normal color Course Vital Signs 11/21/19 11/21/19 16:35 19:40 Temperature 98.6 F 98.5 F Pulse Rate 71 70 Respiratory 19 19 Rate Blood Pressure 108/59 111/85 O2 Sat by Pulse 97 97 Oximetry Procedures - Laceration Laceration #1 Consent Obtained: verbal consent Indication: laceration Site: hand Size (cm): 2 Description: linear Depth: simple, single layer Sedation/Analgesia: none Anesthetic Used: lidocaine 1% Anesthesia Technique: local infiltration Amount (mls): 5 Pre-repair: irrigated extensively Type of Sutures: nylon Size of Sutures: 4-0 Number of Sutures: 3 Technique: simple, interrupted Complications: bleeding Patient Tolerated Procedure: well, no complications Laceration #2 Consent Obtained: verbal consent Indication: laceration Site: hand Size (cm): 1 Description: linear Depth: simple, single layer Sedation/Analgesia: none Anesthetic Used: lidocaine 1% Anesthesia Technique: local infiltration Amount (mls): 3 Pre-repair: irrigated extensively Type of Sutures: nylon Size of Sutures: 4-0 Number of Sutures: 1 Technique: simple, interrupted Patient Tolerated Procedure: no complications Medical Decision Making - Medical Decision Making Patient is 74-year-old male presenting to emergency Department with a chief complaint of a fall. Patient slipped, fell forward and hit the glass window causing the window to break slightly but not fully shatter. Patient denies any loss of consciousness. Patient is a blood thinners due to A. fib. Patient initially refused a c-collar until he was in the ED examination room. I advised the patient to wear a c-collar and he complied. C-collar was applied. Patient states in the right to the ED she developed some neck stiffness especially on the left side. Exam patient does have some left paraspinal tenderness especially along the trapezius. No midcervical tenderness. Patient does have an abrasion on the right forearm. 2 lacerations on the hand which were repaired with sutures. Tetanus is up-to-date. Brain and neck CT showed no signs of acute fractures, dislocations, hemorrhage or midline shift. Patient advised to return to emergency department in 10 days for suture removal. PT/INR is 1.9. Patient is otherwise complaining of no other pain. Patient will be discharged home. Patient denies numbness or tingling. Return parameters were thoroughly discussed the patient was or standing ago. Case discussed with physician. - Lab Data Result diagrams: 11/21/19 18:10 11/21/19 18:10 Lab Results 11/21/19 11/21/19 11/21/19 Range/Units 18:10 18:10 18:10 WBC 6.9 (3.8-10.6) k/uL RBC 4.62 (4.30-5.90) m/uL Hgb 14.2 (13.0-17.5) gm/dL Hct 43.3 (39.0-53.0) % MCV 93.7 (80.0-100.0) fL MCH 30.7 (25.0-35.0) pg MCHC 32.8 (31.0-37.0) g/dL RDW 12.9 (11.5-15.5) % Plt Count 120 L (150-450) k/uL Neutrophils % 81 % Lymphocytes % 9 % Monocytes % 8 % Eosinophils % 1 % Basophils % 0 % Neutrophils # 5.6 (1.3-7.7) k/uL Lymphocytes # 0.6 L (1.0-4.8) k/uL Monocytes # 0.5 (0-1.0) k/uL Eosinophils # 0.1 (0-0.7) k/uL Basophils # 0.0 (0-0.2) k/uL PT 18.4 H (9.0-12.0) sec INR 1.9 H (<1.2) APTT 26.0 (22.0-30.0) sec Sodium 138 (137-145) mmol/L Potassium 4.3 (3.5-5.1) mmol/L Chloride 102 (98-107) mmol/L Carbon Dioxide 29 (22-30) mmol/L Anion Gap 7 mmol/L BUN 21 H (9-20) mg/dL Creatinine 1.50 H (0.66-1.25) mg/dL Est GFR (CKD-EPI)AfAm 53 (>60 ml/min/1.73 sqM) Est GFR (CKD-EPI)NonAf 45 (>60 ml/min/1.73 sqM) Glucose 100 H (74-99) mg/dL Calcium 8.8 (8.4-10.2) mg/dL Total Bilirubin 1.4 H (0.2-1.3) mg/dL AST 33 (17-59) U/L ALT 19 (4-49) U/L Alkaline Phosphatase 67 (38-126) U/L Total Protein 6.4 (6.3-8.2) g/dL Albumin 3.4 L (3.5-5.0) g/dL Disposition Clinical Impression: Fall, Laceration of hand, Abrasion of forearm, right, Abrasion of face Disposition: HOME SELF-CARE Condition: Stable Instructions (If sedation given, give patient instructions): Care For Your Stitches (DC), Laceration (DC) Additional Instructions: Follow-up with a primary care. Return to emergency department in 10-14 days for suture removal. Is patient prescribed a controlled substance at d/c from ED?: No Referrals: Dillan Parham MD [Primary Care Provider] - 1-2 days Time of Disposition: 19:05
[2019-11-21 18:54] LABS: Albumin 3.4 g/dL (3.5-5.0); Calcium 8.8 mg/dL (8.4-10.2); Potassium 4.3 mmol/L (3.5-5.1); Total Bilirubin 1.4 mg/dL (0.2-1.3); Total Protein 6.4 g/dL (6.3-8.2)
[2019-11-21 19:47] VITALS: BP 111/85; PULSE 70; TEMP 98.5
== END 2019-11-21 19:40 | disposition home or self-care (01) ==
LOC: EC 16:28
DX: S61.411A Laceration without foreign body of right hand, initial encounter (principal); S50.811A Abrasion of right forearm, initial encounter; S00.81XA Abrasion of other part of head, initial encounter; S00.11XA Contusion of right eyelid and periocular area, initial encounter; R60.0 Localized edema; I48.91 Unspecified atrial fibrillation; I50.9 Heart failure, unspecified; M19.90 Unspecified osteoarthritis, unspecified site; L97.229 Non-pressure chronic ulcer of left calf with unspecified severity; G47.33 Obstructive sleep apnea (adult) (pediatric); Z88.5 Allergy status to narcotic agent; Z79.01 Long term (current) use of anticoagulants; Z79.891 Long term (current) use of opiate analgesic; Z79.899 Other long term (current) drug therapy; Z85.828 Personal history of other malignant neoplasm of skin; Z98.890 Other specified postprocedural states; Z99.89 Dependence on other enabling machines and devices; W01.0XXA Fall on same level from slipping, tripping and stumbling without subsequent striking against object, initial encounter; W25.XXXA Contact with sharp glass, initial encounter; Y93.01 Activity, walking, marching and hiking
CPT/HCPCS: 36415; 80053; 85025; 85610; 85730; 72125; 70450; 99284; 12002; J2001

== ENCOUNTER 2023-09-29 15:41 | Inpatient (IN) | payer MEDICARE, BC ==
[2023-09-29] MEDS ORDERED: SODIUM CHLORIDE 0.9% 500 ML 500 ML IV STA (16:14)
--- NOTE | 2023-09-29 16:15 | ED ---
Abdominal Pain HPI - General Stated Complaint: Diarrhea Source: EMS Mode of arrival: EMS Limitations: no limitations - History of Present Illness Initial Comments: The patient is a 78-year-old gentleman with a history of hypertension, A. fib, CKD, CHF presents to the emergency room for nausea, abdominal distention and diarrhea for the last 3-4 days. He denies any severe abdominal pain. He denies any fevers. Patient states that the diarrhea is watery but not extra foul smelling. He has been on 2 rounds of antibiotics recently for a urinary tract infection. He does state he may urine however it has gradually decreased over the last couple years. He is apparently following up in a few weeks with a slag motor operator and it sounds as though he is likely going to start dialysis at some point. The states that they have been trying to get him in for over a year. They are unsure of his baseline kidney function at this time. The patient denies any cough, congestion fever or other flulike symptoms however was diagnosed about a month ago with Covid. He denies any recent travel. - Related Data Home Medications Medication Instructions Recorded Confirmed Warfarin [Coumadin] 2.5 mg PO SUMOWETHLUIS@2100 07/07/16 09/29/23 Amiodarone HCl [Pacerone] 100 mg PO DAILY 09/29/23 09/29/23 Atorvastatin [Lipitor] 20 mg PO HS 09/29/23 09/29/23 Citalopram Hydrobromide [CeleXA] 40 mg PO HS 09/29/23 09/29/23 Ergocalciferol (Vitamin D2) 1,250 mcg PO TH 09/29/23 09/29/23 [Drisdol (50,000 Iu)] Furosemide [Lasix] 40 mg PO BID 09/29/23 09/29/23 carvediloL [Coreg] 3.125 mg PO BID 09/29/23 09/29/23 Allergies Allergy/AdvReac Type Severity Reaction Status Date / Time tramadol AdvReac Unknown Verified 09/29/23 18:26 Review of Systems ROS Statement: Those systems with pertinent positive or pertinent negative responses have been documented in the HPI. ROS Other: All systems not noted in ROS Statement are negative. Past Medical History Past Medical History: Atrial Fibrillation, Cancer, Heart Failure, Deep Vein Thrombosis (DVT), Osteoarthritis (OA), Pulmonary Embolus (PE), Sleep Apnea/CPAP/BIPAP, Vascular Disorder Additional Past Medical History / Comment(s): L leg injuries, HX of DVT left leg 1995-traveled [place], PVD/venous stasis, chronic lymphedema legs, cellulitis L leg, past bilateral lower leg wounds-current wound lower left leg, MAIKOL with Cpap use, basal cell cancer removed from bilateral arms/nose. History of Any Multi-Drug Resistant Organisms: None Reported Past Surgical History: Tonsillectomy Additional Past Surgical History / Comment(s): skin cancer removed from prakash arms and nose, prakash cataracts Past Anesthesia/Blood Transfusion Reactions: No Reported Reaction Additional Past Anesthesia/Blood Transfusion Reaction / Comment(s): . Past Psychological History: No Psychological Hx Reported Smoking Status: Never smoker Past Alcohol Use History: None Reported Past Drug Use History: None Reported - Past Family History Father Family Medical History: Cancer Additional Family Medical History / Comment(s): Father had kidney and colon cancers with surgeries. Mother Family Medical History: Eye Disorder, Osteoarthritis (OA) Additional Family Medical History / Comment(s): Mother had macular degeneration. General Exam Limitations: no limitations General appearance: in no apparent distress Head exam: Present: atraumatic Eye exam: Present: normal appearance, PERRL ENT exam: Present: normal exam Neck exam: Present: normal inspection, full ROM Respiratory exam: Present: normal lung sounds bilaterally Cardiovascular Exam: Present: regular rate, normal rhythm GI/Abdominal exam: Present: soft, other (Obese, possible slight distention). Absent: tenderness, guarding, rebound, rigid Extremities exam: Present: full ROM Back exam: Present: full ROM Neurological exam: Present: alert, oriented X3, CN II-XII intact Psychiatric exam: Present: normal affect, normal mood Skin exam: Present: warm, dry Course Vital Signs 09/29/23 15:54 Temperature 98.7 F Pulse Rate 63 Respiratory 18 Rate Blood Pressure 131/62 O2 Sat by Pulse 94 L Oximetry - Reevaluation(s) Reevaluation #1: 09/29/23 19:04 The patient's was able to speak with the PCP. The last creatinine was 3.7. His GFR was 16. Patient feels more comfortable being admitted for observation at this time and for hydration. He will continue fluids and we will admit for nephrology consult as well. 09/29/23 19:05 Discussed patient's symptoms are And disposition including the admission with attending ED physician Dr. Galicia today. Medical Decision Making - Medical Decision Making Was pt. sent in by a medical professional or institution (, LETA, PILLOWCASE MAKER, urgent care, hospital, or senior care...) When possible be specific @ -[No] Did you speak to anyone other than the patient for history (EMS, parent, family, police, friend...)? What history was obtained from this source @ - at bedside Did you review nursing and triage notes (agree or disagree)? Why? @ -[I reviewed and agree with nursing and triage notes] Were old charts reviewed (outside hosp., previous admission, EMS record, old EKG, old radiological studies, urgent care reports/EKG's, senior care records)? Report findings @ -Yes old charts were reviewed including previous labwork from 2019 including kidney function Differential Diagnosis (chest pain, altered mental status, abdominal pain women, abdominal pain men, vaginal bleeding, weakness, fever, dyspnea, syncope, head ache, dizziness, GI bleed, back pain, seizure, CVA, palpatations, mental health, musculoskeletal)? @ -Acute kidney disease, dehydration, gastroenteritis, bowel obstruction, C. diff, influenza, Covid EKG interpreted by me (3pts min.). @ -[As above] X-rays interpreted by me (1pt min.). @ -[None done] CT interpreted by me (1pt min.). @ CT is negative for any signs of bowel obstruction, inflammatory bowel changes, changes that would be consistent with a C. diff infection or other acute changes. U/S interpreted by me (1pt. min.). @ -[None done] What testing was considered but not performed or refused? (CT, X-rays, U/S, labs)? Why? @ -[None] What meds were considered but not given or refused? Why? @ -[None] Did you discuss the management of the patient with other professionals (professionals i.e. , LETA, PILLOWCASE MAKER, lab, RT, psych nurse, addiction social worker, running instructor, teacher, chief strategy officer, case management manager)? Give summary @ -[No] Was smoking cessation discussed for >3mins.? @ -[No] Was critical care preformed (if so, how long)? @ -[No] Were there social determinants of health that impacted care today? How? (Homelessness, low income, unemployed, alcoholism, drug addiction, transportation, low edu. Level, literacy, decrease access to med. care, prison, rehab)? @ -[No] Was there de-escalation of care discussed even if they declined (Discuss DNR or withdrawal of care, Hospice)? DNR status @ -[No] What co-morbidities impacted this encounter? (DM, HTN, Smoking, COPD, CAD, Cancer, CVA, ARF, Chemo, Hep., AIDS, mental health diagnosis, sleep apnea, mo rbid obesity)? @ -[CKD, CHF, hypertension Was patient admitted / discharged? Hospital course, mention meds given and route, prescriptions, significant lab abnormalities, going to OR and other pertinent info. @ -[Patient will be admitted for nephrology consult for the worsening kidney failure and hydration Undiagnosed new problem with uncertain prognosis? @ -[No] Drug Therapy requiring intensive monitoring for toxicity (Heparin, Nitro, Insulin, Cardizem)? @ -[No] Were any procedures done? @ -[No] Diagnosis/symptom? @ -acute on chronic kidney injury, covid 19, diarrhea, dehydration. Acute, or Chronic, or Acute on Chronic? @ -[acute and acute on chronic Uncomplicated (without systemic symptoms) or Complicated (systemic symptoms)? @ -[complicated Side effects of treatment? @ -[No] Exacerbation, Progression, or Severe Exacerbation? @ -[exacerbation] Poses a threat to life or bodily function? How? (Chest pain, [place], [place], pneumonia, PE, COPD, DKA, ARF, appy, cholecystitis, CVA, Diverticulitis, Homicidal, Suicidal, threat to staff... and all critical care pts) @ -[yes - Lab Data Result diagrams: 09/29/23 16:22 09/29/23 16:22 Lab Results 09/29/23 09/29/23 09/29/23 Range/Units 16:22 16:22 16: WBC 4.6 (3.8-10.6) k/uL RBC 3.38 L (4.30-5.90) m/uL Hgb 10.7 L (13.0-17.5) gm/dL Hct 31.8 L (39.0-53.0) % MCV 94.1 (80.0-100.0) fL MCH 31.7 (25.0-35.0) pg MCHC 33.7 (31.0-37.0) g/dL RDW 13.1 (11.5-15.5) % Plt Count 135 L (150-450) k/uL MPV 10.7 Neutrophils % 61 % Lymphocytes % 23 % Monocytes % 9 % Eosinophils % 4 % Basophils % 0 % Neutrophils # 2.8 (1.3-7.7) k/uL Lymphocytes # 1.1 (1.0-4.8) k/uL Monocytes # 0.4 (0-1.0) k/uL Eosinophils # 0.2 (0-0.7) k/uL Basophils # 0.0 (0-0.2) k/uL Sodium 140 (137-145) mmol/L Potassium 4.7 (3.5-5.1) mmol/L Chloride 106 (98-107) mmol/L Carbon Dioxide 24 (22-30) mmol/L Anion Gap 10 mmol/L BUN 58 H (9-20) mg/dL Creatinine 5.49 H (0.66-1.25) mg/dL Est GFR (CKD-EPI)AfAm 11 (>60 ml/min/1.73 sqM) Est GFR (CKD-EPI)NonAf 9 (>60 ml/min/1.73 sqM) Glucose 94 (74-99) mg/dL Calcium 8.6 (8.4-10.2) mg/dL Total Bilirubin 0.9 (0.2-1.3) mg/dL AST 24 (17-59) U/L ALT 14 (4-49) U/L Alkaline Phosphatase 111 (38-126) U/L Total Protein 6.2 L (6.3-8.2) g/dL Albumin 3.1 L (3.5-5.0) g/dL Lipase 107 (23-300) U/L Influenza Type A (PCR) Not Detected (Not Detectd) Influenza Type B (PCR) Not Detected (Not Detectd) RSV (PCR) Not Detected (Not Detectd) SARS-CoV-2 (PCR) Detected A (Not Detectd) - Radiology Data Radiology results: report reviewed, image reviewed Disposition Clinical Impression: Kidney injury, Diarrhea, COVID-19, Dehydration Disposition: ADMITTED IP TO THIS HOSP Condition: Fair Is patient prescribed a controlled substance at d/c from ED?: No Referrals: Nonstaff,Physician [Primary Care Provider] - 1-2 days Time of Disposition: 19:08
[2023-09-29 16:28] LABS: Basophils % (A) 0 %; Eosinophils # (A) 0.2 k/uL (0-0.7); Eosinophils % (A) 4 %; HCT 31.8 % (39.0-53.0); HGB 10.7 gm/dL (13.0-17.5); Lymphocytes # (A) 1.1 k/uL (1.0-4.8); Lymphocytes % (A) 23 %; MCH 31.7 pg (25.0-35.0); MCHC 33.7 g/dL (31.0-37.0); MCV 94.1 fL (80.0-100.0); Mean Platelet Volume 10.7; Monocytes # (A) 0.4 k/uL (0-1.0); Monocytes % (A) 9 %; Neutrophils # (A) 2.8 k/uL (1.3-7.7); Neutrophils % (A) 61 %; Platelet Count 135 k/uL (150-450); RBC 3.38 m/uL (4.30-5.90); RDW 13.1 % (11.5-15.5); WBC 4.6 k/uL (3.8-10.6)
--- NOTE | 2023-09-29 17:07 | CT ---
EXAMINATION TYPE: CT abdomen pelvis wo con DATE OF EXAM: 09/29/2023 COMPARISON: None HISTORY: generalized abd pain CT DLP: 6411.2 mGycm Automated exposure control for dose reduction was used. TECHNIQUE: Helical acquisition of images was performed from the lung bases through the pelvis. FINDINGS: The lung bases are clear. Gallbladder is normal without distention, wall thickening, gallstones or pericholecystic fluid. There is no biliary ductal dilatation. There is no organomegaly involving the solid visceral organs of the upper abdomen. The pancreas is mo derately atrophic. There is malrotation of the right kidney. There is a 6.4 mm nonobstructing right renal calculus. Ther e kidneys are mildly atrophic. The caliber the abdominal aorta is normal is no retroperitoneal adenop athy or hemorrhage. The bowel loops normal in caliber and there is no evidence of obstruction. No inflammatory changes ar e identified in the bowel wall or mesentery and there is no free intraperitoneal air or fluid. There is no pelvic mass, free fluid, abscess or adenopathy. There is marked osteoarthritic change of the left hip with marked joint space narrowing and subchondr al cysts and sclerosis. There is moderate osteoarthritic change of the right hip. IMPRESSION: 1. Nonobstructing 6.4 mm right renal calculus. 2. No acute changes within the abdomen or pelvis. 3. Mild atrophy of the pancreas and kidneys. 4. Marked osteoarthritic change of the left hip and moderate osteoarthritic change of the right hip.
[2023-09-29 17:13] LABS: ALT 14 U/L (4-49); AST 24 U/L (17-59); African American GFR (CKD) 11 (>60 ml/min/1.73 sqM); Albumin 3.1 g/dL (3.5-5.0); Alkaline Phosphatase 111 U/L (38-126); Anion Gap 10 mmol/L; Blood Urea Nitrogen 58 mg/dL (9-20); Calcium 8.6 mg/dL (8.4-10.2); Carbon Dioxide 24 mmol/L (22-30); Chloride 106 mmol/L (98-107); Glucose 94 mg/dL (74-99); Lipase 107 U/L (23-300); Non-African American GFR(CKD) 9 (>60 ml/min/1.73 sqM); Potassium 4.7 mmol/L (3.5-5.1); Sodium 140 mmol/L (137-145); Total Bilirubin 0.9 mg/dL (0.2-1.3); Total Protein 6.2 g/dL (6.3-8.2)
[2023-09-29] MEDS ORDERED: ONDANSETRON 4 MG/2 ML VIAL IVP PRN (18:46)
[2023-09-29] MEDS ORDERED: NALOXONE 0.4 MG/ML 1 ML VIAL IV PRN (18:46)
[2023-09-29] MEDS ORDERED: SODIUM CHLORIDE 0.9% 1,000 ML IV SCH (19:00)
--- NOTE | 2023-09-29 21:35 | P.HPIM ---
History of Present Illness H&P Date: 09/29/23 Patient is a 78-year-old male with a PMH of A. fib and PE on Coumadin, CKD, CHF, MAIKOL on CPAP, PVD with bilateral lower extremity lymphedema and chronic lower extremity wounds who presents to the emergency room with complaints of diarrhea and weakness. Patient reports he has been experiencing watery nonbloody and non-mucousy diarrhea for the past 1 week, 4-5 episodes daily. Reports recently completing 2 courses of oral antibiotics for a UTI. 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 He also reports that he was diagnosed with COVID-19 around [place] but denies any recent shortness of breath or cough. Also denies experiencing fever, chills, or chest discomfort. Reports normally ambulate with a walker but that over the past 2-3 days he has been unable to stand up due to progressive generalized weakness. Reports following with an outpatient wound care clinic for chronic lymphedema bilateral lower extremities and left posterior leg ulcer which has been healing well. CT abdomen and pelvis in the emergency room revealed a nonobstructing 6.4 mm right renal calculus with marked left hip osteoarthritic changes. Laboratory evaluation was remarkable for a woman 10.7, platelets 135, BUN 58, creatinine 5.49, COVID-19 PCR positive. ED documentation reviewed and case discussed with ED provider. Review of systems: Pertinent positives and negatives as discussed in HPI, a complete review of systems was performed and all other systems are negative. Physical examination: Vital signs reviewed General: non toxic, no distress, appears at stated age, morbidly obese Derm: Bilateral lower extremity venous stasis changes noted with LLE posterior 4-5 cm healing ulcer, warm Head: atraumatic, normocephalic, symmetric Eyes: EOMI, no lid lag, anicteric sclera, pupils equal round reactive to light ENT: Nose and ears atraumatic Neck: No cervical lymphadenopathy, trachea midline, supple Mouth: no lip lesion, mucus membranes moist Cardiovascular: S1S2 reg, no murmur, positive dorsalis pedis pulse bilateral, 2+ bilateral lower extremity pitting edema with venous stasis changes noted, Lungs: CTA bilateral, no rhonchi, no rales, no accessory muscle use Abdominal: soft, nontender to palpation, no guarding Ext: muscle strength 3 out of 5 in prakash LEs and 4/5 in prakash upper extremities grossly, no gross muscle atrophy, no contractures Neuro: CN II-XI grossly intact, no gross focal neuro deficits Psych: Alert, oriented, appropriate affect Assessment: Diarrhea, following courses of antibiotics, rule out C. diff COVID-19 testing positive, likely residual from recent infection last month ESRD, with plans of initiating dialysis Thrombocytopenia, no recent baseline available for comparison Chronic conditions: A. fib and PE history on Coumadin, CHF, MAIKOL Imaging: CT abdomen and pelvis in the emergency room revealed a nonobstructing 6.4 mm right renal calculus with marked left hip osteoarthritic changes. Data Review: Laboratory evaluation was remarkable for a woman 10.7, platelets 135, BUN 58, creatinine 5.49, COVID-19 PCR positive. Plan: Follow-up C. diff testing and stool culture Check calprotectin levels Obtain nephrology consult Continue with home medications PT consult Hold home lasix for now DVT prophylaxis: Coumadin The patient is admitted with an anticipated greater than 2 midnight stay for evaluation of diarrhea CODE STATUS: Full Code Discussed with: Patient Anticipated discharge place: Home Past Medical History Past Medical History: Atrial Fibrillation, Cancer, Heart Failure, Deep Vein Thrombosis (DVT), Osteoarthritis (OA), Pulmonary Embolus (PE), Sleep Apnea/CPAP/BIPAP, Vascular Disorder Additional Past Medical History / Comment(s): L leg injuries, HX of DVT left leg 1995-traveled to [place], PVD/venous stasis, chronic lymphedema legs, cellulitis L leg, past bilateral lower leg wounds-current wound lower left leg, MAIKOL with Cpap use, basal cell cancer removed from bilateral arms/nose. History of Any Multi-Drug Resistant Organisms: None Reported Past Surgical History: Tonsillectomy Additional Past Surgical History / Comment(s): skin cancer removed from prakash arms and nose, prakash cataracts Past Anesthesia/Blood Transfusion Reactions: No Reported Reaction Additional Past Anesthesia/Blood Transfusion Reaction / Comment(s): . Past Psychological History: No Psychological Hx Reported Smoking Status: Never smoker Past Alcohol Use History: None Reported Past Drug Use History: None Reported - Past Family History Father Family Medical History: Cancer Additional Family Medical History / Comment(s): Father had kidney and colon cancers with surgeries. Mother Family Medical History: Eye Disorder, Osteoarthritis (OA) Additional Family Medical History / Comment(s): Mother had macular degeneration. Medications and Allergies Home Medications Medication Instructions Recorded Confirmed Type Warfarin [Coumadin] 2.5 mg PO SUMOWETHFR@2100 07/07/16 09/29/23 History Amiodarone HCl [Pacerone] 100 mg PO DAILY 09/29/23 09/29/23 History Atorvastatin [Lipitor] 20 mg PO HS 09/29/23 09/29/23 History Citalopram Hydrobromide [CeleXA] 40 mg PO HS 09/29/23 09/29/23 History Ergocalciferol (Vitamin D2) 1,250 mcg PO TH 09/29/23 09/29/23 History [Drisdol (50,000 Iu)] Furosemide [Lasix] 40 mg PO BID 09/29/23 09/29/23 History carvediloL [Coreg] 3.125 mg PO BID 09/29/23 09/29/23 History Allergies Allergy/AdvReac Type Severity Reaction Status Date / Time tramadol AdvReac Unknown Verified 09/29/23 18:26 Physical Exam Vitals: Vital Signs Temp Pulse Resp BP Pulse Ox 09/29/23 15:54 98.7 F 63 18 131/62 94 L Intake and Output 09/29/23 09/29/23 09/29/23 06:59 14:59 22:59 Other: Weight 181.891 kg Results CBC & Chem 7: 09/29/23 16:22 09/29/23 16:22 Labs: Abnormal Lab Results - Last 24 Hours (Table) 09/29/23 09/29/23 09/29/23 Range/Units 16:22 16:22 16:22 RBC 3.38 L (4.30-5.90) m/uL Hgb 10.7 L (13.0-17.5) gm/dL Hct 31.8 L (39.0-53.0) % Plt Count 135 L (150-450) k/uL BUN 58 H (9-20) mg/dL Creatinine 5.49 H (0.66-1.25) mg/dL Total Protein 6.2 L (6.3-8.2) g/dL Albumin 3.1 L (3.5-5.0) g/dL SARS-CoV-2 (PCR) Detected A (Not Detectd)
[2023-09-29 23:34] LABS: Partial Thromboplastin Time 40.9 sec (22.0-30.0); Prothrombin Time 53.7 sec (10.0-12.5)
[2023-09-29 23:48] LABS: INR 5.5 (<1.2)
[2023-09-30 07:58] LABS: Prothrombin Time 61.9 sec (10.0-12.5)
[2023-09-30 08:14] LABS: African American GFR (CKD) 11 (>60 ml/min/1.73 sqM); Anion Gap 7 mmol/L; Blood Urea Nitrogen 58 mg/dL (9-20); Calcium 8.5 mg/dL (8.4-10.2); Carbon Dioxide 24 mmol/L (22-30); Chloride 108 mmol/L (98-107); Glucose 87 mg/dL (74-99); Non-African American GFR(CKD) 9 (>60 ml/min/1.73 sqM); Potassium 4.4 mmol/L (3.5-5.1); Sodium 139 mmol/L (137-145)
[2023-09-30 08:18] LABS: INR 6.3 (<1.2)
[2023-09-30 09:09] LABS: Appearance,Urine Cloudy (Clear); Bacteria,Urine Rare /hpf; Bilirubin,Urine Negative (Negative); Blood,Urine Large (Negative); Color,Urine Yellow; Glucose,Urine (UA) Negative (Negative); Ketones,Urine Negative (Negative); Leukocyte Esterase,Urine Negative (Negative); Mucus,Urine Rare /hpf; Nitrite,Urine Negative (Negative); Protein,Urine Trace (Negative); RBC,Urine >182 /hpf (0-5); Specific Gravity,Urine 1.011 (1.001-1.035); Squamous Epithelial Cell,Urine 2 /hpf (0-4); Urobilinogen,Urine <2.0 mg/dL (<2.0); WBC,Urine 10 /hpf (0-5)
[2023-09-30] MEDS: AMIODARONE 100 MG TAB PO SCH (09:57)
[2023-09-30] MEDS: carvediloL 3.125 MG TAB PO SCH ×2 (09:57→18:11)
[2023-09-30 10:10] LABS: Basophils % (A) 0 %; Eosinophils # (A) 0.1 k/uL (0-0.7); Eosinophils % (A) 2 %; HCT 33.6 % (39.0-53.0); HGB 10.7 gm/dL (13.0-17.5); Lymphocytes % (A) 20 %; MCH 30.6 pg (25.0-35.0); MCHC 31.9 g/dL (31.0-37.0); MCV 95.9 fL (80.0-100.0); Mean Platelet Volume 10.6; Monocytes # (A) 0.4 k/uL (0-1.0); Monocytes % (A) 8 %; Neutrophils # (A) 3.4 k/uL (1.3-7.7); Neutrophils % (A) 67 %; Platelet Count 153 k/uL (150-450); RBC 3.51 m/uL (4.30-5.90); RDW 13.1 % (11.5-15.5); WBC 5.1 k/uL (3.8-10.6)
--- NOTE | 2023-09-30 12:13 | P.NPCON ---
History of Present Illness - Reason for Consult acute renal failure, chronic renal failure - History of Present Illness Reason for consultation: Acute kidney injury on chronic kidney disease History of present illness: Patient is a 78-year-old male seen in renal consultation for acute kidney injury on chronic kidney disease. Patient has chronic kidney disease stage V. Patient's creatinine in June 2023 was 4.3, GFR 13. This admission creatinine stable near 5.4 with GFR 9. Patient was referred for vein mapping but didn't get it done. Patient states he mostly stays at home and doesn't leave the house unless this by the ambulance. Patient states he recently got Ativan and now will be able to make it to appointments. Patient came to the hospital due to nausea and diarrhea going on for about 2 days. He also complained of bloating. Patient's CT showed nonobstructing right stone otherwise no acute changes. He has been waiting. Denies gross hematuria. Patient has a history of A. fib as well as DVT and is maintained on Coumadin. INR elevated at 6.3 this morning. Currently on room air. Denies use of nonsteroidals. Patient does have history of diabetes. Vital signs are stable. General: No acute distress. HEENT: Head exam is unremarkable. On nasal cannula. LUNGS: No audible rhonchi or wheezes. HEART: Rate and Rhythm are regular. ABDOMEN: Obese. EXTREMITITES: Lower extremities wrapped. Chronic changes noted. Chronic lymphedema. Past Medical History Past Medical History: Atrial Fibrillation, Cancer, Heart Failure, Deep Vein Thrombosis (DVT), Osteoarthritis (OA), Pulmonary Embolus (PE), Sleep Apnea/CPAP/BIPAP, Vascular Disorder Additional Past Medical History / Comment(s): L leg injuries, HX of DVT left leg 1995-traveled to [employer], PVD/venous stasis, chronic lymphedema legs, cellulitis L leg, past bilateral lower leg wounds-current wound lower left leg, MAIKOL with Cpap use, basal cell cancer removed from bilateral arms/nose. History of Any Multi-Drug Resistant Organisms: None Reported Past Surgical History: Tonsillectomy Additional Past Surgical History / Comment(s): skin cancer removed from prakash arms and nose, prakash cataracts Past Anesthesia/Blood Transfusion Reactions: No Reported Reaction Additional Past Anesthesia/Blood Transfusion Reaction / Comment(s): . Past Psychological History: No Psychological Hx Reported Smoking Status: Never smoker Past Alcohol Use History: None Reported Past Drug Use History: None Reported - Past Family History Father Family Medical History: Cancer Additional Family Medical History / Comment(s): Father had kidney and colon cancers with surgeries. Mother Family Medical History: Eye Disorder, Osteoarthritis (OA) Additional Family Medical History / Comment(s): Mother had macular degeneration. Medications and Allergies Home Medications Medication Instructions Recorded Confirmed Type Warfarin [Coumadin] 2.5 mg PO SUMOWETHFRSA@2100 07/07/16 09/29/23 History Amiodarone HCl [Pacerone] 100 mg PO DAILY 09/29/23 09/29/23 History Atorvastatin [Lipitor] 20 mg PO HS 09/29/23 09/29/23 History Citalopram Hydrobromide [CeleXA] 40 mg PO HS 09/29/23 09/29/23 History Ergocalciferol (Vitamin D2) 1,250 mcg PO TH 09/29/23 09/29/23 History [Drisdol (50,000 Iu)] Furosemide [Lasix] 40 mg PO BID 09/29/23 09/29/23 History carvediloL [Coreg] 3.125 mg PO BID 09/29/23 09/29/23 History Allergies Allergy/AdvReac Type Severity Reaction Status Date / Time tramadol AdvReac Unknown Verified 09/29/23 18:26 Physical Exam Vitals: Vital Signs Temp Pulse Resp BP Pulse Ox 09/30/23 08:54 65 18 151/77 97 09/30/23 04:00 64 16 131/106 95 09/30/23 02:00 69 16 126/67 95 09/30/23 00:00 63 16 118/62 93 L 09/29/23 21:00 73 18 117/69 95 09/29/23 15:54 98.7 F 63 18 131/62 94 L Intake and Output 09/29/23 09/30/23 09/30/23 22:59 06:59 14:59 Other: Weight 181.891 kg Results - Lab Results Most recent lab results Calcium 8.5 mg/dL (8.4-10.2) 09/30/23 07:32 Magnesium 2.0 mg/dL (1.6-2.3) 09/30/23 07:32 09/30/23 07:32 09/30/23 07:32 Assessment and Plan Plan: Assessment: 1. Chronic kidney disease stage V. Creatinine 5.5 this admission. Etiologies nephrosclerosis. CKD seems to have progressed as his creatinine in June 2023 was 4.3. No hydronephrosis noted on CAT scan. Atrophic kidneys. 2. Coagulopathy. Patient on Coumadin for DVT in A. fib. 3. History of A. fib maintained on amiodarone and beta abby. 4. Morbid obesity. 5. Chronic lymphedema. 6. Diabetes mellitus. 7. History of elevated light chains for which she was referred to hematology but never saw. 8. Anemia of chronic kidney disease. 9. Diarrhea. Rule out C. diff. Seems to have improved Plan: Decrease rate of normal saline to 50 mL an hour. Avoid nephrotoxins. Check serum free light chains, electrophoresis and immune fixation. Check iron studies. Discussed initiating renal replacement therapy due to severely depressed GFR. Patient agreeable to start. Consult vascular surgery for dialysis catheter placement. Plan for first treatment of hemodialysis tomorrow. Thank you for the consultation. I will continue to follow the patient with you during his hospital stay.
[2023-09-30 16:25] LABS: % Iron Saturation 37.16 (15.00-50.00)
--- NOTE | 2023-09-30 16:52 | P.PN ---
Subjective Progress Note Date: 09/30/23 No new complaints today. General: non toxic, no distress, appears at stated age Head: atraumatic, normocephalic, symmetric Eyes: EOMI, no lid lag, anicteric sclera, pupils equal round reactive to light ENT: Nose and ears atraumatic Mouth: no lip lesion, mucus membranes moist Abdominal: soft, nontender to palpation, no guarding Neuro: CN II-XI grossly intact, no gross focal neuro deficits Psych: Alert, oriented, appropriate affect Hospital Course: Patient is a 78-year-old male with a PMH of A. fib and PE on Coumadin, CKD, CHF, MAIKOL on CPAP, PVD with bilateral lower extremity lymphedema and chronic lower extremity wounds who presents to the emergency room with complaints of diarrhea and weakness. Patient reports he has been experiencing watery nonbloody and non-mucousy diarrhea for the past 1 week, 4-[address] abdomen and pelvis in the emergency room revealed a nonobstructing 6.4 mm right renal calculus with marked left hip osteoarthritic changes. Laboratory evaluation was remarkable for a woman 10.7, platelets 135, BUN 58, creatinine 5.49, COVID-19 PCR positive. Assessment: Diarrhea, following courses of antibiotics, rule out C. diff COVID-19 testing positive, likely residual from recent infection last month ESRD, with plans of initiating dialysis Thrombocytopenia, no recent baseline available for comparison Chronic conditions: A. fib and PE history on Coumadin, CHF, MAIKOL Imaging: CT abdomen and pelvis in the emergency room revealed a nonobstructing 6.4 mm right renal calculus with marked left hip osteoarthritic changes. Data Review: Laboratory evaluation was remarkable for a woman 10.7, platelets 135, BUN 58, creatinine 5.49, COVID-19 PCR positive. Plan: Follow-up C. diff testing and stool culture Check calprotectin levels Obtain nephrology consult Continue with home medications PT consult Hold home lasix for now DVT prophylaxis: Coumadin The patient is admitted with an anticipated greater than 2 midnight stay for evaluation of diarrhea CODE STATUS: Full Code Discussed with: Patient Anticipated discharge place: Home Objective - Vital Signs Vital signs: Vital Signs Temp 98.7 F 09/29/23 15:54 Pulse 61 09/30/23 16:17 Resp 18 09/30/23 16:17 BP 112/66 09/30/23 16:17 Pulse Ox 99 09/30/23 16:17 FiO2 Intake & Output 09/29/23 09/30/23 09/30/23 18:59 06:59 18:59 Weight 181.891 kg - Labs CBC & Chem 7: 09/30/23 07:32 09/30/23 07:32 Labs: Abnormal Lab Results - Last 24 Hours (Table) 09/29/23 09/29/23 09/29/23 Range/Units 16:22 16:22 22:00 RBC (4.30-5.90) m/uL Hgb (13.0-17.5) gm/dL Hct (39.0-53.0) % PT 53.7 H (10.0-12.5) sec INR 5.5 H* (<1.2) APTT 40.9 H (22.0-30.0) sec Chloride (98-107) mmol/L BUN 58 H (9-20) mg/dL Creatinine 5.49 H (0.66-1.25) mg/dL TIBC (228-460) UG/DL Transferrin (204.0-354.0) mg/dL Ferritin (22.0-322.0) ng/mL Total Protein 6.2 L (6.3-8.2) g/dL Albumin 3.1 L (3.5-5.0) g/dL Urine Protein (Negative) Urine Blood (Negative) Urine RBC (0-5) /hpf Urine WBC (0-5) /hpf Urine Bacteria (None) /hpf Urine Mucus (None) /hpf SARS-CoV-2 (PCR) Detected A (Not Detectd) 09/30/23 09/30/23 09/30/23 Range/Units 07:32 07:32 07:32 RBC 3.51 L (4.30-5.90) m/uL Hgb 10.7 L (13.0-17.5) gm/dL Hct 33.6 L (39.0-53.0) % PT 61.9 H (10.0-12.5) sec INR 6.3 H* (<1.2) APTT (22.0-30.0) sec Chloride 108 H (98-107) mmol/L BUN 58 H (9-20) mg/dL Creatinine 5.45 H (0.66-1.25) mg/dL TIBC (228-460) UG/DL Transferrin (204.0-354.0) mg/dL Ferritin (22.0-322.0) ng/mL Total Protein (6.3-8.2) g/dL Albumin (3.5-5.0) g/dL Urine Protein (Negative) Urine Blood (Negative) Urine RBC (0-5) /hpf Urine WBC (0-5) /hpf Urine Bacteria (None) /hpf Urine Mucus (None) /hpf SARS-CoV-2 (PCR) (Not Detectd) 09/30/23 09/30/23 Range/Units 08:40 12:30 RBC (4.30-5.90) m/uL Hgb (13.0-17.5) gm/dL Hct (39.0-53.0) % PT (10.0-12.5) sec INR (<1.2) APTT (22.0-30.0) sec Chloride (98-107) mmol/L BUN (9-20) mg/dL Creatinine (0.66-1.25) mg/dL TIBC 183 L (228-460) UG/DL Transferrin 131.0 L (204.0-354.0) mg/dL Ferritin 916.0 H (22.0-322.0) ng/mL Total Protein (6.3-8.2) g/dL Albumin (3.5-5.0) g/dL Urine Protein Trace H (Negative) Urine Blood Large H (Negative) Urine RBC >182 H (0-5) /hpf Urine WBC 10 H (0-5) /hpf Urine Bacteria Rare H (None) /hpf Urine Mucus Rare H (None) /hpf SARS-CoV-2 (PCR) (Not Detectd)
[2023-09-30 17:08] LABS: Protein, Total 5.6 g/dL (6.2-8.2)
[2023-09-30] MEDS ORDERED: WARFARIN 0.5 MG TAB PO ONE (18:00)
[2023-09-30] MEDS ORDERED: WARFARIN 5 MG TAB PO SCH (21:00)
[2023-09-30] MEDS: ATORVASTATIN 20 MG TAB PO SCH (21:09)
[2023-09-30] MEDS: CITALOPRAM HYDROBROMIDE 20 MG TAB PO SCH (21:09)
[2023-10-01 06:24] LABS: Prothrombin Time 71.3 sec (10.0-12.5)
[2023-10-01 06:29] LABS: INR 7.2 (<1.2)
[2023-10-01] MEDS: carvediloL 3.125 MG TAB PO SCH ×2 (06:42→17:15)
[2023-10-01] MEDS: AMIODARONE 100 MG TAB PO SCH (08:31)
--- NOTE | 2023-10-01 11:15 | P.PN ---
Subjective Patient is seen in follow-up for acute kidney injury on chronic kidney disease. Resting in bed. On nasal cannula. Has been voiding. Oral intake fair. Vital signs are stable. General: No acute distress. HEENT: Head exam is unremarkable. LUNGS: No audible rhonchi or wheezes. HEART: Rate and Rhythm are regular. ABDOMEN: Nontender. EXTREMITITES: Trace edema. Chronic kidney disease noted. Objective - Vital Signs Vital signs: Vital Signs Temp 97.8 F 10/01/23 07:07 Pulse 67 10/01/23 07:07 Resp 18 10/01/23 07:07 BP 126/63 10/01/23 07:07 Pulse Ox 96 10/01/23 07:07 FiO2 Intake & Output 09/30/23 10/01/23 10/01/23 18:59 06:59 18:59 Intake Total 1461 Output Total 1 Balance 1460 Weight 181.891 kg Intake: Oral 1461 Output: Stool 1 Other: Voiding Method Urinal # Voids 2 - Labs CBC & Chem 7: 09/30/23 07:32 09/30/23 07:32 Labs: Abnormal Lab Results - Last 24 Hours (Table) 09/30/23 09/30/23 10/01/23 Range/Units 12:30 12:30 05:33 PT 71.3 H (10.0-12.5) sec INR 7.2 H* (<1.2) TIBC 183 L (228-460) UG/DL Transferrin 131.0 L (204.0-354.0) mg/dL Ferritin 916.0 H (22.0-322.0) ng/mL Total Protein (PEP) 5.6 L (6.2-8.2) g/dL Albumin (PEP) 3.0 L (3.8-4.9) g/dL Assessment and Plan Plan: Assessment: 1. Chronic kidney disease stage V. Creatinine 5.5 this admission. Etiology is nephrosclerosis. CKD seems to have progressed as his creatinine in June 2023 was 4.3. No hydronephrosis noted on CAT scan. Atrophic kidneys. 2. Coagulopathy. Patient on Coumadin for DVT in A. fib. 3. History of A. fib maintained on amiodarone and beta abby. 4. Morbid obesity. 5. Chronic lymphedema. 6. Diabetes mellitus. 7. History of elevated light chains for which she was referred to hematology but never saw. 8. Anemia of chronic kidney disease. Iron replete. 9. Diarrhea. C. diff negative. Seems to have improved. 10. Acute COVID-19 infection. Plan: Maintain gentle IV hydration. Avoid nephrotoxins. Check phosphorus level. Follow-up serum free light chains, electrophoresis and immunofixation. Discussed initiating renal replacement therapy due to severely depressed GFR. Patient agreeable to start. Awaits permacath placement due to elevated INR. Vitamin K being given today. Follow-up morning labs.
[2023-10-01] MEDS ORDERED: PHYTONADIONE ORAL 5 MG/5 ML ORAL.SYRG PO STA (12:04)
--- NOTE | 2023-10-01 12:35 | P.GSCN ---
History of Present Illness History of present illness: 78-year-old gentleman history of acute chronic renal failure. Patient has a high creatinine 5.3 patient also has history of atrial fibrillation on Coumadin PT 71.3 ionized 7.3 Consulted for placement of a dialysis catheter. Patient was seen in the room patient has a cannula Chest is clear first and second sound present few rhonchi at the lung bases Abdomen soft nontender femorals are 1+ Plan is placement of dialysis catheter discuss with internal medicine patient should be on table K to bring the PT/INR down we'll follow with you as soon as possible and we will place callus catheter Past Medical History Past Medical History: Atrial Fibrillation, Cancer, Heart Failure, Deep Vein Thrombosis (DVT), Osteoarthritis (OA), Pulmonary Embolus (PE), Sleep Apnea/CPAP/BIPAP, Vascular Disorder Additional Past Medical History / Comment(s): L leg injuries, HX of DVT left leg 1995[place] [facility] [place]/venous stasis, chronic lymphedema legs, cellulitis L leg, past bilateral lower leg wounds-current wound lower left leg, MAIKOL with Cpap use, basal cell cancer removed from bilateral arms/nose. History of Any Multi-Drug Resistant Organisms: None Reported Past Surgical History: Tonsillectomy Additional Past Surgical History / Comment(s): skin cancer removed from prakash arms and nose, prakash cataracts Past Anesthesia/Blood Transfusion Reactions: No Reported Reaction Additional Past Anesthesia/Blood Transfusion Reaction / Comm: . 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 No recent travel. Pet dogs lives with family. No ill contacts. Denies any significant history of tobacco use or other drug use. Smoking Status: Never smoker Past Alcohol Use History: None Reported Additional Past Alcohol Use History / Comment(s): Pt states he was a heavy drinker in the past but now only rarely. Past Drug Use History: None Reported - Past Family History Father Family Medical History: Cancer Additional Family Medical History / Comment(s): Father had kidney and colon canc ers with surgeries. Mother Family Medical History: Eye Disorder, Osteoarthritis (OA) Additional Family Medical History / Comment(s): Mother had macular degeneration. Medications and Allergies Home Medications Medication Instructions Recorded Confirmed Type Warfarin [Coumadin] 2.5 mg PO SUMOWETHFRSA@2100 07/07/16 09/29/23 History Amiodarone HCl [Pacerone] 100 mg PO DAILY 09/29/23 09/29/23 History Atorvastatin [Lipitor] 20 mg PO HS 09/29/23 09/29/23 History Citalopram Hydrobromide [CeleXA] 40 mg PO HS 09/29/23 09/29/23 History Ergocalciferol (Vitamin D2) 1,250 mcg PO TH 09/29/23 09/29/23 History [Drisdol (50,000 Iu)] Furosemide [Lasix] 40 mg PO BID 09/29/23 09/29/23 History carvediloL [Coreg] 3.125 mg PO BID 09/29/23 09/29/23 History Allergies Allergy/AdvReac Type Severity Reaction Status Date / Time tramadol AdvReac Unknown Verified 09/29/23 18:26 Surgical - Exam Vital Signs Temp Pulse Resp BP Pulse Ox 98.7 F 63 18 131/62 94 L 09/29/23 15:54 09/29/23 15:54 09/29/23 15:54 09/29/23 15:54 09/29/23 15:54 Results - Labs 09/30/23 07:32 09/30/23 07:32 Abnormal Lab Results - Last 24 Hours (Table) 09/30/23 09/30/23 10/01/23 Range/Units 12:30 12:30 05:33 PT 71.3 H (10.0-12.5) sec INR 7.2 H* (<1.2) TIBC 183 L (228-460) UG/DL Transferrin 131.0 L (204.0-354.0) mg/dL Ferritin 916.0 H (22.0-322.0) ng/mL Total Protein (PEP) 5.6 L (6.2-8.2) g/dL Albumin (PEP) 3.0 L (3.8-4.9) g/dL
[2023-10-01 12:53] LABS: African American GFR (CKD) 10 (>60 ml/min/1.73 sqM); Anion Gap 5 mmol/L; Blood Urea Nitrogen 62 mg/dL (9-20); Calcium 8.1 mg/dL (8.4-10.2); Carbon Dioxide 25 mmol/L (22-30); Chloride 109 mmol/L (98-107); Glucose 119 mg/dL (74-99); Magnesium 2.1 mg/dL (1.6-2.3); Non-African American GFR(CKD) 9 (>60 ml/min/1.73 sqM); Phosphorus 4.1 mg/dL (2.5-4.5); Potassium 3.8 mmol/L (3.5-5.1); Sodium 139 mmol/L (137-145)
[2023-10-01] MEDS: SODIUM CHLORIDE 0.9% 1,000 ML IV SCH (12:56)
[2023-10-01] MEDS ORDERED: PHYTONADIONE 2 MG in SODIUM CHLORIDE 0.9% 50 ML IVPB STA (14:01)
[2023-10-01 15:01] VITALS: BMI 52.9
[2023-10-01] MEDS: PSYLLIUM HUSK 100% 6 GM PACKET PO SCH (16:34)
[2023-10-01] MEDS ORDERED: WARFARIN 0.5 MG TAB PO ONE (18:00)
[2023-10-01] MEDS: ATORVASTATIN 20 MG TAB PO SCH (20:25)
[2023-10-01] MEDS: CITALOPRAM HYDROBROMIDE 20 MG TAB PO SCH (20:25)
--- NOTE | 2023-10-01 23:39 | P.PN ---
Progress Note - Text Progress Note Date: 10/01/23 Hospital Course: Patient is a 78-year-old male with a PMH of A. fib and PE on Coumadin, CKD, CHF, MAIKOL on CPAP, PVD with bilateral lower extremity lymphedema and chronic lower extremity wounds who presents to the emergency room with complaints of diarrhea and weakness. Patient reports he has been experiencing watery nonbloody and non-mucousy diarrhea for the past 1 week, 4-[address] abdomen and pelvis in the emergency room revealed a nonobstructing 6.4 mm right renal calculus with marked left hip osteoarthritic changes. Laboratory evaluation was remarkable for a woman 10.7, platelets 135, BUN 58, creatinine 5.49, COVID-19 PCR positive. 10/01/2023: Patient diarrhea is resolved. Has had one BM since last night. Appetite is good. Metamucil is being added. Patient looking to going for dialysis catheter placement tomorrow by Dr. Emery. INR is 7.2. Initially 2.5 mg of oral vitamin K was given. And subsequently IV piggyback 2.5 mg was also ordered. We will check INR later tonight. Discussed with Dr. Emery. Discussed with the patient and the nurse. Active Medications Amiodarone HCl (Amiodarone 100 Mg Tab) 100 mg PO DAILY [facility] Last Admin: 10/01/23 08:31 Dose: 100 mg Atorvastatin Calcium (Atorvastatin 20 Mg Tab) 20 mg PO [facility] Last Admin: 10/01/23 20:25 Dose: 20 mg Carvedilol (Carvedilol 3.125 Mg Tab) 3.125 mg PO BID-W/MEALS [facility] Last Admin: 10/01/23 17:15 Dose: 3.125 mg Citalopram Hydrobromide (Citalopram Hydrobromide 20 Mg Tab) 40 mg PO HS [facility] Last Admin: 10/01/23 20:25 Dose: 40 mg Sodium Chloride (Saline 0.9%) 1,000 mls @ 50 mls/hr IV .Q20H [facility] Last Admin: 10/01/23 12:56 Dose: 50 mls/hr Miscellaneous Information (Warfarin Per Pharmacy) 0 each MISCELLANE DIRECTED PRN PRN Reason: ANTICOAGULATION Naloxone HCl (Naloxone 0.4 Mg/Ml 1 Ml Vial) 0.2 mg IV Q2M PRN PRN Reason: Opioid Reversal Ondansetron HCl (Ondansetron 4 Mg/2 Ml Vial) 4 mg IVP Q8HR PRN PRN Reason: Nausea And Vomiting Psyllium Hydrophilic Mucilloid (Psyllium Husk 100% 6 Gm Packet) 6 gm PO DAILY [facility] Last Admin: 10/01/23 16:34 Dose: 6 gm On examination: VITAL SIGNS: [97.4, 58, 18, 84/50, 94% on 3 L] GENERAL APPEARANCE: Reclining bed, comfortable HEENT: Normal external appearance of nose and ear. Oral cavity normal EYES: Pupils equal. Conjunctiva normal. NECK: JVD not raised. Mass not palpable. RESPIRATORY: Respiratory effort normal. Lungs clear to auscultation. CARDIOVASCULAR: First and second sounds normal. No edema. ABDOMEN: Soft. Liver and spleen not palpable. No tenderness. No mass palpable. PSYCHIATRY: Alert and oriented x3. Mood and affect normal. INVESTIGATIONS, reviewed in the clinical context: October 01: INR 7.2 BUN [address] abdomen and pelvis in the emergency room revealed a nonobstructing 6.4 mm right renal calculus with marked left hip osteoarthritic changes. Assessment and plan: -Chronic kidney disease stage V. Creatinine 5.5 on admission. It was 4.3 in June 2023. Atrophic kidneys.: Not improving Being followed by nephrology. -Coumadin coagulopathy. No bleeding.: Uncontrolled He'll be given vitamin K so patient can have dialysis catheter placed tomorrow. -Atrial fibrillation On Coumadin. Currently held. Amiodarone. -Hyperlipidemia Lipitor -Chronic DVT and PE On Coumadin -Chronic obstructive sleep apnea CPAP -Primary osteoarthritis 8 control when necessary -Chronic lymphedema lower extremity with venous stasis. -Full code
[2023-10-02 00:17] LABS: Prothrombin Time 29.4 sec (10.0-12.5)
[2023-10-02] MEDS: carvediloL 3.125 MG TAB PO SCH ×2 (05:58→18:28)
[2023-10-02] MEDS: SODIUM CHLORIDE 0.9% 1,000 ML IV SCH ×2 (05:58→20:19)
[2023-10-02 07:00] LABS: INR 2.2 (<1.2); Prothrombin Time 22.3 sec (10.0-12.5)
[2023-10-02] MEDS: PSYLLIUM HUSK 100% 6 GM PACKET PO SCH (08:02)
[2023-10-02] MEDS: AMIODARONE 100 MG TAB PO SCH (08:02)
[2023-10-02 09:10] LABS: BUN/Creat Ratio 10.27 Ratio (12.00-20.00); Blood Urea Nitrogen 61.6 mg/dL (9.0-27.0); Calcium 8.3 mg/dL (8.7-10.3); Carbon Dioxide 22.4 mmol/L (21.6-31.8); Chloride 106 mmol/L (96-109); Glucose 86 mg/dL (70-110); Magnesium 2.1 mg/dL (1.5-2.4); Potassium 4.3 mmol/L (3.5-5.5); Sodium 141 mmol/L (135-145)
[2023-10-02] MEDS ORDERED: LIDOCAINE 1% INJ 10MG/ML (30 ML VIAL-PF) SQ ONE (10:13)
--- NOTE | 2023-10-02 10:46 | P.PN ---
Subjective Patient is seen in follow-up for acute kidney injury on chronic kidney disease. Resting in bed. On nasal cannula. Has been voiding. Oral intake fair. Permacath placement pending. Vital signs are stable. General: No acute distress. HEENT: Head exam is unremarkable. LUNGS: No audible rhonchi or wheezes. HEART: Rate and Rhythm are regular. ABDOMEN: Nontender. EXTREMITITES: Trace edema. Chronic changes noted. Objective - Vital Signs Vital signs: Vital Signs Temp 98.1 F 10/02/23 07:00 Pulse 63 10/02/23 07:00 Resp 19 10/02/23 07:00 BP 121/48 10/02/23 07:00 Pulse Ox 94 L 10/02/23 07:00 FiO2 Intake & Output 10/01/23 10/02/23 10/02/23 18:59 06:59 18:59 Intake Total 118 Output Total 300 300 Balance -182 -300 Weight 181.891 kg Intake: Oral 118 Output: Urine 300 300 Other: Voiding Method Urinal # Bowel Movements 1 - Labs CBC & Chem 7: 09/30/23 07:32 10/02/23 05:25 Labs: Abnormal Lab Results - Last 24 Hours (Table) 10/01/23 10/01/23 10/02/23 Range/Units 11:33 23:52 05:25 PT 29.4 H 22.3 H (10.0-12.5) sec INR 3.0 H 2.2 H (<1.2) Chloride 109 H (98-107) mmol/L Anion Gap (4.00-12.00) mmol/L BUN 62 H (9-20) mg/dL Creatinine 5.57 H (0.66-1.25) mg/dL Est GFR (CKD-EPI) (>=60) BUN/Creatinine Ratio (12.00-20.00) Ratio Glucose 119 H (74-99) mg/dL Calcium 8.1 L (8.4-10.2) mg/dL 10/02/23 Range/Units 05:25 PT (10.0-12.5) sec INR (<1.2) Chloride (98-107) mmol/L Anion Gap 12.60 H (4.00-12.00) mmol/L BUN 61.6 H (9-20) mg/dL Creatinine 6.0 H (0.66-1.25) mg/dL Est GFR (CKD-EPI) 9 L (>=60) BUN/Creatinine Ratio 10.27 L (12.00-20.00) Ratio Glucose (74-99) mg/dL Calcium 8.3 L (8.4-10.2) mg/dL Assessment and Plan Plan: Assessment: 1. Chronic kidney disease stage V. Creatinine 5.5 this admission - 6.0 today. Etiology is nephrosclerosis. CKD seems to have progressed as his creatinine in June 2023 was 4.3. No hydronephrosis noted on CAT scan. Atrophic kidneys. 2. Coagulopathy. Patient on Coumadin for DVT in A. fib. Improved. 3. History of A. fib maintained on amiodarone and beta abby. 4. Morbid obesity. 5. Chronic lymphedema. 6. Diabetes mellitus. 7. History of elevated light chains for which she was referred to hematology but never saw. 8. Anemia of chronic kidney disease. Iron replete. 9. Diarrhea. C. diff negative. Seems to have improved. 10. Acute COVID-19 infection. Plan: Maintain gentle IV hydration. Avoid nephrotoxins. Phosphorus level 4.1 dated 10/01/2023. Follow-up serum free light chains, electrophoresis and immunofixation. Discussed initiating renal replacement therapy due to severely depressed GFR. Patient agreeable to start. Awaits permacath placement. Plan for first treatment of hemodialysis tomorrow.
--- NOTE | 2023-10-02 11:57 | XR ---
EXAMINATION TYPE: XR chest 1V confirm line [facility] DATE OF EXAM: 10/02/2023 COMPARISON: 11/06/2018 HISTORY: Line placement TECHNIQUE: Single frontal view of the chest is obtained. FINDINGS: There is a permacatheter entering the right jugular vein and terminating the SVC/RA junction. There i s no pneumothorax. There are no pleural effusions. There is mild cardiomegaly but no acute cardiopulmonary disease. The osseous structures are intact IMPRESSION: Right jugular permacatheter tip in the SVC/RA junction. No pneumothorax. No acute cardiopulmonary dis ease.
[2023-10-02] MEDS ORDERED: WARFARIN 1 MG TAB PO ONE (18:00)
[2023-10-02] MEDS: CITALOPRAM HYDROBROMIDE 20 MG TAB PO SCH (20:19)
[2023-10-02] MEDS: ATORVASTATIN 20 MG TAB PO SCH (20:19)
--- NOTE | 2023-10-02 21:26 | P.PN ---
Progress Note - Text Progress Note Date: 10/02/23 Hospital Course: Patient is a 78-year-old male with a PMH of A. fib and PE on Coumadin, CKD, CHF, MAIKOL on CPAP, PVD with bilateral lower extremity lymphedema and chronic lower extremity wounds who presents to the emergency room with complaints of diarrhea and weakness. Patient reports he has been experiencing watery nonbloody and non-mucousy diarrhea for the past 1 week, 4-[address] abdomen and pelvis in the emergency room revealed a nonobstructing 6.4 mm right renal calculus with marked left hip osteoarthritic changes. Laboratory evaluation was remarkable for a woman 10.7, platelets 135, BUN 58, creatinine 5.49, COVID-19 PCR positive. 10/01/2023: Patient diarrhea is resolved. Has had one BM since last night. Appetite is good. Metamucil is being added. Patient looking to going for dialysis catheter placement tomorrow by Dr. Emery. INR is 7.2. Initially 2.5 mg of oral vitamin K was given. And subsequently IV piggyback 2.5 mg was also ordered. We will check INR later tonight. Discussed with Dr. Emery. Discussed with the patient and the nurse. 10/02/2023: Right IJ dialysis catheter placed per Dr. Emery. INR was down to 2.2 this morning. Nephrology discussed with the patient and patient agreeable to starting dialysis. Plan for dialysis tomorrow. Active Medications Amiodarone HCl (Amiodarone 100 Mg Tab) 100 mg PO DAILY [facility] Last Admin: 10/02/23 08:02 Dose: Not Given Atorvastatin Calcium (Atorvastatin 20 Mg Tab) 20 mg PO [facility] Last Admin: 10/02/23 20:19 Dose: 20 mg Carvedilol (Carvedilol 3.125 Mg Tab) 3.125 mg PO BID-W/MEALS [facility] Last Admin: 10/02/23 18:28 Dose: 3.125 mg Citalopram Hydrobromide (Citalopram Hydrobromide 20 Mg Tab) 40 mg PO [facility] Last Admin: 10/02/23 20:19 Dose: 40 mg Sodium Chloride (Saline 0.9%) 1,000 mls @ 50 mls/hr IV .Q20H [facility] Last Admin: 10/02/23 20:19 Dose: 50 mls/hr Miscellaneous Information (Warfarin Per Pharmacy) 0 each MISCELLANE DIRECTED PRN PRN Reason: ANTICOAGULATION Naloxone HCl (Naloxone 0.4 Mg/Ml 1 Ml Vial) 0.2 mg IV Q2M PRN PRN Reason: Opioid Reversal Ondansetron HCl (Ondansetron 4 Mg/2 Ml Vial) 4 mg IVP Q8HR PRN PRN Reason: Nausea And Vomiting Psyllium Hydrophilic Mucilloid (Psyllium Husk 100% 6 Gm Packet) 6 gm PO DAILY [facility] Last Admin: 10/02/23 08:02 Dose: Not Given On examination: VITAL SIGNS: 97.7, C3, 19, 95/54, 94% room air GENERAL APPEARANCE: Reclining bed, comfortable him a tired right IJ PermCath HEENT: Normal external appearance of nose and ear. Oral cavity normal EYES: Pupils equal. Conjunctiva normal. NECK: JVD not raised. Mass not palpable. RESPIRATORY: Respiratory effort normal. Lungs clear to auscultation. CARDIOVASCULAR: First and second sounds normal. No edema. ABDOMEN: Soft. Liver and spleen not palpable. No tenderness. No mass palpable. PSYCHIATRY: Alert and oriented x3. Mood and affect normal. INVESTIGATIONS, reviewed in the clinical context: October 02: INR 2.2 potassium 4.3 creatinine 6 October 01: INR 7.2 BUN [address] abdomen and pelvis in the emergency room revealed a nonobstructing 6.4 mm right renal calculus with marked left hip osteoarthritic changes. Assessment and plan: -Chronic kidney disease stage V. Creatinine 5.5 on admission. It was 4.3 in June 2023. Atrophic kidneys.: Worsening PermCath placed by Dr. Emery today. Right IJ Plan for patient to have dialysis is being started tomorrow. 9 -Coumadin coagulopathy. No bleeding.: Improved Patient received a total of 4.5 mg of vitamin K yesterday. -Atrial fibrillation On Coumadin. Currently held. Amiodarone. -Hyperlipidemia Lipitor -Chronic DVT and PE On Coumadin -Chronic obstructive sleep apnea CPAP -Primary osteoarthritis Pain control when necessary -Chronic lymphedema lower extremity with venous stasis. -Full code
[2023-10-03] MEDS: carvediloL 3.125 MG TAB PO SCH ×2 (06:01→17:39)
[2023-10-03 06:08] LABS: INR 1.3 (<1.2); Prothrombin Time 13.8 sec (10.0-12.5)
[2023-10-03] MEDS: PSYLLIUM HUSK 100% 6 GM PACKET PO SCH (08:09)
[2023-10-03] MEDS: AMIODARONE 100 MG TAB PO SCH (08:09)
--- NOTE | 2023-10-03 08:44 | IR ---
PICC Insertion: EXAMINATION TYPE: IR cvc insert central tunneled Intraoperative/procedural fluoroscopic services were provided. CLINICAL INDICATION:Male, 78 years old with history of RENAL FAILURE, 0.7MIN 23CM; , [facility] Total fluoroscopy time is 0.7 min. DAP: 557.02 uGycm2 Please see the operative/procedural note for further details.
--- NOTE | 2023-10-03 11:32 | P.PN ---
Subjective Patient is seen for follow-up for end-stage renal disease. Started on hemodialysis this admission Patient is seen on hemodialysis. He is tolerating his treatment well. Objective - Vital Signs Vital signs: Vital Signs Temp 97.8 F 10/03/23 07:12 Pulse 65 10/03/23 07:40 Resp 19 10/03/23 07:40 BP 105/63 10/03/23 07:12 Pulse Ox 95 10/03/23 07:12 FiO2 Intake & Output 10/02/23 10/03/23 10/03/23 18:59 06:59 18:59 Output Total 301 400 176 Balance -301 -400 -176 Output: Urine 300 400 175 Stool 1 1 Other: Voiding Method Urinal Urinal Urinal # Voids 1 - Exam Patient is awake, comfortable, no acute distress. Lungs show decreased breath sounds at bases, CVS S1 and S2 Abdomen is morbidly obese. Extremities are wrapped. Significant lymphedema [employer] exam is intact. - Labs CBC & Chem 7: 09/30/23 07:32 10/02/23 05:25 Labs: Abnormal Lab Results - Last 24 Hours (Table) 10/03/23 Range/Units 05:31 PT 13.8 H (10.0-12.5) sec INR 1.3 H (<1.2) Microbiology - Last 24 Hours (Table) 09/29/23 16:22 Stool Culture - Preliminary Stool Assessment and Plan Assessment: . Chronic kidney disease stage V. Creatinine 5.5 this admission - 6.0 Etiology is nephrosclerosis. CKD seems to have progressed as his creatinine in June 2023 was 4.3. No hydronephrosis noted on CAT scan. Atrophic kidneys. 2. Coagulopathy. Patient on Coumadin for DVT in A. fib. Improved. 3. History of A. fib maintained on amiodarone and beta abby. 4. Morbid obesity. 5. Chronic lymphedema. 6. Diabetes mellitus. 7. History of elevated light chains for which she was referred to hematology but never saw. 8. Anemia of chronic kidney disease. Iron replete. 9. Diarrhea. C. diff negative. Seems to have improved. 10. Acute COVID-19 infection. Plan: Discharge planning to arrange out pt HD HD in am.
--- NOTE | 2023-10-03 12:27 | P.CONS ---
History of Present Illness - Reason for Consult Consult date: 10/03/23 wound care - History of Present Illness This is a 78-year-old gentleman with history of diabetes chronic venous hypertension who wears CircAid daily. Patient has a nonhealing ulceration to the left lower extremity posterior aspect. The ulceration measures approximately 0.4 x 0.4 x 0 0.1 mL Limited to skin breakdown with granulation and slough noted. Patient has 1+ edema noted bilaterally. Patient states that the ulceration has been there for a few weeks and has progressively gotten better. He utilizes Silvadene at home. Review Of Systems: Constitutional: No fever, no chills, no night sweats. No weight change. No weakness, fatigue or lethargy. No daytime sleepiness. Integumentary:reports wounds, no lesions. No rash or pruritus. No unusual bruising. No change in hair or nails. Physical exam: General Appearance: Alert, cooperative, no distress, appears stated age. Skin: See HPI all other Skin color, texture, tugor normal, no rashes or lesions. Neurologic: Alert oriented x3 Assessment: 1. Nonhealing ulceration left lower extremity Limited to skin breakdown 2. Chronic venous hypertension with inflammation and ulceration of left lower extremity 3. Chronic venous hypertension with inflammation right lower extremity 4. Diabetes with skin ulceration Plan: 1. Apply zinc to the ulceration wrap with gauze and secure with tape. Utilize CircAid daily. Continue to elevate legs 30 minutes 3 times a day. Thank you for the consultation any questions contact the wound care center DNP note has been reviewed and discussed with Dr. Elizabeth and the impression and plan of care has been directed as dictated. Past Medical History Past Medical History: Atrial Fibrillation, Cancer, Heart Failure, Deep Vein Thrombosis (DVT), Osteoarthritis (OA), Pulmonary Embolus (PE), Sleep Apnea/CPAP/BIPAP, Vascular Disorder Additional Past Medical History / Comment(s): L leg injuries, HX of DVT left leg 1995-traveled to lung, PVD/venous stasis, chronic lymphedema legs, cellulitis L leg, past bilateral lower leg wounds-current wound lower left leg, MAIKOL with Cpap use, basal cell cancer removed from bilateral arms/nose. History of Any Multi-Drug Resistant Organisms: None Reported Past Surgical History: Tonsillectomy Additional Past Surgical History / Comment(s): skin cancer removed from prakash arms and nose, prakash cataracts Past Anesthesia/Blood Transfusion Reactions: No Reported Reaction Additional Past Anesthesia/Blood Transfusion Reaction / Comm: . 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 No recent travel. Pet dogs lives with family. No ill contacts. Denies any significant history of tobacco use or other drug use. Smoking Status: Never smoker Past Alcohol Use History: None Reported Additional Past Alcohol Use History / Comment(s): Pt states he was a heavy drinker in the past but now only rarely. Past Drug Use History: None Reported - Past Family History Father Family Medical History: Cancer Additional Family Medical History / Comment(s): Father had kidney and colon cancers with surgeries. Mother Family Medical History: Eye Disorder, Osteoarthritis (OA) Additional Family Medical History / Comment(s): Mother had macular degeneration. Medications and Allergies Home Medications Medication Instructions Recorded Confirmed Type Warfarin [Coumadin] 2.5 mg PO SUMOWETHFRSA@2100 07/07/16 09/29/23 History Amiodarone HCl [Pacerone] 100 mg PO DAILY 09/29/23 09/29/23 History Atorvastatin [Lipitor] 20 mg PO HS 09/29/23 09/29/23 History Citalopram Hydrobromide [CeleXA] 40 mg PO HS 09/29/23 09/29/23 History Ergocalciferol (Vitamin D2) 1,250 mcg PO TH 09/29/23 09/29/23 History [Drisdol (50,000 Iu)] Furosemide [Lasix] 40 mg PO BID 09/29/23 09/29/23 History carvediloL [Coreg] 3.125 mg PO BID 09/29/23 09/29/23 History Allergies Allergy/AdvReac Type Severity Reaction Status Date / Time tramadol AdvReac Unknown Verified 09/29/23 18:26 Physical Exam Vitals: Vital Signs Temp Pulse Resp BP Pulse Ox 10/03/23 07:40 65 19 10/03/23 07:12 97.8 F 65 19 105/63 95 10/03/23 02:12 97.6 F 63 18 113/67 94 L 10/02/23 19:43 97.7 F 65 18 115/67 94 L 10/02/23 17:51 64 124/64 10/02/23 13:43 97.7 F 63 19 95/54 94 L Intake and Output 10/02/23 10/03/23 10/03/23 22:59 06:59 14:59 Output Total 300 400 176 Balance -300 -400 -176 Output: Urine 300 400 175 Stool 1 Other: Voiding Method Urinal Urinal # Voids 1 Results CBC & Chem 7: 09/30/23 07:32 10/02/23 05:25 Labs: Abnormal Lab Results - Last 24 Hours (Table) 10/03/23 Range/Units 05:31 PT 13.8 H (10.0-12.5) sec INR 1.3 H (<1.2) Microbiology - Last 24 Hours (Table) 09/29/23 16:22 Stool Culture - Preliminary Stool Assessment and Plan (1) Non-pressure chronic ulcer left lower leg, limited to breakdown skin Current Visit: Yes Status: Acute Code(s): L97.921 - NON-PRS CHR ULC UNSP PRT OF L LOW LEG LIMITED TO BRKDWN SKIN SNOMED Code(s): 22358023565458829 (2) Chronic venous hypertension (idiopathic) with ulcer and inflammation of left lower extremity Current Visit: Yes Status: Acute Code(s): I87.332 - CHRONIC VENOUS HTN W ULCER AND INFLAMMATION OF L LOW EXTREM SNOMED Code(s): 255565742586726 (3) Chronic venous hypertension (idiopathic) with inflammation of right lower extremity Current Visit: Yes Status: Acute Code(s): I87.321 - CHRONIC VENOUS HYPERTENSION W INFLAMMATION OF R LOW EXTREM SNOMED Code(s): 245396521 (4) Type 2 diabetes mellitus with other skin ulcer Current Visit: Yes Status: Acute Code(s): E11.622 - TYPE 2 DIABETES MELLITUS WITH OTHER SKIN ULCER; L98.499 - NON-PRESSURE CHRONIC ULCER OF SKIN OF SITES W UNSP SEVERITY SNOMED Code(s): 724228289
--- NOTE | 2023-10-03 13:13 | P.PCN ---
Description of Procedure: Preoperative diagnosis acute chronic renal failure Postoperative diagnoses is same and graft procedure patient brought to the [employer] [facility] of the chest and neck was prepped A. fib. Manner lidocaine were infiltrated and neck area patient was given IV sedation. Ultrasound-guided micropuncture introducer right jugular vein micropuncture guidewire was passed and 4-Hungarian dilator advanced top the guidewire. After that we passed a regular guidewire which was parked at the inferior vena cava. Then tunnel was created through the terminal be brought 23 same dialysis catheter at the neck incision site did dilator were advanced. With guidewire replaced a sheath on the top of guidewire through the sheath introducer dialysis catheter sheath was removed tip of the cath was preventing care at the junction flush with heparin saline and Hep-Lock secured with 3-0 nylon dressing applied patient are to the procedure well
[2023-10-03 15:48] LABS: Hepatitis B Surface AB- Quant 3.5 mIU/mL; Hepatitis B Surface Antigen Nonreactive
--- NOTE | 2023-10-03 16:30 | P.PN ---
Progress Note - Text Progress Note Date: 10/03/23 Hospital Course: Patient is a 78-year-old male with a PMH of A. fib and PE on Coumadin, CKD, CHF, MAIKOL on CPAP, PVD with bilateral lower extremity lymphedema and chronic lower extremity wounds who presents to the emergency room with complaints of diarrhea and weakness. Patient reports he has been experiencing watery nonbloody and non-mucousy diarrhea for the past 1 week, 4-[address] abdomen and pelvis in the emergency room revealed a nonobstructing 6.4 mm right renal calculus with marked left hip osteoarthritic changes. Laboratory evaluation was remarkable for a woman 10.7, platelets 135, BUN 58, creatinine 5.49, COVID-19 PCR positive. 10/01/2023: Patient diarrhea is resolved. Has had one BM since last night. Appetite is good. Metamucil is being added. Patient looking to going for dialysis catheter placement tomorrow by Dr. Emery. INR is 7.2. Initially 2.5 mg of oral vitamin K was given. And subsequently IV piggyback 2.5 mg was also ordered. We will check INR later tonight. Discussed with Dr. Emery. Discussed with the patient and the nurse. 10/02/2023: Right IJ dialysis catheter placed per Dr. Emery. INR was down to 2.2 this morning. Nephrology discussed with the patient and patient agreeable to starting dialysis. Plan for dialysis tomorrow. October 03, 2023: Patient started on hemodialysis today. Half liter removed. Eating well. Edema present. INR being followed by pharmacy. Active Medications Amiodarone HCl (Amiodarone 100 Mg Tab) 100 mg PO DAILY [facility] Last Admin: 10/03/23 08:09 Dose: 100 mg Atorvastatin Calcium (Atorvastatin 20 Mg Tab) 20 mg PO [facility] Last Admin: 10/02/23 20:19 Dose: 20 mg Carvedilol (Carvedilol 3.125 Mg Tab) 3.125 mg PO BID-W/MEALS [facility] Last Admin: 10/03/23 06:01 Dose: 3.125 mg Citalopram Hydrobromide (Citalopram Hydrobromide 20 Mg Tab) 40 mg PO [facility] Last Admin: 10/02/23 20:19 Dose: 40 mg Sodium Chloride (Saline 0.9%) 1,000 mls @ 50 mls/hr IV .Q20H [facility] Last Admin: 10/02/23 20:19 Dose: 50 mls/hr Miscellaneous Information (Warfarin Per Pharmacy) 0 each MISCELLANE DIRECTED PRN PRN Reason: ANTICOAGULATION Naloxone HCl (Naloxone 0.4 Mg/Ml 1 Ml Vial) 0.2 mg IV Q2M PRN PRN Reason: Opioid Reversal Ondansetron HCl (Ondansetron 4 Mg/2 Ml Vial) 4 mg IVP Q8HR PRN PRN Reason: Nausea And Vomiting Psyllium Hydrophilic Mucilloid (Psyllium Husk 100% 6 Gm Packet) 6 gm PO DAILY [facility] Last Admin: 10/03/23 08:09 Dose: 6 gm Warfarin Sodium (Warfarin 1.5 Mg Tab) 1.5 mg PO ONCE@1800 ONE Stop: 10/03/23 18:01 On examination: VITAL SIGNS: 97.9, 65, 18, 91/52, 95% room air GENERAL APPEARANCE: Reclining bed, comfortable right IJ PermCath HEENT: Normal external appearance of nose and ear. Oral cavity normal EYES: Pupils equal. Conjunctiva normal. NECK: JVD not raised. Mass not palpable. RESPIRATORY: Respiratory effort normal. Lungs clear to auscultation. CARDIOVASCULAR: First and second sounds normal. No edema. ABDOMEN: Soft. Liver and spleen not palpable. No tenderness. No mass palpable. PSYCHIATRY: Alert and oriented x3. Mood and affect normal. INVESTIGATIONS, reviewed in the clinical context: October 03: INR 1.3 October 02: INR 2.2 potassium 4.3 creatinine 6 October 01: INR 7.2 BUN [address] abdomen and pelvis in the emergency room revealed a nonobstructing 6.4 mm right renal calculus with marked left hip osteoarthritic changes. Assessment and plan: -Chronic kidney disease stage V. Creatinine 5.5 on admission. It was 4.3 in June 2023. Atrophic kidneys.: Worsening PermCath placed by Dr. Emery-right IJ. October 02. Patient had first hemodialysis today. -Coumadin coagulopathy. No bleeding.: Improved Pharmacy following INR -Atrial fibrillation On Coumadin. . Amiodarone. 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 Zinc with gauze and tape. Being followed by wound care team -Primary osteoarthritis Pain control when necessary -Chronic lymphedema lower extremity with venous stasis. -Full code
[2023-10-03] MEDS ORDERED: WARFARIN 1.5 MG TAB PO ONE (18:00)
[2023-10-03] MEDS: ATORVASTATIN 20 MG TAB PO SCH (19:58)
[2023-10-03] MEDS: SODIUM CHLORIDE 0.9% 1,000 ML IV SCH (19:58)
[2023-10-03] MEDS: CITALOPRAM HYDROBROMIDE 20 MG TAB PO SCH (19:58)
[2023-10-04] MEDS: carvediloL 3.125 MG TAB PO SCH ×2 (06:01→16:57)
[2023-10-04 07:10] LABS: INR 1.2 (<1.2); Prothrombin Time 12.6 sec (10.0-12.5)
[2023-10-04] MEDS: AMIODARONE 100 MG TAB PO SCH (12:17)
[2023-10-04] MEDS: PSYLLIUM HUSK 100% 6 GM PACKET PO SCH (12:17)
[2023-10-04 14:50] LABS: Free Lambda Lt Chain Qnt, Seru 7.64 mg/dL (0.57-2.63)
--- NOTE | 2023-10-04 16:26 | P.PN ---
Progress Note - Text Progress Note Date: 10/04/23 Hospital Course: Patient is a 78-year-old male with a PMH of A. fib and PE on Coumadin, CKD, CHF, MAIKOL on CPAP, PVD with bilateral lower extremity lymphedema and chronic lower extremity wounds who presents to the emergency room with complaints of diarrhea and weakness. Patient reports he has been experiencing watery nonbloody and non-mucousy diarrhea for the past 1 week, 4-[address] abdomen and pelvis in the emergency room revealed a nonobstructing 6.4 mm right renal calculus with marked left hip osteoarthritic changes. Laboratory evaluation was remarkable for a woman 10.7, platelets 135, BUN 58, creatinine 5.49, COVID-19 PCR positive. 10/01/2023: Patient diarrhea is resolved. Has had one BM since last night. Appetite is good. Metamucil is being added. Patient looking to going for dialysis catheter placement tomorrow by Dr. Emery. INR is 7.2. Initially 2.5 mg of oral vitamin K was given. And subsequently IV piggyback 2.5 mg was also ordered. We will check INR later tonight. Discussed with Dr. Emery. Discussed with the patient and the nurse. 10/02/2023: Right IJ dialysis catheter placed per Dr. Emery. INR was down to 2.2 this morning. Nephrology discussed with the patient and patient agreeable to starting dialysis. Plan for dialysis tomorrow. October 03, 2023: Patient started on hemodialysis today. Half liter removed. Eating well. Edema present. INR being followed by pharmacy. October 04, 2023: Saw the patient this morning. Due for dialysis this afternoon. Eating well. No new issues. Active Medications Amiodarone HCl (Amiodarone 100 Mg Tab) 100 mg PO DAILY [facility] Last Admin: 10/04/23 12:17 Dose: 100 mg Atorvastatin Calcium (Atorvastatin 20 Mg Tab) 20 mg PO HS [facility] Last Admin: 10/03/23 19:58 Dose: 20 mg Carvedilol (Carvedilol 3.125 Mg Tab) 3.125 mg PO BID-W/MEALS [facility] Last Admin: 10/04/23 06:01 Dose: 3.125 mg Citalopram Hydrobromide (Citalopram Hydrobromide 20 Mg Tab) 40 mg PO HS [facility] Last Admin: 10/03/23 19:58 Dose: 40 mg Sodium Chloride (Saline 0.9%) 1,000 mls @ 50 mls/hr IV .Q20H [facility] Last Admin: 10/03/23 19:58 Dose: Not Given Miscellaneous Information (Warfarin Per Pharmacy) 0 each MISCELLANE DIRECTED PRN PRN Reason: ANTICOAGULATION Naloxone HCl (Naloxone 0.4 Mg/Ml 1 Ml Vial) 0.2 mg IV Q2M PRN PRN Reason: Opioid Reversal Ondansetron HCl (Ondansetron 4 Mg/2 Ml Vial) 4 mg IVP Q8HR PRN PRN Reason: Nausea And Vomiting Psyllium Hydrophilic Mucilloid (Psyllium Husk 100% 6 Gm Packet) 6 gm PO DAILY [facility] Last Admin: 10/04/23 12:17 Dose: Not Given Warfarin Sodium (Warfarin 1.5 Mg Tab) 1.5 mg PO ONCE@1800 ONE Stop: 10/04/23 18:01 On examination: VITAL SIGNS: 97.7, 71, 18, 112 x 51, 96% room air GENERAL APPEARANCE: Reclining bed, eating lunch right IJ PermCath HEENT: Normal external appearance of nose and ear. Oral cavity normal EYES: Pupils equal. Conjunctiva normal. NECK: JVD not raised. Mass not palpable. RESPIRATORY: Respiratory effort normal. Lungs clear to auscultation. CARDIOVASCULAR: First and second sounds normal. Edema present ABDOMEN: Soft. Liver and spleen not palpable. No tenderness. No mass palpable. PSYCHIATRY: Alert and oriented x3. Mood and affect normal. INVESTIGATIONS, reviewed in the clinical context: October 03: INR 1.3 October 02: INR 2.2 potassium 4.3 creatinine 6 October 01: INR 7.2 BUN [address] abdomen and pelvis in the emergency room revealed a nonobstructing 6.4 mm right renal calculus with marked left hip osteoarthritic changes. Assessment and plan: -Chronic kidney disease stage V. Creatinine 5.5 on admission. It was 4.3 in June 2023. Atrophic kidneys.: PermCath placed by Dr. Emery-right IJ. October 02. Patient had first hemodialysis October 03 -Coumadin coagulopathy. No bleeding.: [facility] following INR -Atrial fibrillation On Coumadin. . Amiodarone. 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 Zinc with gauze and tape. Being followed by wound care team -Primary osteoarthritis Pain control when necessary -Chronic lymphedema lower extremity with venous stasis. -Full code Discussed with patient. Continue dialysis.
--- NOTE | 2023-10-04 16:51 | P.PN ---
Subjective Patient is seen for follow-up for end-stage renal disease. Started on hemodialysis this admission Patient is seen on hemodialysis. He is tolerating his treatment well. Tolerated yesterday's treatment fairly well. Objective - Vital Signs Vital signs: Vital Signs Temp 97.5 F L 10/04/23 13:58 Pulse 58 L 10/04/23 13:58 Resp 18 10/04/23 13:58 BP 101/51 10/04/23 13:58 Pulse Ox 97 10/04/23 13:58 FiO2 Intake & Output 10/03/23 10/04/23 10/04/23 18:59 06:59 18:59 Intake Total 400 500 Output Total 1686 602 3281 Balance -776 -300 -500 Intake: Hemodialysis 400 500 Output: Urine 175 300 Stool 1 Hemodialysis 1000 1000 Other: Voiding Method Urinal Urinal Urinal # Voids 1 # Bowel Movements 1 - Exam Patient is awake, comfortable, no acute distress. Lungs show decreased breath sounds at bases, CVS S1 and S2 Abdomen is morbidly obese. Extremities are wrapped. 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 - Labs CBC & Chem 7: 09/30/23 07:32 10/02/23 05:25 Labs: Abnormal Lab Results - Last 24 Hours (Table) 09/30/23 10/04/23 Range/Units 12:30 05:33 PT 12.6 H (10.0-12.5) sec INR 1.2 H (<1.2) Free [place] LC, Quant 11.20 H (0.33-1.94) mg/dL Free [place] LC, Quant 7.64 H (0.57-2.63) mg/dL Microbiology - Last 24 Hours (Table) 09/29/23 16:22 Stool Culture - Final Stool Assessment and Plan Assessment: . Chronic kidney disease stage V. Creatinine 5.5 this admission - 6.0 Et iology is nephrosclerosis. CKD seems to have progressed as his creatinine in June 2023 was 4.3. No hydronephrosis noted on CAT scan. Atrophic kidneys. 2. Coagulopathy. Patient on Coumadin for DVT in A. fib. Improved. 3. History of A. fib maintained on amiodarone and beta abby. 4. Morbid obesity. 5. Chronic lymphedema. 6. Diabetes mellitus. 7. History of elevated light chains for which she was referred to hematology but never saw. 8. Anemia of chronic kidney disease. Iron replete. 9. Diarrhea. C. diff negative. Seems to have improved. 10. Acute COVID-19 infection. Plan: Discharge planning to arrange out pt HD Check BMP. Next hemodialysis on 10/06/2023
[2023-10-04] MEDS ORDERED: WARFARIN 1.5 MG TAB PO ONE (18:00)
[2023-10-04] MEDS: SODIUM CHLORIDE 0.9% 1,000 ML IV SCH (20:17)
[2023-10-04] MEDS: ATORVASTATIN 20 MG TAB PO SCH (20:45)
[2023-10-04] MEDS: CITALOPRAM HYDROBROMIDE 20 MG TAB PO SCH (20:45)
[2023-10-05] MEDS: ZINC OXIDE PASTE (Z-GUARD) 1 APPLIC TOPICAL PRN ×2 (01:00→21:28)
[2023-10-05] MEDS: carvediloL 3.125 MG TAB PO SCH ×2 (06:23→17:30)
[2023-10-05 07:06] LABS: INR 1.2 (<1.2); Prothrombin Time 12.9 sec (10.0-12.5)
[2023-10-05 07:11] LABS: African American GFR (CKD) 15 (>60 ml/min/1.73 sqM); Anion Gap 3 mmol/L; Blood Urea Nitrogen 43 mg/dL (9-20); Calcium 7.8 mg/dL (8.4-10.2); Carbon Dioxide 27 mmol/L (22-30); Chloride 102 mmol/L (98-107); Glucose 88 mg/dL (74-99); Non-African American GFR(CKD) 13 (>60 ml/min/1.73 sqM); Potassium 4.1 mmol/L (3.5-5.1); Sodium 132 mmol/L (137-145)
[2023-10-05] MEDS: AMIODARONE 100 MG TAB PO SCH (08:22)
[2023-10-05] MEDS: PSYLLIUM HUSK 100% 6 GM PACKET PO SCH (08:22)
[2023-10-05 08:25] LABS: Gamma Globulin 1.14 g/dL (0.70-1.50)
--- NOTE | 2023-10-05 11:03 | P.PN ---
Subjective Patient is seen for follow-up for end-stage renal disease. Started on hemodialysis this admission on 10/03/2023 Tolerated yesterday's treatment fairly well. Scheduled for hemodialysis in a.m. Objective - Vital Signs Vital signs: Vital Signs Temp 97.9 F 10/05/23 07:55 Pulse 64 10/05/23 07:55 Resp 20 10/05/23 07:55 BP 106/65 10/05/23 07:55 Pulse Ox 95 10/05/23 07:55 FiO2 Intake & Output 10/04/23 10/05/23 10/05/23 18:59 06:59 18:59 Intake Total 500 Output Total 1000 800 Balance -500 -800 Intake: Hemodialysis 500 Output: Urine 800 Hemodialysis 1000 Other: Voiding Method Urinal Urinal # Voids 2 - Exam Patient is awake, comfortable, no acute distress. Lungs show decreased breath sounds at bases, CVS S1 and S2 Abdomen is morbidly obese. Extremities are wrapped. 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 - Labs CBC & Chem 7: 09/30/23 07:32 10/05/23 06:33 Labs: Abnormal Lab Results - Last 24 Hours (Table) 09/30/23 10/05/23 10/05/23 Range/Units 12:30 06:33 06:33 PT 12.9 H (10.0-12.5) sec INR 1.2 H (<1.2) Sodium 132 L (137-145) mmol/L BUN 43 H (9-20) mg/dL Creatinine 4.02 H (0.66-1.25) mg/dL Calcium 7.8 L (8.4-10.2) mg/dL Free [place] LC, Quant 11.20 H (0.33-1.94) mg/dL Free Lambda LC, Quant 7.64 H (0.57-2.63) mg/dL Assessment and Plan Assessment: . Chronic kidney disease stage V. Creatinine 5.5 this admission - 6.0 Etiology is nephrosclerosis. CKD seems to have progressed as his creatinine in June 2023 was 4.3. No hydronephrosis noted on CAT scan. Atrophic kidneys. 2. Coagulopathy. Patient on Coumadin for DVT and A. fib. Improved. 3. History of A. fib maintained on amiodarone and beta abby. 4. Morbid obesity. 5. Chronic lymphedema. 6. Diabetes mellitus. 7. History of elevated light chains for which she was referred to hematology but never saw. 8. Anemia of chronic kidney disease. Iron replete. 9. Diarrhea. C. diff negative. Seems to have improved. 10. Acute COVID-19 infection. Plan: Discharge planning to arrange out pt HD Check BMP. Next hemodialysis on 10/06/2023
--- NOTE | 2023-10-05 16:29 | P.PN ---
Progress Note - Text Progress Note Date: 10/05/23 Hospital Course: Patient is a 78-year-old male with a PMH of A. fib and PE on Coumadin, CKD, CHF, MAIKOL on CPAP, PVD with bilateral lower extremity lymphedema and chronic lower extremity wounds who presents to the emergency room with complaints of diarrhea and weakness. Patient reports he has been experiencing watery nonbloody and non-mucousy diarrhea for the past 1 week, 4-[address] abdomen and pelvis in the emergency room revealed a nonobstructing 6.4 mm right renal calculus with marked left hip osteoarthritic changes. Laboratory evaluation was remarkable for a woman 10.7, platelets 135, BUN 58, creatinine 5.49, COVID-19 PCR positive. 10/01/2023: Patient diarrhea is resolved. Has had one BM since last night. Appetite is good. Metamucil is being added. Patient looking to going for dialysis catheter placement tomorrow by Dr. Emery. INR is 7.2. Initially 2.5 mg of oral vitamin K was given. And subsequently IV piggyback 2.5 mg was also ordered. We will check INR later tonight. Discussed with Dr. Emery. Discussed with the patient and the nurse. 10/02/2023: Right IJ dialysis catheter placed per Dr. Emery. INR was down to 2.2 this morning. Nephrology discussed with the patient and patient agreeable to starting dialysis. Plan for dialysis tomorrow. October 03, 2023: Patient started on hemodialysis today. Half liter removed. Eating well. Edema present. INR being followed by pharmacy. October 04, 2023: Saw the patient this morning. Due for dialysis this afternoon. Eating well. No new issues. October 05, 2023: No dialysis today. Up in the chair. Comfortable. Tolerating diet. Outpatient dialysis being arranged. Active Medications Amiodarone HCl (Amiodarone 100 Mg Tab) 100 mg PO DAILY [facility] Last Admin: 10/05/23 08:22 Dose: 100 mg Atorvastatin Calcium (Atorvastatin 20 Mg Tab) 20 mg PO HS [facility] Last Admin: 10/04/23 20:45 Dose: 20 mg Carvedilol (Carvedilol 3.125 Mg Tab) 3.125 mg PO BID-W/MEALS [facility] Last Admin: 10/05/23 06:23 Dose: Not Given Citalopram Hydrobromide (Citalopram Hydrobromide 20 Mg Tab) 40 mg PO HS [facility] Last Admin: 10/04/23 20:45 Dose: 40 mg Sodium Chloride (Saline 0.9%) 1,000 mls @ 50 mls/hr IV .Q20H [facility] Last Admin: 10/04/23 20:17 Dose: Not Given Miscellaneous Information (Warfarin Per Pharmacy) 0 each MISCELLANE DIRECTED PRN PRN Reason: ANTICOAGULATION Naloxone HCl (Naloxone 0.4 Mg/Ml 1 Ml Vial) 0.2 mg IV Q2M PRN PRN Reason: Opioid Reversal Ondansetron HCl (Ondansetron 4 Mg/2 Ml Vial) 4 mg IVP Q8HR PRN PRN Reason: Nausea And Vomiting Petrolatum (Zinc Oxide Paste (Z-Guard) 1 Applic) 1 applic TOPICAL Q2HR PRN; Protocol PRN Reason: Wound Healing Last Admin: 10/05/23 01:00 Dose: 1 applic Psyllium Hydrophilic Mucilloid (Psyllium Husk 100% 6 Gm Packet) 6 gm PO DAILY [facility] Last Admin: 10/05/23 08:22 Dose: Not Given Warfarin Sodium (Warfarin 2.5 Mg Tab) 2.5 mg PO ONCE@1800 ONE Stop: 10/05/23 18:01 On examination: VITAL SIGNS: 97.9, 59, 19, 1 one 4 x 58, 95% room air GENERAL APPEARANCE: Up in the recliner, comfortable right IJ PermCath HEENT: Normal external appearance of nose and ear. Oral cavity normal EYES: Pupils equal. Conjunctiva normal. NECK: JVD not raised. Mass not palpable. RESPIRATORY: Respiratory effort normal. Lungs clear to auscultation. CARDIOVASCULAR: First and second sounds normal. Edema present ABDOMEN: Soft. Liver and spleen not palpable. No tenderness. No mass palpable. PSYCHIATRY: Alert and oriented x3. Mood and affect normal. INVESTIGATIONS, reviewed in the clinical context: October 03: INR 1.3 October 02: INR 2.2 potassium 4.3 creatinine 6 October 01: INR 7.2 BUN [address] abdomen and pelvis in the emergency room revealed a nonobstructing 6.4 mm right renal calculus with marked left hip osteoarthritic changes. Assessment and plan: -Chronic kidney disease stage V. Creatinine 5.5 on admission. It was 4.3 in June 2023. Atrophic kidneys.: PermCath placed by Dr. Emery-right IJ. October 02. Patient had first hemodialysis October 03 -Coumadin coagulopathy. No bleeding.: [facility] following INR -Atrial fibrillation On Coumadin. . Amiodarone. 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 Zinc with gauze and tape. Being followed by wound care team -Primary osteoarthritis Pain control when necessary -Chronic lymphedema lower extremity with venous stasis. -Full code Outpatient dialysis being arranged.
[2023-10-05] MEDS: SODIUM CHLORIDE 0.9% 1,000 ML IV SCH (17:08)
[2023-10-05] MEDS ORDERED: WARFARIN 2.5 MG TAB PO ONE (18:00)
[2023-10-05] MEDS: CITALOPRAM HYDROBROMIDE 20 MG TAB PO SCH (21:27)
[2023-10-05] MEDS: ATORVASTATIN 20 MG TAB PO SCH (21:28)
[2023-10-06] MEDS: carvediloL 3.125 MG TAB PO SCH ×2 (06:45→17:20)
[2023-10-06 07:00] LABS: INR 1.2 (<1.2); Prothrombin Time 13.1 sec (10.0-12.5)
[2023-10-06] MEDS: AMIODARONE 100 MG TAB PO SCH (08:33)
[2023-10-06] MEDS: PSYLLIUM HUSK 100% 6 GM PACKET PO SCH (08:33)
--- NOTE | 2023-10-06 11:51 | P.PN ---
Subjective Patient is seen for follow-up for end-stage renal disease. Started on hemodialysis this admission on 10/03/2023 Scheduled for third treatment today. Objective - Vital Signs Vital signs: Vital Signs Temp 97.6 F 10/06/23 07:59 Pulse 67 10/06/23 07:59 Resp 18 10/06/23 07:59 BP 130/72 10/06/23 07:59 Pulse Ox 94 L 10/06/23 07:59 FiO2 Intake & Output 10/05/23 10/06/23 10/06/23 18:59 06:59 18:59 Intake Total 300 Output Total 750 400 200 Balance -750 -400 100 Weight 181.891 kg Intake: Oral 300 Output: Urine 750 400 200 Other: Voiding Method Urinal # Voids 1 - Exam Patient is awake, comfortable, no acute distress. Lungs show decreased breath sounds at bases, CVS S1 and S2 Abdomen is morbidly obese. Extremities are wrapped. 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 - Labs CBC & Chem 7: 09/30/23 07:32 10/05/23 06:33 Labs: Abnormal Lab Results - Last 24 Hours (Table) 10/06/23 Range/Units 05:31 PT 13.1 H (10.0-12.5) sec INR 1.2 H (<1.2) Assessment and Plan Assessment: . Chronic kidney disease stage V. Creatinine 5.5 this admission - 6.0 Etiology is nephrosclerosis. CKD seems to have progressed as his creatinine in June 2023 was 4.3. No hydronephrosis noted on CAT scan. Atrophic kidneys. 2. Coagulopathy. Patient on Coumadin for DVT and A. fib. Improved. 3. History of A. fib maintained on amiodarone and beta abby. 4. Morbid obesity. 5. Chronic lymphedema. 6. Diabetes mellitus. 7. History of elevated light chains for which she was referred to hematology but never saw. 8. Anemia of chronic kidney disease. Iron replete. 9. Diarrhea. C. diff negative. Seems to have improved. 10. Acute COVID-19 infection. Plan: Discharge planning to arrange out pt HD Hemodialysis today and repeat on Tuesday. Patient can be discharged post hemodialysis on Tuesday.
[2023-10-06] MEDS: SODIUM CHLORIDE 0.9% 1,000 ML IV SCH (12:19)
--- NOTE | 2023-10-06 16:48 | P.PN ---
Progress Note - Text Progress Note Date: 10/06/23 Hospital Course: Patient is a 78-year-old male with a PMH of A. fib and PE on Coumadin, CKD, CHF, MAIKOL on CPAP, PVD with bilateral lower extremity lymphedema and chronic lower extremity wounds who presents to the emergency room with complaints of diarrhea and weakness. Patient reports he has been experiencing watery nonbloody and non-mucousy diarrhea for the past 1 week, 4-[address] abdomen and pelvis in the emergency room revealed a nonobstructing 6.4 mm right renal calculus with marked left hip osteoarthritic changes. Laboratory evaluation was remarkable for a woman 10.7, platelets 135, BUN 58, creatinine 5.49, COVID-19 PCR positive. 10/01/2023: Patient diarrhea is resolved. Has had one BM since last night. Appetite is good. Metamucil is being added. Patient looking to going for dialysis catheter placement tomorrow by Dr. Emery. INR is 7.2. Initially 2.5 mg of oral vitamin K was given. And subsequently IV piggyback 2.5 mg was also ordered. We will check INR later tonight. Discussed with Dr. Emery. Discussed with the patient and the nurse. 10/02/2023: Right IJ dialysis catheter placed per Dr. Emery. INR was down to 2.2 this morning. Nephrology discussed with the patient and patient agreeable to starting dialysis. Plan for dialysis tomorrow. October 03, 2023: Patient started on hemodialysis today. Half liter removed. Eating well. Edema present. INR being followed by pharmacy. October 04, 2023: Saw the patient this morning. Due for dialysis this afternoon. Eating well. No new issues. October 05, 2023: No dialysis today. Up in the chair. Comfortable. Tolerating diet. Outpatient dialysis being arranged. October 06, 2023: Comfortable. Tolerating diet. Patient increasing assistance. Looking at ECF placement. Appropriately get dialysis on Tuesday then be discharged. 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 Active Medications Amiodarone HCl (Amiodarone 100 Mg Tab) 100 mg PO DAILY [facility] Last Admin: 10/06/23 08:33 Dose: 100 mg Atorvastatin Calcium (Atorvastatin 20 Mg Tab) 20 mg PO HS [facility] Last Admin: 10/05/23 21:28 Dose: 20 mg Carvedilol (Carvedilol 3.125 Mg Tab) 3.125 mg PO BID-W/MEALS [facility] Last Admin: 10/06/23 06:45 Dose: Not Given Citalopram Hydrobromide (Citalopram Hydrobromide 20 Mg Tab) 40 mg PO HS [facility] Last Admin: 10/05/23 21:27 Dose: 40 mg Sodium Chloride (Saline 0.9%) 1,000 mls @ 50 mls/hr IV .Q20H [facility] Last Admin: 10/06/23 12:19 Dose: Not Given Miscellaneous Information (Warfarin Per Pharmacy) 0 each MISCELLANE DIRECTED PRN PRN Reason: ANTICOAGULATION Naloxone HCl (Naloxone 0.4 Mg/Ml 1 Ml Vial) 0.2 mg IV Q2M PRN PRN Reason: Opioid Reversal Ondansetron HCl (Ondansetron 4 Mg/2 Ml Vial) 4 mg IVP Q8HR PRN PRN Reason: Nausea And Vomiting Petrolatum (Zinc Oxide Paste (Z-Guard) 1 Applic) 1 applic TOPICAL Q2HR PRN; Protocol PRN Reason: Wound Healing Last Admin: 10/05/23 21:28 Dose: 1 applic Psyllium Hydrophilic Mucilloid (Psyllium Husk 100% 6 Gm Packet) 6 gm PO DAILY [facility] Last Admin: 10/06/23 08:33 Dose: Not Given Warfarin Sodium (Warfarin 3 Mg Tab) 3 mg PO ONCE@1800 ONE Stop: 10/06/23 18:01 On examination: VITAL SIGNS: 97.6, 67, 18, 130/72, 94% room air GENERAL APPEARANCE: Resting in bed comfortable right IJ PermCath HEENT: Normal external appearance of nose and ear. Oral cavity normal EYES: Pupils equal. Conjunctiva normal. NECK: JVD not raised. Mass not palpable. RESPIRATORY: Respiratory effort normal. Lungs clear to auscultation. CARDIOVASCULAR: First and second sounds normal. Edema present ABDOMEN: Soft. Liver and spleen not palpable. No tenderness. No mass palpable. PSYCHIATRY: Alert and oriented x3. Mood and affect normal. INVESTIGATIONS, reviewed in the clinical context: October 03: INR 1.3 October 02: INR 2.2 potassium 4.3 creatinine 6 October 01: INR 7.2 BUN [address] abdomen and pelvis in the emergency room revealed a nonobstructing 6.4 mm right renal calculus with marked left hip osteoarthritic changes. Assessment and plan: -Chronic kidney disease stage V. Creatinine 5.5 on admission. It was 4.3 in June 2023. Atrophic kidneys.: PermCath placed by Dr. Emery-right IJ. October 02. Patient had first hemodialysis October 03 -Coumadin coagulopathy. No bleeding.: [facility] following INR -Atrial fibrillation On Coumadin. . Amiodarone. 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 Zinc with gauze and tape. Being followed by wound care team -Primary osteoarthritis Pain control when necessary -Chronic lymphedema lower extremity with venous stasis. -Full code -Disposition: Plan for patient to go to rehab on Tuesday after dialysis loan manager looking into subacute rehab.
[2023-10-06] MEDS ORDERED: WARFARIN 3 MG TAB PO ONE (18:00)
[2023-10-06] MEDS: ATORVASTATIN 20 MG TAB PO SCH (21:40)
[2023-10-06] MEDS: CITALOPRAM HYDROBROMIDE 20 MG TAB PO SCH (21:40)
[2023-10-06] MEDS: ZINC OXIDE PASTE (Z-GUARD) 1 APPLIC TOPICAL PRN (21:41)
[2023-10-07 06:40] LABS: INR 1.2 (<1.2); Prothrombin Time 12.8 sec (10.0-12.5)
[2023-10-07] MEDS: SODIUM CHLORIDE 0.9% 1,000 ML IV SCH (08:27)
[2023-10-07] MEDS: PSYLLIUM HUSK 100% 6 GM PACKET PO SCH (08:28)
[2023-10-07] MEDS: AMIODARONE 100 MG TAB PO SCH (08:30)
[2023-10-07] MEDS: carvediloL 3.125 MG TAB PO SCH ×2 (08:30→18:54)
--- NOTE | 2023-10-07 15:27 | P.PN ---
Progress Note - Text Progress Note Date: 10/07/23 Hospital Course: Patient is a 78-year-old male with a PMH of A. fib and PE on Coumadin, CKD, CHF, MAIKOL on CPAP, PVD with bilateral lower extremity lymphedema and chronic lower extremity wounds who presents to the emergency room with complaints of diarrhea and weakness. Patient reports he has been experiencing watery nonbloody and non-mucousy diarrhea for the past 1 week, 4-[address] abdomen and pelvis in the emergency room revealed a nonobstructing 6.4 mm right renal calculus with marked left hip osteoarthritic changes. Laboratory evaluation was remarkable for a woman 10.7, platelets 135, BUN 58, creatinine 5.49, COVID-19 PCR positive. 10/01/2023: Patient diarrhea is resolved. Has had one BM since last night. Appetite is good. Metamucil is being added. Patient looking to going for dialysis catheter placement tomorrow by Dr. Emery. INR is 7.2. Initially 2.5 mg of oral vitamin K was given. And subsequently IV piggyback 2.5 mg was also ordered. We will check INR later tonight. Discussed with Dr. Emery. Discussed with the patient and the nurse. 10/02/2023: Right IJ dialysis catheter placed per Dr. Emery. INR was down to 2.2 this morning. Nephrology discussed with the patient and patient agreeable to starting dialysis. Plan for dialysis tomorrow. October 03, 2023: Patient started on hemodialysis today. Half liter removed. Eating well. Edema present. INR being followed by pharmacy. October 04, 2023: Saw the patient this morning. Due for dialysis this afternoon. Eating well. No new issues. October 05, 2023: No dialysis today. Up in the chair. Comfortable. Tolerating diet. Outpatient dialysis being arranged. October 06, 2023: Comfortable. Tolerating diet. Requiring assistance. Looking at ECF placement. Appropriately get dialysis on Tuesday then be discharged. Discussed with case work aide. October 07: Per case work aide patient cannot be accommodated at [facility]. Looking at other places. Continue with dialysis schedule. Tolerating diet. Active Medications Amiodarone HCl (Amiodarone 100 Mg Tab) 100 mg PO DAILY [facility] Last Admin: 10/07/23 08:30 Dose: 100 mg Atorvastatin Calcium (Atorvastatin 20 Mg Tab) 20 mg PO HS [facility] Last Admin: 10/06/23 21:40 Dose: 20 mg Carvedilol (Carvedilol 3.125 Mg Tab) 3.125 mg PO BID-W/MEALS [facility] Last Admin: 10/07/23 08:30 Dose: 3.125 mg Citalopram Hydrobromide (Citalopram Hydrobromide 20 Mg Tab) 40 mg PO HS [facility] Last Admin: 10/06/23 21:40 Dose: 40 mg Sodium Chloride (Saline 0.9%) 1,000 mls @ 50 mls/hr IV .Q20H [facility] Last Admin: 10/07/23 08:27 Dose: Not Given Miscellaneous Information (Warfarin Per Pharmacy) 0 each MISCELLANE DIRECTED PRN PRN Reason: ANTICOAGULATION Naloxone HCl (Naloxone 0.4 Mg/Ml 1 Ml Vial) 0.2 mg IV Q2M PRN PRN Reason: Opioid Reversal Ondansetron HCl (Ondansetron 4 Mg/2 Ml Vial) 4 mg IVP Q8HR PRN PRN Reason: Nausea And Vomiting Petrolatum (Zinc Oxide Paste (Z-Guard) 1 Applic) 1 applic TOPICAL Q2HR PRN; Protocol PRN Reason: Wound Healing Last Admin: 10/06/23 21:41 Dose: 1 applic Psyllium Hydrophilic Mucilloid (Psyllium Husk 100% 6 Gm Packet) 6 gm PO DAILY [facility] Last Admin: 10/07/23 08:28 Dose: Not Given Warfarin Sodium (Warfarin 2 Mg Tab) 4 mg PO ONCE@1800 ONE Stop: 10/07/23 18:01 On examination: VITAL SIGNS: 97.7, 59, 18, 114 x 46, 96% room air GENERAL APPEARANCE: Up in a recliner comfortable right IJ PermCath HEENT: Normal external appearance of nose and ear. Oral cavity normal EYES: Pupils equal. Conjunctiva normal. NECK: JVD not raised. Mass not palpable. RESPIRATORY: Respiratory effort normal. Lungs clear to auscultation. CARDIOVASCULAR: First and second sounds normal. Edema present ABDOMEN: Soft. Liver and spleen not palpable. No tenderness. No mass palpable. PSYCHIATRY: Alert and oriented x3. Mood and affect normal. INVESTIGATIONS, reviewed in the clinical context: October 03: INR 1.3 October 02: INR 2.2 potassium 4.3 creatinine 6 Debbie 20: INR 7.2 BUN [address] abdomen and pelvis in the emergency room revealed a nonobstructing 6.4 mm right renal calculus with marked left hip osteoarthritic changes. Assessment and plan: -Chronic kidney disease stage V. Creatinine 5.5 on admission. It was 4.3 in June 2023. Atrophic kidneys.: PermCath placed by Dr. Emery-right IJ. October 02. Patient had first hemodialysis October 03 -Coumadin coagulopathy. No bleeding.: [facility] following INR -Atrial fibrillation On Coumadin. . Amiodarone. 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 Zinc with gauze and tape. Being followed by wound care team -Primary osteoarthritis Pain control when necessary -Chronic lymphedema lower extremity with venous stasis. -Full code -Disposition: Looking for a subacute rehab with dialysis manager electronic looking to subacute rehab. Other medications to continue.
[2023-10-07] MEDS ORDERED: WARFARIN 2 MG TAB PO ONE (18:00)
--- NOTE | 2023-10-07 19:25 | P.PN ---
Subjective Patient is seen for follow-up for end-stage renal disease. Started on hemodialysis this admission on 10/03/2023 Scheduled for hemodialysis in a.m. Awaiting outpatient arrangement for dialysis and possible rehab. Objective - Vital Signs Vital signs: Vital Signs Temp 97.7 F 10/07/23 18:53 Pulse 64 10/07/23 18:53 Resp 17 10/07/23 18:53 BP 103/64 10/07/23 18:53 Pulse Ox 93 L 10/07/23 18:53 FiO2 Intake & Output 10/07/23 10/07/23 10/08/23 06:59 18:59 06:59 Intake Total 900 Balance 900 Intake: Oral 900 Other: Voiding Method Urinal # Voids 3 2 # Bowel Movements 1 - Exam Patient is awake, comfortable, no acute distress. Lungs show decreased breath sounds at bases, CVS S1 and S2 Abdomen is morbidly obese. Extremities are wrapped. 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 - Labs CBC & Chem 7: 09/30/23 07:32 10/05/23 06:33 Labs: Abnormal Lab Results - Last 24 Hours (Table) 10/07/23 Range/Units 05:22 PT 12.8 H (10.0-12.5) sec INR 1.2 H (<1.2) Assessment and Plan Assessment: . Chronic kidney disease stage V. Creatinine 5.5 this admission - 6.0 Etiology is nephrosclerosis. CKD seems to have progressed as his creatinine in June 2023 was 4.3. No hydronephrosis noted on CAT scan. Atrophic kidneys. Started hemodialysis on 10/03/2023. 2. Coagulopathy. Patient on Coumadin for DVT and A. fib. Improved. 3. History of A. fib maintained on amiodarone and beta abby. 4. Morbid obesity. 5. Chronic lymphedema. 6. Diabetes mellitus. 7. History of elevated light chains for which she was referred to hematology but never saw. 8. Anemia of chronic kidney disease. Iron replete. 9. Diarrhea. C. diff negative. Seems to have improved. 10. Acute COVID-19 infection. Plan: Maintain hemodialysis on Tuesday schedule.
[2023-10-07] MEDS: ATORVASTATIN 20 MG TAB PO SCH (19:57)
[2023-10-07] MEDS: CITALOPRAM HYDROBROMIDE 20 MG TAB PO SCH (19:57)
[2023-10-08 07:37] LABS: INR 1.1 (<1.2); Prothrombin Time 12.3 sec (10.0-12.5)
[2023-10-08] MEDS: carvediloL 3.125 MG TAB PO SCH ×2 (09:11→16:41)
[2023-10-08] MEDS: PSYLLIUM HUSK 100% 6 GM PACKET PO SCH (09:16)
[2023-10-08] MEDS ORDERED: MIDODRINE 5 MG TAB PO PRN (10:29)
[2023-10-08 10:51] LABS: African American GFR (CKD) 16 (>60 ml/min/1.73 sqM); Anion Gap 3 mmol/L; Blood Urea Nitrogen 48 mg/dL (9-20); Carbon Dioxide 29 mmol/L (22-30); Chloride 98 mmol/L (98-107); Glucose 80 mg/dL (74-99); Non-African American GFR(CKD) 14 (>60 ml/min/1.73 sqM); Potassium 4.4 mmol/L (3.5-5.1); Sodium 130 mmol/L (137-145)
--- NOTE | 2023-10-08 11:34 | P.PN ---
Subjective Patient is seen for follow-up for end-stage renal disease. Started on hemodialysis this admission on 10/03/2023 Seen on hemodialysis Patient will be going to discharge the unit on a Tuesday schedule for outpatient dialysis temporarily while in rehab. Objective - Vital Signs Vital signs: Vital Signs Temp 97.6 F 10/08/23 07:16 Pulse 61 10/08/23 09:16 Resp 20 10/08/23 09:16 BP 117/55 10/08/23 07:16 Pulse Ox 95 10/08/23 07:16 FiO2 Intake & Output 10/07/23 10/08/23 10/08/23 18:59 06:59 18:59 Other: Voiding Method Urinal Urinal # Voids 2 # Bowel Movements 1 - Exam Patient is awake, comfortable, no acute distress. Lungs show decreased breath sounds at bases, CVS S1 and S2 Abdomen is morbidly obese. Extremities are wrapped. 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 - Labs CBC & Chem 7: 09/30/23 07:32 10/08/23 06:49 Labs: Abnormal Lab Results - Last 24 Hours (Table) 10/08/23 Range/Units 06:49 Sodium 130 L (137-145) mmol/L BUN 48 H (9-20) mg/dL Creatinine 3.91 H (0.66-1.25) mg/dL Calcium 8.0 L (8.4-10.2) mg/dL Assessment and Plan Assessment: . Chronic kidney disease stage V. Creatinine 5.5 this admission - 6.0 E tiology is nephrosclerosis. CKD seems to have progressed as his creatinine in June 2023 was 4.3. No hydronephrosis noted on CAT scan. Atrophic kidneys. Started hemodialysis on 10/03/2023. 2. Coagulopathy. Patient on Coumadin for DVT and A. fib. Improved. 3. History of A. fib maintained on amiodarone and beta abby. 4. Morbid obesity. 5. Chronic lymphedema. 6. Diabetes mellitus. 7. History of elevated light chains for which she was referred to hematology but never saw. 8. Anemia of chronic kidney disease. Iron replete. 9. Diarrhea. C. diff negative. Seems to have improved. 10. Acute COVID-19 infection. Plan: Switch hemodialysis to Tuesday schedule
[2023-10-08] MEDS: AMIODARONE 100 MG TAB PO SCH (13:32)
--- NOTE | 2023-10-08 14:47 | P.PN ---
Progress Note - Text Progress Note Date: 10/08/23 Hospital Course: Patient is a 78-year-old male with a PMH of A. fib and PE on Coumadin, CKD, CHF, MAIKOL on CPAP, PVD with bilateral lower extremity lymphedema and chronic lower extremity wounds who presents to the emergency room with complaints of diarrhea and weakness. Patient reports he has been experiencing watery nonbloody and non-mucousy diarrhea for the past 1 week, 4-[address] abdomen and pelvis in the emergency room revealed a nonobstructing 6.4 mm right renal calculus with marked left hip osteoarthritic changes. Laboratory evaluation was remarkable for a woman 10.7, platelets 135, BUN 58, creatinine 5.49, COVID-19 PCR positive. 10/01/2023: Patient diarrhea is resolved. Has had one BM since last night. Appetite is good. Metamucil is being added. Patient looking to going for dialysis catheter placement tomorrow by Dr. Emery. INR is 7.2. Initially 2.5 mg of oral vitamin K was given. And subsequently IV piggyback 2.5 mg was also ordered. We will check INR later tonight. Discussed with Dr. Emery. Discussed with the patient and the nurse. 10/02/2023: Right IJ dialysis catheter placed per Dr. Emery. INR was down to 2.2 this morning. Nephrology discussed with the patient and patient agreeable to starting dialysis. Plan for dialysis tomorrow. October 03, 2023: Patient started on hemodialysis today. Half liter removed. Eating well. Edema present. INR being followed by pharmacy. October 04, 2023: Saw the patient this morning. Due for dialysis this afternoon. Eating well. No new issues. October 05, 2023: No dialysis today. Up in the chair. Comfortable. Tolerating diet. Outpatient dialysis being arranged. October 06, 2023: Comfortable. Tolerating diet. Requiring assistance. Looking at ECF placement. Appropriately get dialysis on Tuesday then be discharged. Discussed with medical case worker. October 07: Per medical case worker patient cannot be accommodated at [facility]. Looking at other places. Continue with dialysis schedule. Tolerating diet. October 08: Getting dialysis today. Tolerating diet. Looking for rehab placement. Active Medications Amiodarone HCl (Amiodarone 100 Mg Tab) 100 mg PO DAILY [facility] Last Admin: 10/08/23 13:32 Dose: 100 mg Atorvastatin Calcium (Atorvastatin 20 Mg Tab) 20 mg PO [facility] Last Admin: 10/07/23 19:57 Dose: 20 mg Carvedilol (Carvedilol 3.125 Mg Tab) 3.125 mg PO BID-W/MEALS [facility] Last Admin: 10/08/23 09:11 Dose: Not Given Citalopram Hydrobromide (Citalopram Hydrobromide 20 Mg Tab) 40 mg PO [facility] Last Admin: 10/07/23 19:57 Dose: 40 mg Midodrine (Midodrine 5 Mg Tab) 10 mg PO AC-TID PRN PRN Reason: Blood Pressure - Low Miscellaneous Information (Warfarin Per Pharmacy) 0 each MISCELLANE DIRECTED PRN PRN Reason: ANTICOAGULATION Naloxone HCl (Naloxone 0.4 Mg/Ml 1 Ml Vial) 0.2 mg IV Q2M PRN PRN Reason: Opioid Reversal Ondansetron HCl (Ondansetron 4 Mg/2 Ml Vial) 4 mg IVP Q8HR PRN PRN Reason: Nausea And Vomiting Petrolatum (Zinc Oxide Paste (Z-Guard) 1 Applic) 1 applic TOPICAL Q2HR PRN; Protocol PRN Reason: Wound Healing Last Admin: 10/06/23 21:41 Dose: 1 applic Psyllium Hydrophilic Mucilloid (Psyllium Husk 100% 6 Gm Packet) 6 gm PO DAILY [facility] Last Admin: 10/08/23 09:16 Dose: Not Given Warfarin Sodium (Warfarin 5 Mg Tab) 5 mg PO ONCE@1800 ONE Stop: 10/08/23 18:01 On examination: VITAL SIGNS: 98, 66, 21, 108/51, 95% room air GENERAL APPEARANCE: Up in a recliner comfortable right IJ PermCath HEENT: Normal external appearance of nose and ear. Oral cavity normal EYES: Pupils equal. Conjunctiva normal. NECK: JVD not raised. Mass not palpable. RESPIRATORY: Respiratory effort normal. Lungs clear to auscultation. CARDIOVASCULAR: First and second sounds normal. Edema present ABDOMEN: Soft. Liver and spleen not palpable. No tenderness. No mass palpable. PSYCHIATRY: Alert and oriented x3. Mood and affect normal. INVESTIGATIONS, reviewed in the clinical context: October 03: INR 1.3 October 02: INR 2.2 potassium 4.3 creatinine 6 Debbie 20: INR 7.2 BUN [address] abdomen and pelvis in the emergency room revealed a nonobstructing 6.4 mm right renal calculus with marked left hip osteoarthritic changes. Assessment and plan: -Chronic kidney disease stage V. Creatinine 5.5 on admission. It was 4.3 in June 2023. Atrophic kidneys.: PermCath placed by Dr. Emery-right IJ. October 02. Patient had first hemodialysis October 03 -Coumadin coagulopathy. No bleeding.: [facility] following INR -Atrial fibrillation On Coumadin. . Amiodarone. 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 Zinc with gauze and tape. Being followed by wound care team -Primary osteoarthritis Pain control when necessary -Chronic lymphedema lower extremity with venous stasis. -Full code -Disposition: Looking for a subacute rehab with dialysis Dialysis today. Pending rehab placement. Started on Lovenox 150 mg daily till INR coming up.
[2023-10-08] MEDS ORDERED: WARFARIN 5 MG TAB PO ONE (18:00)
[2023-10-08] MEDS: ENOXAPARIN 150 MG/ML SYRINGE SQ SCH (20:39)
[2023-10-08] MEDS: CITALOPRAM HYDROBROMIDE 20 MG TAB PO SCH (20:39)
[2023-10-08] MEDS: ATORVASTATIN 20 MG TAB PO SCH (20:39)
[2023-10-09] MEDS: carvediloL 3.125 MG TAB PO SCH ×2 (06:59→16:37)
[2023-10-09 07:04] LABS: INR 1.3 (<1.2); Prothrombin Time 13.6 sec (10.0-12.5)
[2023-10-09] MEDS: PSYLLIUM HUSK 100% 6 GM PACKET PO SCH (07:46)
[2023-10-09] MEDS: AMIODARONE 100 MG TAB PO SCH (07:54)
--- NOTE | 2023-10-09 09:18 | P.PN ---
Progress Note - Text Progress Note Date: 10/09/23 Hospital Course: Patient is a 78-year-old male with a PMH of A. fib and PE on Coumadin, CKD, CHF, MAIKOL on CPAP, PVD with bilateral lower extremity lymphedema and chronic lower extremity wounds who presents to the emergency room with complaints of diarrhea and weakness. Patient reports he has been experiencing watery nonbloody and non-mucousy diarrhea for the past 1 week, 4-[address] abdomen and pelvis in the emergency room revealed a nonobstructing 6.4 mm right renal calculus with marked left hip osteoarthritic changes. Laboratory evaluation was remarkable for a woman 10.7, platelets 135, BUN 58, creatinine 5.49, COVID-19 PCR positive. 10/01/2023: Patient diarrhea is resolved. Has had one BM since last night. Appetite is good. Metamucil is being added. Patient looking to going for dialysis catheter placement tomorrow by Dr. Emery. INR is 7.2. Initially 2.5 mg of oral vitamin K was given. And subsequently IV piggyback 2.5 mg was also ordered. We will check INR later tonight. Discussed with Dr. Emery. Discussed with the patient and the nurse. 10/02/2023: Right IJ dialysis catheter placed per Dr. Emery. INR was down to 2.2 this morning. Nephrology discussed with the patient and patient agreeable to starting dialysis. Plan for dialysis tomorrow. October 03, 2023: Patient started on hemodialysis today. Half liter removed. Eating well. Edema present. INR being followed by pharmacy. October 04, 2023: Saw the patient this morning. Due for dialysis this afternoon. Eating well. No new issues. October 05, 2023: No dialysis today. Up in the chair. Comfortable. Tolerating diet. Outpatient dialysis being arranged. October 06, 2023: Comfortable. Tolerating diet. Requiring assistance. Looking at ECF placement. Appropriately get dialysis on Tuesday then be discharged. Discussed with case management assistant. October 07: Per case management assistant patient cannot be accommodated at [facility]. Looking at other places. Continue with dialysis schedule. Tolerating diet. October 08: Getting dialysis today. Tolerating diet. Looking for rehab placement. October 09: No new issues. Stable. Pending placement for rehab. Active Medications Amiodarone HCl (Amiodarone 100 Mg Tab) 100 mg PO DAILY [facility] Last Admin: 10/09/23 07:54 Dose: 100 mg Atorvastatin Calcium (Atorvastatin 20 Mg Tab) 20 mg PO HS [facility] Last Admin: 10/08/23 20:39 Dose: 20 mg Carvedilol (Carvedilol 3.125 Mg Tab) 3.125 mg PO BID-W/MEALS [facility] Last Admin: 10/09/23 06:59 Dose: Not Given Citalopram Hydrobromide (Citalopram Hydrobromide 20 Mg Tab) 40 mg PO HS [facility] Last Admin: 10/08/23 20:39 Dose: 40 mg Enoxaparin Sodium (Enoxaparin 150 Mg/Ml Syringe) 150 mg SQ HS [facility] Last Admin: 10/08/23 20:39 Dose: 150 mg Midodrine (Midodrine 5 Mg Tab) 10 mg PO AC-TID PRN PRN Reason: Blood Pressure - Low Miscellaneous Information (Warfarin Per Pharmacy) 0 each MISCELLANE DIRECTED PRN PRN Reason: ANTICOAGULATION Naloxone HCl (Naloxone 0.4 Mg/Ml 1 Ml Vial) 0.2 mg IV Q2M PRN PRN Reason: Opioid Reversal Ondansetron HCl (Ondansetron 4 Mg/2 Ml Vial) 4 mg IVP Q8HR PRN PRN Reason: Nausea And Vomiting Petrolatum (Zinc Oxide Paste (Z-Guard) 1 Applic) 1 applic TOPICAL Q2HR PRN; Protocol PRN Reason: Wound Healing Last Admin: 10/06/23 21:41 Dose: 1 applic Psyllium Hydrophilic Mucilloid (Psyllium Husk 100% 6 Gm Packet) 6 gm PO DAILY [facility] Last Admin: 10/09/23 07:46 Dose: Not Given Warfarin Sodium (Warfarin 2 Mg Tab) 4 mg PO ONCE@1800 ONE Stop: 10/09/23 18:01 On examination: VITAL SIGNS: 97.9, 61, 19, 94/55 coronary 6% room air GENERAL APPEARANCE: In bed. Comfortable right IJ PermCath HEENT: Normal external appearance of nose and ear. Oral cavity normal EYES: Pupils equal. Conjunctiva normal. NECK: JVD not raised. Mass not palpable. RESPIRATORY: Respiratory effort normal. Lungs clear to auscultation. CARDIOVASCULAR: First and second sounds normal. Edema present ABDOMEN: Soft. Liver and spleen not palpable. No tenderness. No mass palpable. PSYCHIATRY: Alert and oriented x3. Mood and affect normal. INVESTIGATIONS, reviewed in the clinical context: October 03: INR 1.3 October 02: INR 2.2 potassium 4.3 creatinine 6 October 01: INR 7.2 BUN [address] abdomen and pelvis in the emergency room revealed a nonobstructing 6.4 mm right renal calculus with marked left hip osteoarthritic changes. Assessment and plan: -Chronic kidney disease stage V. Creatinine 5.5 on admission. It was 4.3 in June 2023. Atrophic kidneys.: PermCath placed by Dr. Emery-right IJ. October 02. Patient had first hemodialysis October 03 -Coumadin coagulopathy. No bleeding.: [facility] following INR -Atrial fibrillation On Coumadin. . Amiodarone. -Hyperlipidemia Lipitor -Chronic DVT and PE On Lovenox till INR comes up. On Coumadin -Chronic obstructive sleep apnea CPAP -Nonhealing ulceration left lower extremity limited skin breakdown. Zinc with gauze and tape. Being followed by wound care team -Primary osteoarthritis Pain control when necessary -Chronic lymphedema lower extremity with venous stasis. -Full code -Disposition: Looking for a subacute rehab with dialysis Pending rehab. Other medications to continue.
--- NOTE | 2023-10-09 11:19 | P.PN ---
Subjective Patient is seen for follow-up for end-stage renal disease. Started on hemodialysis this admission on 10/03/2023 Tolerated hemodialysis well yesterday. Still unsure regarding outpatient placement and dialysis. Objective - Vital Signs Vital signs: Vital Signs Temp 97.9 F 10/09/23 07:26 Pulse 61 10/09/23 07:54 Resp 19 10/09/23 07:54 BP 94/55 10/09/23 07:26 Pulse Ox 96 10/09/23 07:26 FiO2 Intake & Output 10/08/23 10/09/23 10/09/23 18:59 06:59 18:59 Intake Total 500 Output Total 3200 500 Balance -2700 -500 Intake: Hemodialysis 500 Output: Urine 1200 500 Hemodialysis 2000 Other: Voiding Method Urinal Urinal Urinal - Exam Patient is awake, comfortable, no acute distress. Lungs show decreased breath sounds at bases, CVS S1 and S2 Abdomen is morbidly obese. Extremities are wrapped. 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 - Labs CBC & Chem 7: 09/30/23 07:32 10/08/23 06:49 Labs: Abnormal Lab Results - Last 24 Hours (Table) 10/09/23 Range/Units 06:39 PT 13.6 H (10.0-12.5) sec INR 1.3 H (<1.2) Assessment and Plan Assessment: . Chronic kidney disease stage V. Creatinine 5.5 this admission - 6.0 Etiology is nephrosclerosis. CKD seems to have progressed as his creatinine in June 2023 was 4.3. No hydronephrosis noted on CAT scan. Atrophic kidneys. Started hemodialysis on 10/03/2023. 2. Coagulopathy. Patient on Coumadin for DVT and A. fib. Improved. 3. History of A. fib maintained on amiodarone and beta abby. 4. Morbid obesity. 5. Chronic lymphedema. 6. Diabetes mellitus. 7. History of elevated light chains for which she was referred to hematology but never saw. 8. Anemia of chronic kidney disease. Iron replete. 9. Diarrhea. C. diff negative. Seems to have improved. 10. Acute COVID-19 infection. Plan: Hemodialysis in a.m. Await outpatient placement
[2023-10-09] MEDS ORDERED: WARFARIN 2 MG TAB PO ONE (18:00)
[2023-10-09] MEDS: CITALOPRAM HYDROBROMIDE 20 MG TAB PO SCH (20:16)
[2023-10-09] MEDS: ENOXAPARIN 150 MG/ML SYRINGE SQ SCH (20:16)
[2023-10-09] MEDS: ATORVASTATIN 20 MG TAB PO SCH (20:16)
[2023-10-10 05:20] LABS: INR 1.4 (<1.2); Prothrombin Time 14.3 sec (10.0-12.5)
[2023-10-10] MEDS: carvediloL 3.125 MG TAB PO SCH ×2 (08:46→17:25)
[2023-10-10] MEDS: AMIODARONE 100 MG TAB PO SCH (08:46)
[2023-10-10] MEDS: PSYLLIUM HUSK 100% 6 GM PACKET PO SCH (08:47)
--- NOTE | 2023-10-10 10:28 | P.PN ---
Subjective Patient is seen in follow-up for acute kidney injury on chronic kidney disease. Resting in bed. Has been voiding. Oral intake fair. Hemodynamically stable. Vital signs are stable. General: No acute distress. HEENT: Head exam is unremarkable. LUNGS: No audible rhonchi or wheezes. HEART: Rate and Rhythm are regular. ABDOMEN: Nontender. EXTREMITITES: Trace edema. Lower extremities wrapped. Objective - Vital Signs Vital signs: Vital Signs Temp 98.0 F 10/10/23 07:35 Pulse 63 10/10/23 07:35 Resp 18 10/10/23 07:35 BP 114/61 10/10/23 07:35 Pulse Ox 95 10/10/23 07:35 FiO2 Intake & Output 10/09/23 10/10/23 10/10/23 18:59 06:59 18:59 Output Total 500 350 Balance -500 -350 Output: Urine 500 350 Other: Voiding Method Urinal Urinal Urinal # Voids 3 1 - Labs CBC & Chem 7: 09/30/23 07:32 10/08/23 06:49 Labs: Abnormal Lab Results - Last 24 Hours (Table) 10/10/23 Range/Units 04:59 PT 14.3 H (10.0-12.5) sec INR 1.4 H (<1.2) Assessment and Plan Plan: Assessment: 1. Chronic kidney disease stage V. Creatinine 5.5 this admission - 6.0 today. Etiology is nephrosclerosis. CKD seems to have progressed as his creatinine in June 2023 was 4.3. No hydronephrosis noted on CAT scan. Atrophic kidneys. No paraprotein identified on immunofixation. Started on hemodialysis October 03, 2023. 2. Coagulopathy. Patient on Coumadin for DVT in A. fib. Improved. 3. History of A. fib maintained on amiodarone and beta abby. 4. Morbid obesity. 5. Chronic lymphedema. 6. Diabetes mellitus. 7. History of elevated light chains for which she was referred to hematology but never saw. 8. Anemia of chronic kidney disease. Iron replete. 9. Diarrhea. C. diff negative. Improved. 10. Acute COVID-19 infection. Plan: Hemodialysis today. He will be maintained on Tuesday schedule. Encouraged oral intake. Avoid nephrotoxins. Phosphorus level 4.1 dated 10/01/2023.
--- NOTE | 2023-10-10 11:13 | P.DS ---
Providers Date of admission: 09/30/23 12:06 Expected date of discharge: 10/10/23 Attending physician: Mike Carmona Consults: 09/29/23 18:48 Consult Physician Routine Consulting Provider: Valente Garcia Consult Reason/Comments: worsening renal failure Do you want consulting provider notified?: Yes, Notify in am 09/30/23 10:19 Consult Physician Routine Consulting Provider: Asher Kincaid Consult Reason/Comments: permanent cath for dialysis Do you want consulting provider notified?: Yes Primary care physician: Physician Nonstaff Hospital Course: Hospital Course: Patient is a 78-year-old male with a PMH of A. fib and PE on Coumadin, CKD, CHF, MAIKOL on CPAP, PVD with bilateral lower extremity lymphedema and chronic lower extremity wounds who presents to the emergency room with complaints of diarrhea and weakness. Patient reports he has been experiencing watery nonbloody and non-mucousy diarrhea for the past 1 week, 4-[address] abdomen and pelvis in the emergency room revealed a nonobstructing 6.4 mm right renal calculus with marked left hip osteoarthritic changes. Laboratory evaluation was remarkable for a woman 10.7, platelets 135, BUN 58, creatinine 5.49, COVID-19 PCR positive. 10/01/2023: Patient diarrhea is resolved. Has had one BM since last night. Appetite is good. Metamucil is being added. Patient looking to going for dialysis catheter placement tomorrow by Dr. Emery. INR is 7.2. Initially 2.5 mg of oral vitamin K was given. And subsequently IV piggyback 2.5 mg was also ordered. We will check INR later tonight. Discussed with Dr. Emery. Discussed with the patient and the nurse. 10/02/2023: Right IJ dialysis catheter placed per Dr. Emery. INR was down to 2.2 this morning. Nephrology discussed with the patient and patient agreeable to starting dialysis. Plan for dialysis tomorrow. October 03, 2023: Patient started on hemodialysis today. Half liter removed. Eating well. Edema present. INR being followed by pharmacy. October 04, 2023: Saw the patient this morning. Due for dialysis this afternoon. Eating well. No new issues. October 05, 2023: No dialysis today. Up in the chair. Comfortable. Tolerating diet. Outpatient dialysis being arranged. October 06, 2023: Comfortable. Tolerating diet. Requiring assistance. Looking at ECF placement. Appropriately get dialysis on Tuesday then be discharged. Discussed with geriatric case manager. October 07: Per geriatric case manager patient cannot be accommodated at [facility]. Looking at other places. Continue with dialysis schedule. Tolerating diet. October 08: Getting dialysis today. Tolerating diet. Looking for rehab placement. October 09: No new issues. Stable. Pending placement for rehab. October 10: Stable. Hemodialysis today. Communicated with geriatric case manager. Patient accepted at [facility]. No new issues. Tolerating diet well. Check INR in 2 days. 3 more days of Lovenox to overlap. Discussion and discharge planning more than 35 minutes On examination: VITAL SIGNS: 98, 63, 18, 114/61, 95% room air GENERAL APPEARANCE: In bed. Comfortable right IJ PermCath HEENT: Normal external appearance of nose and ear. Oral cavity normal EYES: Pupils equal. Conjunctiva normal. NECK: JVD not raised. Mass not palpable. RESPIRATORY: Respiratory effort normal. Lungs clear to auscultation. CARDIOVASCULAR: First and second sounds normal. Edema present ABDOMEN: Soft. Liver and spleen not palpable. No tenderness. No mass palpable. PSYCHIATRY: Alert and oriented x3. Mood and affect normal. INVESTIGATIONS, reviewed in the clinical context: October 10: INR 1.4 October 02: INR 2.2 potassium 4.3 creatinine 6 October 01: INR 7.2 BUN [address] abdomen and pelvis in the emergency room revealed a nonobstructing 6.4 mm rig ht renal calculus with marked left hip osteoarthritic changes. Assessment and plan: -Chronic kidney disease stage V. Creatinine 5.5 on admission. It was 4.3 in June 2023. Atrophic kidneys.: PermCath placed by Dr. Emery-right IJ. October 02. Patient had first hemodialysis October 03 -Coumadin coagulopathy. No bleeding.: Improved Follow INR -Atrial fibrillation On Coumadin. . Amiodarone. -Hyperlipidemia Lipitor -Chronic DVT and PE On Lovenox for 3 more days. To overlap. On Coumadin -Chronic obstructive sleep apnea CPAP -Nonhealing ulceration left lower extremity limited skin breakdown. Zinc with gauze and tape. Being followed by wound care team -Primary osteoarthritis Pain control when necessary -Chronic lymphedema lower extremity with venous stasis. -Full code Disposition: [facility] Labs: CBC, BMP: 2 days Plan - Discharge Summary Discharge Rx Participant: Yes New Discharge Prescriptions: New Enoxaparin [Lovenox] 150 mg SQ HS #3 each Psyllium Husk 100% [Metamucil Packet] 6 gm PO DAILY packet Midodrine [ProAmatine] 10 mg PO AC-TID PRN tab PRN Reason: Blood Pressure - Low Continue Warfarin [Coumadin] 2.5 mg PO SUMOWETHFRSA@2100 Citalopram Hydrobromide [CeleXA] 40 mg PO HS carvediloL [Coreg] 3.125 mg PO BID Atorvastatin [Lipitor] 20 mg PO HS Amiodarone HCl [Pacerone] 100 mg PO DAILY Ergocalciferol (Vitamin D2) [Drisdol (50,000 Iu)] 1,250 mcg PO TH Discontinued Furosemide [Lasix] 40 mg PO BID Discharge Medication List Warfarin [Coumadin] 2.5 mg PO SUMOWETHFRSA@2100 07/07/16 [History] Amiodarone HCl [Pacerone] 100 mg PO DAILY 09/29/23 [History] Atorvastatin [Lipitor] 20 mg PO HS 09/29/23 [History] Citalopram Hydrobromide [CeleXA] 40 mg PO HS 09/29/23 [History] Ergocalciferol (Vitamin D2) [Drisdol (50,000 Iu)] 1,250 mcg PO TH 09/29/23 [History] carvediloL [Coreg] 3.125 mg PO BID 09/29/23 [History] Enoxaparin [Lovenox] 150 mg SQ HS #3 each 10/10/23 [Rx] Midodrine [ProAmatine] 10 mg PO AC-TID PRN tab 10/10/23 [Rx] Psyllium Husk 100% [Metamucil Packet] 6 gm PO DAILY packet 10/10/23 [Rx] Follow up Appointment(s)/Referral(s): Inocencia Garza [place] [NON-STAFF] - 10/12/23 10:15 am (Hemodialysis on Mondays, Wednesdays, and Fridays. Chair time to be determined. ) Jermaine Padgett MD [REFERRING] - 1-2 Days (ECF please call for follow-up appointment.)
[2023-10-10] MEDS ORDERED: WARFARIN 2 MG TAB PO ONE (18:00)
--- NOTE | 2023-10-10 21:52 | P.PN ---
Progress Note - Text Progress Note Date: 10/10/23 Hospital Course: Patient is a 78-year-old male with a PMH of A. fib and PE on Coumadin, CKD, CHF, MAIKOL on CPAP, PVD with bilateral lower extremity lymphedema and chronic lower extremity wounds who presents to the emergency room with complaints of diarrhea and weakness. Patient reports he has been experiencing watery nonbloody and non-mucousy diarrhea for the past 1 week, 4-[address] abdomen and pelvis in the emergency room revealed a nonobstructing 6.4 mm right renal calculus with marked left hip osteoarthritic changes. Laboratory evaluation was remarkable for a woman 10.7, platelets 135, BUN 58, creatinine 5.49, COVID-19 PCR positive. 10/01/2023: Patient diarrhea is resolved. Has had one BM since last night. Appetite is good. Metamucil is being added. Patient looking to going for dialysis catheter placement tomorrow by Dr. Emery. INR is 7.2. Initially 2.5 mg of oral vitamin K was given. And subsequently IV piggyback 2.5 mg was also ordered. We will check INR later tonight. Discussed with Dr. Emery. Discussed with the patient and the nurse. 10/02/2023: Right IJ dialysis catheter placed per Dr. Emery. INR was down to 2.2 this morning. Nephrology discussed with the patient and patient agreeable to starting dialysis. Plan for dialysis tomorrow. October 03, 2023: Patient started on hemodialysis today. Half liter removed. Eating well. Edema present. INR being followed by pharmacy. October 04, 2023: Saw the patient this morning. Due for dialysis this afternoon. Eating well. No new issues. October 05, 2023: No dialysis today. Up in the chair. Comfortable. Tolerating diet. Outpatient dialysis being arranged. October 06, 2023: Comfortable. Tolerating diet. Requiring assistance. Looking at ECF placement. Appropriately get dialysis on Tuesday then be discharged. Discussed with rifle case repairer. October 07: Per rifle case repairer patient cannot be accommodated at [facility]. Looking at other places. Continue with dialysis schedule. Tolerating diet. October 08: Getting dialysis today. Tolerating diet. Looking for rehab placement. October 09: No new issues. Stable. Pending placement for rehab. October 10: Stable. Hemodialysis today. Communicated with rifle case repairer. Patient accepted at [facility]. No new issues. Tolerating diet well. Because of timing of hemodialysis today, patient cannot be transferred to rehab today. Active Medications Amiodarone HCl (Amiodarone 100 Mg Tab) 100 mg PO DAILY [facility] Last Admin: 10/10/23 08:46 Dose: 100 mg Atorvastatin Calcium (Atorvastatin 20 Mg Tab) 20 mg PO HS [facility] Last Admin: 10/09/23 20:16 Dose: 20 mg Carvedilol (Carvedilol 3.125 Mg Tab) 3.125 mg PO BID-W/MEALS [facility] Last Admin: 10/10/23 17:25 Dose: 3.125 mg Citalopram Hydrobromide (Citalopram Hydrobromide 20 Mg Tab) 40 mg PO HS [facility] Last Admin: 10/09/23 20:16 Dose: 40 mg Enoxaparin Sodium (Enoxaparin 150 Mg/Ml Syringe) 150 mg SQ HS [facility] Last Admin: 10/09/23 20:16 Dose: 150 mg Midodrine (Midodrine 5 Mg Tab) 10 mg PO AC-TID PRN PRN Reason: Blood Pressure - Low Last Admin: 10/10/23 19:48 Dose: 10 mg Miscellaneous Information (Warfarin Per Pharmacy) 0 each MISCELLANE DIRECTED PRN PRN Reason: ANTICOAGULATION Naloxone HCl (Naloxone 0.4 Mg/Ml 1 Ml Vial) 0.2 mg IV Q2M PRN PRN Reason: Opioid Reversal Ondansetron HCl (Ondansetron 4 Mg/2 Ml Vial) 4 mg IVP Q8HR PRN PRN Reason: Nausea And Vomiting Petrolatum (Zinc Oxide Paste (Z-Guard) 1 Applic) 1 applic TOPICAL Q2HR PRN; Protocol PRN Reason: Wound Healing Last Admin: 10/06/23 21:41 Dose: 1 applic Psyllium Hydrophilic Mucilloid (Psyllium Husk 100% 6 Gm Packet) 6 gm PO DAILY [facility] Last Admin: 10/10/23 08:47 Dose: Not Given On examination: VITAL SIGNS: 98, 63, 18, 114/61, 95% room air GENERAL APPEARANCE: In bed. Comfortable right IJ PermCath HEENT: Normal external appearance of nose and ear. Oral cavity normal EYES: Pupils equal. Conjunctiva normal. NECK: JVD not raised. Mass not palpable. RESPIRATORY: Respiratory effort normal. Lungs clear to auscultation. CARDIOVASCULAR: First and second sounds normal. Edema present ABDOMEN: Soft. Liver and spleen not palpable. No tenderness. No mass palpable. PSYCHIATRY: Alert and oriented x3. Mood and affect normal. INVESTIGATIONS, reviewed in the clinical context: October 10: INR 1.4 October 02: INR 2.2 potassium 4.3 creatinine 6 October 01: INR 7.2 BUN [address] abdomen and pelvis in the emergency room revealed a nonobstructing 6.4 mm right renal calculus with marked left hip osteoarthritic changes. Assessment and plan: -Chronic kidney disease stage V. Creatinine 5.5 on admission. It was 4.3 in June 2023. Atrophic kidneys.: PermCath placed by Dr. Emery-right IJ. October 02. Patient had first hemodialysis October 03 -Coumadin coagulopathy. No bleeding.: Improved Follow INR -Atrial fibrillation On Coumadin. . Amiodarone. -Hyperlipidemia Lipitor -Chronic DVT and PE On Lovenox for 3 more days. To overlap. On Coumadin -Chronic obstructive sleep apnea CPAP -Nonhealing ulceration left lower extremity limited skin breakdown. Zinc with gauze and tape. Being followed by wound care team -Primary osteoarthritis Pain control when necessary -Chronic lymphedema lower extremity with venous stasis. -Full code Disposition: [facility]
[2023-10-10] MEDS: ENOXAPARIN 150 MG/ML SYRINGE SQ SCH (22:38)
[2023-10-10] MEDS: ATORVASTATIN 20 MG TAB PO SCH (22:39)
[2023-10-10] MEDS: CITALOPRAM HYDROBROMIDE 20 MG TAB PO SCH (22:39)
[2023-10-11 07:13] LABS: INR 1.4 (<1.2); Prothrombin Time 14.8 sec (10.0-12.5)
[2023-10-11] MEDS: carvediloL 3.125 MG TAB PO SCH (08:14)
[2023-10-11] MEDS: AMIODARONE 100 MG TAB PO SCH (08:26)
[2023-10-11] MEDS: PSYLLIUM HUSK 100% 6 GM PACKET PO SCH (08:28)
[2023-10-11 08:47] VITALS: BP 95/58; PULSE 56; TEMP 97.4
--- NOTE | 2023-10-11 10:42 | P.DS ---
Providers Date of admission: 09/30/23 12:06 Expected date of discharge: 10/11/23 Attending physician: Mike Carmona Consults: 09/29/23 18:48 Consult Physician Routine Consulting Provider: Valente Garcia Consult Reason/Comments: worsening renal failure Do you want consulting provider notified?: Yes, Notify in am 09/30/23 10:19 Consult Physician Routine Consulting Provider: Asher Kincaid Consult Reason/Comments: permanent cath for dialysis Do you want consulting provider notified?: Yes Primary care physician: Physician Nonstaff Hospital Course: Hospital Course: Patient is a 78-year-old male with a PMH of A. fib and PE on Coumadin, CKD, CHF, MAIKOL on CPAP, PVD with bilateral lower extremity lymphedema and chronic lower extremity wounds who presents to the emergency room with complaints of diarrhea and weakness. Patient reports he has been experiencing watery nonbloody and non-mucousy diarrhea for the past 1 week, 4-[address] abdomen and pelvis in the emergency room revealed a nonobstructing 6.4 mm right renal calculus with marked left hip osteoarthritic changes. Laboratory evaluation was remarkable for a woman 10.7, platelets 135, BUN 58, creatinine 5.49, COVID-19 PCR positive. 10/01/2023: Patient diarrhea is resolved. Has had one BM since last night. Appetite is good. Metamucil is being added. Patient looking to going for dialysis catheter placement tomorrow by Dr. Emery. INR is 7.2. Initially 2.5 mg of oral vitamin K was given. And subsequently IV piggyback 2.5 mg was also ordered. We will check INR later tonight. Discussed with Dr. Emery. Discussed with the patient and the nurse. 10/02/2023: Right IJ dialysis catheter placed per Dr. Emery. INR was down to 2.2 this morning. Nephrology discussed with the patient and patient agreeable to starting dialysis. Plan for dialysis tomorrow. October 03, 2023: Patient started on hemodialysis today. Half liter removed. Eating well. Edema present. INR being followed by pharmacy. October 04, 2023: Saw the patient this morning. Due for dialysis this afternoon. Eating well. No new issues. October 05, 2023: No dialysis today. Up in the chair. Comfortable. Tolerating diet. Outpatient dialysis being arranged. October 06, 2023: Comfortable. Tolerating diet. Requiring assistance. Looking at ECF placement. Appropriately get dialysis on Tuesday then be discharged. Discussed with correctional case manager. October 07: Per correctional case manager patient cannot be accommodated at [facility]. Looking at other places. Continue with dialysis schedule. Tolerating diet. October 08: Getting dialysis today. Tolerating diet. Looking for rehab placement. October 09: No new issues. Stable. Pending placement for rehab. October 10: Stable. Hemodialysis today. Communicated with correctional case manager. Patient accepted at [facility]. No new issues. Tolerating diet well. October 11: Hemodialysis done yesterday. Stable. No new issues. Will be transferred to rehab today. Discussed with patient. On examination: VITAL SIGNS: 97.4, 56, 19, 95/58, 94% room air GENERAL APPEARANCE: In bed. Comfortable right IJ PermCath HEENT: Normal external appearance of nose and ear. Oral cavity normal EYES: Pupils equal. Conjunctiva normal. NECK: JVD not raised. Mass not palpable. RESPIRATORY: Respiratory effort normal. Lungs clear to auscultation. CARDIOVASCULAR: First and second sounds normal. Edema present ABDOMEN: Soft. Liver and spleen not palpable. No tenderness. No mass palpable. PSYCHIATRY: Alert and oriented x3. Mood and affect normal. INVESTIGATIONS, reviewed in the clinical context: October 11: INR 1.4 October 02: INR 2.2 potassium 4.3 creatinine 6 October 01: INR 7.2 BUN [address] abdomen and pelvis in the emergency room revealed a nonobstructing 6.4 mm right renal calculus with marked left hip osteoarthritic changes. Assessment and plan: -Chronic kidney disease stage V. Creatinine 5.5 on admission. It was 4.3 in June 2023. Atrophic kidneys.: PermCath placed by Dr. Emery-right IJ. October 02. Patient had first hemodialysis October 03 -Coumadin coagulopathy. No bleeding.: Improved Follow INR -Atrial fibrillation On Coumadin. . Amiodarone. -Hyperlipidemia Lipitor -Chronic DVT and PE On Lovenox for 3 more days. To overlap. On Coumadin -Chronic obstructive sleep apnea CPAP -Nonhealing ulceration left lower extremity limited skin breakdown. Zinc with gauze and tape. Being followed by wound care team -Primary osteoarthritis Pain control when necessary -Chronic lymphedema lower extremity with venous stasis. -Full code Disposition: [facility] Labs: INR, CBC, BMP: 2 days Plan - Discharge Summary Discharge Rx Participant: Yes New Discharge Prescriptions: New Enoxaparin [Lovenox] 150 mg SQ HS #3 each Psyllium Husk 100% [Metamucil Packet] 6 gm PO DAILY packet Midodrine [ProAmatine] 10 mg PO AC-TID PRN tab PRN Reason: Blood Pressure - Low Continue Warfarin [Coumadin] 2.5 mg PO SUMOWETHFRSA@2100 Citalopram Hydrobromide [CeleXA] 40 mg PO HS carvediloL [Coreg] 3.125 mg PO BID Atorvastatin [Lipitor] 20 mg PO HS Amiodarone HCl [Pacerone] 100 mg PO DAILY Ergocalciferol (Vitamin D2) [Drisdol (50,000 Iu)] 1,250 mcg PO TH Discontinued Furosemide [Lasix] 40 mg PO BID Discharge Medication List Warfarin [Coumadin] 2.5 mg PO SUMOWETHFRSA@2100 07/07/16 [History] Amiodarone HCl [Pacerone] 100 mg PO DAILY 09/29/23 [History] Atorvastatin [Lipitor] 20 mg PO HS 09/29/23 [History] Citalopram Hydrobromide [CeleXA] 40 mg PO HS 09/29/23 [History] Ergocalciferol (Vitamin D2) [Drisdol (50,000 Iu)] 1,250 mcg PO TH 09/29/23 [History] carvediloL [Coreg] 3.125 mg PO BID 09/29/23 [History] Enoxaparin [Lovenox] 150 mg SQ HS #3 each 10/10/23 [Rx] Midodrine [ProAmatine] 10 mg PO AC-TID PRN tab 10/10/23 [Rx] Psyllium Husk 100% [Metamucil Packet] 6 gm PO DAILY packet 10/10/23 [Rx] Follow up Appointment(s)/Referral(s): [facility] [NON-STAFF] - 10/12/23 10:15 am (Hemodialysis on Mondays, Wednesdays, and Fridays. Chair time to be determined. ) Jermaine Padgett MD [REFERRING] - 1-2 Days (ECF please call for follow-up appointment.)
[2023-10-11 10:45] VITALS: RESP 20
--- NOTE | 2023-10-11 10:59 | P.PN ---
Subjective Patient is seen in follow-up for acute kidney injury on chronic kidney disease. Resting in bed. Has been voiding. Oral intake fair. Hemodynamically stable. No active complaints. Vital signs are stable. General: No acute distress. HEENT: Head exam is unremarkable. LUNGS: No audible rhonchi or wheezes. HEART: Rate and Rhythm are regular. ABDOMEN: Nontender. EXTREMITITES: Trace edema. Lower extremities wrapped. Objective - Vital Signs Vital signs: Vital Signs Temp 97.4 F L 10/11/23 07:20 Pulse 56 L 10/11/23 07:20 Resp 20 10/11/23 10:37 BP 95/58 10/11/23 07:20 Pulse Ox 94 L 10/11/23 07:20 FiO2 Intake & Output 10/10/23 10/11/23 10/11/23 18:59 06:59 18:59 Intake Total 600 450 Output Total 1900 1 Balance -1300 449 Intake: Oral 450 Hemodialysis 600 Output: Urine 100 Stool 1 Hemodialysis 1800 Other: Voiding Method Urinal Urinal Urinal # Bowel Movements 1 1 - Labs CBC & Chem 7: 09/30/23 07:32 10/08/23 06:49 Labs: Abnormal Lab Results - Last 24 Hours (Table) 10/11/23 Range/Units 05:55 PT 14.8 H (10.0-12.5) sec INR 1.4 H (<1.2) Assessment and Plan Plan: Assessment: 1. Chronic kidney disease stage V. Creatinine 5.5 this admission - 6.0 today. Etiology is nephrosclerosis. CKD seems to have progressed as his creatinine in June 2023 was 4.3. No hydronephrosis noted on CAT scan. Atrophic kidneys. No paraprotein identified on immunofixation. Started on hemodialysis October 03, 2023. 2. Coagulopathy. Patient on Coumadin for DVT in A. fib. Improved. 3. History of A. fib maintained on amiodarone and beta abby. 4. Morbid obesity. 5. Chronic lymphedema. 6. Diabetes mellitus. 7. History of elevated light chains for which she was referred to hematology but never saw. 8. Anemia of chronic kidney disease. Iron replete. 9. Diarrhea. C. diff negative. Improved. 10. Acute COVID-19 infection. Plan: Hemodialysis tomorrow. He will be maintained on Tuesday schedule. Encouraged oral intake. Avoid nephrotoxins. Phosphorus level 4.1 dated 10/01/2023.
[2023-10-11] MEDS ORDERED: WARFARIN 7.5 MG TAB PO ONE (18:00)
== END 2023-10-11 12:54 | DRG 674 ==
LOC: EC 15:41 → 4SSUR 18:37 → OBSVTOIN 09-30 12:06 → 4SSUR 09-30 18:42
PROVIDERS: ADMIT Hospitalist; ATTEND Hospitalist
PROC: 0JH63XZ Insertion of Tunneled Vascular Access Device into Chest Subcutaneous Tissue and Fascia, Percutaneous Approach (ICD-10-PCS; principal; 2023-10-03)
PROC: 5A1D70Z Performance of Urinary Filtration, Intermittent, Less than 6 Hours Per Day (ICD-10-PCS; 2023-10-03)
PROC: 02HV33Z Insertion of Infusion Device into Superior Vena Cava, Percutaneous Approach (ICD-10-PCS; 2023-10-03)
PROC: B5181ZA Fluoroscopy of Superior Vena Cava using Low Osmolar Contrast, Guidance (ICD-10-PCS; 2023-10-03)
PROC: B548ZZA Ultrasonography of Superior Vena Cava, Guidance (ICD-10-PCS; 2023-10-03)
DX: N17.9 Acute kidney failure, unspecified (principal); D68.9 Coagulation defect, unspecified; I13.2 Hypertensive heart and chronic kidney disease with heart failure and with stage 5 chronic kidney disease, or end stage renal disease; L97.921 Non-pressure chronic ulcer of unspecified part of left lower leg limited to breakdown of skin; I87.332 Chronic venous hypertension (idiopathic) with ulcer and inflammation of left lower extremity; N39.0 Urinary tract infection, site not specified; N18.6 End stage renal disease; E11.22 Type 2 diabetes mellitus with diabetic chronic kidney disease; G47.33 Obstructive sleep apnea (adult) (pediatric); I50.9 Heart failure, unspecified; I48.91 Unspecified atrial fibrillation; Z86.711 Personal history of pulmonary embolism; D63.1 Anemia in chronic kidney disease; I89.0 Lymphedema, not elsewhere classified; E66.01 Morbid (severe) obesity due to excess calories; E11.622 Type 2 diabetes mellitus with other skin ulcer; Z79.01 Long term (current) use of anticoagulants; E78.5 Hyperlipidemia, unspecified; I87.8 Other specified disorders of veins; Z11.52 Encounter for screening for COVID-19; D69.6 Thrombocytopenia, unspecified; U09.9 Post COVID-19 condition, unspecified; K52.9 Noninfective gastroenteritis and colitis, unspecified; M16.12 Unilateral primary osteoarthritis, left hip; N20.0 Calculus of kidney; T45.515A Adverse effect of anticoagulants, initial encounter; X58.XXXA Exposure to other specified factors, initial encounter; Z66 Do not resuscitate; Z79.899 Other long term (current) drug therapy; Z75.1 Person awaiting admission to adequate facility elsewhere; Z85.828 Personal history of other malignant neoplasm of skin; Z86.718 Personal history of other venous thrombosis and embolism; Z99.2 Dependence on renal dialysis; R53.1 Weakness; Z88.5 Allergy status to narcotic agent; E11.51 Type 2 diabetes mellitus with diabetic peripheral angiopathy without gangrene; I87.321 Chronic venous hypertension (idiopathic) with inflammation of right lower extremity; I87.322 Chronic venous hypertension (idiopathic) with inflammation of left lower extremity; Z98.42 Cataract extraction status, left eye; Z98.41 Cataract extraction status, right eye
CPT/HCPCS: 36415; 36556; 74176; 76937; 77001; 80048; 80053; 81001; 82728; 83540; 83550; 83690; 83735; 83883; 84100; 84165; 85025; 85610; 85730; 86334; 86335; 86704; 86706; 87045; 87046; 87324; 87340; 87636; 90935; 96360; 96361; 99285

== ENCOUNTER 2024-05-07 02:47 | Emergency (ER) | payer MEDICARE, BC ==
--- NOTE | 2024-05-07 03:59 | ED ---
Abdominal Pain HPI - General Chief Complaint: Abdominal Pain Stated Complaint: Constipation, Abdominal Pain Time Seen by Provider: 05/07/24 03:07 Source: EMS, RN notes reviewed, old records reviewed Mode of arrival: EMS Limitations: no limitations - History of Present Illness Initial Comments: This is a 79-year-old male to the ER for evaluation patient presents today for evaluation of left-sided flank pain, this patient presents ER for evaluation of generalized abdominal pain severe abdominal pain shaking fullness bloating. History of same. Patient has dialysis had dialysis Tuesday schedule for dialysis tomorrow MD Complaint: abdominal pain -: days(s) Location: diffuse, epigastric, suprapubic Radiation: epigastric, suprapubic Migration to: epigastric, suprapubic Severity: severe Severity scale (1-10): 8 Quality: stabbing, aching Consistency: constant Improves With: nothing Worsens With: nothing Associated Symptoms: nausea, vomiting Treatments Prior to Arrival: NSAIDs - Related Data Home Medications Medication Instructions Recorded Confirmed Warfarin [Coumadin] 2.5 mg PO SUMOWETHFRSA@2100 07/07/16 09/29/23 Amiodarone HCl [Pacerone] 100 mg PO DAILY 09/29/23 09/29/23 Atorvastatin [Lipitor] 20 mg PO HS 09/29/23 09/29/23 Citalopram Hydrobromide [CeleXA] 40 mg PO HS 09/29/23 09/29/23 Ergocalciferol (Vitamin D2) 1,250 mcg PO TH 09/29/23 09/29/23 [Drisdol (50,000 Iu)] carvediloL [Coreg] 3.125 mg PO BID 09/29/23 09/29/23 Previous Rx's Medication Instructions Recorded Enoxaparin [Lovenox] 150 mg SQ HS #3 each 10/10/23 Midodrine [ProAmatine] 10 mg PO AC-TID PRN tab 10/10/23 Psyllium Husk 100% [Metamucil 6 gm PO DAILY packet 10/10/23 Packet] Allergies Allergy/AdvReac Type Severity Reaction Status Date / Time tramadol AdvReac Unknown Verified 09/29/23 18:26 Review of Systems ROS Statement: Those systems with pertinent positive or pertinent negative responses have been documented in the HPI. ROS Other: All systems not noted in ROS Statement are negative. Past Medical History Past Medical History: Atrial Fibrillation, Cancer, Heart Failure, Deep Vein Thrombosis (DVT), Osteoarthritis (OA), Pulmonary Embolus (PE), Sleep Apnea/CPAP/BIPAP, Vascular Disorder Additional Past Medical History / Comment(s): L leg injuries, HX of DVT left leg 1995-traveled to [facility], PVD/venous stasis, chronic lymphedema legs, cellulitis L leg, past bilateral lower leg wounds-current wound lower left leg, MAIKOL with Cpap use, basal cell cancer removed from bilateral arms/nose. History of Any Multi-Drug Resistant Organisms: None Reported Past Surgical History: Tonsillectomy Additional Past Surgical History / Comment(s): skin cancer removed from prakash arms and nose, prakash cataracts Past Anesthesia/Blood Transfusion Reactions: No Reported Reaction Additional Past Anesthesia/Blood Transfusion Reaction / Comment(s): . Past Psychological History: No Psychological Hx Reported Smoking Status: Never smoker Past Alcohol Use History: None Reported Past Drug Use History: None Reported - Past Family History Father Family Medical History: Cancer Additional Family Medical History / Comment(s): Father had kidney and colon cancers with surgeries. Mother Family Medical History: Eye Disorder, Osteoarthritis (OA) Additional Family Medical History / Comment(s): Mother had macular degeneration. General Exam General appearance: alert, in no apparent distress Head exam: Present: atraumatic, normocephalic, normal inspection Eye exam: Present: normal appearance, PERRL, EOMI. Absent: scleral icterus, conjunctival injection, periorbital swelling ENT exam: Present: normal exam, mucous membranes moist Neck exam: Present: normal inspection. Absent: tenderness, meningismus, lymphadenopathy Respiratory exam: Present: normal lung sounds bilaterally. Absent: respiratory distress, wheezes, rales, rhonchi, stridor Cardiovascular Exam: Present: regular rate, normal rhythm, normal heart sounds. Absent: systolic murmur, diastolic murmur, rubs, gallop, clicks GI/Abdominal exam: Present: soft, normal bowel sounds. Absent: distended, tenderness, guarding, rebound, rigid Extremities exam: Present: normal inspection, full ROM, normal capillary refill. Absent: tenderness, pedal edema, joint swelling, calf tenderness Back exam: Present: normal inspection Neurological exam: Present: alert, oriented X3, CN II-XII intact Psychiatric exam: Present: normal affect, normal mood Skin exam: Present: warm, dry, intact, normal color. Absent: rash Course Vital Signs 05/07/24 05/07/24 05/07/24 02:55 04:36 06:32 Temperature 97.8 F Pulse Rate 66 67 73 Respiratory 18 20 20 Rate Blood Pressure 100/54 114/48 129/61 O2 Sat by Pulse 96 96 Oximetry 05/07/24 07:45 Temperature 97.7 F Pulse Rate 66 Respiratory 19 Rate Blood Pressure 120/58 O2 Sat by Pulse 95 Oximetry - Reevaluation(s) Reevaluation #1: 05/07/24 05:26 Medical records reviewed Reevaluation #2: 05/07/24 05:26 Patient symptoms improved Reevaluation #3: 05/07/24 05:26 Informed of results questions answered Reevaluation #4: Was pt. sent in by a medical professional or institution ([facility], [employer], urgent care, hospital, or usp...) When possible be specific @ -no Did you speak to anyone other than the patient for history (EMS, parent, family, police, friend...)? What history was obtained from this source @ -no Did you review nursing and triage notes (agree or disagree)? Why? @ -agree Are old charts reviewed (outside hosp., previous admission, EMS record, old EKG, old radiological studies, urgent care reports/EKG's, usp records)? Report findings @ -yes Differential Diagnosis (chest pain, altered mental status, abdominal pain women, abdominal pain men, vaginal bleeding, weakness, fever, dyspnea, syncope, headache, dizziness, GI bleed, back pain, seizure, CVA, palpatations, mental health, musculoskeletal)? @ -prior EKG interpreted by me (3pts min.). @ -yes X-rays interpreted by me (1pt min.). @ -no CT interpreted by me (1pt min.). @ -yes negative for acute disease U/S interpreted by me (1pt. min.). @ -no What testing was considered but not performed or refused? (CT, X-rays, U/S, labs)? Why? @ -none What meds were considered but not given or refused? Why? @ -none Did you discuss the management of the patient with other professionals (professionals i.e. Dr., PA, [employer], lab, RT, psych nurse, social media manager, smudger, teacher, commercial credit officer, egg caser)? Give summary @ -no Was smoking cessation discussed for >3mins.? @ -no Was critical care preformed (if so, how long)? @ -no Were there social determinants of health that impacted care today? How? (Marce elessness, low income, unemployed, alcoholism, drug addiction, transportation, low edu. Level, literacy, decrease access to med. care, long term, rehab)? @ -none Was there de-escalation of care discussed even if they declined (Discuss DNR or withdrawal of care, Hospice)? DNR status @ -no What co-morbidities impacted this encounter? (DM, HTN, Smoking, COPD, CAD, Cancer, CVA, ARF, Chemo, Hep., AIDS, mental health diagnosis, sleep apnea, morbid obesity)? @ -none Was patient admitted / discharged? Hospital course, mention meds given and route, prescriptions, significant lab abnormalities, going to OR and other pertinent info. @ - 79 male to ER with abdominal pain. Nonspecific abdominal pain with no lab or imaging findings here in the ER patient feels well and can be discharged home Discharge Undiagnosed new problem with uncertain prognosis? @ -no Drug Therapy requiring intensive monitoring for toxicity (Heparin, Nitro, Insulin, Cardizem)? @ -no Were any procedures done? @ -no Diagnosis/symptom? @ -Abdominal pain Acute, or Chronic, or Acute on Chronic? @ -Acute Uncomplicated (without systemic symptoms) or Complicated (systemic symptoms)? @ -Complicated Side effects of treatment? @ -no Exacerbation, Progression, or Severe Exacerbation? @ -exacerbation Poses a threat to life or bodily function? How? (Chest pain, USA, MA, pneumonia, PE, COPD, DKA, ARF, appy, cholecystitis, CVA, Diverticulitis, Homicidal, Suicidal, threat to staff... and all critical care pts) @ -yes extremes of age Reevaluation #5: Differential Abdominal Pain Men: Appendicitis, cholecystitis, diverticulosis, ischemic bowel, pancreatitis, hepatitis, UTI, gastroenteritis, AAA, incarcerated hernia, bowel obstruction, constipation, inflammatory bowel, hepatitis, peptic ulcer disease, splenic infarction, perforated viscus, testicular torsion, this is not meant to be an all-inclusive list Medical Decision Making - Medical Decision Making 79 male to ER with abdominal pain. Nonspecific abdominal pain with no lab or imaging findings here in the ER patient feels well and can be discharged home - Lab Data Result diagrams: 05/07/24 04:36 05/07/24 04:36 Lab Results 05/07/24 05/07/24 Range/Units 04:36 04:36 WBC 5.1 (3.8-10.6) k/uL RBC 3.85 L (4.30-5.90) m/uL Hgb 12.1 L (13.0-17.5) gm/dL Hct 38.7 L (39.0-53.0) % MCV 100.6 H (80.0-100.0) fL MCH 31.4 (25.0-35.0) pg MCHC 31.2 (31.0-37.0) g/dL RDW 14.7 (11.5-15.5) % Plt Count 133 L (150-450) k/uL MPV 9.4 Neutrophils % 54 % Lymphocytes % 26 % Monocytes % 9 % Eosinophils % 9 % Basophils % 0 % Neutrophils # 2.7 (1.3-7.7) k/uL Lymphocytes # 1.3 (1.0-4.8) k/uL Monocytes # 0.4 (0-1.0) k/uL Eosinophils # 0.5 (0-0.7) k/uL Basophils # 0.0 (0-0.2) k/uL Hypochromasia Slight Macrocytosis Slight Sodium 136 L (137-145) mmol/L Potassium 3.8 (3.5-5.1) mmol/L Chloride 98 (98-107) mmol/L Carbon Dioxide 31 H (22-30) mmol/L Anion Gap 7 mmol/L BUN 34 H (9-20) mg/dL Creatinine 4.38 H (0.66-1.25) mg/dL Est GFR (CKD-EPI)AfAm 14 (>60 ml/min/1.73 sqM) Est GFR (CKD-EPI)NonAf 12 (>60 ml/min/1.73 sqM) Glucose 77 (74-99) mg/dL Calcium 9.0 (8.4-10.2) mg/dL Total Bilirubin 1.4 H (0.2-1.3) mg/dL AST 34 (17-59) U/L ALT 25 (4-49) U/L Alkaline Phosphatase 124 (38-126) U/L Total Protein 6.4 (6.3-8.2) g/dL Albumin 3.6 (3.5-5.0) g/dL Amylase 37 (30-110) U/L Lipase 87 (23-300) U/L - Radiology Data Radiology results: report reviewed (CT abdomen pelvis is negative for acute disease), image reviewed Disposition Clinical Impression: Abdominal pain Disposition: HOME SELF-CARE Condition: Good Instructions (If sedation given, give patient instructions): Abdominal Pain (ED) Is patient prescribed a controlled substance at d/c from ED?: No Referrals: Fifi Pollard DO [Primary Care Provider] - 1-2 days Time of Disposition: 06:30
[2024-05-07] MEDS: SODIUM CHLORIDE 0.9% 1,000 ML IV STA (04:39)
[2024-05-07] MEDS: HYDROmorphone 1 MG/ML 1 ML SYRINGE IVP STA (04:39)
[2024-05-07 05:25] LABS: Basophils % (A) 0 %; Eosinophils # (A) 0.5 k/uL (0-0.7); Eosinophils % (A) 9 %; HCT 38.7 % (39.0-53.0); HGB 12.1 gm/dL (13.0-17.5); Hypochromasia Slight; Lymphocytes # (A) 1.3 k/uL (1.0-4.8); Lymphocytes % (A) 26 %; MCH 31.4 pg (25.0-35.0); MCHC 31.2 g/dL (31.0-37.0); MCV 100.6 fL (80.0-100.0); Macrocytosis Slight; Mean Platelet Volume 9.4; Monocytes # (A) 0.4 k/uL (0-1.0); Monocytes % (A) 9 %; Neutrophils # (A) 2.7 k/uL (1.3-7.7); Neutrophils % (A) 54 %; Platelet Count 133 k/uL (150-450); RBC 3.85 m/uL (4.30-5.90); RDW 14.7 % (11.5-15.5); WBC 5.1 k/uL (3.8-10.6)
[2024-05-07 06:23] LABS: ALT 25 U/L (4-49); AST 34 U/L (17-59); African American GFR (CKD) 14 (>60 ml/min/1.73 sqM); Albumin 3.6 g/dL (3.5-5.0); Alkaline Phosphatase 124 U/L (38-126); Amylase 37 U/L (30-110); Anion Gap 7 mmol/L; Blood Urea Nitrogen 34 mg/dL (9-20); Carbon Dioxide 31 mmol/L (22-30); Chloride 98 mmol/L (98-107); Glucose 77 mg/dL (74-99); Lipase 87 U/L (23-300); Non-African American GFR(CKD) 12 (>60 ml/min/1.73 sqM); Potassium 3.8 mmol/L (3.5-5.1); Sodium 136 mmol/L (137-145); Total Bilirubin 1.4 mg/dL (0.2-1.3); Total Protein 6.4 g/dL (6.3-8.2)
[2024-05-07 07:48] VITALS: BP 120/58; PULSE 66; RESP 19; TEMP 97.7
== END 2024-05-07 08:00 | disposition home or self-care (01) ==
LOC: EC 02:47
CPT/HCPCS: 36415; 74176; 80053; 82150; 83690; 85025; 96361; 96374; 99284